=== PATIENT | female | born 1960 | race African-American/Black ===

== ENCOUNTER 2017-01-19 10:45 | Inpatient (IN) | payer OTHER ==
[2017-01-19] MEDS ORDERED: HEMOQUE TEST 1 EACH EACH ONE (11:20)
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
[2017-01-19] MEDS ORDERED: SODIUM CHLORIDE 1,000 ML IV SCH ×2 (11:45→14:30)
[2017-01-19] MEDS ORDERED: ASPIRIN 300 MG SUPP.RECT RC ONE (12:26)
[2017-01-19 12:46] LABS: MCH 29.5 pg (25.7-33.7); MEAN CELL VOLUME 86.9 fl (80-96); MEAN PLT VOLUME 8.5 fl (7.5-11.1); PLATELET COUNT 425 K/MM3 (134-434); RDW 17.4 % (11.6-15.6)
[2017-01-19 12:49] LABS: WHITE BLOOD COUNT 31.8 K/mm3 (4.0-10.0)
[2017-01-19] MEDS ORDERED: METRONIDAZOLE 500 MG PREMIXED 100 ML IVPB ONE ×2 (12:56→13:15)
[2017-01-19] MEDS ORDERED: ASPIRIN 300 MG SUPP.RECT PR ONE (12:56)
[2017-01-19 13:00] LABS: INR 1.31 (0.82-1.09); PROTHROMBIN TIME (PATIENT) 14.5 SEC (9.98-11.88)
[2017-01-19] MEDS ORDERED: SODIUM CHLORIDE 500 ML IV STA ×2 (13:02→13:50)
[2017-01-19 13:12] LABS: ALBUMIN 1.2 g/dl (3.4-5.0); ANION GAP 19 (8-16); CALCIUM 8.7 mg/dL (8.5-10.1); CHOLESTEROL 133 mg/dL (50-200); CO2 25 mmol/L (21-32); GLUCOSE,RANDOM 82 mg/dL (74-106); SGPT/ALT 25 U/L (12-78)
[2017-01-19 13:15] LABS: URINE APPEARANCE SLCLOUDY; URINE BILIRUBIN NEGATIVE (NEGATIVE); URINE BLOOD NEGATIVE (NEGATIVE); URINE COLOR AMBER; URINE GLUCOSE (UA) NEGATIVE (NEGATIVE); URINE KETONE NEGATIVE (NEGATIVE); URINE NITRITE NEGATIVE (NEGATIVE); URINE PROTEIN NEGATIVE (NEGATIVE); URINE UROBILINOGEN NEGATIVE E.U./dl (0.2-1.0)
[2017-01-19 13:19] LABS: URINE LEUK ESTERASE TRACE (NEGATIVE)
[2017-01-19 13:19] LABS: ALLENS TEST POSITIVE; ART PUNCT SITE RIGHT RADIAL; ARTERIAL BLD GAS O2 SATURATION 94.5 % (90-98.9); ARTERIAL BLOOD GAS BASE EXCESS 2.6 meq/l (-2-2); ARTERIAL BLOOD GAS HCO3 26.6 meq/L (22-26); ARTERIAL BLOOD GAS PO2 77.9 mmHg (80-100); ARTERIAL BLOOD GAS pH 7.43 (7.35-7.45); LPM/O2% 4.5 L; PT. ON O2? YES; TYPE OF O2 N/C
[2017-01-19 13:20] LABS: ALK PHOS 297 U/L (45-117); BILIRUBIN,TOTAL 2.4 mg/dL (0.2-1.0); LDL CHOLESTEROL (ONLY SJRH) 93 mg/dL (5-100); TOT PROT 6.5 g/dl (6.4-8.2); TROPONIN I < 0.02 ng/ml (0.00-0.05)
[2017-01-19 13:24] LABS: URINE HYALINE CAST 53 /lpf; URINE MUCUS RARE; URINE RBC 1 /hpf (0-3); URINE WBC 8 /hpf (3-5); YEAST RARE
[2017-01-19 13:24] LABS: METAMYELOCYTE 5 % (0-2)
[2017-01-19 13:25] LABS: PLATELET ESTIMATE ADEQUATE (NORMAL)
[2017-01-19 13:30] LABS: CREATININE 8.9 mg/dL (0.55-1.02); SGOT/AST 140 U/L (15-37)
[2017-01-19] MEDS ORDERED: PIPERACILLIN/TAZOB 2.25 GM 2.25 GM in DEXTROSE 5%-WATER - 50 ML IVPB ONE (13:34)
[2017-01-19] MEDS ORDERED: VANCOMYCIN 1,500 MG in DEXTROSE 5%-WATER - 500 ML IVPB ONE (13:35)
--- NOTE | 2017-01-19 14:24 | CONSULT ---
Consult Consult Specialty:: Neurology Reason for Consultation:: Altered mental status - History of Present Illness History of Present Illness: 56 year old woman, history of hypertension, hyperlipidemia, COPD, epilepsy, schizoaffective disorder, CKD, gout last known normal yesterday, presented to ED with altered mental status. The patient was recently admitted to [facility] for pneumonia and septic shock; she was discharged on 12/30/16 to [facility]. Per EMS, the patient was at her baseline last night, which is alert and oriented, however has been altered since today. Neurology consult placed for possible stroke- as per ED attending patient noted to have right gaze preference and right side weakness. CT head showed no acute findings. Laboratory data shows wbc 31, cr 8.9 Exam limited due to mental status - Past Medical History Cardio/Vascular: Yes: HTN Renal/: Yes: Renal Inusuff Psych: Yes: Depression Musculoskeletal: Yes: Chronic low back pain Rheumatology: Yes: Gout - Alcohol/Substance Use Hx Alcohol Use: Yes History of Substance Use: reports: Cocaine - Smoking History Smoking history: Former smoker Have you smoked in the past 12 months: No If you are a former smoker, when did you quit?: 2001 - Social History Usual Living Arrangement: Alone Home Medications - Allergies Allergies/Adverse Reactions: Allergies Allergy/AdvReac Type Severity Reaction Status Date / Time haloperidol [From Haldol] Allergy Mild itchings, Verified 01/19/17 11:18 stiffness seasonal Allergy Mild itch/rash Uncoded 01/19/17 11:18 - Home Medications Home Medications: Ambulatory Orders Aspirin [ASA -] 81 mg PO DAILY 12/21/16 Diphenhydramine HCl [Benadryl Capsule -] 25 mg PO Q6H 12/21/16 Divalproex [Depakote -] 500 mg PO BID 12/21/16 Folic Acid 1 mg PO DAILY 12/21/16 Furosemide [Lasix] 40 mg PO DAILY 12/21/16 Loratadine [Claritin] 10 mg PO DAILY 12/21/16 Montelukast Na [Singulair -] 10 mg PO HS 12/21/16 Multivitamin [Poly-Vitamin] 1 each PO DAILY 12/21/16 Propranolol HCl 20 mg PO DAILY 12/21/16 Albuterol 0.083% Nebulizer Adry [Ventolin 0.083% Nebulizer Soln -] 1 neb NEB Q6H PRN 12/23/16 Gabapentin [Neurontin -] 400 mg PO Q8H 12/23/16 Insulin Glargine,Hum.rec.anlog [Lantus (10mL VIAL) -] 34 units SQ HS 12/23/16 Mupirocin Ointment [Bactroban 2% Ointment -] 1 applic TP TID 12/23/16 Nebulizer [Nasoneb Nasal Nebulizer] 1 each MC BID 12/23/16 Travoprost [Travatan Z] 1 HS 12/23/16 Oxycodone HCl 10 mg PO TID PRN 12/27/16 Aripiprazole [Abilify -] 10 mg PO DAILY tablet 12/29/16 Chlorhexidine Gluconate [Hibiclens For Decolonization -] 1 applic TP HS bottle 12/29/16 Lactobacillus Acidophilus [Acidophilus Lactobacillus] 1 each PO BID 30 Days 12/14 Metronidazole [Flagyl -] 500 mg PO TID tablet 12/29/16 Prednisone [Deltasone -] 30 mg PO DAILY tablet 12/29/16 Ranitidine [Zantac -] 150 mg PO BID tablet 12/29/16 Salmeterol/Fluticasone [Advair 100Mcg/50Mcg -] 1 puff IH BID inhaler 12/29/16 Valsartan [Diovan] 320 mg PO DAILY tablet 12/29/16 Venlafaxine HCl ER [Effexor Xr -] 150 mg PO DAILY cap.er.24h 12/29/16 Family Disease History - Family Disease History Family History: Unable to Obtain Family Disease History: Diabetes: Father, Heart Disease: Mother Review of Systems Unable to obtain ROS, reason: due to mental status Physical Exam Vital Signs: Vital Signs Temperature 98.5 F 01/19/17 11:15 Pulse Rate 102 H 01/19/17 11:15 Respiratory Rate 16 01/19/17 11:15 Blood Pressure 101/75 01/19/17 11:15 O2 Sat by Pulse Oximetry (%) 85 L 01/19/17 11:15 Constitutional: Yes: No Distress Eyes: Yes: Conjunctiva Clear HENT: Yes: Atraumatic, Normocephalic Cardiovascular: Yes: S1, S2 Neurological: Yes: Other (opens eyes to sternal rub, briefly followed simple command of showing two fingers corneal intact bilaterally, roving eye movements seen no obvious facial weakness difficult to examine due to mental status, does withdraw to noxious stimuli in all ext but appears to localize left> right?) Labs: CBC, BMP 01/19/17 12:19 Assessment/Plan 56 year old woman, history of hypertension, hyperlipidemia, COPD, epilepsy, schizoaffective disorder, CKD, gout last known normal yesterday, presented to ED with altered mental status. Neurology consult placed for possible stroke- as per ED attending patient noted to have right gaze preference and right side weakness. CT head showed no acute findings. Laboratory data shows wbc 31, cr 8.9 CT head no acute findings Possible stroke, metabolic encephalopathy Recommend MRI brain to determine if new stroke seen, further recs depending on MRI Infectious workup Continue supportive care
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
--- NOTE | 2017-01-19 15:45 | PN ---
Teaching Attending Note Name of Resident: Brodie Alas ATTENDING PHYSICIAN STATEMENT I saw and evaluated the patient. I reviewed the resident's note and discussed the case with the resident. I agree with the resident's findings and plan as documented. SUBJECTIVE: This is a 56-year-old woman with significant past medical history of HTN, hyperlipidemia, COPD, seizures, schizoaffective disorder, CAD, and gout who was sent to the ER from [facility] because of altered mental status. She had been admitted 12/21-12/30 with sepsis, pneumonia and C. difficile colitis. OBJECTIVE: Vital Signs Period Temp Pulse Resp BP Sys/Chahal Pulse Ox Last 24 Hr 98.5 F 96-102 14-16 101-128/72-102 85-92 HEART: S1 S2, RRR LUNGS: Clear ABDOMEN: Obese, soft, non-distended, normal BS, no apparent tenderness EXTREMITIES: 1+ edema, fluctuant nodular lesions over left medial malleolus and left 1st MTP joint ASSESSMENT AND PLAN: 1. Severe sepsis - Possible pneumonia, possible C. diff colitis - Zosyn, Vancomycin, Flagyl given in ER - IV fluid - Recheck lactic acid - ID consult 2. Acute kidney injury secondary to dehydration and sepsis - IV fluid - Hold Lasix - Monitor BUN, creatinine - Nephrology consult 3. Acute metabolic encephalopathy secondary to sepsis and DOMINIC 4. Hypertension - Hold antihypertensives secondary to hypotension 5. Hyperlipidemia 6. Seizure disorder - Continue Depakote 7. Schizoaffective disorder - Continue Depakote, Abilify, Effexor 8. CAD - Continue aspirin 9. COPD - Stable 10. History of gout
--- NOTE | 2017-01-19 16:04 | EKG ---
Test Reason : Blood Pressure : / mmHG Vent. Rate : 099 BPM Atrial Rate : 099 BPM P-R Int : 156 ms QRS Dur : 094 ms QT Int : 358 ms P-R-T Axes : 039 -10 011 degrees QTc Int : 459 ms NORMAL SINUS RHYTHM MODERATE VOLTAGE CRITERIA FOR LVH, MAY BE NORMAL VARIANT BORDERLINE ECG WHEN COMPARED WITH ECG OF 24-DEC-2016 22:57, T WAVE INVERSION NO LONGER EVIDENT IN ANTERIOR LEADS Confirmed by TOSHA CAIN MD ([id number]) on 01/19/2017 4:04:36 PM Referred By: Confirmed By:TOSHA CAIN MD
--- NOTE | 2017-01-19 16:20 | PN ---
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 (short form) - Note 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: ID consult dictated imp/reccd 56 year old woman admitted from [facility]- she was hospitalized 12/21 to 12/30 with CAP and renal failure, she had an episode of gout prior to d/c to SNF, llabs 01/10 at [place] with bun/cr- 20/ 2.7 wbc of 15k she was started on AUgmentin at the [facility] 01/13 for URI this am she was noted to be lethargic at the snf and sent to the ED here she was found to be hypotensive, lethargic, with wbc of 30k and cr of 8.9 lactic acid was 1.9 SEPSIS Acute renal failure she received vanco/zosyn/flagyl in ED receiving IVF- now more alert ?source will send for ct scan of chest/abd/pelvis legionella urinary antigen continue zosyn/flagyl stool cdiff xray left foot- two fluctuant painful areas- ?prior gout, ?abscess vanco trough in am check uric acid levaquin one dose pending legionella urinary antigen icu monitoring
[2017-01-19] MEDS ORDERED: LEVOFLOXACIN 500 MG IVPB 100 ML IVPB ONE (17:57)
[2017-01-19 18:02] VITALS: BMI 30.8
--- NOTE | 2017-01-19 18:13 | CONSULT ---
Consultation: REQUESTING PROVIDER: Dr. Michele CONSULT REQUEST: We have been asked to medically evaluate this patient for ICU care HISTORY OF PRESENT ILLNESS: 56 yo M w/ h/o HTN, HLD, COPD, seziures, schizoaffective d/o, CKD, CAD, gout BIBEMS from senior care to the ED for AMS. Per ED chart, patient was treated for septic shock 2/2 pneumonia and discharged to senior care on 12/30/16. Today, she's found to be confused and unarousable. REVIEW OF SYSTEMS (Unable to assess due to AMS): CONSTITUTIONAL: Absent: fever, chills, diaphoresis, generalized weakness, malaise, loss of appetite, weight change HEENT: Absent: rhinorrhea, nasal congestion, throat pain, throat swelling, difficulty swallowing, mouth swelling, ear pain, eye pain, visual changes CARDIOVASCULAR: Absent: chest pain, syncope, palpitations, irregular heart rate, lightheadedness , peripheral edema RESPIRATORY: Absent: cough, shortness of breath, dyspnea with exertion, orthopnea, wheezing, stridor, hemoptysis GASTROINTESTINAL: Absent: abdominal pain, abdominal distension, nausea, vomiting, diarrhea, constipation, melena, hematochezia GENITOURINARY: Absent: dysuria, frequency, urgency, hesitancy, hematuria, flank pain, genital pain MUSCULOSKELETAL: Absent: myalgia, arthralgia, joint swelling, back pain, neck pain SKIN: Absent: rash, itching, pallor HEMATOLOGIC/IMMUNOLOGIC: Absent: easy bleeding, easy bruising, lymphadenopathy, frequent infections ENDOCRINE: Absent: unexplained weight gain, unexplained weight loss, heat intolerance, cold intolerance NEUROLOGIC: Absent: headache, focal weakness or paresthesias, dizziness, unsteady gait, seizure, mental status changes, bladder or bowel incontinence PSYCHIATRIC: Absent: anxiety, depression, suicidal or homicidal ideation, hallucinations. PHYSICAL EXAMINATION Vital Signs Temperature 98.5 F 01/19/17 11:15 Pulse Rate 96 H 01/19/17 15:30 Respiratory Rate 20 01/19/17 15:30 Blood Pressure 98/64 01/19/17 15:30 O2 Sat by Pulse Oximetry (%) 92 L 01/19/17 15:30 GENERAL: unarousable, lethargic, open eyes minimally and briefly, eyes rolled backwards. HEAD: Normal with no signs of trauma. EYES: Pupils round and dilated LUNGS: CTAB anteriorly HEART: Tachycardic, normal S1 and S2 without murmur, rub or gallop. ABDOMEN: Soft, obese, normoactive bowel sounds, hyperpigmentations/subcutaenous lesions across abd LOWER EXTREMITIES: 2 pus? collection on medial L foot and L big toe. . NEUROLOGICAL: unable to assess ABG Results ABG pH 7.43 (7.35-7.45) 01/19/17 13:04 ABG pCO2 at Pt Temp 40.7 mmHg (35-45) 01/19/17 13:04 ABG pO2 at Pt Temp 77.9 mmHg (80-100) L 01/19/17 13:04 ABG HCO3 26.6 meq/L (22-26) H 01/19/17 13:04 ABG O2 Sat (Measured) 94.5 % (90-98.9) 01/19/17 13:04 ABG O2 Content 11.2 % vol (15-22) L 01/19/17 13:04 ABG Base Excess 2.6 meq/l (-2-2) H 01/19/17 13:04 CBCD WBC 31.8 K/mm3 (4.0-10.0) H* D 01/19/17 12:19 RBC 3.20 M/mm3 (3.60-5.2) L 01/19/17 12:19 Hgb 9.4 GM/dL (10.7-15.3) L D 01/19/17 12:19 Hct 27.8 % (32.4-45.2) L 01/19/17 12:19 MCV 86.9 fl (80-96) 01/19/17 12:19 MCHC 34.0 g/dl (32.0-36.0) 01/19/17 12:19 RDW 17.4 % (11.6-15.6) H D 01/19/17 12:19 Plt Count 425 K/MM3 (134-434) D 01/19/17 12:19 MPV 8.5 fl (7.5-11.1) 01/19/17 12:19 CMP Sodium 131 mmol/L (136-145) L 01/19/17 11:41 Potassium 4.6 mmol/L (3.5-5.1) 01/19/17 11:41 Chloride 87 mmol/L (98-107) L D 01/19/17 11:41 Carbon Dioxide 25 mmol/L (21-32) 01/19/17 11:41 Anion Gap 19 (8-16) H 01/19/17 11:41 BUN 122 mg/dL (7-18) H* D 01/19/17 11:41 Creatinine 8.9 mg/dL (0.55-1.02) H* D 01/19/17 11:41 Creat Clearance w eGFR 4.59 (>60) 01/19/17 11:41 Calcium 8.7 mg/dL (8.5-10.1) 01/19/17 11:41 Total Bilirubin 2.4 mg/dL (0.2-1.0) H D 01/19/17 11:41 AST 140 U/L (15-37) H D 01/19/17 11:41 ALT 25 U/L (12-78) D 01/19/17 11:41 Alkaline Phosphatase 297 U/L (45-117) H D 01/19/17 11:41 Total Protein 6.5 g/dl (6.4-8.2) 01/19/17 11:41 Albumin 1.2 g/dl (3.4-5.0) L D 01/19/17 11:41 Active Medications Generic Name Dose Route Start Last Admin Trade Name Kikoq PRN Reason Stop Dose Admin Sodium Chloride 1,000 mls @ 42 mls/hr 01/19/17 11:45 01/19/17 15:36 Normal Saline - IV 42 mls/hr ASDIR ADELINE Administration Sodium Chloride 1,000 mls @ 125 mls/hr 01/19/17 14:30 01/19/17 15:36 Normal Saline - IV 125 mls/hr ASDIR ADELINE Administration Piperacillin Sod/Tazobactam Sod 50 mls @ 100 mls/hr 01/19/17 18:00 Zosyn 2.25gm Ivpb (Pre-Docked) IVPB Q8H-IV ADELINE Protocol Metronidazole 100 mls @ 100 mls/hr 01/19/17 18:00 Flagyl 500mg Premixed Ivpb - IVPB Q8H-IV ADELINE Insulin Aspart 1 vial 01/19/17 17:15 Novolog Vial Sliding Scale - SQ BIDI ADELINE Protocol Valproate Sodium 500 mg 01/19/17 22:00 Depacon Injection - IVPB BID [facility] Imaging Foot X-ray 01/19: The ankle mortise is intact. There is significant soft tissue swelling over the medial malleolus. No acute fracture, dislocation or focal bone destruction is identified. There is moderate soft tissue swelling over dorsal aspect of the foot CT Abd 01/19: Bibasal consolidation/pneumonia with a trace of bilateral pleural effusion. Moderate stranding of the perinephric fat which is nonspecific and may be chronic. If clinically concerned correlation with contrast-enhanced CT scan of the abdomen could be obtained for further evaluation of the kidneys, to rule out pyelonephritis. There is no evidence of hydroureteronephrosis or hydroureter, bilaterally. A few diverticula in the sigmoid colon without evidence of acute diverticulitis CXR 01/19: Left breast, soft tissues of the chest projecting over the left lower lung zone. Left retrocardiac infiltrate cannot be entirely excluded. CT head 01/19: No evidence of acute intracranial hemorrhage, edema, midline shift , mass effect, or skull fracture. No CT evidence of acute territorial infarction ASSESSMENT/PLAN: 56 yo M w/ h/o HTN, HLD, COPD, seziures, schizoaffective d/o, CKD, CAD, gout admitted to the ICU for severe sepsis and acute kidney injury. ID: Severe sepsis 2/2 PNA vs. C. diff - Leukocytosis, afrebile, 8 WBC on UA, bibasal pneumonia with pleural effusion on CT - Pending cultures - Borderline lactic acid, will trend - Continue flagyl, levaquin, zosyn - Daily CBCD and CXR Renal: DOMINIC on CKD - BUN/Cr: 122/8.9, Unknown etiology - Normal baseline - Sustained DOMINIC in previous admission, Cr 6.7 - Renal consult - Cont. hydration Neuro: AMS likely 2/2 uremic encephalopathy from DOMINIC - MRI to r/o stroke - Cont. seizure medications - Neuro check Q2H GI: Transaminitis 2/2 severe sepsis - Cont. to monitor liver chemistry FEN - NS 125ml/hr - Cont. to monitor electrolytes - NPO - Prophylaxis - DVT: heparin SQ - GI: not indicated Disposition - Continues to require inpatient ICU care Code status - Full code Visit type - Emergency Visit Emergency Visit: No - New Patient This patient is new to me today: Yes Date on this admission: 01/19/17 - Critical Care Critical Care patient: Yes Total Critical Care Time (in minutes): 45 Critical Care Statement: The care of this patient involved high complexity decision making to prevent further life threatening deterioration of the patient 's condition and/or to evalute & treat vital organ system(s) failure or risk of failure.
--- NOTE | 2017-01-19 18:21 | CONS ---
INFECTIOUS DISEASE CONSULTATION DATE OF CONSULTATION: DATE OF DICTATION: 01/19/2017 REQUESTED BY: The hospitalist service. DICTATED BY: Andreas Garcia MD HISTORY OF PRESENT ILLNESS: This is a 56-year-old woman who was recently hospitalized at [facility] from 12/21 to 12/30 when she presented with change in mental status. She had acute respiratory failure with acute kidney injury, left lower lobe pneumonia, hyponatremia and sepsis. She was treated with ceftriaxone and Zithromax for community-acquired pneumonia. She had negative blood cultures. She had watery diarrhea. Was found to have a positive C. diff antigen and was treated with Flagyl for a total of 10 days. She was found to have acute gout of her left big toe, and she was started on steroids. She was discharged to rehab and she is now readmitted from rehab again with change in mental status. LABS: Labs from admission to rehab, her BUN and creatinine were 5 and 0.8 on December 31. When they were repeated on January 10, she had a BUN and creatinine of 20 and 2.7. White count was 15K. She was started on Augmentin at the [facility] for a URI. She was noted this morning to be lethargic and sent to the emergency room. In the emergency room, she was found to be hypotensive, lethargic with a white count of 30,000 and a creatinine of 8.9. Her lactic acid was 1.9. She was admitted to the ICU for sepsis and acute renal failure. She is currently lethargic but responsive. She answers her name intermittently. She opens her eyes to voice, and she complains of pain all over. PAST MEDICAL HISTORY: Her past medical history is notable for: 1. COPD 2. Hypertension 3. Pneumonia 4. Gout 5. Sepsis 6. Kidney disease 7. C. difficile 8. She has schizoaffective disorder. 9. On the prior admission, she had acute renal failure. MEDICATIONS: Her medications at the skilled nursing include: 1. Aspirin 2. Depakote 3. Folic acid 4. Loratadine 5. Singulair 6. Multivitamins 7. Propranolol 8. Albuterol nebulizer 9. Gabapentin 10. Insulin 11. Xalatan eye drops 12. Abilify 13. Zantac 14. Valsartan 15. Effexor 16. Acidophilus capsules 17. Advair Discus 18. Bacitracin ointment to her arms 19. Percocet p.r.n. She was also on: 1. Calcium with vitamin D 2. Augmentin 875 b.i.d., started on the 3. Allopurinol 100 b.i.d. 4. Motrin 200 q 6 hours p.r.n. PAST MEDICAL HISTORY: Her past medical history is notable for: 1. Coronary artery disease 2. COPD 3. History of depression 4. Apparently, a seizure disorder. (It is unclear whether that is true.) FAMILY HISTORY: Her family history is not available. SOCIAL HISTORY: She is a former smoker, former substance user. ALLERGIES: 1. HALDOL 2. SEASONAL ALLERGIES REVIEW OF SYSTEMS: Review of systems is not obtainable at present. PHYSICAL EXAM: Vital signs: She is afebrile. Temperature is 98.5. Pulse is 96. Blood pressure 98/64. Respiratory rate is 20. O2 saturation is 92%. HEENT exam: She is normocephalic. Her eyes are anicteric. Her mouth is dry. Her neck is supple. She has no meningeal signs. Lungs: Lungs have bilateral rhonchi at the bases. Heart: Her heart is regular rate and rhythm. Abdomen: Her abdomen is soft/nontender. Extremities: Notable for two fluctuant lesions on her left foot that are quite tender to touch. One is at the junction of her big toe on her foot, and the other is below her malleolus. LABS: Her labs are notable for a white count of 31.8. Hemoglobin is 9.4. Platelets are 425. Her BUN and creatinine are 122 and 8.9 with a total bilirubin of 2.4. AST of 140, ALT of 25 and an alkaline phosphatase of 297. Ammonia is less than 11. Her urinalysis is notable for 8 white cells and 53 hyaline casts. Her Tylenol level was less than 2. On prior admission, she was HIV negative, and her viral load was not detectable. Cultures are pending. SUMMARY: In summary, this is a 56-year-old woman with sepsis and acute renal failure. She has received vancomycin, Zosyn and Flagyl in the emergency room. She is receiving IV fluids and is more alert. Source is not clear. RECOMMENDATIONS: 1. Will send her for a CAT of her chest, abdomen and pelvis. 2. Will x-ray her left foot. She has two fluctuant, painful areas. Would be considered whether this is prior gout or does she have an abscess there. 3. Would continue Zosyn and Flagyl. 4. Will check a C. difficile given the prior history of legionella urinary antigen. 5. A vancomycin trough. 6. Uric acid level. 7. She is to be monitored in the ICU. 8. Will make further recommendations based on the results of these tests. ANDREAS GARCIA M.D. [id number]
[2017-01-19] MEDS: INSULIN SLIDING SCALE (NOVOLOG) 1 VIAL SQ SCH (19:45)
--- NOTE | 2017-01-19 20:13 | CONSULT ---
Consult Consult Specialty:: Nephrology Reason for Consultation:: DOMINIC - History of Present Illness Chief Complaint: sent in from [place] for change in mental status History of Present Illness: Pt is a 56 year old female with pmhx of CKD, DOMINIC, gout, CAD, COPD, chol, HTN, epilepsy and CAD who was sent in to the ER for altered mental status. Pt is altered and is unable to answer questions or give history. Her brother is at bedside and says that she has been like this since Tuesday. She was recently discharged from the hospital after being admitted and treated for PNA. She was found to be in acute renal failure and I was called to evaluate her. Her creatinine was 0.89 on Dec 31 and GFR was 89. She was on motrin and on diovan in the [place]. - History Source History Provided By: Medical Record Limitations to Obtaining History: Clinical Condition - Past Medical History Cardio/Vascular: Yes: CAD, HTN, Hyperlipdemia Renal/: Yes: Renal Inusuff ...: No Psych: Yes: Depression Musculoskeletal: Yes: Chronic low back pain Rheumatology: Yes: Gout - Alcohol/Substance Use Hx Alcohol Use: Yes History of Substance Use: reports: Cocaine - Smoking History Smoking history: Former smoker Have you smoked in the past 12 months: No If you are a former smoker, when did you quit?: 2001 - Social History Usual Living Arrangement: Alone Home Medications - Allergies Allergies/Adverse Reactions: Allergies Allergy/AdvReac Type Severity Reaction Status Date / Time haloperidol [From Haldol] Allergy Mild itchings, Verified 01/19/17 11:18 stiffness seasonal Allergy Mild itch/rash Uncoded 01/19/17 11:18 - Home Medications Home Medications: Ambulatory Orders Acidoph/L.bulg/Bif.b/S.thermop [Bacid Caplet] 1 each PO BID 01/19/17 Albuterol 0.083% Nebulizer Adry [Ventolin 0.083%] 1 neb NEB QID 01/19/17 Aripiprazole [Abilify] 10 mg PO DAILY 01/19/17 Aspirin [ASA -] 81 mg PO DAILY 01/19/17 Bacitracin 30 gm TP DAILY 01/19/17 Divalproex *ER* [Depakote *ER* -] 500 mg PO BID 01/19/17 Folic Acid 1 mg PO DAILY 01/19/17 Gabapentin 400 mg PO TID 01/19/17 Insulin Glargine,Hum.rec.anlog [Lantus (nf)] 34 units SQ HS 01/19/17 Latanoprost 0.005% Eye Drops [Xalatan 0.005% Eye Drops -] 1 drop OU HS 01/19/17 Loratadine [Alavert] 10 mg PO DAILY 01/19/17 Montelukast Na [Singulair -] 10 mg PO HS 01/19/17 Multivitamin [Poly-Vitamin] 1 each PO DAILY 01/19/17 Oxycodone HCl/Acetaminophen [Percocet 10-325 mg Tablet] 1 each PO BID 01/19/17 Propranolol HCl [Inderal] 20 mg PO DAILY 01/19/17 Ranitidine [Zantac -] 150 mg PO BID 01/19/17 Salmeterol/Fluticasone [Advair 100Mcg/50Mcg -] 1 inh PO BID 01/19/17 Valsartan 320 mg PO DAILY 01/19/17 Venlafaxine HCl ER [Effexor Xr -] 150 mg PO DAILY 01/19/17 Family Disease History - Family Disease History Family Disease History: Diabetes: Father, Heart Disease: Mother Review of Systems Unable to obtain ROS, reason: pt lethargic Physical Exam Vital Signs: Vital Signs Temperature 98.5 F 01/19/17 11:15 Pulse Rate 102 H 01/19/17 17:38 Respiratory Rate 14 01/19/17 17:38 Blood Pressure 142/98 01/19/17 17:38 O2 Sat by Pulse Oximetry (%) 97 01/19/17 19:39 Constitutional: Yes: Calm HENT: Yes: Atraumatic Cardiovascular: Yes: S1, S2 Respiratory: Yes: CTA Bilaterally, On Nasal O2 Gastrointestinal: Yes: Soft, Abdomen, Obese Renal/: Yes: Byers Present Musculoskeletal: Yes: Joint Swelling, Muscle Weakness Edema: Yes Edema: LLE: 1+, RLE: 1+ Neurological: Yes: Lethargy Labs: Laboratory Tests 12/22/16 01/19/17 01/19/17 05:20 11:41 11:41 WBC Hgb Plt Count INR 1.31 H ABG pH ABG pCO2 at Pt Temp ABG pO2 at Pt Temp ABG HCO3 ABG O2 Sat (Measured) ABG O2 Content ABG Base Excess Sodium 131 L Potassium 4.6 Chloride 87 L D Carbon Dioxide 25 Anion Gap 19 H BUN 122 H* D Creatinine 8.9 H* D Creat Clearance w eGFR 4.59 Calcium 8.7 Total Bilirubin 2.4 H D AST 140 H D ALT 25 D Alkaline Phosphatase 297 H D Ammonia Creatine Kinase 66 Troponin I < 0.02 Total Protein 6.5 Albumin 1.2 L D Triglycerides 178 H D Cholesterol 133 D Total LDL Cholesterol 93 HDL Cholesterol 10 L D Urine Color Urine Appearance Urine pH Ur Specific [place] Urine Protein Urine Glucose (UA) Urine Ketones Urine Blood Urine Nitrite Urine Bilirubin Urine Urobilinogen Ur Leukocyte Esterase Urine RBC Urine WBC Ur Epithelial Cells Hyaline Casts Urine Mucus Urine Yeast Acetaminophen Valproic Acid PANCHO Screen Negative 01/19/17 01/19/17 01/19/17 12:19 12:19 12:50 WBC 31.8 H* D Hgb 9.4 L D Plt Count 425 D INR ABG pH ABG pCO2 at Pt Temp ABG pO2 at Pt Temp ABG HCO3 ABG O2 Sat (Measured) ABG O2 Content ABG Base Excess Sodium Potassium Chloride Carbon Dioxide Anion Gap BUN Creatinine Creat Clearance w eGFR Calcium Total Bilirubin AST ALT Alkaline Phosphatase Ammonia Creatine Kinase Troponin I Total Protein Albumin Triglycerides Cholesterol Total LDL Cholesterol HDL Cholesterol Urine Color Soo Urine Appearance Slcloudy Urine pH 5.0 Ur Specific [place] 1.016 Urine Protein Negative Urine Glucose (UA) Negative Urine Ketones Negative Urine Blood Negative Urine Nitrite Negative Urine Bilirubin Negative Urine Urobilinogen Negative Ur Leukocyte Esterase Trace H D Urine RBC 1 Urine WBC 8 Ur Epithelial Cells Few Hyaline Casts 53 Urine Mucus Rare Urine Yeast Rare Acetaminophen Valproic Acid 25.990 L PANCHO Screen 01/19/17 01/19/17 01/19/17 12:56 12:58 13:04 WBC Hgb Plt Count INR ABG pH 7.43 ABG pCO2 at Pt Temp 40.7 ABG pO2 at Pt Temp 77.9 L ABG HCO3 26.6 H ABG O2 Sat (Measured) 94.5 ABG O2 Content 11.2 L ABG Base Excess 2.6 H Sodium Potassium Chloride Carbon Dioxide Anion Gap BUN Creatinine Creat Clearance w eGFR Calcium Total Bilirubin AST ALT Alkaline Phosphatase Ammonia < 11.0 L Creatine Kinase Troponin I Total Protein Albumin Triglycerides Cholesterol Total LDL Cholesterol HDL Cholesterol Urine Color Urine Appearance Urine pH Ur Specific [place] Urine Protein Urine Glucose (UA) Urine Ketones Urine Blood Urine Nitrite Urine Bilirubin Urine Urobilinogen Ur Leukocyte Esterase Urine RBC Urine WBC Ur Epithelial Cells Hyaline Casts Urine Mucus Urine Yeast Acetaminophen < 2.0 L Valproic Acid PANCHO Screen Laboratory Tests 12/27/16 12/28/16 12/29/16 05:35 08:55 07:40 Creatinine 1.2 H D 0.7 D 0.7 Imaging - Results Chest X-ray: Report Reviewed Cat Scan: Report Reviewed Problem List - Problems (1) Acute renal failure Code(s): N17.9 - ACUTE KIDNEY FAILURE, UNSPECIFIED Qualifiers: Acute renal failure type: unspecified Qualified Code(s): N17.9 - Acute kidney failure, unspecified (2) Altered mental status Code(s): R41.82 - ALTERED MENTAL STATUS, UNSPECIFIED Qualifiers: Altered mental status type: unspecified Qualified Code(s): R41.82 - Altered mental status, unspecified (3) Dehydration Code(s): E86.0 - DEHYDRATION (4) Sepsis Code(s): A41.9 - SEPSIS, UNSPECIFIED ORGANISM Qualifiers: Sepsis type: sepsis due to unspecified organism Qualified Code(s): A41.9 - Sepsis, unspecified organism (5) CKD (chronic kidney disease) Code(s): N18.9 - CHRONIC KIDNEY DISEASE, UNSPECIFIED (6) COPD (chronic obstructive pulmonary disease) Code(s): J44.9 - CHRONIC OBSTRUCTIVE PULMONARY DISEASE, UNSPECIFIED Qualifiers : COPD type: COPD with acute exacerbation Qualified Code(s): J44.1 - Chronic obstructive pulmonary disease with (acute) exacerbation (7) Depressed Code(s): F32.9 - MAJOR DEPRESSIVE DISORDER, SINGLE EPISODE, UNSPECIFIED (8) Bilateral lower extremity edema Code(s): R60.0 - LOCALIZED EDEMA Assessment/Plan Current Medications Generic Name Dose Route Start Last Admin Trade Name Freq PRN Reason Stop Dose Admin Heparin Sodium (Porcine) 5,000 unit 01/19/17 22:00 Heparin - SQ BID ADELINE Sodium Chloride 1,000 mls @ 42 mls/hr 01/19/17 11:45 01/19/17 15:36 Normal Saline - IV 42 mls/hr ASDIR ADELINE Administration Sodium Chloride 1,000 mls @ 125 mls/hr 01/19/17 14:30 01/19/17 15:36 Normal Saline - IV 125 mls/hr ASDIR ADELINE Administration Piperacillin Sod/Tazobactam Sod 50 mls @ 100 mls/hr 01/19/17 18:00 Zosyn 2.25gm Ivpb (Pre-Docked) IVPB Q8H-IV ADELINE Protocol Metronidazole 100 mls @ 100 mls/hr 01/19/17 18:00 Flagyl 500mg Premixed Ivpb - IVPB Q8H-IV ADELINE Insulin Aspart 1 vial 01/19/17 17:15 Novolog Vial Sliding Scale - SQ BIDI ADELINE Protocol Valproate Sodium 500 mg 01/19/17 22:00 Depacon Injection - IVPB BID ADELINE Impression 1. DOMINIC 2. CKD 3. hyponatremia 4. altered mental status 5. gout 6. PNA 7. Depression 8. COPD 9. sepsis 10. positive hep C ab 11. HTN Plan - agree with fluids - send urine lytes and creatinine - place byers and monitor output - repeat bmp - will check kidney and bladder ultrasound - ID input appreciated - check uric acid as it was greater than 14 on last admission - stop motrin and avoid nsaids - stop diovan for now - will follow Dr Marcelino
--- NOTE | 2017-01-19 20:27 | CONSULT ---
Consult Consult Specialty:: Pulm/CC - History of Present Illness History of Present Illness: Pt is a 56yr old woman with PMHx of COPD, HTN, HLD, CAD, HepC, seizures, schizoaffective disorder and gout. Pt was discharged from [facility] to [facility] after admission for pneumonia/sepsis for treatment of c. diff. Pt presents to the ER on 01/19 with CC of AMS. Head CT with no acute pathology. BUN/Cr 122/8.9 ( Cr 0.7 on 12/29/16), WBC 31.8 hgb 9.4 (down from 11 three weeks ago) and transaminities. Pt admitted to the ICU for further management. Upon assessment pt is lethargic, minimally responsive to stimuli. 114/80, 96HR (sinus on tele) RR 15. - History Source History Provided By: Patient, Medical Record - Past Medical History Cardio/Vascular: Yes: CAD, HTN, Hyperlipdemia Renal/: Yes: Renal Inusuff ...: No Psych: Yes: Depression Musculoskeletal: Yes: Chronic low back pain Rheumatology: Yes: Gout - Alcohol/Substance Use Hx Alcohol Use: Yes History of Substance Use: reports: Cocaine - Smoking History Smoking history: Former smoker Have you smoked in the past 12 months: No If you are a former smoker, when did you quit?: 2001 - Social History Usual Living Arrangement: Alone Home Medications - Allergies Allergies/Adverse Reactions: Allergies Allergy/AdvReac Type Severity Reaction Status Date / Time haloperidol [From Haldol] Allergy Mild itchings, Verified 01/19/17 11:18 stiffness seasonal Allergy Mild itch/rash Uncoded 01/19/17 11:18 - Home Medications Home Medications: Ambulatory Orders Acidoph/L.bulg/Bif.b/S.thermop [Bacid Caplet] 1 each PO BID 01/19/17 Albuterol 0.083% Nebulizer Adry [Ventolin 0.083%] 1 neb NEB QID 01/19/17 Aripiprazole [Abilify] 10 mg PO DAILY 01/19/17 Aspirin [ASA -] 81 mg PO DAILY 01/19/17 Bacitracin 30 gm TP DAILY 01/19/17 Divalproex *ER* [Depakote *ER* -] 500 mg PO BID 01/19/17 Folic Acid 1 mg PO DAILY 01/19/17 Gabapentin 400 mg PO TID 01/19/17 Insulin Glargine,Hum.rec.anlog [Lantus (nf)] 34 units SQ HS 01/19/17 Latanoprost 0.005% Eye Drops [Xalatan 0.005% Eye Drops -] 1 drop OU HS 01/19/17 Loratadine [Alavert] 10 mg PO DAILY 01/19/17 Montelukast Na [Singulair -] 10 mg PO HS 01/19/17 Multivitamin [Poly-Vitamin] 1 each PO DAILY 01/19/17 Oxycodone HCl/Acetaminophen [Percocet 10-325 mg Tablet] 1 each PO BID 01/19/17 Propranolol HCl [Inderal] 20 mg PO DAILY 01/19/17 Ranitidine [Zantac -] 150 mg PO BID 01/19/17 Salmeterol/Fluticasone [Advair 100Mcg/50Mcg -] 1 inh PO BID 01/19/17 Valsartan 320 mg PO DAILY 01/19/17 Venlafaxine HCl ER [Effexor Xr -] 150 mg PO DAILY 01/19/17 Family Disease History - Family Disease History Family History: Unable to Obtain Family Disease History: Diabetes: Father, Heart Disease: Mother Review of Systems Unable to obtain ROS, reason: harika Physical Exam Vital Signs: Vital Signs Period Temp Pulse Resp BP Sys/Chahal Pulse Ox Last 24 Hr 98.5 F 96-102 14-20 98-142/60-102 85-97 Intake & Output 01/16/17 01/17/17 01/18/17 01/19/17 23:59 23:59 23:59 23:59 Intake Total 250 Balance 250 Weight 227 lb 4.745 oz Constitutional: Yes: Well Nourished Eyes: Yes: Other (sluggish pupillary response bilaterally) HENT: Yes: Other (poor dentation) Cardiovascular: Yes: S1, S2, Other (sinus on tele) Respiratory: Yes: Diminished (midlung down bilateral), On Nasal O2. No: Rhonchi Gastrointestinal: Yes: Normal Bowel Sounds, Soft, Abdomen, Obese, Other ( bruising and scabs throughout abdomen) ...Rectal Exam: Yes: Deferred Renal/: Yes: Bajwa Present (geovani output) Musculoskeletal: Yes: WNL Extremities: Yes: Other (left foot edema, redness with joint nodes) Edema: LLE: 1+, RLE: Trace Peripheral Pulses WNL: Yes (+2 bilateral pedal pulses) Integumentary: Yes: Bruising (abdomen), Erythema (left foot) Neurological: Yes: Confusion, Lethargy Labs: Abnormal Lab Results 01/19/17 01/19/17 01/19/17 11:41 11:41 12:19 WBC 31.8 H* D RBC 3.20 L Hgb 9.4 L D Hct 27.8 L RDW 17.4 H D Lymphocytes % 5.0 L D Metamyelocytes 5 H D Myelocytes 8 H D INR 1.31 H ABG pO2 at Pt Temp ABG HCO3 ABG O2 Content ABG Base Excess Sodium 131 L Chloride 87 L D Anion Gap 19 H BUN 122 H* D Creatinine 8.9 H* D Total Bilirubin 2.4 H D AST 140 H D Alkaline Phosphatase 297 H D Ammonia Albumin 1.2 L D Triglycerides 178 H D HDL Cholesterol 10 L D Ur Leukocyte Esterase Acetaminophen Valproic Acid 01/19/17 01/19/17 01/19/17 12:19 12:50 12:56 WBC RBC Hgb Hct RDW Lymphocytes % Metamyelocytes Myelocytes INR ABG pO2 at Pt Temp ABG HCO3 ABG O2 Content ABG Base Excess Sodium Chloride Anion Gap BUN Creatinine Total Bilirubin AST Alkaline Phosphatase Ammonia < 11.0 L Albumin Triglycerides HDL Cholesterol Ur Leukocyte Esterase Trace H D Acetaminophen Valproic Acid 25.990 L 01/19/17 01/19/17 01/19/17 12:58 13:04 20:30 WBC 27.5 H RBC 2.74 L Hgb 8.1 L D Hct 23.8 L RDW 16.7 H Lymphocytes % Metamyelocytes Myelocytes INR ABG pO2 at Pt Temp 77.9 L ABG HCO3 26.6 H ABG O2 Content 11.2 L ABG Base Excess 2.6 H Sodium Chloride Anion Gap BUN Creatinine Total Bilirubin AST Alkaline Phosphatase Ammonia Albumin Triglycerides HDL Cholesterol Ur Leukocyte Esterase Acetaminophen < 2.0 L Valproic Acid Imaging - Results Chest X-ray: Report Reviewed, Image Reviewed X-ray: Report Reviewed Cat Scan: Report Reviewed Assessment/Plan Pt is a 56yr old woman with PMHx of COPD, HTN, HLD, CAD, HepC, seizures, schizoaffective disorder and gout. Now in the ICU for management of sepsis secondary to c. diff +/- pneumonia, DOMINIC likely from dehydration with metabolic encephalopathy and possible gout flare. Pulm: -O2 support prn for sat >90% -Continue home copd medication -f/u a.m abg as hco3 might not be fully compensatory in setting of dominic ID: -f/u cultures -ID following -Antibiotics per ID -f/u lactic acid, trend wbc Renal: -Renal following -IVF as tolerated -Strict I/Os -Monitor electrolytes -Renal dose medication -f/u renal u.s -f/u urine electrolytes/creatitine GI: Hep C antibody+ on previous serology -Monitor LFTS, coags Rheum: Gout, acute flare? -Consider consult -Per discussion with Renal, will hold steroids for now -Podiatry consulted for left foot, abscess vs gout flare -f/u uric acid Endo: -BGM -Glycemic control Neuro -Neuro following -Antiepileptics per neuro -Pain management -Neuro checks Prophylactic -DVT -Aspiration precautions
[2017-01-19] MEDS: PIPERACILLIN/TAZOB 2.25 GM 50 ML IVPB SCH (20:44)
[2017-01-19] MEDS: METRONIDAZOLE 500 MG PREMIXED 100 ML IVPB SCH (20:45)
[2017-01-19 20:52] LABS: MCH 29.4 pg (25.7-33.7); MCHC 33.8 g/dl (32.0-36.0); MEAN CELL VOLUME 86.8 fl (80-96); MEAN PLT VOLUME 7.9 fl (7.5-11.1); PLATELET COUNT 354 K/MM3 (134-434); RDW 16.7 % (11.6-15.6); WHITE BLOOD COUNT 27.5 K/mm3 (4.0-10.0)
[2017-01-19 21:32] LABS: ALBUMIN 1.1 g/dl (3.4-5.0); CALCIUM 8.2 mg/dL (8.5-10.1); MAGNESIUM 2.8 mg/dL (1.8-2.4); PHOSPHOROUS 8.3 mg/dL (2.5-4.9)
[2017-01-19 21:37] LABS: TROPONIN I < 0.02 ng/ml (0.00-0.05)
[2017-01-19] MEDS ORDERED: ALBUTEROL SO4 0.083% IH SOL 2.5 MG/3 ML VIAL.NEB. NEB PRN (21:41)
[2017-01-19 21:42] LABS: BILIRUBIN,TOTAL 2.1 mg/dL (0.2-1.0); THYROID STIMULATING HORMONE 4.79 uIU/ml (0.358-3.74); TOT PROT 5.9 g/dl (6.4-8.2)
[2017-01-19 21:45] LABS: CREATININE 8.5 mg/dL (0.55-1.02)
[2017-01-19] MEDS: FLUTICASONE/SALMETEROL 100 MCG/50 MCG DISKUS IH SCH (22:11)
[2017-01-19] MEDS: VALPROATE SODIUM 500 MG/5 ML VIAL IVPB SCH (22:11)
[2017-01-19] MEDS: HEPARIN NA (PORCINE) 5,000 UNITS/ML 1ML VIAL SQ SCH (22:11)
[2017-01-19] MEDS: MONTELUKAST NA 10 MG TABLET PO SCH (22:11)
[2017-01-19] MEDS: RANITIDINE HCL 150 MG/10 ML UNIT-DOSE CUP PO SCH (22:12)
[2017-01-19] MEDS: LACTATED RINGERS SOLUTION 1,000 ML IV SCH (22:12)
[2017-01-19 22:13] LABS: METAMYELOCYTE 2 % (0-2); PLATELET ESTIMATE ADEQUATE (NORMAL)
[2017-01-19] MEDS: LATANOPROST 0.005% OPHTH SOLN 2.5ML BOTTLE OU SCH (23:30)
[2017-01-20] MEDS: PIPERACILLIN/TAZOB 2.25 GM 50 ML IVPB SCH ×3 (02:00→17:19)
[2017-01-20] MEDS: METRONIDAZOLE 500 MG PREMIXED 100 ML IVPB SCH ×3 (03:00→17:18)
[2017-01-20] MEDS ORDERED: LACTATED RINGERS SOLUTION 500 ML IV ONE (06:00)
[2017-01-20] MEDS ORDERED: SODIUM CHLORIDE 500 ML IV STA (06:01)
[2017-01-20] MEDS: ALBUTEROL SO4 0.083% IH SOL 2.5 MG/3 ML VIAL.NEB. NEB SCH ×4 (06:10→19:00)
[2017-01-20] MEDS: INSULIN SLIDING SCALE (NOVOLOG) 1 VIAL SQ SCH ×2 (06:31→16:49)
[2017-01-20 06:43] LABS: MCH 29.8 pg (25.7-33.7); MCHC 34.2 g/dl (32.0-36.0); MEAN CELL VOLUME 87.1 fl (80-96); PLATELET COUNT 335 K/MM3 (134-434); RDW 17.2 % (11.6-15.6); WHITE BLOOD COUNT 29.7 K/mm3 (4.0-10.0)
[2017-01-20 07:13] LABS: ALBUMIN 1.1 g/dl (3.4-5.0); BILIRUBIN,TOTAL 1.9 mg/dL (0.2-1.0); CALCIUM 8.2 mg/dL (8.5-10.1)
[2017-01-20 07:20] LABS: TOT PROT 5.9 g/dl (6.4-8.2)
--- NOTE | 2017-01-20 07:27 | PN ---
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, Physician Chief Complaint: ID ID follow up for sepsis in this 56 year old patient leukocytosis however no fever Given dose of Vancomycin Zosyn and IV metronidazole ( Recently discharged) Presently arousable lethargic cannot answer questions - Current Medication List Current Medications: Active Medications Albuterol Sulfate (Ventolin 0.083% Nebulizer Soln -) 1 amp NEB Q4H PRN PRN Reason: SHORT OF BREATH/WHEEZING Albuterol Sulfate (Ventolin 0.083% Nebulizer Soln -) 1 amp NEB QIDR ADELINE Last Admin: 01/20/17 06:10 Dose: 1 amp Heparin Sodium (Porcine) (Heparin -) 5,000 unit SQ BID ADELINE Last Admin: 01/19/17 22:11 Dose: 5,000 unit Piperacillin Sod/Tazobactam Sod (Zosyn 2.25gm Ivpb (Pre-Docked)) 50 mls @ 100 mls/hr IVPB Q8H-IV ADELINE PRN Reason: Protocol Last Admin: 01/20/17 02:00 Dose: 100 mls/hr Metronidazole (Flagyl 500mg Premixed Ivpb -) 100 mls @ 100 mls/hr IVPB Q8H-IV ADELINE Last Admin: 01/20/17 03:00 Dose: 100 mls/hr Lactated Ringer's (Lactated Ringers Solution) 1,000 mls @ 125 mls/hr IV ASDIR ADELINE Last Admin: 01/19/17 22:12 Dose: 125 mls/hr Insulin Aspart (Novolog Vial Sliding Scale -) 1 vial SQ BIDI ADELINE PRN Reason: Protocol Last Admin: 01/20/17 06:31 Dose: Not Given Lactobacillus Acidophilus (Bacid -) 1 tab PO DAILY ADELINE Latanoprost (Xalatan 0.005% Eye Drops -) 1 drop OU HS [facility] Last Admin: 01/19/17 23:30 Dose: 1 drop Montelukast Sodium (Singulair -) 10 mg PO HS [facility] Last Admin: 01/19/17 22:11 Dose: Not Given Ranitidine HCl (Zantac Oral Solution -) 150 mg PO BID ADELINE Last Admin: 01/19/17 22:12 Dose: Not Given Fluticasone/Salmeterol (Advair 100mcg/50mcg -) 1 puff IH BID [facility] Last Admin: 01/19/17 22:11 Dose: Not Given Valproate Sodium (Depacon Injection -) 500 mg IVPB BID ADELINE Last Admin: 01/19/17 22:11 Dose: 500 mg - Objective Vital Signs: Vital Signs Temperature 98.2 F 01/20/17 02:00 Pulse Rate 102 H 01/20/17 06:00 Respiratory Rate 18 01/20/17 06:00 Blood Pressure 102/67 01/20/17 06:00 O2 Sat by Pulse Oximetry (%) 97 01/19/17 19:39 Constitutional: Yes: Well Nourished, No Distress HENT: Yes: WNL, Atraumatic Neck: Yes: WNL, Supple Cardiovascular: Yes: Regular Rate and Rhythm, S1, S2. No: Murmur Respiratory: Yes: WNL, Regular, CTA Bilaterally Gastrointestinal: Yes: WNL, Normal Bowel Sounds, Soft. No: Splenomegaly, Tenderness, Tenderness, Rebound Extremities: Yes: Other (2 fluid filled swelling tender mild inflammed not fluctuant) Edema: Yes Labs: CBC, BMP 01/20/17 05:10 INR, PTT INR 1.31 (0.82-1.09) H 01/19/17 11:41 Problem List - Problems (1) Acute renal failure Code(s): N17.9 - ACUTE KIDNEY FAILURE, UNSPECIFIED Qualifiers: Acute renal failure type: unspecified Qualified Code(s): N17.9 - Acute kidney failure, unspecified (2) Sepsis Code(s): A41.9 - SEPSIS, UNSPECIFIED ORGANISM Qualifiers: Sepsis type: sepsis due to unspecified organism Qualified Code(s): A41.9 - Sepsis, unspecified organism Assessment/Plan Microbiology Laboratory Tests 01/19/17 01/19/17 01/19/17 11:41 12:19 12:50 WBC 31.8 H* D Hgb Hct Plt Count INR 1.31 H ABG pCO2 at Pt Temp Oxygen Flow Rate BUN Creatinine Uric Acid Total Bilirubin Alkaline Phosphatase Ur Leukocyte Esterase Trace H D Urine RBC 1 Urine WBC 8 01/19/17 01/19/17 01/19/17 13:04 20:30 20:30 WBC Hgb Hct Plt Count INR ABG pCO2 at Pt Temp 40.7 Oxygen Flow Rate 4.5 l BUN 124 H* Creatinine 8.5 H* Uric Acid 16.0 H* Total Bilirubin 2.1 H Alkaline Phosphatase 242 H Ur Leukocyte Esterase Urine RBC Urine WBC 01/20/17 05:10 WBC 29.7 H Hgb 8.3 L Hct 24.3 L Plt Count 335 INR ABG pCO2 at Pt Temp Oxygen Flow Rate BUN Creatinine Uric Acid Total Bilirubin Alkaline Phosphatase Ur Leukocyte Esterase Urine RBC Urine WBC Assessment Sepsis syndrome unclear source at this point cultures pending 2 swellings of the lower left foot ? infected pus vs gout C diff Ag positive toxin negative Acute renal failure Elevated Uric acid Schizoaffective disorder Plan Continue current antibiotics Check Vanco level Would aspirate the swellings of the foot and send for c/s fungal culture ESR CRP Critical time spent with pt Sona KANG
[2017-01-20 08:03] LABS: MAGNESIUM 2.8 mg/dL (1.8-2.4); PHOSPHOROUS 8.5 mg/dL (2.5-4.9)
[2017-01-20 08:18] LABS: URIC ACID 15.1 mg/dL (2.6-7.2)
[2017-01-20] MEDS: LACTATED RINGERS SOLUTION 1,000 ML IV SCH (08:18)
--- NOTE | 2017-01-20 08:28 | CONSULT ---
Consult - text type - Consultation Consultation Note: Podiatry Consultation: 56 year old F, lethargic and non-responsive, admitted to ICU for ARF. Podiatry consultation requested for swelling, redness to medial 1st MTPJ and ankle of left lower extremity. Patient unable to provide history or course of this swelling. Does have persistent leukocytosis. Patient does have significant medical, psych history, does have prior history of gout. Recently discharged from hospital earlier in the month for PNA. PMHx: HTN, HLP, COPD, CKD, Schizoaffective Dx, CAD Meds: noted in chart ALL: Haloperidol TERRY: L foot/ankle: pedal pulses 1/4 secondary to swelling, TG wnl, CFT brisk to all toes. There is fluctuant swelling at the medial 1st MTPJ and anterior aspect of ankle. There is increased erythema and warmth to the area. Upon range of motion of 1st MTPJ and ankle, there is no tenderness response elicited from patient. There is no soft tissue crepitus, no ascending cellulitis, no purulent drainage, no open lesions, no signs of active infection. L foot/ankle XR: significant ST swelling, no fracture identified Uric Acid: 16.0 WBC: 29.7 Imp: 56 year old F with ARF, rule out gout vs. infectious process 1. Clearly appears to be gout given prior history and significant increase in uric acid. However, could be possible infected bursitis. Discussed with ID, will plan for aspiration at bedside. Will send fungal, bacterial cultures as well as for crystals. 2. Will follow. Thanks for the courtesy of this consultation. Tran Ley DPM
[2017-01-20] MEDS: VALPROATE SODIUM 500 MG/5 ML VIAL IVPB SCH ×2 (09:23→22:37)
[2017-01-20] MEDS: RANITIDINE HCL 150 MG/10 ML UNIT-DOSE CUP PO SCH ×2 (09:24→22:37)
[2017-01-20] MEDS: HEPARIN NA (PORCINE) 5,000 UNITS/ML 1ML VIAL SQ SCH ×2 (09:25→22:37)
[2017-01-20] MEDS: FLUTICASONE/SALMETEROL 100 MCG/50 MCG DISKUS IH SCH ×2 (09:25→22:37)
[2017-01-20] MEDS: LACTOBACILLUS ACIDOPHILUS 1 EACH TAB (FP) PO SCH (09:25)
[2017-01-20] MEDS: SODIUM CHLORIDE 1,000 ML IV SCH (09:30)
[2017-01-20 09:46] LABS: HYPOCHROMIA 4+; METAMYELOCYTE 1 % (0-2); TARGET CELLS 3+
--- NOTE | 2017-01-20 11:46 | PN ---
Physical Exam: SUBJECTIVE: Patient seen and examined at bedside in ICU. Pt more alert and responsive today. Able to say full name when asked. Other history was difficult to obtain. No acute events overnight. OBJECTIVE: Vital Signs Temperature 98.2 F 01/20/17 02:00 Pulse Rate 99 H 01/20/17 08:00 Respiratory Rate 18 01/20/17 08:00 Blood Pressure 92/61 01/20/17 08:00 O2 Sat by Pulse Oximetry (%) 97 01/20/17 09:00 GENERAL: Altered Mental Status, AAOx1 (can say name) HEAD: Normal with no signs of trauma. EYES: Pupils equal, round and reactive to light, sclera anicteric, conjunctiva clear. No lid lag. NECK: supple without lymphadenopathy LUNGS: Auscultated anteriorly, Breath sounds equal, clear to auscultation bilaterally. No wheezes, and no crackles. No accessory muscle use. HEART: Regular rate and rhythm, normal S1 and S2 without murmur, rub or gallop. ABDOMEN: Soft, obese, nontender, not distended, normoactive bowel sounds, no guarding, no rebound, no masses. No hepatomegaly or splenomegaly. MUSCULOSKELETAL: Normal range of motion at all joints. No bony deformities or tenderness. No CVA tenderness. LOWER EXTREMITIES: 2+ pulses, warm, well-perfused. 3+ pitting edema B/L LE. L foot has 2 fluid filled collections on medial aspect, one near toe, one near medial ankle. NEUROLOGICAL: Altered mental status. PSYCHIATRIC: Altered mental status. SKIN: Warm, dry Laboratory Results - last 24 hr 01/19/17 01/19/17 01/19/17 18:41 20:30 20:30 WBC 27.5 H RBC 2.74 L Hgb 8.1 L D Hct 23.8 L MCV 86.8 MCHC 33.8 RDW 16.7 H Plt Count 354 MPV 7.9 Neutrophils % 64.0 Lymphocytes % 7.0 L D Monocytes % 17.0 H D Eosinophils % 1.0 D Band Neutrophils 4.0 D Metamyelocytes 2 D Myelocytes 3 H D Differential Comment Manual diff done Reactive Lymphocytes 2 Platelet Estimate Adequate Hypochromic-Microcytic Target Cells Rouleaux Morphology Comment Slide scanned Sodium Potassium Chloride Carbon Dioxide Anion Gap BUN Creatinine Creat Clearance w eGFR POC Glucometer [id number] Random Glucose Lactic Acid 1.306 Uric Acid Calcium Phosphorus Magnesium Total Bilirubin AST ALT Alkaline Phosphatase Creatine Kinase Troponin I C-Reactive Protein B-Natriuretic Peptide Total Protein Albumin TSH Free T4 Vancomycin Trough 01/19/17 01/19/17 01/19/17 20:30 20:30 20:30 WBC RBC Hgb Hct MCV MCHC RDW Plt Count MPV Neutrophils % Lymphocytes % Monocytes % Eosinophils % Band Neutrophils Metamyelocytes Myelocytes Differential Comment Reactive Lymphocytes Platelet Estimate Hypochromic-Microcytic Target Cells Rouleaux Morphology Comment Sodium 131 L Potassium 3.9 Chloride 89 L Carbon Dioxide 26 Anion Gap 16 BUN 124 H* Creatinine 8.5 H* Creat Clearance w eGFR 4.84 POC Glucometer Random Glucose 88 Lactic Acid Uric Acid Calcium 8.2 L Phosphorus 8.3 H D Magnesium 2.8 H Total Bilirubin 2.1 H AST 93 H D ALT 22 Alkaline Phosphatase 242 H Creatine Kinase 22 L Troponin I < 0.02 C-Reactive Protein B-Natriuretic Peptide 3246.94 H Total Protein 5.9 L Albumin 1.1 L TSH 4.79 H D Free T4 1.13 Vancomycin Trough 01/19/17 01/20/17 01/20/17 20:30 05:10 05:10 WBC 29.7 H RBC 2.79 L Hgb 8.3 L Hct 24.3 L MCV 87.1 MCHC 34.2 RDW 17.2 H Plt Count 335 MPV 8.0 Neutrophils % 68.0 Lymphocytes % 7.0 L Monocytes % 11.0 H Eosinophils % 6.0 H D Band Neutrophils 4.0 Metamyelocytes 1 D Myelocytes 3 H Differential Comment Manual diff done Reactive Lymphocytes Platelet Estimate Hypochromic-Microcytic 4+ Target Cells 3+ Rouleaux 4+ Morphology Comment Slide scanned Sodium 131 L Potassium 3.9 Chloride 89 L Carbon Dioxide 28 Anion Gap 14 BUN 127 H* Creatinine 8.0 H* Creat Clearance w eGFR 5.19 POC Glucometer Random Glucose 79 Lactic Acid Uric Acid 16.0 H* Calcium 8.2 L Phosphorus Magnesium Total Bilirubin 1.9 H AST 75 H ALT 15 D Alkaline Phosphatase 217 H Creatine Kinase Troponin I C-Reactive Protein B-Natriuretic Peptide Total Protein 5.9 L Albumin 1.1 L TSH Free T4 Vancomycin Trough 01/20/17 01/20/17 01/20/17 05:10 06:00 06:00 WBC RBC Hgb Hct MCV MCHC RDW Plt Count MPV Neutrophils % Lymphocytes % Monocytes % Eosinophils % Band Neutrophils Metamyelocytes Myelocytes Differential Comment Reactive Lymphocytes Platelet Estimate Hypochromic-Microcytic Target Cells Rouleaux Morphology Comment Sodium Potassium Chloride Carbon Dioxide Anion Gap BUN Creatinine Creat Clearance w eGFR POC Glucometer Random Glucose Lactic Acid 1.258 Uric Acid 15.1 H* Calcium Phosphorus 8.5 H Magnesium 2.8 H Total Bilirubin AST ALT Alkaline Phosphatase Creatine Kinase Troponin I C-Reactive Protein 31.2 H B-Natriuretic Peptide Total Protein Albumin TSH Free T4 Vancomycin Trough 18.983 H* 01/20/17 06:29 WBC RBC Hgb Hct MCV MCHC RDW Plt Count MPV Neutrophils % Lymphocytes % Monocytes % Eosinophils % Band Neutrophils Metamyelocytes Myelocytes Differential Comment Reactive Lymphocytes Platelet Estimate Hypochromic-Microcytic Target Cells Rouleaux Morphology Comment Sodium Potassium Chloride Carbon Dioxide Anion Gap BUN Creatinine Creat Clearance w eGFR POC Glucometer [id number] Random Glucose Lactic Acid Uric Acid Calcium Phosphorus Magnesium Total Bilirubin AST ALT Alkaline Phosphatase Creatine Kinase Troponin I C-Reactive Protein B-Natriuretic Peptide Total Protein Albumin TSH Free T4 Vancomycin Trough Microbiology 01/19/17 12:50 Urine - Urine Bajwa Urine Culture - Final Yeast Like Organism 01/19/17 16:27 Urine For Antigen Detection Legionella Antigen - Final 01/19/17 16:27 Urine For Antigen Detection Streptococcus pneumoniae Antigen (M - Final Active Medications Generic Name Dose Route Start Last Admin Trade Name Freq PRN Reason Stop Dose Admin Albuterol Sulfate 1 amp 01/19/17 21:41 Ventolin 0.083% Nebulizer Soln - NEB Q4H PRN SHORT OF BREATH/WHEEZING Albuterol Sulfate 1 amp 01/20/17 00:00 01/20/17 06:10 Ventolin 0.083% Nebulizer Soln - NEB 1 amp QIDR ADELINE Administration Heparin Sodium (Porcine) 5,000 unit 01/19/17 22:00 01/20/17 09:25 Heparin - SQ 5,000 unit BID ADELINE Administration Piperacillin Sod/Tazobactam Sod 50 mls @ 100 mls/hr 01/19/17 18:00 01/20/17 09: 23 Zosyn 2.25gm Ivpb (Pre-Docked) IVPB 100 mls/hr Q8H-IV ADELINE Administration Protocol Metronidazole 100 mls @ 100 mls/hr 01/19/17 18:00 01/20/17 09:24 Flagyl 500mg Premixed Ivpb - IVPB 100 mls/hr Q8H-IV ADELINE Administration Sodium Chloride 1,000 mls @ 100 mls/hr 01/20/17 09:30 Normal Saline - IV ASDIR ADELINE Insulin Aspart 1 vial 01/19/17 17:15 01/20/17 06:31 Novolog Vial Sliding Scale - SQ Not Given BIDI ADELINE Protocol Lactobacillus Acidophilus 1 tab 01/20/17 10:00 01/20/17 09:25 Bacid - PO 1 tab DAILY ADELINE Administration Latanoprost 1 drop 01/19/17 22:00 01/19/17 23:30 Xalatan 0.005% Eye Drops - OU 1 drop HS ADELINE Administration Montelukast Sodium 10 mg 01/19/17 22:00 01/19/17 22:11 Singulair - PO Not Given HS ADELINE Ranitidine HCl 150 mg 01/19/17 22:00 01/20/17 09:24 Zantac Oral Solution - PO 150 mg BID ADELINE Administration Fluticasone/Salmeterol 1 puff 01/19/17 22:00 01/20/17 09:25 Advair 100mcg/50mcg - IH 1 puff BID ADELINE Administration Valproate Sodium 500 mg 01/19/17 22:00 01/20/17 09:23 Depacon Injection - IVPB 500 mg BID ADELINE Administration ASSESSMENT/PLAN: 56 y/o F w/ PMH of HTN, HLD, COPD, seziures, schizoaffective d/o, CKD, CAD, gout presented to ER from [facility] for AMS. -Acute metabolic encephalopathy secondary to severe sepsis from PNA vs C. Diff -CVA unlikely at this time, Head CT negative; Neuro on board -f/u brain MRI -WBC: 29.7; UA Trace LE, 8 WBC; Lactic Acid: 1.2 -f/u BCx; Pt had positive Ag for C. Diff on last admission -UCx yeast like organism -UAg of PNA negative -CT Chest/Abd: Bibasal consolidation/pneumonia with a trace of bilateral pleural effusion. Moderate stranding of the perinephric fat which is nonspecific and may be chronic -c/w vanco, zosyn, flagyl -ID consulted, Abx as per ID -c/w NS @ 100 ml/hr -CXR in AM -DOMINIC secondary to severe sepsis, dehydration -BUN/Cr: 127/8 (on last discharge Cr ws 0.7) -c/w NS @ 100 ml/hr -Nephrology consulted (Dr. Marcelino) -Uric Acid 16, f/u today's uric acid -FeNa from urine lytes -Renal U/S - no kidney pathology -Tumor lysis? Elevated myelocytes, WBC - CML/AML? -Transamintis secondary to severe sepsis -improving, continue to monitor LFTs -Seizures -valproic acid level low (26) -valproic acid 500 mg bid iv -neuro on board -L foot fluid filled bullae -Podiatry on board -infective burisitis vs gout -bedside aspiration by podiatry -foot xr: soft tissue swelling noted but not bony abnormalities. -HTN -will hold anti-hypertensives in light of sepsis -Schizoaffective d/o -effexor xr 150 mg po qd when more stable -abilify 10 mg po qd when more stable -COPD -advair 1 puff bid when more stable -DM -ISS bid, BGMs bid while not eating due to AMS -FEN -NS @ 100 ml/hr -Hyponatremia, hypochloremia - c/w NS @ 100 ml/hr, monitor lytes -NPO due to AMS -Dispo: -Monitor in ICU Problem List - Problems (1) Acute renal failure Code(s): N17.9 - ACUTE KIDNEY FAILURE, UNSPECIFIED Qualifiers: Acute renal failure type: unspecified Qualified Code(s): N17.9 - Acute kidney failure, unspecified (2) Altered mental status Code(s): R41.82 - ALTERED MENTAL STATUS, UNSPECIFIED Qualifiers: Altered mental status type: unspecified Qualified Code(s): R41.82 - Altered mental status, unspecified (3) Dehydration Code(s): E86.0 - DEHYDRATION (4) Sepsis Code(s): A41.9 - SEPSIS, UNSPECIFIED ORGANISM Qualifiers: Sepsis type: sepsis due to unspecified organism Qualified Code(s): A41.9 - Sepsis, unspecified organism (5) COPD (chronic obstructive pulmonary disease) Code(s): J44.9 - CHRONIC OBSTRUCTIVE PULMONARY DISEASE, UNSPECIFIED Qualifiers : COPD type: COPD with acute exacerbation Qualified Code(s): J44.1 - Chronic obstructive pulmonary disease with (acute) exacerbation (6) Hypertension Code(s): I10 - ESSENTIAL (PRIMARY) HYPERTENSION (7) Hyponatremia Code(s): E87.1 - HYPO-OSMOLALITY AND HYPONATREMIA (8) Pneumonia Code(s): J18.9 - PNEUMONIA, UNSPECIFIED ORGANISM Qualifiers: Pneumonia type: due to unspecified organism Laterality: left Lung location: lower lobe of lung Qualified Code(s): J18.9 - Pneumonia, unspecified organism (9) Bilateral lower extremity edema Code(s): R60.0 - LOCALIZED EDEMA (10) Severe sepsis Code(s): A41.9 - SEPSIS, UNSPECIFIED ORGANISM R65.20 - SEVERE SEPSIS WITHOUT SEPTIC SHOCK (11) Hypochloremia Code(s): E87.8 - OTH DISORDERS OF ELECTROLYTE AND FLUID BALANCE, NEC Visit type - Emergency Visit Emergency Visit: Yes ED Registration Date: 01/19/17 Care time: The patient presented to the Emergency Department on the above date and was hospitalized for further evaluation of their emergent condition. - New Patient This patient is new to me today: No - Critical Care Critical Care patient: Yes Total Critical Care Time (in minutes): 38 Critical Care Statement: The care of this patient involved high complexity decision making to prevent further life threatening deterioration of the patient 's condition and/or to evalute & treat vital organ system(s) failure or risk of failure.
--- NOTE | 2017-01-20 11:52 | PN ---
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, Physician History of Present Illness: 56 year old woman, history of hypertension, hyperlipidemia, COPD, epilepsy, schizoaffective disorder, CKD, gout last known normal yesterday, presented to ED with altered mental status. The patient was recently admitted to [facility] for pneumonia and septic shock; she was discharged on 12/30/16 to [facility]. Per EMS, the patient was at her baseline last night, which is alert and oriented, however has been altered. CT head no acute findings Currently being treated for sepsis, acute renal failure - Current Medication List Current Medications: Active Medications Albuterol Sulfate (Ventolin 0.083% Nebulizer Soln -) 1 amp NEB Q4H PRN PRN Reason: SHORT OF BREATH/WHEEZING Albuterol Sulfate (Ventolin 0.083% Nebulizer Soln -) 1 amp NEB QIDR ADELINE Last Admin: 01/20/17 06:10 Dose: 1 amp Heparin Sodium (Porcine) (Heparin -) 5,000 unit SQ BID [facility] Last Admin: 01/20/17 09:25 Dose: 5,000 unit Piperacillin Sod/Tazobactam Sod (Zosyn 2.25gm Ivpb (Pre-Docked)) 50 mls @ 100 mls/hr IVPB Q8H-IV ADELINE PRN Reason: Protocol Last Admin: 01/20/17 09:23 Dose: 100 mls/hr Metronidazole (Flagyl 500mg Premixed Ivpb -) 100 mls @ 100 mls/hr IVPB Q8H-IV ADELINE Last Admin: 01/20/17 09:24 Dose: 100 mls/hr Sodium Chloride (Normal Saline -) 1,000 mls @ 100 mls/hr IV ASDIR ADELINE Insulin Aspart (Novolog Vial Sliding Scale -) 1 vial SQ BIDI ADELINE PRN Reason: Protocol Last Admin: 01/20/17 06:31 Dose: Not Given Lactobacillus Acidophilus (Bacid -) 1 tab PO DAILY [facility] Last Admin: 01/20/17 09:25 Dose: 1 tab Latanoprost (Xalatan 0.005% Eye Drops -) 1 drop OU HS [facility] Last Admin: 01/19/17 23:30 Dose: 1 drop Montelukast Sodium (Singulair -) 10 mg PO HS [facility] Last Admin: 01/19/17 22:11 Dose: Not Given Ranitidine HCl (Zantac Oral Solution -) 150 mg PO BID [facility] Last Admin: 01/20/17 09:24 Dose: 150 mg Fluticasone/Salmeterol (Advair 100mcg/50mcg -) 1 puff IH BID [facility] Last Admin: 01/20/17 09:25 Dose: 1 puff Valproate Sodium (Depacon Injection -) 500 mg IVPB BID [facility] Last Admin: 01/20/17 09:23 Dose: 500 mg - Objective Vital Signs: Vital Signs Temperature 98.2 F 01/20/17 02:00 Pulse Rate 99 H 01/20/17 08:00 Respiratory Rate 18 01/20/17 08:00 Blood Pressure 92/61 01/20/17 08:00 O2 Sat by Pulse Oximetry (%) 97 01/20/17 09:00 Constitutional: Yes: No Distress Eyes: Yes: Conjunctiva Clear, EOM Intact HENT: Yes: Normocephalic Cardiovascular: Yes: S1, S2 Respiratory: Yes: Regular (opens eyes to sternal rub does not follow commands corneal intact bilaterally no gaze preference withdraws slightly in all ext) Labs: CBC, BMP 01/20/17 05:10 01/20/17 05:10 INR, PTT INR 1.31 (0.82-1.09) H 01/19/17 11:41 Assessment/Plan 56 year old woman, history of hypertension, hyperlipidemia, COPD, epilepsy, schizoaffective disorder, CKD, gout last known normal yesterday, presented to ED with altered mental status. Neurology called for possible stroke- CT head negative, now no obvious focality no exam Metabolic encephalopthy in setting of sepsis Recommend MRI brain when able due to concern for stroke, but likely symptoms related to underlying infection Epilepsy history Continue valproate 500 mg BID Valproate level noted, unclear compliance, would recheck level in a few days No obvious seizure activity seen, if ams continues despite correcting metabolic abnormalities would consider eeg Recommend continued supportive care
[2017-01-20 12:12] LABS: ARTERIAL BLD GAS O2 SATURATION 95.5 % (90-98.9); ARTERIAL BLOOD GAS HCO3 24.5 meq/L (22-26); ARTERIAL BLOOD GAS pH 7.39 (7.35-7.45)
[2017-01-20 12:14] LABS: ALLENS TEST POSITIVE; ART PUNCT SITE RIGHT RADIAL; LPM/O2% 4L; PT. ON O2? YES; TYPE OF O2 NASAL
--- NOTE | 2017-01-20 14:38 | PN ---
Teaching Attending Note Name of Resident: Reginald Santana ATTENDING PHYSICIAN STATEMENT I saw and evaluated the patient. I reviewed the resident's note and discussed the case with the resident. I agree with the resident's findings and plan as documented. SUBJECTIVE: Patient seen and examined in the ICU. Lethargic but arousable. Oriented to person and "hospital". Denies CP or SOB. Intermittent twitching noted. Bullous lesions on LLE to be evaluated by Podiatry. Intake & Output 01/17/17 01/18/17 01/19/17 01/20/17 23:59 23:59 23:59 23:59 Intake Total 375 1875 Output Total 300 250 Balance 75 1625 Weight 227 lb 4.745 oz 238 lb 8 oz Last Vital Signs Temp Pulse Resp BP Pulse Ox 98 F 96 H 16 87/50 97 01/20/17 10:00 01/20/17 12:00 01/20/17 12:00 01/20/17 12:00 01/20/17 09:00 Active Medications Albuterol Sulfate (Ventolin 0.083% Nebulizer Soln -) 1 amp NEB Q4H PRN PRN Reason: SHORT OF BREATH/WHEEZING Albuterol Sulfate (Ventolin 0.083% Nebulizer Soln -) 1 amp NEB QIDR ADELINE Last Admin: 01/20/17 11:30 Dose: 1 amp Heparin Sodium (Porcine) (Heparin -) 5,000 unit SQ BID [facility] Last Admin: 01/20/17 09:25 Dose: 5,000 unit Piperacillin Sod/Tazobactam Sod (Zosyn 2.25gm Ivpb (Pre-Docked)) 50 mls @ 100 mls/hr IVPB Q8H-IV ADELINE PRN Reason: Protocol Last Admin: 01/20/17 09:23 Dose: 100 mls/hr Metronidazole (Flagyl 500mg Premixed Ivpb -) 100 mls @ 100 mls/hr IVPB Q8H-IV ADELINE Last Admin: 01/20/17 09:24 Dose: 100 mls/hr Sodium Chloride (Normal Saline -) 1,000 mls @ 100 mls/hr IV ASDIR ADELINE Insulin Aspart (Novolog Vial Sliding Scale -) 1 vial SQ BIDI ADELINE PRN Reason: Protocol Last Admin: 01/20/17 06:31 Dose: Not Given Lactobacillus Acidophilus (Bacid -) 1 tab PO DAILY [facility] Last Admin: 01/20/17 09:25 Dose: 1 tab Latanoprost (Xalatan 0.005% Eye Drops -) 1 drop OU [facility] Last Admin: 01/19/17 23:30 Dose: 1 drop Montelukast Sodium (Singulair -) 10 mg PO HS [facility] Last Admin: 01/19/17 22:11 Dose: Not Given Ranitidine HCl (Zantac Oral Solution -) 150 mg PO BID [facility] Last Admin: 01/20/17 09:24 Dose: 150 mg Fluticasone/Salmeterol (Advair 100mcg/50mcg -) 1 puff IH BID [facility] Last Admin: 01/20/17 09:25 Dose: 1 puff Valproate Sodium (Depacon Injection -) 500 mg IVPB BID [facility] Last Admin: 01/20/17 09:23 Dose: 500 mg Constitutional: Yes: NAD, Lethargic Eyes: Yes: (-) Pallor HENT: Yes: Other (poor dentation) Cardiovascular: Yes: S1, S2, Other (sinus on tele) Respiratory: Yes: Diminished at the bases, no wheezing Gastrointestinal: Yes: Normal Bowel Sounds, Soft, Abdomen, Obese, Other ( bruising and scabs throughout abdomen) ...Rectal Exam: Yes: Deferred Renal/: Yes: Bajwa Present Musculoskeletal: Yes: WNL Extremities: Yes: Other (left foot edema, redness with bollous areas) Edema: LLE: 1+, RLE: Trace Peripheral Pulses WNL: Yes (+2 bilateral pedal pulses) Integumentary: Yes: Bruising (abdomen), Erythema (left foot) Neurological: Yes: Confusion, Lethargy Labs: Problem List - Problems (1) Acute renal failure Code(s): N17.9 - ACUTE KIDNEY FAILURE, UNSPECIFIED Qualifiers: Acute renal failure type: unspecified Qualified Code(s): N17.9 - Acute kidney failure, unspecified (2) Altered mental status Code(s): R41.82 - ALTERED MENTAL STATUS, UNSPECIFIED Qualifiers: Altered mental status type: unspecified Qualified Code(s): R41.82 - Altered mental status, unspecified (3) Dehydration Code(s): E86.0 - DEHYDRATION (4) Sepsis Code(s): A41.9 - SEPSIS, UNSPECIFIED ORGANISM Qualifiers: Sepsis type: sepsis due to unspecified organism Qualified Code(s): A41.9 - Sepsis, unspecified organism (5) COPD (chronic obstructive pulmonary disease) Code(s): J44.9 - CHRONIC OBSTRUCTIVE PULMONARY DISEASE, UNSPECIFIED Qualifiers : COPD type: COPD with acute exacerbation Qualified Code(s): J44.1 - Chronic obstructive pulmonary disease with (acute) exacerbation (6) Hypertension Code(s): I10 - ESSENTIAL (PRIMARY) HYPERTENSION (7) Hyponatremia Code(s): E87.1 - HYPO-OSMOLALITY AND HYPONATREMIA (8) Pneumonia Code(s): J18.9 - PNEUMONIA, UNSPECIFIED ORGANISM Qualifiers: Pneumonia type: due to unspecified organism Laterality: left Lung location: lower lobe of lung Qualified Code(s): J18.9 - Pneumonia, unspecified organism (9) Bilateral lower extremity edema Code(s): R60.0 - LOCALIZED EDEMA (10) Severe sepsis Code(s): A41.9 - SEPSIS, UNSPECIFIED ORGANISM R65.20 - SEVERE SEPSIS WITHOUT SEPTIC SHOCK (11) Hypochloremia Code(s): E87.8 - OTH DISORDERS OF ELECTROLYTE AND FLUID BALANCE, NEC Assessment/Plan IVF ABX per ID Podiatry evaluation Follow cultures Aspiration precautions O2 as needed Strict I&O AEDs per Neuro If more awake -> PO as tolerated ICU monitoring for tenuous status Dr Mckeon CCTime 35"
--- NOTE | 2017-01-20 15:01 | PN ---
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, Physician History of Present Illness: Pt seen and examined at bedside. She remains in the ICU and she remains lethargic. She responds to tactile stimuli. - Current Medication List Current Medications: Active Medications Albuterol Sulfate (Ventolin 0.083% Nebulizer Soln -) 1 amp NEB Q4H PRN PRN Reason: SHORT OF BREATH/WHEEZING Albuterol Sulfate (Ventolin 0.083% Nebulizer Soln -) 1 amp NEB QIDR ADELINE Last Admin: 01/20/17 11:30 Dose: 1 amp Heparin Sodium (Porcine) (Heparin -) 5,000 unit SQ BID [facility] Last Admin: 01/20/17 09:25 Dose: 5,000 unit Piperacillin Sod/Tazobactam Sod (Zosyn 2.25gm Ivpb (Pre-Docked)) 50 mls @ 100 mls/hr IVPB Q8H-IV ADELINE PRN Reason: Protocol Last Admin: 01/20/17 09:23 Dose: 100 mls/hr Metronidazole (Flagyl 500mg Premixed Ivpb -) 100 mls @ 100 mls/hr IVPB Q8H-IV ADELINE Last Admin: 01/20/17 09:24 Dose: 100 mls/hr Sodium Chloride (Normal Saline -) 1,000 mls @ 100 mls/hr IV ASDIR ADELINE Insulin Aspart (Novolog Vial Sliding Scale -) 1 vial SQ BIDI ADELINE PRN Reason: Protocol Last Admin: 01/20/17 06:31 Dose: Not Given Lactobacillus Acidophilus (Bacid -) 1 tab PO DAILY [facility] Last Admin: 01/20/17 09:25 Dose: 1 tab Latanoprost (Xalatan 0.005% Eye Drops -) 1 drop OU HS [facility] Last Admin: 01/19/17 23:30 Dose: 1 drop Montelukast Sodium (Singulair -) 10 mg PO HS [facility] Last Admin: 01/19/17 22:11 Dose: Not Given Ranitidine HCl (Zantac Oral Solution -) 150 mg PO BID [facility] Last Admin: 01/20/17 09:24 Dose: 150 mg Fluticasone/Salmeterol (Advair 100mcg/50mcg -) 1 puff IH BID [facility] Last Admin: 01/20/17 09:25 Dose: 1 puff Valproate Sodium (Depacon Injection -) 500 mg IVPB BID [facility] Last Admin: 01/20/17 09:23 Dose: 500 mg - Objective Vital Signs: Vital Signs Temperature 97.3 F L 01/20/17 14:00 Pulse Rate 96 H 01/20/17 14:00 Respiratory Rate 18 01/20/17 14:00 Blood Pressure 90/57 01/20/17 14:00 O2 Sat by Pulse Oximetry (%) 97 01/20/17 09:00 Constitutional: Yes: Calm Eyes: Yes: Conjunctiva Clear HENT: Yes: Atraumatic Cardiovascular: Yes: S1, S2 Respiratory: Yes: On Nasal O2 Gastrointestinal: Yes: Soft, Abdomen, Obese Genitourinary: Yes: Bajwa Present Musculoskeletal: Yes: Joint Swelling, Muscle Weakness Edema: Yes Edema: LLE: 1+, RLE: 1+ Neurological: Yes: Lethargy Labs: CBC, BMP 01/20/17 05:10 01/20/17 05:10 INR, PTT INR 1.31 (0.82-1.09) H 01/19/17 11:41 - ....Imaging Chest X-ray: Report Reviewed Ultrasound: Report Reviewed Problem List - Problems (1) Acute renal failure Code(s): N17.9 - ACUTE KIDNEY FAILURE, UNSPECIFIED Qualifiers: Acute renal failure type: unspecified Qualified Code(s): N17.9 - Acute kidney failure, unspecified (2) Altered mental status Code(s): R41.82 - ALTERED MENTAL STATUS, UNSPECIFIED Qualifiers: Altered mental status type: unspecified Qualified Code(s): R41.82 - Altered mental status, unspecified (3) Dehydration Code(s): E86.0 - DEHYDRATION (4) Sepsis Code(s): A41.9 - SEPSIS, UNSPECIFIED ORGANISM Qualifiers: Sepsis type: sepsis due to unspecified organism Qualified Code(s): A41.9 - Sepsis, unspecified organism (5) CKD (chronic kidney disease) Code(s): N18.9 - CHRONIC KIDNEY DISEASE, UNSPECIFIED (6) COPD (chronic obstructive pulmonary disease) Code(s): J44.9 - CHRONIC OBSTRUCTIVE PULMONARY DISEASE, UNSPECIFIED Qualifiers : COPD type: COPD with acute exacerbation Qualified Code(s): J44.1 - Chronic obstructive pulmonary disease with (acute) exacerbation (7) Depressed Code(s): F32.9 - MAJOR DEPRESSIVE DISORDER, SINGLE EPISODE, UNSPECIFIED (8) Bilateral lower extremity edema Code(s): R60.0 - LOCALIZED EDEMA Assessment/Plan Current Medications Generic Name Dose Route Start Last Admin Trade Name Freq PRN Reason Stop Dose Admin Albuterol Sulfate 1 amp 01/19/17 21:41 Ventolin 0.083% Nebulizer Soln - NEB Q4H PRN SHORT OF BREATH/WHEEZING Albuterol Sulfate 1 amp 01/20/17 00:00 01/20/17 11:30 Ventolin 0.083% Nebulizer Soln - NEB 1 amp QIDR ADELINE Administration Heparin Sodium (Porcine) 5,000 unit 01/19/17 22:00 01/20/17 09:25 Heparin - SQ 5,000 unit BID A[facility] Administration Piperacillin Sod/Tazobactam Sod 50 mls @ 100 mls/hr 01/19/17 18:00 01/20/17 09: 23 Zosyn 2.25gm Ivpb (Pre-Docked) IVPB 100 mls/hr Q8H-IV ADELINE Administration Protocol Metronidazole 100 mls @ 100 mls/hr 01/19/17 18:00 01/20/17 09:24 Flagyl 500mg Premixed Ivpb - IVPB 100 mls/hr Q8H-IV ADELINE Administration Sodium Chloride 1,000 mls @ 100 mls/hr 01/20/17 09:30 Normal Saline - IV ASDIR ADELINE Insulin Aspart 1 vial 01/19/17 17:15 01/20/17 06:31 Novolog Vial Sliding Scale - SQ Not Given BIDI ADELINE Protocol Lactobacillus Acidophilus 1 tab 01/20/17 10:00 01/20/17 09:25 Bacid - PO 1 tab DAILY ADELINE Administration Latanoprost 1 drop 01/19/17 22:00 01/19/17 23:30 Xalatan 0.005% Eye Drops - OU 1 drop HS [facility] Administration Montelukast Sodium 10 mg 01/19/17 22:00 01/19/17 22:11 Singulair - PO Not Given HS [facility] Ranitidine HCl 150 mg 01/19/17 22:00 01/20/17 09:24 Zantac Oral Solution - PO 150 mg BID [facility] Administration Fluticasone/Salmeterol 1 puff 01/19/17 22:00 01/20/17 09:25 Advair 100mcg/50mcg - IH 1 puff BID [facility] Administration Valproate Sodium 500 mg 01/19/17 22:00 01/20/17 09:23 Depacon Injection - IVPB 500 mg BID A[facility] Administration Impression 1. DOMINIC 2. CKD 3. hyponatremia 4. altered mental status 5. gout 6. PNA 7. Depression 8. COPD 9. sepsis 10. positive hep C ab 11. HTN Plan - cont hydration - change fluids back to NS - cont to monitor renal function - renal ultrasound reviewed, neg hydro - steroids can be used for gout - stop motrin and avoid nsaids - diovan stopped yesterday - discussed plan with ICU resident and attending - keep pt in ICU - neuro input appreciated, suspect AED levels were low as she was lethargic and taking in meds or food - will follow Dr Marcelino
--- NOTE | 2017-01-20 16:38 | PN ---
Physical Exam: SUBJECTIVE: Patient seen and examined at bedside in the ICU. She mumbled her name when asked and unable to follow any further command. OBJECTIVE: Vital Signs Period Temp Pulse Resp BP Sys/Chahal Pulse Ox Last 24 Hr 97.3 F-98.2 F 91-102 10-18 85-142/50-98 92-97 GENERAL: lethargic, arousable but unable to maintain eye contact, eyes rolled backwards, occasional myoclonic jerks. EYES: Pupils round and minimally reactive to light LUNGS: CTAB anteriorly HEART: RRR, normal S1 and S2 without murmur, rub or gallop. ABDOMEN: Soft, obese, normoactive bowel sounds, hyperpigmentations/subcutaenous lesions across abd LOWER EXTREMITIES: 2 pus? collection on medial L foot and L big toe. . NEUROLOGICAL: unable to assess ABG Results ABG pH 7.39 (7.35-7.45) 01/20/17 12:10 ABG pCO2 at Pt Temp 41.8 mmHg (35-45) 01/20/17 12:10 ABG pO2 at Pt Temp 82.0 mmHg (80-100) 01/20/17 12:10 ABG HCO3 24.5 meq/L (22-26) 01/20/17 12:10 ABG O2 Sat (Measured) 95.5 % (90-98.9) 01/20/17 12:10 ABG O2 Content 9.9 % vol (15-22) L* 01/20/17 12:10 ABG Base Excess 0.0 meq/l (-2-2) 01/20/17 12:10 CBCD WBC 29.7 K/mm3 (4.0-10.0) H 01/20/17 05:10 RBC 2.79 M/mm3 (3.60-5.2) L 01/20/17 05:10 Hgb 8.3 GM/dL (10.7-15.3) L 01/20/17 05:10 Hct 24.3 % (32.4-45.2) L 01/20/17 05:10 MCV 87.1 fl (80-96) 01/20/17 05:10 MCHC 34.2 g/dl (32.0-36.0) 01/20/17 05:10 RDW 17.2 % (11.6-15.6) H 01/20/17 05:10 Plt Count 335 K/MM3 (134-434) 01/20/17 05:10 MPV 8.0 fl (7.5-11.1) 01/20/17 05:10 CMP Sodium 131 mmol/L (136-145) L 01/20/17 05:10 Potassium 3.9 mmol/L (3.5-5.1) 01/20/17 05:10 Chloride 89 mmol/L (98-107) L 01/20/17 05:10 Carbon Dioxide 28 mmol/L (21-32) 01/20/17 05:10 Anion Gap 14 (8-16) 01/20/17 05:10 BUN 127 mg/dL (7-18) H* 01/20/17 05:10 Creatinine 8.0 mg/dL (0.55-1.02) H* 01/20/17 05:10 Creat Clearance w eGFR 5.19 (>60) 01/20/17 05:10 Calcium 8.2 mg/dL (8.5-10.1) L 01/20/17 05:10 Total Bilirubin 1.9 mg/dL (0.2-1.0) H 01/20/17 05:10 AST 75 U/L (15-37) H 01/20/17 05:10 ALT 15 U/L (12-78) D 01/20/17 05:10 Alkaline Phosphatase 217 U/L (45-117) H 01/20/17 05:10 Total Protein 5.9 g/dl (6.4-8.2) L 01/20/17 05:10 Albumin 1.1 g/dl (3.4-5.0) L 01/20/17 05:10 Intake & Output 01/17/17 01/18/17 01/19/17 01/20/17 23:59 23:59 23:59 23:59 Intake Total 375 1875 Output Total 300 350 Balance 75 1525 Weight 103.1 kg 108.182 kg Active Medications Generic Name Dose Route Start Last Admin Trade Name Freq PRN Reason Stop Dose Admin Albuterol Sulfate 1 amp 01/19/17 21:41 Ventolin 0.083% Nebulizer Soln - NEB Q4H PRN SHORT OF BREATH/WHEEZING Albuterol Sulfate 1 amp 01/20/17 00:00 01/20/17 11:30 Ventolin 0.083% Nebulizer Soln - NEB 1 amp QIDR ADELINE Administration Heparin Sodium (Porcine) 5,000 unit 01/19/17 22:00 01/20/17 09:25 Heparin - SQ 5,000 unit BID [facility] Administration Piperacillin Sod/Tazobactam Sod 50 mls @ 100 mls/hr 01/19/17 18:00 01/20/17 09: 23 Zosyn 2.25gm Ivpb (Pre-Docked) IVPB 100 mls/hr Q8H-IV ADELINE Administration Protocol Metronidazole 100 mls @ 100 mls/hr 01/19/17 18:00 01/20/17 09:24 Flagyl 500mg Premixed Ivpb - IVPB 100 mls/hr Q8H-IV ADELINE Administration Sodium Chloride 1,000 mls @ 100 mls/hr 01/20/17 09:30 Normal Saline - IV ASDIR ADELINE Insulin Aspart 1 vial 01/19/17 17:15 01/20/17 06:31 Novolog Vial Sliding Scale - SQ Not Given BIDI ADELINE Protocol Lactobacillus Acidophilus 1 tab 01/20/17 10:00 01/20/17 09:25 Bacid - PO 1 tab DAILY [facility] Administration Latanoprost 1 drop 01/19/17 22:00 01/19/17 23:30 Xalatan 0.005% Eye Drops - OU 1 drop HS [facility] Administration Montelukast Sodium 10 mg 01/19/17 22:00 01/19/17 22:11 Singulair - PO Not Given HS [facility] Ranitidine HCl 150 mg 01/19/17 22:00 01/20/17 09:24 Zantac Oral Solution - PO 150 mg BID [facility] Administration Fluticasone/Salmeterol 1 puff 01/19/17 22:00 01/20/17 09:25 Advair 100mcg/50mcg - IH 1 puff BID [facility] Administration Valproate Sodium 500 mg 01/19/17 22:00 01/20/17 09:23 Depacon Injection - IVPB 500 mg BID [facility] Administration Microbiology 01/19/17 12:56 Blood - Peripheral Venous Blood Culture - Preliminary NO GROWTH OBTAINED AFTER 24 HOURS, INCUBATION TO CONTINUE FOR 4 DAYS. 01/19/17 12:56 Blood - Peripheral Venous Blood Culture - Preliminary NO GROWTH OBTAINED AFTER 24 HOURS, INCUBATION TO CONTINUE FOR 4 DAYS. 01/19/17 12:50 Urine - Urine Bajwa Urine Culture - Final Yeast Like Organism 01/19/17 16:27 Urine For Antigen Detection Legionella Antigen - Final 01/19/17 16:27 Urine For Antigen Detection Streptococcus pneumoniae Antigen (M - Final Imaging Renal U/S 01/19: Both kidneys appear unremarkable. Bajwa catheter within an empty urinary bladder Foot X-ray 01/19: The ankle mortise is intact. There is significant soft tissue swelling over the medial malleolus. No acute fracture, dislocation or focal bone destruction is identified. There is moderate soft tissue swelling over dorsal aspect of the foot CT Abd 01/19: Bibasal consolidation/pneumonia with a trace of bilateral pleural effusion. Moderate stranding of the perinephric fat which is nonspecific and may be chronic. If clinically concerned correlation with contrast-enhanced CT scan of the abdomen could be obtained for further evaluation of the kidneys, to rule out pyelonephritis. There is no evidence of hydroureteronephrosis or hydroureter, bilaterally. A few diverticula in the sigmoid colon without evidence of acute diverticulitis CXR 01/20: Since 01/19/2017, again noted is a weak inspiration. There appears to be a left base infiltrate with increased lung markings and large heart. Follow- up recommended CXR 01/19: Left breast, soft tissues of the chest projecting over the left lower lung zone. Left retrocardiac infiltrate cannot be entirely excluded. CT head 01/19: No evidence of acute intracranial hemorrhage, edema, midline shift , mass effect, or skull fracture. No CT evidence of acute territorial infarction ASSESSMENT/PLAN: 56 yo M w/ h/o HTN, HLD, COPD, seziures, schizoaffective d/o, CKD, CAD, gout admitted to the ICU for severe sepsis and acute kidney injury. ID: Severe sepsis 12/30 PNA vs. L Foot Bursitits? - Leukocytosis, afrebile, positive urine culture, bibasal pneumonia with pleural effusion on CT - Prelim -ve blood culture - Bedside aspiration of fluid/pus/bursa collection on L foot * f/u on bacterial culture, crystal, fungal - Continue flagyl, levaquin, zosyn - Daily CBCD and CXR Renal: DOMINIC on CKD - BUN/Cr slight improvement (normal baseline) - Sustained DOMINIC in previous admission, Cr 6.7 - Negative renal ultrasound - Cont. hydration with NS Neuro: AMS likely 2/2 uremic encephalopathy from DOMINIC - Cont. seizure medications - Neuro check Q2H GI: Transaminitis 2/2 severe sepsis - Cont. to monitor liver chemistry FEN - NS 100ml/hr - Cont. to monitor electrolytes - NPO - Prophylaxis - DVT: heparin SQ - GI: not indicated Disposition - Continues to require inpatient ICU care Code status - Full code Visit type - Emergency Visit Emergency Visit: No - New Patient This patient is new to me today: No - Critical Care Critical Care patient: Yes Total Critical Care Time (in minutes): 35 Critical Care Statement: The care of this patient involved high complexity decision making to prevent further life threatening deterioration of the patient 's condition and/or to evalute & treat vital organ system(s) failure or risk of failure.
--- NOTE | 2017-01-20 17:29 | PN ---
Teaching Attending Note Name of Resident: Brodie Alas ATTENDING PHYSICIAN STATEMENT I saw and evaluated the patient. I reviewed the resident's note and discussed the case with the resident. I agree with the resident's findings and plan as documented. SUBJECTIVE:responds to some questions appropriately. other questions speech is garbled. denies any pain or SOB OBJECTIVE: Last Vital Signs Temp Pulse Resp BP Pulse Ox 97.3 F L 92 H 18 90/57 97 01/20/17 14:00 01/20/17 16:00 01/20/17 16:00 01/20/17 16:00 01/20/17 09:00 Intake & Output 01/17/17 01/18/17 01/19/17 01/20/17 23:59 23:59 23:59 23:59 Intake Total 375 3525 Output Total 300 350 Balance 75 3175 Weight 227 lb 4.745 oz 238 lb 8 oz General NAD A&O x1 (self), lethargic but responds to verbal stimuli CV S1 S2 RRR no murmur/rub/gallop Lungs Coarse breath sounds diffusely. poor inspiratory effort abdomen soft NT/ND obese no cva tenderness Extremities 2+ pitting edema, 1 cm fluctuant area near L malleolus 2nd collection superior to 1st metatarsal neither areas appear erythematous, tender or warm ASSESSMENT AND PLAN: 56yo F with PMH HTN, HLD, COPD, seziures, schizoaffective d/o, CKD, CAD, gout presented to the ER and was admitted for further evaluation of their emergent condition 1. Acute metabolic encephalopathy- due to sepsis. now improved but not at baseline per old chart where she was more alert and oriented. was stroke code when arrived to ER. however CT negative. no seizure like activity witnessed. keppra levels subtherapeutic may need to load but will defer to neuro. neuro on board. frequent neurochecks 2. Severe sepsis- suspectged PNA vs cdiff although the latter less likely. was treated for cdiff last admission. currently no diarrhea present per RN or chart. started on vanco/zosyn/flagyl. CT abdomen with no acute pathology. ID on board but can likely d/c flagyl. f/u cx 3. Foot abscess vs gout- with high suspicion for gout given elevated uric acid. 2 swellings are not at the joint so do not suspect infected joint. XR onyl showing soft tissue collection. podiatry consulted for aspiration of these collections for Cx and crystal analysis. 4. Acute on CKD- sepsis induced vs hypoperfusion. byers placed this morning to monitor UOP. avoid nephrotoxic agents. neprho on board 5. HTn- currently hypotensive. hold oral agents 6. DVT ppx- hep sq The care of this patient involved high complexity decision making to prevent further life threatening deterioration of the patient's condition and/or to evaluate & treat vital organ system(s) failure or risk of failure. critical care time 45 minutes
[2017-01-20] MEDS ORDERED: LIDOCAINE HCL/PF 2% SDV 5ML VIAL ONE (19:22)
[2017-01-20] MEDS: MONTELUKAST NA 10 MG TABLET PO SCH (22:37)
[2017-01-20] MEDS: LATANOPROST 0.005% OPHTH SOLN 2.5ML BOTTLE OU SCH (22:41)
[2017-01-21] MEDS: ALBUTEROL SO4 0.083% IH SOL 2.5 MG/3 ML VIAL.NEB. NEB SCH ×4 (00:10→17:15)
[2017-01-21] MEDS: METRONIDAZOLE 500 MG PREMIXED 100 ML IVPB SCH ×2 (03:00→10:47)
[2017-01-21] MEDS: PIPERACILLIN/TAZOB 2.25 GM 50 ML IVPB SCH ×3 (03:00→18:14)
[2017-01-21] MEDS: INSULIN SLIDING SCALE (NOVOLOG) 1 VIAL SQ SCH ×2 (06:06→16:18)
[2017-01-21 06:32] LABS: MCH 29.5 pg (25.7-33.7); MCHC 33.5 g/dl (32.0-36.0); MEAN CELL VOLUME 88.1 fl (80-96); MEAN PLT VOLUME 7.8 fl (7.5-11.1); PLATELET COUNT 339 K/MM3 (134-434); RDW 17.3 % (11.6-15.6)
[2017-01-21 06:45] LABS: ALBUMIN 1.2 g/dl (3.4-5.0); BILIRUBIN,TOTAL 1.7 mg/dL (0.2-1.0); MAGNESIUM 2.7 mg/dL (1.8-2.4); PHOSPHOROUS 8.5 mg/dL (2.5-4.9); TOT PROT 6.1 g/dl (6.4-8.2)
[2017-01-21 07:08] LABS: CREATININE 7.7 mg/dL (0.55-1.02)
[2017-01-21 07:09] LABS: URIC ACID 14.9 mg/dL (2.6-7.2)
[2017-01-21 08:23] LABS: METAMYELOCYTE 3 % (0-2); WHITE BLOOD COUNT 31.2 K/mm3 (4.0-10.0)
[2017-01-21 08:25] LABS: PLATELET ESTIMATE ADEQUATE (NORMAL)
[2017-01-21] MEDS: FLUTICASONE/SALMETEROL 100 MCG/50 MCG DISKUS IH SCH ×2 (10:45→22:25)
[2017-01-21] MEDS: HEPARIN NA (PORCINE) 5,000 UNITS/ML 1ML VIAL SQ SCH ×2 (10:46→21:34)
[2017-01-21] MEDS: VALPROATE SODIUM 500 MG/5 ML VIAL IVPB SCH ×2 (10:46→21:34)
[2017-01-21] MEDS: RANITIDINE HCL 150 MG/10 ML UNIT-DOSE CUP PO SCH ×2 (10:46→22:26)
[2017-01-21] MEDS: LACTOBACILLUS ACIDOPHILUS 1 EACH TAB (FP) PO SCH (10:46)
[2017-01-21] MEDS: SODIUM CHLORIDE 1,000 ML IV SCH (10:47)
--- NOTE | 2017-01-21 11:05 | PN ---
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 (short form) - Note 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: History of Present Illness: 56 year old woman, history of hypertension, hyperlipidemia, COPD, epilepsy, schizoaffective disorder, CKD, gout last known normal yesterday, presented to ED with altered mental status. The patient was recently admitted to [facility] for pneumonia and septic shock; she was discharged on 12/30/16 to [facility]. Per EMS, the patient was at her baseline last night, which is alert and oriented, however has been altered. CT head no acute findings Currently being treated for sepsis, acute renal failure. Some improvement in exam - Current Medication List Current Medications: Active Medications Albuterol Sulfate (Ventolin 0.083% Nebulizer Soln -) 1 amp NEB Q4H PRN PRN Reason: SHORT OF BREATH/WHEEZING Albuterol Sulfate (Ventolin 0.083% Nebulizer Soln -) 1 amp NEB QIDR [facility] Last Admin: 01/20/17 06:10 Dose: 1 amp Heparin Sodium (Porcine) (Heparin -) 5,000 unit SQ BID [facility] Last Admin: 01/20/17 09:25 Dose: 5,000 unit Piperacillin Sod/Tazobactam Sod (Zosyn 2.25gm Ivpb (Pre-Docked)) 50 mls @ 100 mls/hr IVPB Q8H-IV ADELINE PRN Reason: Protocol Last Admin: 01/20/17 09:23 Dose: 100 mls/hr Metronidazole (Flagyl 500mg Premixed Ivpb -) 100 mls @ 100 mls/hr IVPB Q8H-IV ADELINE Last Admin: 01/20/17 09:24 Dose: 100 mls/hr Sodium Chloride (Normal Saline -) 1,000 mls @ 100 mls/hr IV ASDIR ADELINE Insulin Aspart (Novolog Vial Sliding Scale -) 1 vial SQ BIDI ADLEINE PRN Reason: Protocol Last Admin: 01/20/17 06:31 Dose: Not Given Lactobacillus Acidophilus (Bacid -) 1 tab PO DAILY [facility] Last Admin: 01/20/17 09:25 Dose: 1 tab Latanoprost (Xalatan 0.005% Eye Drops -) 1 drop OU HS [facility] Last Admin: 01/19/17 23:30 Dose: 1 drop Montelukast Sodium (Singulair -) 10 mg PO HS [facility] Last Admin: 01/19/17 22:11 Dose: Not Given Ranitidine HCl (Zantac Oral Solution -) 150 mg PO BID [facility] Last Admin: 01/20/17 09:24 Dose: 150 mg Fluticasone/Salmeterol (Advair 100mcg/50mcg -) 1 puff IH BID [facility] Last Admin: 01/20/17 09:25 Dose: 1 puff Valproate Sodium (Depacon Injection -) 500 mg IVPB BID [facility] Last Admin: 01/20/17 09:23 Dose: 500 mg Exam: Constitutional: Yes: No Distress Eyes: Yes: Conjunctiva Clear, EOM Intact HENT: Yes: Normocephalic Cardiovascular: Yes: S1, S2 Respiratory: Yes: Regular (opens eyes to sternal rub, says her name and shows two fingers, corneal intact bilaterally no gaze preference withdraws in all ext) Assessment/Plan 56 year old woman, history of hypertension, hyperlipidemia, COPD, epilepsy, schizoaffective disorder, CKD, gout last known normal yesterday, presented to ED with altered mental status. Neurology called for possible stroke- CT head negative, now no obvious focality no exam, ams likely secondary to keshawn Metabolic encephalopthy in setting of sepsis Mental status appears to be improving Now able to state name and show two fingers, no obvious focality to exam, likely ams secondary to uremic enceph which is improving Epilepsy history Continue valproate 500 mg BID No obvious seizure activity seen, if ams continues despite correcting metabolic abnormalities would consider eeg Please call if further questions, recommend continued supportive care
--- NOTE | 2017-01-21 11:28 | PN ---
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, Physician History of Present Illness: patient seen and examined at bedside in the ICU Still lethargic/tired appearing but improved from yesterday - Current Medication List Current Medications: Active Medications Albuterol Sulfate (Ventolin 0.083% Nebulizer Soln -) 1 amp NEB Q4H PRN PRN Reason: SHORT OF BREATH/WHEEZING Albuterol Sulfate (Ventolin 0.083% Nebulizer Soln -) 1 amp NEB QIDR [facility] Last Admin: 01/21/17 06:50 Dose: 1 amp Heparin Sodium (Porcine) (Heparin -) 5,000 unit SQ BID [facility] Last Admin: 01/21/17 10:46 Dose: 5,000 unit Piperacillin Sod/Tazobactam Sod (Zosyn 2.25gm Ivpb (Pre-Docked)) 50 mls @ 100 mls/hr IVPB Q8H-IV ADELINE PRN Reason: Protocol Last Admin: 01/21/17 10:46 Dose: 100 mls/hr Sodium Chloride (Normal Saline -) 1,000 mls @ 100 mls/hr IV ASDIR [facility] Last Admin: 01/21/17 10:47 Dose: 100 mls/hr Insulin Aspart (Novolog Vial Sliding Scale -) 1 vial SQ BIDI ADELINE PRN Reason: Protocol Last Admin: 01/21/17 06:06 Dose: Not Given Lactobacillus Acidophilus (Bacid -) 1 tab PO DAILY [facility] Last Admin: 01/21/17 10:46 Dose: 1 tab Latanoprost (Xalatan 0.005% Eye Drops -) 1 drop OU HS [facility] Last Admin: 01/20/17 22:41 Dose: 1 drop Montelukast Sodium (Singulair -) 10 mg PO HS [facility] Last Admin: 01/20/17 22:37 Dose: 10 mg Ranitidine HCl (Zantac Oral Solution -) 150 mg PO BID [facility] Last Admin: 01/21/17 10:46 Dose: 150 mg Fluticasone/Salmeterol (Advair 100mcg/50mcg -) 1 puff IH BID [facility] Last Admin: 01/21/17 10:45 Dose: 1 puff Valproate Sodium (Depacon Injection -) 500 mg IVPB BID [facility] Last Admin: 01/21/17 10:46 Dose: 500 mg - Objective Vital Signs: Vital Signs Temperature 97.3 F L 01/21/17 00:00 Pulse Rate 116 H 01/21/17 06:00 Respiratory Rate 20 01/21/17 06:00 Blood Pressure 107/78 01/21/17 06:00 O2 Sat by Pulse Oximetry (%) 97 01/20/17 21:00 Constitutional: Yes: No Distress, Obese Eyes: Yes: Conjunctiva Clear HENT: Yes: Atraumatic Neck: Yes: Supple, Trachea Midline Cardiovascular: Yes: Tachycardia (sinus) Respiratory: Yes: Cough, Rhonchi, Wheezes, Other (congestion) Gastrointestinal: Yes: Soft, Abdomen, Obese Extremities: Yes: Other (left medial malleolus redness and swelling as well as the joint of the left great toe soft and fluctuant) Edema: Yes (pitting) Edema: LLE: 2+, RLE: 2+ Labs: CBC, BMP 01/21/17 05:10 01/21/17 05:10 INR, PTT INR 1.31 (0.82-1.09) H 01/19/17 11:41 - ....Imaging Chest X-ray: Report Reviewed, Image Reviewed Cat Scan: Report Reviewed, Image Reviewed (chest CT) Problem List - Problems (1) Acute renal failure Code(s): N17.9 - ACUTE KIDNEY FAILURE, UNSPECIFIED Qualifiers: Acute renal failure type: unspecified Qualified Code(s): N17.9 - Acute kidney failure, unspecified (2) Altered mental status Code(s): R41.82 - ALTERED MENTAL STATUS, UNSPECIFIED Qualifiers: Altered mental status type: unspecified Qualified Code(s): R41.82 - Altered mental status, unspecified (3) Severe sepsis Code(s): A41.9 - SEPSIS, UNSPECIFIED ORGANISM R65.20 - SEVERE SEPSIS WITHOUT SEPTIC SHOCK (4) CKD (chronic kidney disease) Code(s): N18.9 - CHRONIC KIDNEY DISEASE, UNSPECIFIED (5) Gout Code(s): M10.9 - GOUT, UNSPECIFIED Qualifiers: Gout site: ankle Gout etiology: unspecified cause Laterality: right Chronicity: acute Qualified Code(s): M10.9 - Gout, unspecified (6) Pneumonia Code(s): J18.9 - PNEUMONIA, UNSPECIFIED ORGANISM Qualifiers: Pneumonia type: due to unspecified organism Laterality: left Lung location: lower lobe of lung Qualified Code(s): J18.9 - Pneumonia, unspecified organism Assessment/Plan 56F with multiple medical problems presents to the ICU with acute renal failure and severe sepsis CT scan consistent with bilateral pneumonia C diff Ag positive toxin negative Acute gouty attack Plan Check Vanco level STAT if level less than 15 will dose with vanco 1gm stop flagyl continue Zosyn and vanco by level Antibiotic day 3 Hospital Day 3 aspirate the swellings of the foot and send for c/s fungal culture by Dr. Ley from podiatry CRP 31.2 trend Uric Acid ESR pending ICU care
--- NOTE | 2017-01-21 11:38 | PN ---
Teaching Attending Note Name of Resident: Jacob Harper ATTENDING PHYSICIAN STATEMENT I saw and evaluated the patient. I reviewed the resident's note and discussed the case with the resident. I agree with the resident's findings and plan as documented. SUBJECTIVE: more alert today still quite sleepy no diarrhea OBJECTIVE: Vital Signs Period Temp Pulse Resp BP Sys/Chahal Pulse Ox Last 24 Hr 97 F-97.3 F 92-117 16-21 87-109/48-78 97 cor-rrr lungs decreased bs at bases abd soft,nt ext swelling on foot unchanged CBC, BMP 01/21/17 05:10 01/21/17 05:10 Microbiology 01/19/17 21:20 Urine - Urine Clean Catch Urine Culture - Final NO GROWTH OBTAINED 01/19/17 12:56 Blood - Peripheral Venous Blood Culture - Preliminary NO GROWTH OBTAINED AFTER 24 HOURS, INCUBATION TO CONTINUE FOR 4 DAYS. 01/19/17 12:56 Blood - Peripheral Venous Blood Culture - Preliminary NO GROWTH OBTAINED AFTER 24 HOURS, INCUBATION TO CONTINUE FOR 4 DAYS. 01/19/17 12:50 Urine - Urine Bajwa Urine Culture - Final Yeast Like Organism 01/19/17 16:27 Urine For Antigen Detection Legionella Antigen - Final 01/19/17 16:27 Urine For Antigen Detection Streptococcus pneumoniae Antigen (M - Final ASSESSMENT AND PLAN: leukocytoiss acute renal failure ?gout versus abscesses of the feet for aspiration and culture continue gayatri bates by levels d/c yl
--- NOTE | 2017-01-21 12:18 | PN ---
Teaching Attending Note Name of Resident: Reginald Santana ATTENDING PHYSICIAN STATEMENT I saw and evaluated the patient. I reviewed the resident's note and discussed the case with the resident. I agree with the resident's findings and plan as documented. SUBJECTIVE: Patient seen and examined in the ICU. Remains lethargic but arousable. Oriented to person and "hospital". Denies CP or SOB. Intermittent twitching still noted. Intake & Output 01/18/17 01/19/17 01/20/17 01/21/17 23:59 23:59 23:59 23:59 Intake Total 375 3575 1350 Output Total 300 550 150 Balance 75 3025 1200 Weight 227 lb 4.745 oz 238 lb 8 oz 244 lb 7.882 oz Last Vital Signs Temp Pulse Resp BP Pulse Ox 97.3 F L 116 H 20 107/78 97 01/21/17 00:00 01/21/17 06:00 01/21/17 06:00 01/21/17 06:00 01/20/17 21:00 Active Medications Albuterol Sulfate (Ventolin 0.083% Nebulizer Soln -) 1 amp NEB Q4H PRN PRN Reason: SHORT OF BREATH/WHEEZING Albuterol Sulfate (Ventolin 0.083% Nebulizer Soln -) 1 amp NEB QIDR [facility] Last Admin: 01/21/17 11:10 Dose: 1 amp Heparin Sodium (Porcine) (Heparin -) 5,000 unit SQ BID [facility] Last Admin: 01/21/17 10:46 Dose: 5,000 unit Piperacillin Sod/Tazobactam Sod (Zosyn 2.25gm Ivpb (Pre-Docked)) 50 mls @ 100 mls/hr IVPB Q8H-IV ADELINE PRN Reason: Protocol Last Admin: 01/21/17 10:46 Dose: 100 mls/hr Sodium Chloride (Normal Saline -) 1,000 mls @ 100 mls/hr IV ASDIR [facility] Last Admin: 01/21/17 10:47 Dose: 100 mls/hr Insulin Aspart (Novolog Vial Sliding Scale -) 1 vial SQ BIDI [facility]DE[facility] PRN Reason: Protocol Last Admin: 01/21/17 06:06 Dose: Not Given Lactobacillus Acidophilus (Bacid -) 1 tab PO DAILY [facility] Last Admin: 01/21/17 10:46 Dose: 1 tab Latanoprost (Xalatan 0.005% Eye Drops -) 1 drop OU [facility] Last Admin: 01/20/17 22:41 Dose: 1 drop Montelukast Sodium (Singulair -) 10 mg PO [facility] Last Admin: 01/20/17 22:37 Dose: 10 mg Ranitidine HCl (Zantac Oral Solution -) 150 mg PO BID [facility] Last Admin: 01/21/17 10:46 Dose: 150 mg Fluticasone/Salmeterol (Advair 100mcg/50mcg -) 1 puff IH BID [facility] Last Admin: 01/21/17 10:45 Dose: 1 puff Valproate Sodium (Depacon Injection -) 500 mg IVPB BID [facility] Last Admin: 01/21/17 10:46 Dose: 500 mg Constitutional: Yes: NAD, Lethargic Eyes: Yes: (-) Pallor HENT: Yes: Other (poor dentation) Cardiovascular: Yes: S1, S2, Other (sinus on tele) Respiratory: Yes: Diminished at the bases, no wheezing Gastrointestinal: Yes: Normal Bowel Sounds, Soft, Abdomen, Obese, Other ( bruising and scabs throughout abdomen) ...Rectal Exam: Yes: Deferred Renal/: Yes: Bajwa Present Musculoskeletal: Yes: WNL Extremities: Yes: Other (left foot edema, redness with bollous areas) Edema: LLE: 1+, RLE: Trace Peripheral Pulses WNL: Yes (+2 bilateral pedal pulses) Integumentary: Yes: Bruising (abdomen), Erythema (left foot) Neurological: Yes: Confusion, Lethargy Labs: Laboratory Results - last 24 hr 01/20/17 01/20/17 01/21/17 11:59 16:45 05:10 WBC 31.2 H* RBC 2.84 L Hgb 8.4 L Hct 25.0 L MCV 88.1 MCHC 33.5 RDW 17.3 H Plt Count 339 MPV 7.8 Neutrophils % 72.0 Lymphocytes % 9.0 D Monocytes % 4.0 Eosinophils % 3.0 Band Neutrophils 3.0 D Metamyelocytes 3 H D Myelocytes 6 H D Differential Comment Manual diff done Platelet Estimate Adequate Sodium Potassium Chloride Carbon Dioxide Anion Gap BUN Creatinine Creat Clearance w eGFR POC Glucometer 113.95580 108.76380 Random Glucose Uric Acid Calcium Phosphorus Magnesium Total Bilirubin AST ALT Alkaline Phosphatase Total Protein Albumin 01/21/17 01/21/17 05:10 05:31 WBC RBC Hgb Hct MCV MCHC RDW Plt Count MPV Neutrophils % Lymphocytes % Monocytes % Eosinophils % Band Neutrophils Metamyelocytes Myelocytes Differential Comment Platelet Estimate Sodium 136 Potassium 4.0 Chloride 94 L Carbon Dioxide 23 Anion Gap 19 H BUN 124 H* Creatinine 7.7 H* Creat Clearance w eGFR 5.42 POC Glucometer 102.97118 Random Glucose 72 L Uric Acid 14.9 H* Calcium 8.0 L Phosphorus 8.5 H Magnesium 2.7 H Total Bilirubin 1.7 H AST 54 H D ALT 15 Alkaline Phosphatase 203 H Total Protein 6.1 L Albumin 1.2 L Problem List - Problems (1) Acute renal failure Code(s): N17.9 - ACUTE KIDNEY FAILURE, UNSPECIFIED Qualifiers: Acute renal failure type: unspecified Qualified Code(s): N17.9 - Acute kidney failure, unspecified (2) Altered mental status Code(s): R41.82 - ALTERED MENTAL STATUS, UNSPECIFIED Qualifiers: Altered mental status type: unspecified Qualified Code(s): R41.82 - Altered mental status, unspecified (3) Dehydration Code(s): E86.0 - DEHYDRATION (4) Sepsis Code(s): A41.9 - SEPSIS, UNSPECIFIED ORGANISM Qualifiers: Sepsis type: sepsis due to unspecified organism Qualified Code(s): A41.9 - Sepsis, unspecified organism (5) COPD (chronic obstructive pulmonary disease) Code(s): J44.9 - CHRONIC OBSTRUCTIVE PULMONARY DISEASE, UNSPECIFIED Qualifiers : COPD type: COPD with acute exacerbation Qualified Code(s): J44.1 - Chronic obstructive pulmonary disease with (acute) exacerbation (6) Hypertension Code(s): I10 - ESSENTIAL (PRIMARY) HYPERTENSION (7) Hyponatremia Code(s): E87.1 - HYPO-OSMOLALITY AND HYPONATREMIA (8) Pneumonia Code(s): J18.9 - PNEUMONIA, UNSPECIFIED ORGANISM Qualifiers: Pneumonia type: due to unspecified organism Laterality: left Lung location: lower lobe of lung Qualified Code(s): J18.9 - Pneumonia, unspecified organism (9) Bilateral lower extremity edema Code(s): R60.0 - LOCALIZED EDEMA (10) Severe sepsis Code(s): A41.9 - SEPSIS, UNSPECIFIED ORGANISM R65.20 - SEVERE SEPSIS WITHOUT SEPTIC SHOCK (11) Hypochloremia Code(s): E87.8 - OTH DISORDERS OF ELECTROLYTE AND FLUID BALANCE, NEC Assessment/Plan IVF ABX per ID Podiatry evaluation Follow cultures Aspiration precautions O2 as needed Strict I&O AEDs per Neuro If more awake -> PO as tolerated ICU monitoring for tenuous status Dr Mckeon CCTime 35"
--- NOTE | 2017-01-21 12:55 | PN ---
Teaching Attending Note Name of Resident: Alcira Lee ATTENDING PHYSICIAN STATEMENT I saw and evaluated the patient. I reviewed the resident's note and discussed the case with the resident. I agree with the resident's findings and plan as documented. SUBJECTIVE:lethargic, answers some questions appropriately. continues to fall asleep during interview but awakes to verbal questioning. denies pain OBJECTIVE: Last Vital Signs Temp Pulse Resp BP Pulse Ox 97.3 F L 116 H 20 107/78 97 01/21/17 00:00 01/21/17 06:00 01/21/17 06:00 01/21/17 06:00 01/20/17 21:00 General NAD, lethargic A&O x1 (self) CV S1 S2 tachycardic Lungs coarse breath sounds anteriorly. unable to sit forward enough to ascultate abdomen soft NT/ND obese Extremities 2+ pitting edema, 1 cm fluctuant area near L malleolus 2nd collection superior to 1st metatarsal neither areas appear erythematous, tender or warm ASSESSMENT AND PLAN: 56yo F with PMH HTN, HLD, COPD, seziures, schizoaffective d/o, CKD, CAD, gout presented to the ER and was admitted for further evaluation of their emergent condition 1. Acute metabolic encephalopathy- due to sepsis. remains somewhat lethargic. does respond to verbal stimuli. if no improvement over the next 24H agree with EEG monitoring for subclinical seizures. keppra levels subtherapeutic on admission. concern of noncompliance. will repeat levels. neuro on board. 2. Severe sepsis-likely PNA. no BM since admission and less likely cdiff although was recently treated for in the past. flagyl now d/c. on vanco by level /zosyn day 3.awaiting aspiration of swelling of the feet although these do not appear to be infected at this time. F/u cx 3. Foot abscess vs gout- with high suspicion for gout given elevated uric acid. awaiting aspiration by podiatry. since they do not appear to be tender will hold off on steroid treatment at this time. can not give uric acid lowering medications in the setting of keshawn. 4. Acute on CKD- sepsis induced vs hypoperfusion. slowly improving, avoid nephrotoxic agents. neprho on board 5. HTn- currently normotensive. hold oral agents 6. DVT ppx- hep sq The care of this patient involved high complexity decision making to prevent further life threatening deterioration of the patient's condition and/or to evaluate & treat vital organ system(s) failure or risk of failure. critical care time 40 minutes
--- NOTE | 2017-01-21 13:57 | PN ---
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, Physician History of Present Illness: Pt seen and examined at bedside. She is more awake and interactive today. She denies shortness of breath. - Current Medication List Current Medications: Active Medications Albuterol Sulfate (Ventolin 0.083% Nebulizer Soln -) 1 amp NEB Q4H PRN PRN Reason: SHORT OF BREATH/WHEEZING Albuterol Sulfate (Ventolin 0.083% Nebulizer Soln -) 1 amp NEB QIDR ADELINE Last Admin: 01/21/17 11:10 Dose: 1 amp Heparin Sodium (Porcine) (Heparin -) 5,000 unit SQ BID ADELINE Last Admin: 01/21/17 10:46 Dose: 5,000 unit Piperacillin Sod/Tazobactam Sod (Zosyn 2.25gm Ivpb (Pre-Docked)) 50 mls @ 100 mls/hr IVPB Q8H-IV ADELINE PRN Reason: Protocol Last Admin: 01/21/17 10:46 Dose: 100 mls/hr Sodium Chloride (Normal Saline -) 1,000 mls @ 100 mls/hr IV ASDIR ADELINE Last Admin: 01/21/17 10:47 Dose: 100 mls/hr Vancomycin HCl (Vancomycin (Pre-Docked)) 250 mls @ 250 mls/hr IVPB ONCE ONE PRN Reason: Protocol Stop: 01/21/17 14:59 Insulin Aspart (Novolog Vial Sliding Scale -) 1 vial SQ BIDI ADELINE PRN Reason: Protocol Last Admin: 01/21/17 06:06 Dose: Not Given Lactobacillus Acidophilus (Bacid -) 1 tab PO DAILY [facility] Last Admin: 01/21/17 10:46 Dose: 1 tab Latanoprost (Xalatan 0.005% Eye Drops -) 1 drop OU HS ADELINE Last Admin: 01/20/17 22:41 Dose: 1 drop Montelukast Sodium (Singulair -) 10 mg PO HS ADELINE Last Admin: 01/20/17 22:37 Dose: 10 mg Ranitidine HCl (Zantac Oral Solution -) 150 mg PO BID ADELINE Last Admin: 01/21/17 10:46 Dose: 150 mg Fluticasone/Salmeterol (Advair 100mcg/50mcg -) 1 puff IH BID ADELINE Last Admin: 01/21/17 10:45 Dose: 1 puff Valproate Sodium (Depacon Injection -) 500 mg IVPB BID ADELINE Last Admin: 01/21/17 10:46 Dose: 500 mg - Objective Vital Signs: Vital Signs Temperature 97.3 F L 01/21/17 00:00 Pulse Rate 116 H 01/21/17 06:00 Respiratory Rate 20 01/21/17 06:00 Blood Pressure 107/78 01/21/17 06:00 O2 Sat by Pulse Oximetry (%) 97 01/20/17 21:00 Constitutional: Yes: Calm Eyes: Yes: Conjunctiva Clear HENT: Yes: Atraumatic Cardiovascular: Yes: S1, S2 Respiratory: Yes: On Nasal O2 Gastrointestinal: Yes: Soft, Abdomen, Obese Genitourinary: Yes: Bajwa Present Musculoskeletal: Yes: Muscle Weakness Edema: Yes Edema: LLE: Trace, RLE: Trace Neurological: Yes: Other (drowsy but arousable) Labs: CBC, BMP 01/21/17 05:10 01/21/17 05:10 INR, PTT INR 1.31 (0.82-1.09) H 01/19/17 11:41 Problem List - Problems (1) Acute renal failure Code(s): N17.9 - ACUTE KIDNEY FAILURE, UNSPECIFIED Qualifiers: Qualified Code(s): N17.9 - Acute kidney failure, unspecified (2) Altered mental status Code(s): R41.82 - ALTERED MENTAL STATUS, UNSPECIFIED Qualifiers: Qualified Code(s): R41.82 - Altered mental status, unspecified (3) Dehydration Code(s): E86.0 - DEHYDRATION (4) Sepsis Code(s): A41.9 - SEPSIS, UNSPECIFIED ORGANISM Qualifiers: Qualified Code(s): A41.9 - Sepsis, unspecified organism (5) CKD (chronic kidney disease) Code(s): N18.9 - CHRONIC KIDNEY DISEASE, UNSPECIFIED (6) COPD (chronic obstructive pulmonary disease) Code(s): J44.9 - CHRONIC OBSTRUCTIVE PULMONARY DISEASE, UNSPECIFIED Qualifiers : Qualified Code(s): J44.1 - Chronic obstructive pulmonary disease with ( acute) exacerbation (7) Depressed Code(s): F32.9 - MAJOR DEPRESSIVE DISORDER, SINGLE EPISODE, UNSPECIFIED (8) Bilateral lower extremity edema Code(s): R60.0 - LOCALIZED EDEMA Assessment/Plan Current Medications Generic Name Dose Route Start Last Admin Trade Name Freq PRN Reason Stop Dose Admin Albuterol Sulfate 1 amp 01/19/17 21:41 Ventolin 0.083% Nebulizer Soln - NEB Q4H PRN SHORT OF BREATH/WHEEZING Albuterol Sulfate 1 amp 01/20/17 00:00 01/21/17 11:10 Ventolin 0.083% Nebulizer Soln - NEB 1 amp QIDR ADELINE Administration Heparin Sodium (Porcine) 5,000 unit 01/19/17 22:00 01/21/17 10:46 Heparin - SQ 5,000 unit BID ADELINE Administration Piperacillin Sod/Tazobactam Sod 50 mls @ 100 mls/hr 01/19/17 18:00 01/21/17 10: 46 Zosyn 2.25gm Ivpb (Pre-Docked) IVPB 100 mls/hr Q8H-IV ADELINE Administration Protocol Sodium Chloride 1,000 mls @ 100 mls/hr 01/20/17 09:30 01/21/17 10:47 Normal Saline - IV 100 mls/hr ASDIR ADELINE Administration Vancomycin HCl 250 mls @ 250 mls/hr 01/21/17 14:00 Vancomycin (Pre-Docked) IVPB 01/21/17 14:59 ONCE ONE Protocol Insulin Aspart 1 vial 01/19/17 17:15 01/21/17 06:06 Novolog Vial Sliding Scale - SQ Not Given BIDI ADELINE Protocol Lactobacillus Acidophilus 1 tab 01/20/17 10:00 01/21/17 10:46 Bacid - PO 1 tab DAILY ADELINE Administration Latanoprost 1 drop 01/19/17 22:00 01/20/17 22:41 Xalatan 0.005% Eye Drops - OU 1 drop HS ADELINE Administration Montelukast Sodium 10 mg 01/19/17 22:00 01/20/17 22:37 Singulair - PO 10 mg HS ADELINE Administration Ranitidine HCl 150 mg 01/19/17 22:00 01/21/17 10:46 Zantac Oral Solution - PO 150 mg BID ADELINE Administration Fluticasone/Salmeterol 1 puff 01/19/17 22:00 01/21/17 10:45 Advair 100mcg/50mcg - IH 1 puff BID ADELINE Administration Valproate Sodium 500 mg 01/19/17 22:00 01/21/17 10:46 Depacon Injection - IVPB 500 mg BID ADELINE Administration Impression 1. DOMINIC 2. CKD 3. hyponatremia 4. altered mental status 5. gout 6. PNA 7. Depression 8. COPD 9. sepsis 10. positive hep C ab 11. HTN Plan - renal function is slowly improving - she is more awake and interactive - cont with fluids - monitor urine output - will monitor renal function - pt denies leg pain - avoid nsaids - will not restart diovan at this time - discussed with ICU team - will follow Dr Marcelino
[2017-01-21] MEDS ORDERED: VANCOMYCIN 1 GRAM (PRE-DOCKED) 250 ML IVPB ONE (14:00)
--- NOTE | 2017-01-21 14:02 | PN ---
Physical Exam: SUBJECTIVE: Patient seen and examined at bedside. Pt is more alert today and is able to answer questions slightly more today. She was able to say her full name and when asked if she had any pain, she stated no. Other history was difficult to obtain. OBJECTIVE: Vital Signs Temperature 97.3 F L 01/21/17 00:00 Pulse Rate 116 H 01/21/17 06:00 Respiratory Rate 20 01/21/17 06:00 Blood Pressure 107/78 01/21/17 06:00 O2 Sat by Pulse Oximetry (%) 97 01/20/17 21:00 GENERAL: Altered Mental Status, AAOx1 (can say name) HEAD: Normal with no signs of trauma. EYES: Pupils equal, round and reactive to light, sclera anicteric, conjunctiva clear. No lid lag. NECK: supple without lymphadenopathy LUNGS: Auscultated anteriorly, Breath sounds equal, clear to auscultation bilaterally. No wheezes, and no crackles. No accessory muscle use. HEART: Regular rate and rhythm, normal S1 and S2 without murmur, rub or gallop. ABDOMEN: Soft, obese, nontender, not distended, normoactive bowel sounds, no guarding, no rebound, no masses. No hepatomegaly or splenomegaly. MUSCULOSKELETAL: Normal range of motion at all joints. No bony deformities or tenderness. No CVA tenderness. LOWER EXTREMITIES: 2+ pulses, warm, well-perfused. 3+ pitting edema B/L LE. L foot has 2 fluid filled collections on medial aspect, one near toe, one near medial ankle. NEUROLOGICAL: Altered mental status. Slightly more alert today. PSYCHIATRIC: Altered mental status. Slightly more alert today. SKIN: Warm, dry Laboratory Results - last 24 hr 01/20/17 01/20/17 01/21/17 11:59 16:45 05:10 WBC 31.2 H* RBC 2.84 L Hgb 8.4 L Hct 25.0 L MCV 88.1 MCHC 33.5 RDW 17.3 H Plt Count 339 MPV 7.8 Neutrophils % 72.0 Lymphocytes % 9.0 D Monocytes % 4.0 Eosinophils % 3.0 Band Neutrophils 3.0 D Metamyelocytes 3 H D Myelocytes 6 H D Differential Comment Manual diff done Platelet Estimate Adequate Sodium Potassium Chloride Carbon Dioxide Anion Gap BUN Creatinine Creat Clearance w eGFR POC Glucometer 113.41183 108.66796 Random Glucose Uric Acid Calcium Phosphorus Magnesium Total Bilirubin AST ALT Alkaline Phosphatase Total Protein Albumin Random Vancomycin 01/21/17 01/21/17 01/21/17 05:10 05:31 12:00 WBC RBC Hgb Hct MCV MCHC RDW Plt Count MPV Neutrophils % Lymphocytes % Monocytes % Eosinophils % Band Neutrophils Metamyelocytes Myelocytes Differential Comment Platelet Estimate Sodium 136 Potassium 4.0 Chloride 94 L Carbon Dioxide 23 Anion Gap 19 H BUN 124 H* Creatinine 7.7 H* Creat Clearance w eGFR 5.42 POC Glucometer 102.39274 Random Glucose 72 L Uric Acid 14.9 H* Calcium 8.0 L Phosphorus 8.5 H Magnesium 2.7 H Total Bilirubin 1.7 H AST 54 H D ALT 15 Alkaline Phosphatase 203 H Total Protein 6.1 L Albumin 1.2 L Random Vancomycin 14.657 Microbiology 01/19/17 12:56 Blood - Peripheral Venous Blood Culture - Preliminary NO GROWTH OBTAINED AFTER 48 HOURS, INCUBATION TO CONTINUE FOR 3 DAYS. 01/19/17 12:56 Blood - Peripheral Venous Blood Culture - Preliminary NO GROWTH OBTAINED AFTER 48 HOURS, INCUBATION TO CONTINUE FOR 3 DAYS. 01/19/17 21:20 Urine - Urine Clean Catch Urine Culture - Final NO GROWTH OBTAINED 01/19/17 12:50 Urine - Urine Bajwa Urine Culture - Final Yeast Like Organism 01/19/17 16:27 Urine For Antigen Detection Legionella Antigen - Final 01/19/17 16:27 Urine For Antigen Detection Streptococcus pneumoniae Antigen (M - Final Active Medications Generic Name Dose Route Start Last Admin Trade Name Freq PRN Reason Stop Dose Admin Albuterol Sulfate 1 amp 01/19/17 21:41 Ventolin 0.083% Nebulizer Soln - NEB Q4H PRN SHORT OF BREATH/WHEEZING Albuterol Sulfate 1 amp 01/20/17 00:00 01/21/17 11:10 Ventolin 0.083% Nebulizer Soln - NEB 1 amp QIDR ADELINE Administration Heparin Sodium (Porcine) 5,000 unit 01/19/17 22:00 01/21/17 10:46 Heparin - SQ 5,000 unit BID ADELINE Administration Piperacillin Sod/Tazobactam Sod 50 mls @ 100 mls/hr 01/19/17 18:00 01/21/17 10: 46 Zosyn 2.25gm Ivpb (Pre-Docked) IVPB 100 mls/hr Q8H-IV ADELINE Administration Protocol Sodium Chloride 1,000 mls @ 100 mls/hr 01/20/17 09:30 01/21/17 10:47 Normal Saline - IV 100 mls/hr ASDIR ADELINE Administration Vancomycin HCl 1,000 mg/ 250 mls @ 250 mls/hr 01/21/17 13:43 Dextrose IVPB 01/21/17 14:42 ONCE ONE Protocol Insulin Aspart 1 vial 01/19/17 17:15 01/21/17 06:06 Novolog Vial Sliding Scale - SQ Not Given BIDI ADELINE Protocol Lactobacillus Acidophilus 1 tab 01/20/17 10:00 01/21/17 10:46 Bacid - PO 1 tab DAILY ADELINE Administration Latanoprost 1 drop 01/19/17 22:00 01/20/17 22:41 Xalatan 0.005% Eye Drops - OU 1 drop HS ADELINE Administration Montelukast Sodium 10 mg 01/19/17 22:00 01/20/17 22:37 Singulair - PO 10 mg HS ADELINE Administration Ranitidine HCl 150 mg 01/19/17 22:00 01/21/17 10:46 Zantac Oral Solution - PO 150 mg BID ADELINE Administration Fluticasone/Salmeterol 1 puff 01/19/17 22:00 01/21/17 10:45 Advair 100mcg/50mcg - IH 1 puff BID ADELINE Administration Valproate Sodium 500 mg 01/19/17 22:00 01/21/17 10:46 Depacon Injection - IVPB 500 mg BID ADELINE Administration ASSESSMENT/PLAN: 56 y/o F w/ PMH of HTN, HLD, COPD, seziures, schizoaffective d/o, CKD, CAD, gout presented to ER from [facility] for AMS. -Acute metabolic encephalopathy secondary to severe sepsis from PNA vs C. Diff -Head CT negative; Neuro on board -f/u brain MRI when more stable to assess for possible CVA -WBC: 31 -BCx neg X 24 hrs -Pt had positive Ag for C. Diff on last admission -UCx yeast like organism -UAg of PNA negative -CT Chest/Abd: Bibasal consolidation/pneumonia with a trace of bilateral pleural effusion. Moderate stranding of the perinephric fat which is nonspecific and may be chronic -c/w vanco, zosyn -off flagyl now as per ID -c/w NS @ 100 ml/hr -CXR in AM -DOMINIC secondary to severe sepsis, dehydration -BUN/Cr: 124/7.7 (on last discharge Cr ws 0.7) -c/w NS @ 100 ml/hr -Nephrology consulted (Dr. Marcelino) -Uric Acid 15, f/u uric acid -FeNa from urine lytes -Renal U/S - no kidney pathology -Tumor lysis? Elevated myelocytes, WBC - CML/AML? -Transamintis secondary to severe sepsis -improving, continue to monitor LFTs -Seizures -valproic acid 500 mg bid iv -check valproic levels in a few days as per neuro -L foot fluid filled bullae -Podiatry on board -infective burisitis vs gout -bedside aspiration by podiatry -foot xr: soft tissue swelling noted but not bony abnormalities. -HTN -will hold anti-hypertensives in light of sepsis -Schizoaffective d/o -effexor xr 150 mg po qd when more stable -abilify 10 mg po qd when more stable -COPD -advair 1 puff bid when more stable -DM -ISS bid, BGMs bid while not eating due to AMS -FEN -NS @ 100 ml/hr -Hyponatremia, hypochloremia; improving; - c/w NS @ 100 ml/hr, monitor lytes -NPO due to AMS -Dispo: -Monitor in ICU Problem List - Problems (1) Acute renal failure Code(s): N17.9 - ACUTE KIDNEY FAILURE, UNSPECIFIED Qualifiers: Acute renal failure type: unspecified Qualified Code(s): N17.9 - Acute kidney failure, unspecified (2) Altered mental status Code(s): R41.82 - ALTERED MENTAL STATUS, UNSPECIFIED Qualifiers: Altered mental status type: unspecified Qualified Code(s): R41.82 - Altered mental status, unspecified (3) Dehydration Code(s): E86.0 - DEHYDRATION (4) Sepsis Code(s): A41.9 - SEPSIS, UNSPECIFIED ORGANISM Qualifiers: Sepsis type: sepsis due to unspecified organism Qualified Code(s): A41.9 - Sepsis, unspecified organism (5) COPD (chronic obstructive pulmonary disease) Code(s): J44.9 - CHRONIC OBSTRUCTIVE PULMONARY DISEASE, UNSPECIFIED Qualifiers : COPD type: COPD with acute exacerbation Qualified Code(s): J44.1 - Chronic obstructive pulmonary disease with (acute) exacerbation (6) Hypertension Code(s): I10 - ESSENTIAL (PRIMARY) HYPERTENSION (7) Hyponatremia Code(s): E87.1 - HYPO-OSMOLALITY AND HYPONATREMIA (8) Pneumonia Code(s): J18.9 - PNEUMONIA, UNSPECIFIED ORGANISM Qualifiers: Pneumonia type: due to unspecified organism Laterality: left Lung location: lower lobe of lung Qualified Code(s): J18.9 - Pneumonia, unspecified organism (9) Bilateral lower extremity edema Code(s): R60.0 - LOCALIZED EDEMA (10) Severe sepsis Code(s): A41.9 - SEPSIS, UNSPECIFIED ORGANISM R65.20 - SEVERE SEPSIS WITHOUT SEPTIC SHOCK (11) Hypochloremia Code(s): E87.8 - OTH DISORDERS OF ELECTROLYTE AND FLUID BALANCE, NEC Visit type - Emergency Visit Emergency Visit: Yes ED Registration Date: 01/19/17 Care time: The patient presented to the Emergency Department on the above date and was hospitalized for further evaluation of their emergent condition. - New Patient This patient is new to me today: No - Critical Care Critical Care patient: Yes Total Critical Care Time (in minutes): 37 Critical Care Statement: The care of this patient involved high complexity decision making to prevent further life threatening deterioration of the patient 's condition and/or to evalute & treat vital organ system(s) failure or risk of failure.
--- NOTE | 2017-01-21 14:21 | PN ---
Physical Exam: SUBJECTIVE: Patient seen and examined at bedside in the ICU. She opened eyes, followed commands, and answered some questions. C/O mild abd tenderness but unable to speak smoothly. OBJECTIVE: Vital Signs Period Temp Pulse Resp BP Sys/Chahal Pulse Ox Last 24 Hr 97 F-97.3 F 92-117 17-21 90-109/48-78 97 GENERAL: less lethargic, arousable, oriented to place only, unable to speak full sentences EYES: Pupils round and reactive to light LUNGS: L lung rhonchi HEART: RRR, normal S1 and S2 without murmur, rub or gallop. ABDOMEN: Soft, obese, mild tenderness in lower abd, normoactive bowel sounds, hyperpigmentations/subcutaenous lesions across abd LOWER EXTREMITIES: 2 pus? collection with soft tissue swelling on medial L foot and L big toe. . NEUROLOGICAL: unable to assess ABG Results ABG pH 7.39 (7.35-7.45) 01/20/17 12:10 ABG pCO2 at Pt Temp 41.8 mmHg (35-45) 01/20/17 12:10 ABG pO2 at Pt Temp 82.0 mmHg (80-100) 01/20/17 12:10 ABG HCO3 24.5 meq/L (22-26) 01/20/17 12:10 ABG O2 Sat (Measured) 95.5 % (90-98.9) 01/20/17 12:10 ABG O2 Content 9.9 % vol (15-22) L* 01/20/17 12:10 ABG Base Excess 0.0 meq/l (-2-2) 01/20/17 12:10 CBCD WBC 31.2 K/mm3 (4.0-10.0) H* 01/21/17 05:10 RBC 2.84 M/mm3 (3.60-5.2) L 01/21/17 05:10 Hgb 8.4 GM/dL (10.7-15.3) L 01/21/17 05:10 Hct 25.0 % (32.4-45.2) L 01/21/17 05:10 MCV 88.1 fl (80-96) 01/21/17 05:10 MCHC 33.5 g/dl (32.0-36.0) 01/21/17 05:10 RDW 17.3 % (11.6-15.6) H 01/21/17 05:10 Plt Count 339 K/MM3 (134-434) 01/21/17 05:10 MPV 7.8 fl (7.5-11.1) 01/21/17 05:10 CMP Sodium 136 mmol/L (136-145) 01/21/17 05:10 Potassium 4.0 mmol/L (3.5-5.1) 01/21/17 05:10 Chloride 94 mmol/L (98-107) L 01/21/17 05:10 Carbon Dioxide 23 mmol/L (21-32) 01/21/17 05:10 Anion Gap 19 (8-16) H 01/21/17 05:10 BUN 124 mg/dL (7-18) H* 01/21/17 05:10 Creatinine 7.7 mg/dL (0.55-1.02) H* 01/21/17 05:10 Creat Clearance w eGFR 5.42 (>60) 01/21/17 05:10 Calcium 8.0 mg/dL (8.5-10.1) L 01/21/17 05:10 Total Bilirubin 1.7 mg/dL (0.2-1.0) H 01/21/17 05:10 AST 54 U/L (15-37) H D 01/21/17 05:10 ALT 15 U/L (12-78) 01/21/17 05:10 Alkaline Phosphatase 203 U/L (45-117) H 01/21/17 05:10 Total Protein 6.1 g/dl (6.4-8.2) L 01/21/17 05:10 Albumin 1.2 g/dl (3.4-5.0) L 01/21/17 05:10 Intake & Output 01/18/17 01/19/17 01/20/17 01/21/17 23:59 23:59 23:59 23:59 Intake Total 375 3575 1350 Output Total 300 550 150 Balance 75 3025 1200 Weight 103.1 kg 108.182 kg 110.9 kg Active Medications Generic Name Dose Route Start Last Admin Trade Name Freq PRN Reason Stop Dose Admin Albuterol Sulfate 1 amp 01/19/17 21:41 Ventolin 0.083% Nebulizer Soln - NEB Q4H PRN SHORT OF BREATH/WHEEZING Albuterol Sulfate 1 amp 01/20/17 00:00 01/21/17 11:10 Ventolin 0.083% Nebulizer Soln - NEB 1 amp QIDR ADELINE Administration Heparin Sodium (Porcine) 5,000 unit 01/19/17 22:00 01/21/17 10:46 Heparin - SQ 5,000 unit BID ADELINE Administration Piperacillin Sod/Tazobactam Sod 50 mls @ 100 mls/hr 01/19/17 18:00 01/21/17 10: 46 Zosyn 2.25gm Ivpb (Pre-Docked) IVPB 100 mls/hr Q8H-IV ADELINE Administration Protocol Sodium Chloride 1,000 mls @ 100 mls/hr 01/20/17 09:30 01/21/17 10:47 Normal Saline - IV 100 mls/hr ASDIR ADELINE Administration Vancomycin HCl 250 mls @ 250 mls/hr 01/21/17 14:00 Vancomycin (Pre-Docked) IVPB 01/21/17 14:59 ONCE ONE Protocol Insulin Aspart 1 vial 01/19/17 17:15 01/21/17 06:06 Novolog Vial Sliding Scale - SQ Not Given BIDI ADELINE Protocol Lactobacillus Acidophilus 1 tab 01/20/17 10:00 01/21/17 10:46 Bacid - PO 1 tab DAILY ADELINE Administration Latanoprost 1 drop 01/19/17 22:00 01/20/17 22:41 Xalatan 0.005% Eye Drops - OU 1 drop HS ADELINE Administration Montelukast Sodium 10 mg 01/19/17 22:00 01/20/17 22:37 Singulair - PO 10 mg HS ADELINE Administration Ranitidine HCl 150 mg 01/19/17 22:00 01/21/17 10:46 Zantac Oral Solution - PO 150 mg BID ADELINE Administration Fluticasone/Salmeterol 1 puff 01/19/17 22:00 01/21/17 10:45 Advair 100mcg/50mcg - IH 1 puff BID ADELINE Administration Valproate Sodium 500 mg 01/19/17 22:00 01/21/17 10:46 Depacon Injection - IVPB 500 mg BID ADELINE Administration Microbiology 01/19/17 12:50 Urine - Urine Bajwa Urine Culture - Final Yeast Like Organism Imaging Renal U/S 2/22: Both kidneys appear unremarkable. Bajwa catheter within an empty urinary bladder Foot X-ray 01/19: The ankle mortise is intact. There is significant soft tissue swelling over the medial malleolus. No acute fracture, dislocation or focal bone destruction is identified. There is moderate soft tissue swelling over dorsal aspect of the foot CT Abd 01/19: Bibasal consolidation/pneumonia with a trace of bilateral pleural effusion. Moderate stranding of the perinephric fat which is nonspecific and may be chronic. If clinically concerned correlation with contrast-enhanced CT scan of the abdomen could be obtained for further evaluation of the kidneys, to rule out pyelonephritis. There is no evidence of hydroureteronephrosis or hydroureter, bilaterally. A few diverticula in the sigmoid colon without evidence of acute diverticulitis CXR 01/21: Mild improvement of left base infiltrate and pleural effusion. Elevated right hemidiaphragm with mild blunting of right costophrenic angle concerning for right pleural effusion CXR 01/20: Since 01/19/2017, again noted is a weak inspiration. There appears to be a left base infiltrate with increased lung markings and large heart. Follow- up recommended CXR 01/19: Left breast, soft tissues of the chest projecting over the left lower lung zone. Left retrocardiac infiltrate cannot be entirely excluded. CT head 01/19: No evidence of acute intracranial hemorrhage, edema, midline shift , mass effect, or skull fracture. No CT evidence of acute territorial infarction ASSESSMENT/PLAN: 56 yo M w/ h/o HTN, HLD, COPD, seziures, schizoaffective d/o, CKD, CAD, gout admitted to the ICU for severe sepsis and acute kidney injury. ID: Severe sepsis 12/30 PNA vs. L Foot Bursitits? - Leukocytosis, afrebile, positive urine culture, bibasal pneumonia with pleural effusion - Bedside aspiration of fluid/pus/bursa collection on L foot planned tomorrow * f/u on bacterial culture, crystal, fungal - Started on vanco - Cont. zosyn, D/C flagyl - Daily CBCD and CXR Renal: DOMINIC on CKD - BUN/Cr slight improvement (normal at baseline) - Sustained DOMINIC in previous admission, Cr 6.7 - Stopped all nephrotoxin medications - Negative renal ultrasound - Cont. hydration with NS Neuro: AMS likely 2/2 uremic encephalopathy from DOMINIC - Improving - Cont. seizure medications - Neuro check Q2H Rheum: Gout - ?Acute attack - 40mg predisone PO solution QD while waiting on fluid aspirate GI: Transaminitis 2/2 severe sepsis - Cont. to monitor liver chemistry FEN - NS 100ml/hr - Cont. to monitor electrolytes - NPO - Prophylaxis - DVT: heparin SQ - GI: not indicated Disposition - Continues to require inpatient ICU care Code status - Full code Visit type - Emergency Visit Emergency Visit: No - New Patient This patient is new to me today: No - Critical Care Critical Care patient: Yes Total Critical Care Time (in minutes): 45 Critical Care Statement: The care of this patient involved high complexity decision making to prevent further life threatening deterioration of the patient 's condition and/or to evalute & treat vital organ system(s) failure or risk of failure.
[2017-01-21] MEDS ORDERED: predniSONE 5 MG/5 ML ORAL SOLN- UNIT-DOSE CUP PO SCH (14:30)
--- NOTE | 2017-01-21 18:28 | PN ---
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 (short form) - Note 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: Podiatry: Seen and evaluated at bedside, in ICU, NAD. Afebrile, VSS. TERRY: L foot: soft tissue swelling at medial 1st MTPJ and anterior aspect of ankle L foot. There is erythema to the areas of foot localized. There is fluctuance noted at these areas. There is no open lesions, no purulence, no ascending cellulitis, no ST crepitus, no signs of active infection. No tenderness response elicited on palpation. WBC: 31.2 Uric Acid: 14.9 Imp: 56 year old F acute gouty arthropathy exacerbated by ARF 1. Aspiration of 1st MTPJ and anterior ankle performed. Patient tolerated the procedure well. Milky white, tophaceous fluid expressed from both sites. This fluid was sent for fungal, bacterial and crystals. Will watch results. Should avoid NSAIDs at this time, thus would not recommend IV colchicine given patient' s renal status. Discussed case with Dr. Santana, who placed patient on PO prednisone. Tran Ley DPM
[2017-01-21] MEDS: MONTELUKAST NA 10 MG TABLET PO SCH (22:25)
[2017-01-21] MEDS: LATANOPROST 0.005% OPHTH SOLN 2.5ML BOTTLE OU SCH (23:06)
[2017-01-22] MEDS: ALBUTEROL SO4 0.083% IH SOL 2.5 MG/3 ML VIAL.NEB. NEB SCH ×4 (00:05→19:14)
[2017-01-22] MEDS: PIPERACILLIN/TAZOB 2.25 GM 50 ML IVPB SCH (01:11)
[2017-01-22] MEDS: INSULIN SLIDING SCALE (NOVOLOG) 1 VIAL SQ SCH ×2 (06:04→16:17)
[2017-01-22 06:18] LABS: MCH 29.3 pg (25.7-33.7); MCHC 33.7 g/dl (32.0-36.0); PLATELET COUNT 304 K/MM3 (134-434); WHITE BLOOD COUNT 29.2 K/mm3 (4.0-10.0)
[2017-01-22 06:59] LABS: CALCIUM 7.7 mg/dL (8.5-10.1)
[2017-01-22 07:02] LABS: BILIRUBIN,TOTAL 1.3 mg/dL (0.2-1.0); CREATININE 6.3 mg/dL (0.55-1.02); PHOSPHOROUS 8.2 mg/dL (2.5-4.9); TOT PROT 5.7 g/dl (6.4-8.2)
--- NOTE | 2017-01-22 07:33 | PN ---
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 (short form) - Note 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: ID Despite broad spectrum antibiotics WBC remains elevated since admission. Note that her cultures are negative was never febrile and her lactic acid always normal. Now on steroids I assume for gout Aspirate by report "whiteish" material not pus Selected Entries 01/22/17 06:00 Temperature 98.3 F Pulse Rate 101 H Respiratory 14 Rate Blood Pressure 104/70 Microbiology 01/19/17 21:20 Urine - Urine Clean Catch Urine Culture - Final NO GROWTH OBTAINED 01/19/17 16:27 Urine For Antigen Detection Legionella Antigen - Final 01/19/17 16:27 Urine For Antigen Detection Streptococcus pneumoniae Antigen (M - Final 01/19/17 12:50 Urine - Urine Bajwa Urine Culture - Final Yeast Like Organism 01/19/17 12:56 Blood - Peripheral Venous Blood Culture - Preliminary NO GROWTH OBTAINED AFTER 48 HOURS, INCUBATION TO CONTINUE FOR 3 DAYS. 01/19/17 12:56 Blood - Peripheral Venous Blood Culture - Preliminary NO GROWTH OBTAINED AFTER 48 HOURS, INCUBATION TO CONTINUE FOR 3 DAYS. Laboratory Tests 01/21/17 01/21/17 01/22/17 05:10 12:35 05:20 WBC 29.2 H Hgb 7.3 L D Hct 21.6 L Plt Count 304 ESR > 130 H BUN 124 H* Creatinine 7.7 H* Creat Clearance w eGFR 5.42 Magnesium 2.7 H Alkaline Phosphatase 203 H Assessment No clear PNA Leukocytosis now on steroids Unclear if any infection Plan Favor stopping antibiotics with careful observation Foot aspirate pending Sona KANG Problem List - Problems (1) Acute renal failure Code(s): N17.9 - ACUTE KIDNEY FAILURE, UNSPECIFIED Qualifiers: Acute renal failure type: unspecified Qualified Code(s): N17.9 - Acute kidney failure, unspecified (2) Sepsis Code(s): A41.9 - SEPSIS, UNSPECIFIED ORGANISM Qualifiers: Sepsis type: sepsis due to unspecified organism Qualified Code(s): A41.9 - Sepsis, unspecified organism
--- NOTE | 2017-01-22 07:46 | PN ---
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 (short form) - Note 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: currently lethargic but responds to verbal stimuli. Current Medications Generic Name Dose Route Start Last Admin Trade Name Freq PRN Reason Stop Dose Admin Albuterol Sulfate 1 amp 01/19/17 21:41 Ventolin 0.083% Nebulizer Soln - NEB Q4H PRN SHORT OF BREATH/WHEEZING Albuterol Sulfate 1 amp 01/20/17 00:00 01/22/17 06:31 Ventolin 0.083% Nebulizer Soln - NEB 1 amp QIDR [facility]LINE Administration Heparin Sodium (Porcine) 5,000 unit 01/19/17 22:00 01/21/17 21:34 Heparin - SQ 5,000 unit BID ADELINE Administration Sodium Chloride 1,000 mls @ 100 mls/hr 01/20/17 09:30 01/21/17 10:47 Normal Saline - IV 100 mls/hr ASDIR ADELINE Administration Insulin Aspart 1 vial 01/19/17 17:15 01/22/17 06:04 Novolog Vial Sliding Scale - SQ 2 units BIDI ADELINE Administration Protocol Lactobacillus Acidophilus 1 tab 01/20/17 10:00 01/21/17 10:46 Bacid - PO 1 tab DAILY A[facility]LINE Administration Latanoprost 1 drop 01/19/17 22:00 01/21/17 23:06 Xalatan 0.005% Eye Drops - OU 1 drop HS ADELINE Administration Montelukast Sodium 10 mg 01/22/17 22:00 Singulair - PO HS ADELINE Prednisone 40 mg 01/22/17 10:00 Deltasone - PO DAILY A[facility]LINE Ranitidine HCl 150 mg 01/19/17 22:00 01/21/17 22:26 Zantac Oral Solution - PO 150 mg BID A[facility]LINE Administration Fluticasone/Salmeterol 1 puff 01/19/17 22:00 01/21/17 22:25 Advair 100mcg/50mcg - IH Not Given BID ADELINE Valproate Sodium 500 mg 01/19/17 22:00 01/21/17 21:34 Depacon Injection - IVPB 500 mg BID ADELINE Administration Last Vital Signs Temp Pulse Resp BP Pulse Ox 98.3 F 101 H 14 104/70 94 L 01/22/17 06:00 01/22/17 06:00 01/22/17 06:00 01/22/17 06:00 01/21/17 21:00 Intake & Output 01/19/17 01/20/17 01/21/17 01/22/17 23:59 23:59 23:59 23:59 Intake Total 375 3575 2700 1500 Output Total 300 550 850 400 Balance 75 3025 1850 1100 Weight 227 lb 4.745 oz 238 lb 8 oz 244 lb 7.882 oz 244 lb 1.6 oz General NAD, lethargic, opens her eyes to verbal stimuli CV S1 S2 RRR no murmur/rub/gallop Lungs CTA B/L anteriorly. poor inspiratory effort. abdomen soft NT/ND obese Extremities 2+ pitting edema, 1 cm fluctuant area near L malleolus 2nd collection superior to 1st metatarsal neither areas appear erythematous, tender or warm ASSESSMENT AND PLAN: 56yo F with PMH HTN, HLD, COPD, seziures, schizoaffective d/o, CKD, CAD, gout presented to the ER and was admitted for further evaluation of their emergent condition 1. Acute metabolic encephalopathy-uremic but improving. remains selective on what to answer to but alert to verbal stimuli. as per RN this is close to her baseline mental status which was confirmed by family yesterday. should improve as uremia improves. no myoclonic jerking or seizure activity noted. will continue medications for now. on valproic acid, will check levels tomorrow. brain MRI when able 2. Severe sepsis-likely PNA. has remained afebrile but leukocytosis remains high. will hold abx at this time and monitor. vanco level remains therapeutic. d /c IVF 3. Acute gout flare-s/p aspiration by podiatry yesterday. fluid sent for analysis. started on prednisone for flare. uric acid level trending down. areas are not painful. 4. Acute on CKD- sepsis induced vs hypoperfusion. slowly improving, avoid nephrotoxic agents. nephro on board 5. pseudohypocalcemia- corrected 10.1 6. Acute normocytic anemia- Hgb trending down. some dilutional component but cannot r/o underlying blood loss. no active signs of bleeding. will repeat hgb in evening txn for hgb <7. check iron studies 7. HTn- currently normotensive. hold oral agents 8. DVT ppx- hep sq The care of this patient involved high complexity decision making to prevent further life threatening deterioration of the patient's condition and/or to evaluate & treat vital organ system(s) failure or risk of failure. critical care time 40 minutes Visit type - Emergency Visit Emergency Visit: Yes ED Registration Date: 01/19/17 Care time: The patient presented to the Emergency Department on the above date and was hospitalized for further evaluation of their emergent condition. - New Patient This patient is new to me today: No - Critical Care Critical Care patient: Yes Total Critical Care Time (in minutes): 40 Critical Care Statement: The care of this patient involved high complexity decision making to prevent further life threatening deterioration of the patient 's condition and/or to evalute & treat vital organ system(s) failure or risk of failure. - Discharge Referral Referred to [facility] Med P.C.: No
[2017-01-22 07:50] LABS: URIC ACID 14.7 mg/dL (2.6-7.2)
[2017-01-22 08:41] LABS: METAMYELOCYTE 6 % (0-2); SMUDGE CELLS FEW
[2017-01-22 08:42] LABS: ANISOCYTOSIS 2+; HYPOCHROMIA 2+; PLATELET COMMENT2 NO CLOTTING DETECTED; PLATELET ESTIMATE ADEQUATE (NORMAL); POIKILOCYTOSIS 2+; POLYCHROMASIA 1+
--- NOTE | 2017-01-22 09:26 | PN ---
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 (short form) - Note 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: Seen and examined in the ICU cont to be lethargic afebrile, BP stable surgery sent sample of fluctuant areas of left foot to micro Current Medications Albuterol Sulfate (Ventolin 0.083% Nebulizer Soln -) 1 amp NEB Q4H PRN PRN Reason: SHORT OF BREATH/WHEEZING Albuterol Sulfate (Ventolin 0.083% Nebulizer Soln -) 1 amp NEB QIDR [facility] Last Admin: 01/22/17 06:31 Dose: 1 amp Heparin Sodium (Porcine) (Heparin -) 5,000 unit SQ BID [facility] Last Admin: 01/21/17 21:34 Dose: 5,000 unit Insulin Aspart (Novolog Vial Sliding Scale -) 1 vial SQ BIDI [facility] PRN Reason: Protocol Last Admin: 01/22/17 06:04 Dose: 2 units Lactobacillus Acidophilus (Bacid -) 1 tab PO DAILY [facility] Last Admin: 01/21/17 10:46 Dose: 1 tab Latanoprost (Xalatan 0.005% Eye Drops -) 1 drop OU HS [facility] Last Admin: 01/21/17 23:06 Dose: 1 drop Montelukast Sodium (Singulair -) 10 mg PO HS [facility] Prednisone (Deltasone -) 40 mg PO DAILY [facility] Ranitidine HCl (Zantac Oral Solution -) 150 mg PO BID [facility] Last Admin: 01/21/17 22:26 Dose: 150 mg Fluticasone/Salmeterol (Advair 100mcg/50mcg -) 1 puff IH BID [facility] Last Admin: 01/21/17 22:25 Dose: Not Given Valproate Sodium (Depacon Injection -) 500 mg IVPB BID [facility] Last Admin: 01/21/17 21:34 Dose: 500 mg Vital Signs Period Temp Pulse Resp BP Sys/Chahal Pulse Ox Last 24 Hr 97.8 F-98.9 F 99-112 14-22 89-132/53-81 94 Intake & Output 01/19/17 01/20/17 01/21/17 01/22/17 23:59 23:59 23:59 23:59 Intake Total 375 3575 2700 1500 Output Total 300 550 850 400 Balance 75 3025 1850 1100 Weight 103.1 kg 108.182 kg 110.9 kg 110.722 kg Exam: Neuro: opens eyes to voice: AOx1 (last name), not following commands ? volitional CV: RRR Pulm: diminished in bases Abd: obese SNTND Ext: WWP +4 edema LE left foor with areas of fluctuance CBCD WBC 29.2 K/mm3 (4.0-10.0) H 01/22/17 05:20 RBC 2.49 M/mm3 (3.60-5.2) L 01/22/17 05:20 Hgb 7.3 GM/dL (10.7-15.3) L D 01/22/17 05:20 Hct 21.6 % (32.4-45.2) L 01/22/17 05:20 MCV 87.0 fl (80-96) 01/22/17 05:20 MCHC 33.7 g/dl (32.0-36.0) 01/22/17 05:20 RDW 17.0 % (11.6-15.6) H 01/22/17 05:20 Plt Count 304 K/MM3 (134-434) 01/22/17 05:20 MPV 8.0 fl (7.5-11.1) 01/22/17 05:20 CMP Sodium 137 mmol/L (136-145) 01/22/17 05:20 Potassium 4.0 mmol/L (3.5-5.1) 01/22/17 05:20 Chloride 101 mmol/L (98-107) 01/22/17 05:20 Carbon Dioxide 22 mmol/L (21-32) 01/22/17 05:20 Anion Gap 14 (8-16) 01/22/17 05:20 BUN 118 mg/dL (7-18) H* 01/22/17 05:20 Creatinine 6.3 mg/dL (0.55-1.02) H 01/22/17 05:20 Creat Clearance w eGFR 6.83 (>60) 01/22/17 05:20 Random Glucose 143 mg/dL (74-106) H D 01/22/17 05:20 Calcium 7.7 mg/dL (8.5-10.1) L 01/22/17 05:20 Total Bilirubin 1.3 mg/dL (0.2-1.0) H D 01/22/17 05:20 AST 33 U/L (15-37) D 01/22/17 05:20 ALT 13 U/L (12-78) 01/22/17 05:20 Alkaline Phosphatase 163 U/L (45-117) H 01/22/17 05:20 Total Protein 5.7 g/dl (6.4-8.2) L 01/22/17 05:20 Albumin 1.0 g/dl (3.4-5.0) L 01/22/17 05:20 Microbiology 01/19/17 12:56 Blood - Peripheral Venous Blood Culture - Preliminary NO GROWTH OBTAINED AFTER 48 HOURS, INCUBATION TO CONTINUE FOR 3 DAYS. 01/19/17 12:56 Blood - Peripheral Venous Blood Culture - Preliminary NO GROWTH OBTAINED AFTER 48 HOURS, INCUBATION TO CONTINUE FOR 3 DAYS. 01/19/17 21:20 Urine - Urine Clean Catch Urine Culture - Final NO GROWTH OBTAINED 01/19/17 12:50 Urine - Urine Bajwa Urine Culture - Final Yeast Like Organism 01/19/17 16:27 Urine For Antigen Detection Legionella Antigen - Final 01/19/17 16:27 Urine For Antigen Detection Streptococcus pneumoniae Antigen (M - Final Problem List - Problems (1) Acute renal failure Code(s): N17.9 - ACUTE KIDNEY FAILURE, UNSPECIFIED Qualifiers: Acute renal failure type: unspecified Qualified Code(s): N17.9 - Acute kidney failure, unspecified (2) Altered mental status Code(s): R41.82 - ALTERED MENTAL STATUS, UNSPECIFIED Qualifiers: Altered mental status type: unspecified Qualified Code(s): R41.82 - Altered mental status, unspecified (3) Dehydration Code(s): E86.0 - DEHYDRATION (4) Sepsis Code(s): A41.9 - SEPSIS, UNSPECIFIED ORGANISM Qualifiers: Sepsis type: sepsis due to unspecified organism Qualified Code(s): A41.9 - Sepsis, unspecified organism (5) COPD (chronic obstructive pulmonary disease) Code(s): J44.9 - CHRONIC OBSTRUCTIVE PULMONARY DISEASE, UNSPECIFIED Qualifiers : COPD type: COPD with acute exacerbation Qualified Code(s): J44.1 - Chronic obstructive pulmonary disease with (acute) exacerbation (6) Hypertension Code(s): I10 - ESSENTIAL (PRIMARY) HYPERTENSION (7) Hyponatremia Code(s): E87.1 - HYPO-OSMOLALITY AND HYPONATREMIA (8) Pneumonia Code(s): J18.9 - PNEUMONIA, UNSPECIFIED ORGANISM Qualifiers: Pneumonia type: due to unspecified organism Laterality: left Lung location: lower lobe of lung Qualified Code(s): J18.9 - Pneumonia, unspecified organism (9) Bilateral lower extremity edema Code(s): R60.0 - LOCALIZED EDEMA (10) Severe sepsis Code(s): A41.9 - SEPSIS, UNSPECIFIED ORGANISM R65.20 - SEVERE SEPSIS WITHOUT SEPTIC SHOCK (11) Hypochloremia Code(s): E87.8 - OTH DISORDERS OF ELECTROLYTE AND FLUID BALANCE, NEC Assessment/Plan IVF ABX per ID Surgery following possible foot abscess Follow cultures Aspiration precautions O2 as needed Strict I&O AEDs per Neuro If more awake -> PO as tolerated ICU monitoring for tenuous status Boerem ACNP Pulm/CCM CCT: 35m
[2017-01-22] MEDS: LACTOBACILLUS ACIDOPHILUS 1 EACH TAB (FP) PO SCH (10:25)
[2017-01-22] MEDS: HEPARIN NA (PORCINE) 5,000 UNITS/ML 1ML VIAL SQ SCH ×2 (10:26→21:36)
[2017-01-22] MEDS: FLUTICASONE/SALMETEROL 100 MCG/50 MCG DISKUS IH SCH ×2 (10:26→21:36)
[2017-01-22] MEDS: VALPROATE SODIUM 500 MG/5 ML VIAL IVPB SCH ×2 (10:26→21:36)
[2017-01-22] MEDS: predniSONE 20 MG TABLET (UD) PO SCH (10:26)
[2017-01-22] MEDS: RANITIDINE HCL 150 MG/10 ML UNIT-DOSE CUP PO SCH ×3 (10:26→22:17)
[2017-01-22 13:06] LABS: MCH 28.7 pg (25.7-33.7); MCHC 32.9 g/dl (32.0-36.0); MEAN CELL VOLUME 87.2 fl (80-96); MEAN PLT VOLUME 7.7 fl (7.5-11.1); PLATELET COUNT 286 K/MM3 (134-434); RDW 17.2 % (11.6-15.6); WHITE BLOOD COUNT 27.4 K/mm3 (4.0-10.0)
--- NOTE | 2017-01-22 15:52 | PN ---
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, Physician History of Present Illness: Pt seen and examined at bedside. She is more arousable today. She has poor PO intake. - Current Medication List Current Medications: Active Medications Albuterol Sulfate (Ventolin 0.083% Nebulizer Soln -) 1 amp NEB Q4H PRN PRN Reason: SHORT OF BREATH/WHEEZING Albuterol Sulfate (Ventolin 0.083% Nebulizer Soln -) 1 amp NEB QIDR [facility] Last Admin: 01/22/17 11:26 Dose: 1 amp Heparin Sodium (Porcine) (Heparin -) 5,000 unit SQ BID [facility] Last Admin: 01/22/17 10:26 Dose: 5,000 unit Insulin Aspart (Novolog Vial Sliding Scale -) 1 vial SQ BIDI [facility] PRN Reason: Protocol Last Admin: 01/22/17 06:04 Dose: 2 units Lactobacillus Acidophilus (Bacid -) 1 tab PO DAILY [facility] Last Admin: 01/22/17 10:25 Dose: Not Given Latanoprost (Xalatan 0.005% Eye Drops -) 1 drop OU HS [facility] Last Admin: 01/21/17 23:06 Dose: 1 drop Montelukast Sodium (Singulair -) 10 mg PO HS [facility] Prednisone (Deltasone -) 40 mg PO DAILY [facility] Last Admin: 01/22/17 10:26 Dose: 40 mg Ranitidine HCl (Zantac Oral Solution -) 150 mg PO BID [facility] Last Admin: 01/22/17 10:26 Dose: 150 mg Fluticasone/Salmeterol (Advair 100mcg/50mcg -) 1 puff IH BID [facility] Last Admin: 01/22/17 10:26 Dose: 1 puff Valproate Sodium (Depacon Injection -) 500 mg IVPB BID [facility] Last Admin: 01/22/17 10:26 Dose: 500 mg - Objective Vital Signs: Vital Signs Temperature 98.3 F 01/22/17 06:00 Pulse Rate 98 H 01/22/17 12:00 Respiratory Rate 14 01/22/17 12:00 Blood Pressure 124/90 01/22/17 12:00 O2 Sat by Pulse Oximetry (%) 95 01/22/17 11:25 Constitutional: Yes: Calm Eyes: Yes: Conjunctiva Clear HENT: Yes: Atraumatic Neck: Yes: Supple Cardiovascular: Yes: S1, S2 Respiratory: Yes: On Nasal O2 Gastrointestinal: Yes: Soft Genitourinary: Yes: Bajwa Present Musculoskeletal: Yes: Muscle Weakness Edema: Yes Neurological: Yes: Other (arousible) Labs: CBC, BMP 01/22/17 12:35 01/22/17 05:20 INR, PTT INR 1.31 (0.82-1.09) H 01/19/17 11:41 - ....Imaging Chest X-ray: Report Reviewed Problem List - Problems (1) Acute renal failure Code(s): N17.9 - ACUTE KIDNEY FAILURE, UNSPECIFIED Qualifiers: Acute renal failure type: unspecified Qualified Code(s): N17.9 - Acute kidney failure, unspecified (2) Altered mental status Code(s): R41.82 - ALTERED MENTAL STATUS, UNSPECIFIED Qualifiers: Altered mental status type: unspecified Qualified Code(s): R41.82 - Altered mental status, unspecified (3) Dehydration Code(s): E86.0 - DEHYDRATION (4) Sepsis Code(s): A41.9 - SEPSIS, UNSPECIFIED ORGANISM Qualifiers: Sepsis type: sepsis due to unspecified organism Qualified Code(s): A41.9 - Sepsis, unspecified organism (5) CKD (chronic kidney disease) Code(s): N18.9 - CHRONIC KIDNEY DISEASE, UNSPECIFIED (6) COPD (chronic obstructive pulmonary disease) Code(s): J44.9 - CHRONIC OBSTRUCTIVE PULMONARY DISEASE, UNSPECIFIED Qualifiers : COPD type: COPD with acute exacerbation Qualified Code(s): J44.1 - Chronic obstructive pulmonary disease with (acute) exacerbation (7) Depressed Code(s): F32.9 - MAJOR DEPRESSIVE DISORDER, SINGLE EPISODE, UNSPECIFIED (8) Bilateral lower extremity edema Code(s): R60.0 - LOCALIZED EDEMA Assessment/Plan Current Medications Generic Name Dose Route Start Last Admin Trade Name Freq PRN Reason Stop Dose Admin Albuterol Sulfate 1 amp 01/19/17 21:41 Ventolin 0.083% Nebulizer Soln - NEB Q4H PRN SHORT OF BREATH/WHEEZING Albuterol Sulfate 1 amp 01/20/17 00:00 01/22/17 11:26 Ventolin 0.083% Nebulizer Soln - NEB 1 amp QIDR [facility] Administration Heparin Sodium (Porcine) 5,000 unit 01/19/17 22:00 01/22/17 10:26 Heparin - SQ 5,000 unit BID A[facility] Administration Insulin Aspart 1 vial 01/19/17 17:15 01/22/17 06:04 Novolog Vial Sliding Scale - SQ 2 units BIDI ADELINE Administration Protocol Lactobacillus Acidophilus 1 tab 01/20/17 10:00 01/22/17 10:25 Bacid - PO Not Given DAILY [facility] Latanoprost 1 drop 01/19/17 22:00 01/21/17 23:06 Xalatan 0.005% Eye Drops - OU 1 drop HS [facility] Administration Montelukast Sodium 10 mg 01/22/17 22:00 Singulair - PO HS [facility] Prednisone 40 mg 01/22/17 10:00 01/22/17 10:26 Deltasone - PO 40 mg DAILY [facility] Administration Ranitidine HCl 150 mg 01/19/17 22:00 01/22/17 10:26 Zantac Oral Solution - PO 150 mg BID [facility] Administration Fluticasone/Salmeterol 1 puff 01/19/17 22:00 01/22/17 10:26 Advair 100mcg/50mcg - IH 1 puff BID [facility] Administration Valproate Sodium 500 mg 01/19/17 22:00 01/22/17 10:26 Depacon Injection - IVPB 500 mg BID [facility] Administration Impression 1. DOMINIC 2. CKD 3. hyponatremia 4. altered mental status 5. gout 6. PNA 7. Depression 8. COPD 9. sepsis 10. positive hep C ab 11. HTN Plan - will decrease fluids and add dextrose as pt has not been eating or drinking - renal function is improving - prednisone with taper - will need to start allopurinol or ulorich in the near future, unclear if she was having an acute gout attack. She did however grimace when her foot was palpated on [place] day of admission, which was likely from pain - avoid nsaids - will not restart alva at this time - will follow Dr Marcelino
[2017-01-22] MEDS: DEXTROSE 5%-NORMAL SALINE 1,000 ML IV SCH (16:17)
[2017-01-22] MEDS: LATANOPROST 0.005% OPHTH SOLN 2.5ML BOTTLE OU SCH (21:37)
[2017-01-22] MEDS: MONTELUKAST NA 5 MG TAB.CHEW PO SCH (22:17)
[2017-01-23] MEDS: ALBUTEROL SO4 0.083% IH SOL 2.5 MG/3 ML VIAL.NEB. NEB SCH ×5 (00:07→23:37)
[2017-01-23] MEDS: INSULIN SLIDING SCALE (NOVOLOG) 1 VIAL SQ SCH ×2 (06:08→18:41)
[2017-01-23 06:17] LABS: MCH 29.3 pg (25.7-33.7); MCHC 33.5 g/dl (32.0-36.0); MEAN CELL VOLUME 87.5 fl (80-96); MEAN PLT VOLUME 8.1 fl (7.5-11.1); PLATELET COUNT 351 K/MM3 (134-434); RDW 17.3 % (11.6-15.6); WHITE BLOOD COUNT 26.3 K/mm3 (4.0-10.0)
[2017-01-23 06:36] LABS: SERUM IRON 61 ug/dL (27-159); TOTAL IRON BINDING CAPACITY 139 ug/dL (250-450); UIBC 78 ug/dL (131-425)
[2017-01-23 07:50] LABS: ALBUMIN 1.2 g/dl (3.4-5.0); CALCIUM 8.5 mg/dL (8.5-10.1); MAGNESIUM 2.4 mg/dL (1.8-2.4)
[2017-01-23 07:54] LABS: BILIRUBIN,TOTAL 1.1 mg/dL (0.2-1.0); CREATININE 4.6 mg/dL (0.55-1.02); PHOSPHOROUS 7.2 mg/dL (2.5-4.9); TOT PROT 6.4 g/dl (6.4-8.2)
--- NOTE | 2017-01-23 08:26 | PN ---
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 (short form) - Note 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: currently lethargic but responds to verbal stimuli. Current Medications Generic Name Dose Route Start Last Admin Trade Name Freq PRN Reason Stop Dose Admin Albuterol Sulfate 1 amp 01/19/17 21:41 Ventolin 0.083% Nebulizer Soln - NEB Q4H PRN SHORT OF BREATH/WHEEZING Albuterol Sulfate 1 amp 01/20/17 00:00 01/23/17 06:30 Ventolin 0.083% Nebulizer Soln - NEB 1 amp QIDR [facility] Administration Heparin Sodium (Porcine) 5,000 unit 01/19/17 22:00 01/22/17 21:36 Heparin - SQ 5,000 unit BID [facility] Administration Dextrose/Sodium Chloride 1,000 mls @ 42 mls/hr 01/22/17 16:00 01/22/17 16:17 D5-Ns - IV 42 mls/hr ASDIR ADELINE Administration Insulin Aspart 1 vial 01/19/17 17:15 01/23/17 06:08 Novolog Vial Sliding Scale - SQ 2 units BIDI ADELINE Administration Protocol Lactobacillus Acidophilus 1 tab 01/20/17 10:00 01/22/17 10:25 Bacid - PO Not Given DAILY [facility] Latanoprost 1 drop 01/19/17 22:00 01/22/17 21:37 Xalatan 0.005% Eye Drops - OU 1 drop HS [facility] Administration Montelukast Sodium 10 mg 01/22/17 22:00 01/22/17 22:17 Singulair - PO Not Given HS [facility] Prednisone 40 mg 01/22/17 10:00 01/22/17 10:26 Deltasone - PO 40 mg DAILY [facility] Administration Ranitidine HCl 150 mg 01/19/17 22:00 01/22/17 22:17 Zantac Oral Solution - PO Not Given BID [facility] Fluticasone/Salmeterol 1 puff 01/19/17 22:00 01/22/17 21:36 Advair 100mcg/50mcg - IH 1 puff BID [facility] Administration Valproate Sodium 500 mg 01/19/17 22:00 01/22/17 21:36 Depacon Injection - IVPB 500 mg BID [facility] Administration Last Vital Signs Temp Pulse Resp BP Pulse Ox 97.0 F L 100 H 14 144/79 99 01/23/17 06:00 01/23/17 06:00 01/23/17 06:00 01/23/17 06:00 01/22/17 21:55 Intake & Output 01/20/17 01/21/17 01/22/17 01/23/17 23:59 23:59 23:59 23:59 Intake Total 3575 2700 2126 504 Output Total 099 376 9037 400 Balance 3025 1850 526 104 Weight 238 lb 8 oz 244 lb 7.882 oz 244 lb 1.6 oz 234 lb 5.622 oz General NAD, lethargic, opens her eyes to verbal stimuli CV S1 S2 RRR no murmur/rub/gallop Lungs CTA B/L anteriorly. poor inspiratory effort. abdomen soft NT/ND obese Extremities 2+ pitting edema, 1 cm fluctuant area near L malleolus 2nd collection superior to 1st metatarsal neither areas appear erythematous, tender or warm CBCD WBC 26.3 K/mm3 (4.0-10.0) H 01/23/17 05:20 RBC 2.80 M/mm3 (3.60-5.2) L 01/23/17 05:20 Hgb 8.2 GM/dL (10.7-15.3) L 01/23/17 05:20 Hct 24.5 % (32.4-45.2) L 01/23/17 05:20 MCV 87.5 fl (80-96) 01/23/17 05:20 MCHC 33.5 g/dl (32.0-36.0) 01/23/17 05:20 RDW 17.3 % (11.6-15.6) H 01/23/17 05:20 Plt Count 351 K/MM3 (134-434) D 01/23/17 05:20 MPV 8.1 fl (7.5-11.1) 01/23/17 05:20 ASSESSMENT AND PLAN: 56yo F with PMH HTN, HLD, COPD, seziures, schizoaffective d/o, CKD, CAD, gout presented to the ER and was admitted for further evaluation of their emergent condition 1. Acute metabolic encephalopathy-awaiting chemistry results. spoke with brother in the evening and stated that she was more lethargic than usual. will d /w neuro need for possible EEG monitoring to r/o subclinical seizures. depakote level pending. brain MRI when able 2. Severe sepsis-likely PNA. arebrile and leukocytosis trending down. vanco level remains therapeutic. cx all negative. monitor 3. Acute gout flare-s/p aspiration by podiatry yesterday. fluid sent for analysis. started on prednisone for flare. uric acid level trending down. areas are not painful. start uric acid lowering agents once kidney function normalizes 4. Acute on CKD- sepsis induced vs hypoperfusion. good UOP. slowly improving, avoid nephrotoxic agents. nephro on board 5. pseudohypocalcemia- corrected 10.1 6. Acute normocytic anemia- anemia of chronic disease. Hgb remains stable. no indication for txn. txn if needed 7. HTn- currently normotensive. hold oral agents 8. DVT ppx- hep sq The care of this patient involved high complexity decision making to prevent further life threatening deterioration of the patient's condition and/or to evaluate & treat vital organ system(s) failure or risk of failure. critical care time 45 minutes Visit type - Emergency Visit Emergency Visit: Yes ED Registration Date: 01/19/17 Care time: The patient presented to the Emergency Department on the above date and was hospitalized for further evaluation of their emergent condition. - New Patient This patient is new to me today: No - Critical Care Critical Care patient: Yes Total Critical Care Time (in minutes): 45 Critical Care Statement: The care of this patient involved high complexity decision making to prevent further life threatening deterioration of the patient 's condition and/or to evalute & treat vital organ system(s) failure or risk of failure. - Discharge Referral Referred to [facility] Med P.C.: No
--- NOTE | 2017-01-23 10:11 | PN ---
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 (short form) - Note 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: Seen and examined in ICU Remains lethargic, following some simple commands BP stable WBC slowly improving SCr imrpoving, u/o 1.6 liters able to protect airways on exam, strong cough Current Medications Albuterol Sulfate (Ventolin 0.083% Nebulizer Soln -) 1 amp NEB Q4H PRN PRN Reason: SHORT OF BREATH/WHEEZING Albuterol Sulfate (Ventolin 0.083% Nebulizer Soln -) 1 amp NEB QIDR [facility] Last Admin: 01/23/17 06:30 Dose: 1 amp Heparin Sodium (Porcine) (Heparin -) 5,000 unit SQ BID [facility] Last Admin: 01/22/17 21:36 Dose: 5,000 unit Dextrose/Sodium Chloride (D5-Ns -) 1,000 mls @ 42 mls/hr IV ASDIR [facility] Last Admin: 01/22/17 16:17 Dose: 42 mls/hr Insulin Aspart (Novolog Vial Sliding Scale -) 1 vial SQ BIDI [facility] PRN Reason: Protocol Last Admin: 01/23/17 06:08 Dose: 2 units Lactobacillus Acidophilus (Bacid -) 1 tab PO DAILY [facility] Last Admin: 01/22/17 10:25 Dose: Not Given Latanoprost (Xalatan 0.005% Eye Drops -) 1 drop OU HS [facility] Last Admin: 01/22/17 21:37 Dose: 1 drop Montelukast Sodium (Singulair -) 10 mg PO HS [facility] Last Admin: 01/22/17 22:17 Dose: Not Given Prednisone (Deltasone -) 40 mg PO DAILY [facility] Last Admin: 01/22/17 10:26 Dose: 40 mg Ranitidine HCl (Zantac Oral Solution -) 150 mg PO BID [facility] Last Admin: 01/22/17 22:17 Dose: Not Given Fluticasone/Salmeterol (Advair 100mcg/50mcg -) 1 puff IH BID [facility] Last Admin: 01/22/17 21:36 Dose: 1 puff Valproate Sodium (Depacon Injection -) 500 mg IVPB BID [facility] Last Admin: 01/22/17 21:36 Dose: 500 mg Vital Signs Period Temp Pulse Resp BP Sys/Chhaal Pulse Ox Last 24 Hr 96.8 F-99.0 F 98-115 12-19 122-144/79-98 95-99 Intake & Output 01/20/17 01/21/17 01/22/17 01/23/17 23:59 23:59 23:59 23:59 Intake Total 3575 2700 2126 504 Output Total 652 525 6226 400 Balance 3025 1850 526 104 Weight 108.182 kg 110.9 kg 110.722 kg 106.3 kg Exam: opens eyes to voice the quickly closes again, following some simple commands: wiggled toes, AOx1 (last name) Pulm: diminished in bases CV: tachycardia Abd: SNTND Ext: LE +4 edema CBCD WBC 26.3 K/mm3 (4.0-10.0) H 01/23/17 05:20 RBC 2.80 M/mm3 (3.60-5.2) L 01/23/17 05:20 Hgb 8.2 GM/dL (10.7-15.3) L 01/23/17 05:20 Hct 24.5 % (32.4-45.2) L 01/23/17 05:20 MCV 87.5 fl (80-96) 01/23/17 05:20 MCHC 33.5 g/dl (32.0-36.0) 01/23/17 05:20 RDW 17.3 % (11.6-15.6) H 01/23/17 05:20 Plt Count 351 K/MM3 (134-434) D 01/23/17 05:20 MPV 8.1 fl (7.5-11.1) 01/23/17 05:20 CMP Sodium 142 mmol/L (136-145) 01/23/17 05:20 Potassium 3.6 mmol/L (3.5-5.1) 01/23/17 05:20 Chloride 105 mmol/L (98-107) 01/23/17 05:20 Carbon Dioxide 22 mmol/L (21-32) 01/23/17 05:20 Anion Gap 15 (8-16) 01/23/17 05:20 BUN 115 mg/dL (7-18) H* 01/23/17 05:20 Creatinine 4.6 mg/dL (0.55-1.02) H D 01/23/17 05:20 Creat Clearance w eGFR 9.82 (>60) 01/23/17 05:20 Calcium 8.5 mg/dL (8.5-10.1) 01/23/17 05:20 Total Bilirubin 1.1 mg/dL (0.2-1.0) H 01/23/17 05:20 AST 28 U/L (15-37) 01/23/17 05:20 ALT 13 U/L (12-78) 01/23/17 05:20 Alkaline Phosphatase 167 U/L (45-117) H 01/23/17 05:20 Total Protein 6.4 g/dl (6.4-8.2) 01/23/17 05:20 Albumin 1.2 g/dl (3.4-5.0) L 01/23/17 05:20 Microbiology 01/21/17 19:15 Aspirate Gram Stain - Final 01/19/17 12:56 Blood - Peripheral Venous Blood Culture - Preliminary NO GROWTH OBTAINED AFTER 72 HOURS, INCUBATION TO CONTINUE FOR 2 DAYS. 01/19/17 12:56 Blood - Peripheral Venous Blood Culture - Preliminary NO GROWTH OBTAINED AFTER 72 HOURS, INCUBATION TO CONTINUE FOR 2 DAYS. 01/19/17 21:20 Urine - Urine Clean Catch Urine Culture - Final NO GROWTH OBTAINED 01/19/17 12:50 Urine - Urine Bajwa Urine Culture - Final Yeast Like Organism 01/19/17 16:27 Urine For Antigen Detection Legionella Antigen - Final 01/19/17 16:27 Urine For Antigen Detection Streptococcus pneumoniae Antigen (M - Final Problem List - Problems (1) Acute renal failure Code(s): N17.9 - ACUTE KIDNEY FAILURE, UNSPECIFIED Qualifiers: Acute renal failure type: unspecified Qualified Code(s): N17.9 - Acute kidney failure, unspecified (2) Altered mental status Code(s): R41.82 - ALTERED MENTAL STATUS, UNSPECIFIED Qualifiers: Altered mental status type: unspecified Qualified Code(s): R41.82 - Altered mental status, unspecified (3) Dehydration Code(s): E86.0 - DEHYDRATION (4) Sepsis Code(s): A41.9 - SEPSIS, UNSPECIFIED ORGANISM Qualifiers: Sepsis type: sepsis due to unspecified organism Qualified Code(s): A41.9 - Sepsis, unspecified organism (5) COPD (chronic obstructive pulmonary disease) Code(s): J44.9 - CHRONIC OBSTRUCTIVE PULMONARY DISEASE, UNSPECIFIED Qualifiers : COPD type: COPD with acute exacerbation Qualified Code(s): J44.1 - Chronic obstructive pulmonary disease with (acute) exacerbation (6) Hypertension Code(s): I10 - ESSENTIAL (PRIMARY) HYPERTENSION (7) Hyponatremia Code(s): E87.1 - HYPO-OSMOLALITY AND HYPONATREMIA (8) Pneumonia Code(s): J18.9 - PNEUMONIA, UNSPECIFIED ORGANISM Qualifiers: Pneumonia type: due to unspecified organism Laterality: left Lung location: lower lobe of lung Qualified Code(s): J18.9 - Pneumonia, unspecified organism (9) Bilateral lower extremity edema Code(s): R60.0 - LOCALIZED EDEMA (10) Severe sepsis Code(s): A41.9 - SEPSIS, UNSPECIFIED ORGANISM R65.20 - SEVERE SEPSIS WITHOUT SEPTIC SHOCK (11) Hypochloremia Code(s): E87.8 - OTH DISORDERS OF ELECTROLYTE AND FLUID BALANCE, NEC Assessment/Plan Renal following, fluids per nephrology ABX per ID Surgery following possible foot abscess: Follow cultures Aspiration precautions O2 as needed Strict I&O AEDs per Neuro If more awake -> PO as tolerated Patients mental status has been stable, able to protect airway, stable for floor transfer [place] JAIN Pulm/CCM CCT: 35m
[2017-01-23] MEDS: predniSONE 20 MG TABLET (UD) PO SCH (11:57)
[2017-01-23] MEDS: HEPARIN NA (PORCINE) 5,000 UNITS/ML 1ML VIAL SQ SCH ×2 (11:58→21:26)
[2017-01-23] MEDS: RANITIDINE HCL 150 MG/10 ML UNIT-DOSE CUP PO SCH ×2 (11:58→21:27)
[2017-01-23] MEDS: VALPROATE SODIUM 500 MG/5 ML VIAL IVPB SCH ×2 (11:58→21:26)
--- NOTE | 2017-01-23 12:05 | PN ---
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, Physician History of Present Illness: Awake but lethargic Offers no complaints Off antibiotics Afebrile WBC remains elevated on steroids - Current Medication List Current Medications: Active Medications Albuterol Sulfate (Ventolin 0.083% Nebulizer Soln -) 1 amp NEB Q4H PRN PRN Reason: SHORT OF BREATH/WHEEZING Albuterol Sulfate (Ventolin 0.083% Nebulizer Soln -) 1 amp NEB QIDR [facility] Last Admin: 01/23/17 11:53 Dose: 1 amp Heparin Sodium (Porcine) (Heparin -) 5,000 unit SQ BID [facility] Last Admin: 01/23/17 11:58 Dose: 5,000 unit Dextrose/Sodium Chloride (D5-Ns -) 1,000 mls @ 42 mls/hr IV ASDIR [facility] Last Admin: 01/22/17 16:17 Dose: 42 mls/hr Insulin Aspart (Novolog Vial Sliding Scale -) 1 vial SQ BIDI [facility] PRN Reason: Protocol Last Admin: 01/23/17 06:08 Dose: 2 units Lactobacillus Acidophilus (Bacid -) 1 tab PO DAILY [facility] Last Admin: 01/22/17 10:25 Dose: Not Given Latanoprost (Xalatan 0.005% Eye Drops -) 1 drop OU HS [facility] Last Admin: 01/22/17 21:37 Dose: 1 drop Montelukast Sodium (Singulair -) 10 mg PO HS [facility] Last Admin: 01/22/17 22:17 Dose: Not Given Prednisone (Deltasone -) 40 mg PO DAILY [facility] Last Admin: 01/23/17 11:57 Dose: 40 mg Ranitidine HCl (Zantac Oral Solution -) 150 mg PO BID [facility] Last Admin: 01/23/17 11:58 Dose: 150 mg Fluticasone/Salmeterol (Advair 100mcg/50mcg -) 1 puff IH BID [facility] Last Admin: 01/22/17 21:36 Dose: 1 puff Valproate Sodium (Depacon Injection -) 500 mg IVPB BID [facility] Last Admin: 01/23/17 11:58 Dose: 500 mg - Objective Vital Signs: Vital Signs Temperature 97.0 F L 01/23/17 06:00 Pulse Rate 112 H 01/23/17 09:18 Respiratory Rate 19 01/23/17 08:00 Blood Pressure 136/90 01/23/17 08:00 O2 Sat by Pulse Oximetry (%) 98 01/23/17 09:18 Constitutional: Yes: No Distress, Obese Cardiovascular: Yes: Regular Rate and Rhythm, S1, S2 Respiratory: Yes: Diminished Gastrointestinal: Yes: Normal Bowel Sounds, Soft, Abdomen, Obese. No: Tenderness Extremities: Yes: Other (+ fluctuant swellings L foot) Edema: Yes Labs: CBC, BMP 01/23/17 05:20 01/23/17 05:20 INR, PTT INR 1.31 (0.82-1.09) H 01/19/17 11:41 Assessment/Plan Leukocytosis Acute renal failure Gouty arthritis Aspirate of foot swelling prelim no growth Observe off antibiotics
[2017-01-23] MEDS: FLUTICASONE/SALMETEROL 100 MCG/50 MCG DISKUS IH SCH ×2 (15:51→21:26)
[2017-01-23] MEDS: LACTOBACILLUS ACIDOPHILUS 1 EACH TAB (FP) PO SCH (15:51)
[2017-01-23] MEDS: DEXTROSE 5%-NORMAL SALINE 1,000 ML IV SCH (15:52)
[2017-01-23] MEDS: PROPRANOLOL HCL 20 MG TABLET PO SCH ×2 (15:52→21:26)
--- NOTE | 2017-01-23 17:12 | PN ---
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, Physician History of Present Illness: Pt seen and examined at bedside. She is much more awake and interactive today. Her PO intake remains poor. - Current Medication List Current Medications: Active Medications Albuterol Sulfate (Ventolin 0.083% Nebulizer Soln -) 1 amp NEB Q4H PRN PRN Reason: SHORT OF BREATH/WHEEZING Albuterol Sulfate (Ventolin 0.083% Nebulizer Soln -) 1 amp NEB QIDR [facility] Last Admin: 01/23/17 11:53 Dose: 1 amp Heparin Sodium (Porcine) (Heparin -) 5,000 unit SQ BID [facility] Last Admin: 01/23/17 11:58 Dose: 5,000 unit Dextrose/Sodium Chloride (D5-Ns -) 1,000 mls @ 42 mls/hr IV ASDIR [facility] Last Admin: 01/23/17 15:52 Dose: 42 mls/hr Insulin Aspart (Novolog Vial Sliding Scale -) 1 vial SQ BIDI [facility] PRN Reason: Protocol Last Admin: 01/23/17 06:08 Dose: 2 units Lactobacillus Acidophilus (Bacid -) 1 tab PO DAILY [facility] Last Admin: 01/23/17 15:51 Dose: Not Given Latanoprost (Xalatan 0.005% Eye Drops -) 1 drop OU HS [facility] Last Admin: 01/22/17 21:37 Dose: 1 drop Montelukast Sodium (Singulair -) 10 mg PO HS [facility] Last Admin: 01/22/17 22:17 Dose: Not Given Prednisone (Deltasone -) 40 mg PO DAILY [facility] Last Admin: 01/23/17 11:57 Dose: 40 mg Propranolol HCl (Inderal -) 20 mg PO TID [facility] Last Admin: 01/23/17 15:52 Dose: 20 mg Ranitidine HCl (Zantac Oral Solution -) 150 mg PO BID [facility] Last Admin: 01/23/17 11:58 Dose: 150 mg Fluticasone/Salmeterol (Advair 100mcg/50mcg -) 1 puff IH BID [facility] Last Admin: 01/23/17 15:51 Dose: 1 puff Valproate Sodium (Depacon Injection -) 500 mg IVPB BID [facility] Last Admin: 01/23/17 11:58 Dose: 500 mg - Objective Vital Signs: Vital Signs Temperature 98.8 F 01/23/17 14:00 Pulse Rate 116 H 01/23/17 14:00 Respiratory Rate 19 01/23/17 14:00 Blood Pressure 129/67 01/23/17 14:00 O2 Sat by Pulse Oximetry (%) 98 01/23/17 09:18 Constitutional: Yes: Calm Eyes: Yes: Conjunctiva Clear HENT: Yes: Atraumatic Cardiovascular: Yes: S1, S2 Respiratory: Yes: CTA Bilaterally Gastrointestinal: Yes: Soft Genitourinary: Yes: Bajwa Present Edema: Yes Neurological: Yes: Oriented Labs: CBC, BMP 01/23/17 05:20 01/23/17 05:20 INR, PTT INR 1.31 (0.82-1.09) H 01/19/17 11:41 Problem List - Problems (1) Acute renal failure Code(s): N17.9 - ACUTE KIDNEY FAILURE, UNSPECIFIED Qualifiers: Acute renal failure type: unspecified Qualified Code(s): N17.9 - Acute kidney failure, unspecified (2) Altered mental status Code(s): R41.82 - ALTERED MENTAL STATUS, UNSPECIFIED Qualifiers: Altered mental status type: unspecified Qualified Code(s): R41.82 - Altered mental status, unspecified (3) Dehydration Code(s): E86.0 - DEHYDRATION (4) Sepsis Code(s): A41.9 - SEPSIS, UNSPECIFIED ORGANISM Qualifiers: Sepsis type: sepsis due to unspecified organism Qualified Code(s): A41.9 - Sepsis, unspecified organism (5) CKD (chronic kidney disease) Code(s): N18.9 - CHRONIC KIDNEY DISEASE, UNSPECIFIED (6) COPD (chronic obstructive pulmonary disease) Code(s): J44.9 - CHRONIC OBSTRUCTIVE PULMONARY DISEASE, UNSPECIFIED Qualifiers : COPD type: COPD with acute exacerbation Qualified Code(s): J44.1 - Chronic obstructive pulmonary disease with (acute) exacerbation (7) Depressed Code(s): F32.9 - MAJOR DEPRESSIVE DISORDER, SINGLE EPISODE, UNSPECIFIED (8) Bilateral lower extremity edema Code(s): R60.0 - LOCALIZED EDEMA Assessment/Plan Current Medications Generic Name Dose Route Start Last Admin Trade Name Freq PRN Reason Stop Dose Admin Albuterol Sulfate 1 amp 01/19/17 21:41 Ventolin 0.083% Nebulizer Soln - NE[facility] Q4H PRN SHORT OF BREATH/WHEEZING Albuterol Sulfate 1 amp 01/20/17 00:00 01/23/17 11:53 Ventolin 0.083% Nebulizer Soln - NEB 1 amp QIDR [facility] Administration Heparin Sodium (Porcine) 5,000 unit 01/19/17 22:00 01/23/17 11:58 Heparin - SQ 5,000 unit BID [facility] Administration Dextrose/Sodium Chloride 1,000 mls @ 42 mls/hr 01/22/17 16:00 01/23/17 15:52 D5-Ns - IV 42 mls/hr ASDIR [facility] Administration Insulin Aspart 1 vial 01/19/17 17:15 01/23/17 06:08 Novolog Vial Sliding Scale - SQ 2 units BIDI [facility] Administration Protocol Lactobacillus Acidophilus 1 tab 01/20/17 10:00 01/23/17 15:51 Bacid - PO Not Given DAILY [facility] Latanoprost 1 drop 01/19/17 22:00 01/22/17 21:37 Xalatan 0.005% Eye Drops - OU 1 drop HS [facility] Administration Montelukast Sodium 10 mg 01/22/17 22:00 01/22/17 22:17 Singulair - PO Not Given HS [facility] Prednisone 40 mg 01/22/17 10:00 01/23/17 11:57 Deltasone - PO 40 mg DAILY [facility] Administration Propranolol HCl 20 mg 01/23/17 14:30 01/23/17 15:52 Inderal - PO 20 mg TID [facility] Administration Ranitidine HCl 150 mg 01/19/17 22:00 01/23/17 11:58 Zantac Oral Solution - PO 150 mg BID [facility] Administration Fluticasone/Salmeterol 1 puff 01/19/17 22:00 01/23/17 15:51 Advair 100mcg/50mcg - IH 1 puff BID [facility] Administration Valproate Sodium 500 mg 01/19/17 22:00 01/23/17 11:58 Depacon Injection - IVPB 500 mg BID [facility] Administration Impression 1. DOMINIC 2. CKD 3. hyponatremia 4. altered mental status 5. gout 6. PNA 7. Depression 8. COPD 9. sepsis 10. positive hep C ab 11. HTN Plan - encourage PO intake - renal function is improving - can start to taper down steroids - repeat labs in am - will follow closely - avoid nsaids - will not restart diovan at this time - will follow Dr Marcelino
[2017-01-23] MEDS ORDERED: DEXTROSE 5%-NORMAL SALINE 1,000 ML IV SCH (17:13)
[2017-01-23] MEDS ORDERED: morphine CARPU-JECT 2 MG/1 ML DISP.SYRIN IVPUSH ONE (20:36)
[2017-01-23] MEDS ORDERED: PT OWN MED DRAWER 7, Y5N ONE (21:22)
[2017-01-23] MEDS: MONTELUKAST NA 5 MG TAB.CHEW PO SCH (21:26)
[2017-01-23] MEDS: LATANOPROST 0.005% OPHTH SOLN 2.5ML BOTTLE OU SCH (21:27)
[2017-01-24] MEDS: INSULIN SLIDING SCALE (NOVOLOG) 1 VIAL SQ SCH ×2 (06:09→17:18)
[2017-01-24] MEDS: ALBUTEROL SO4 0.083% IH SOL 2.5 MG/3 ML VIAL.NEB. NEB SCH ×3 (07:08→19:13)
[2017-01-24] MEDS: PROPRANOLOL HCL 20 MG TABLET PO SCH ×3 (07:54→22:00)
[2017-01-24 08:35] LABS: MCH 29.1 pg (25.7-33.7); MCHC 33.3 g/dl (32.0-36.0); MEAN CELL VOLUME 87.5 fl (80-96); MEAN PLT VOLUME 7.5 fl (7.5-11.1); PLATELET COUNT 299 K/MM3 (134-434); RDW 17.4 % (11.6-15.6); WHITE BLOOD COUNT 24.6 K/mm3 (4.0-10.0)
[2017-01-24 09:04] LABS: ALBUMIN 1.4 g/dl (3.4-5.0); BILIRUBIN,DIRECT 0.9 mg/dL (0.0-0.2); BILIRUBIN,TOTAL 1.1 mg/dL (0.2-1.0); CALCIUM 9.3 mg/dL (8.5-10.1); CREATININE 2.5 mg/dL (0.55-1.02); MAGNESIUM 2.2 mg/dL (1.8-2.4); PHOSPHOROUS 4.5 mg/dL (2.5-4.9); TOT PROT 6.3 g/dl (6.4-8.2)
--- NOTE | 2017-01-24 09:22 | PN ---
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, Physician Chief Complaint: ID Prednisone No complaints Off antibiotics - Current Medication List Current Medications: Active Medications Albuterol Sulfate (Ventolin 0.083% Nebulizer Soln -) 1 amp NEB Q4H PRN PRN Reason: SHORT OF BREATH/WHEEZING Albuterol Sulfate (Ventolin 0.083% Nebulizer Soln -) 1 amp NEB QIDR [facility] Last Admin: 01/24/17 07:08 Dose: 1 amp Heparin Sodium (Porcine) (Heparin -) 5,000 unit SQ BID [facility] Last Admin: 01/23/17 21:26 Dose: 5,000 unit Dextrose/Sodium Chloride (D5-Ns -) 1,000 mls @ 40 mls/hr IV ASDIR [facility] Last Admin: 01/23/17 18:42 Dose: 40 mls/hr Insulin Aspart (Novolog Vial Sliding Scale -) 1 vial SQ BIDI [facility] PRN Reason: Protocol Last Admin: 01/24/17 06:09 Dose: Not Given Lactobacillus Acidophilus (Bacid -) 1 tab PO DAILY [facility] Last Admin: 01/23/17 15:51 Dose: Not Given Latanoprost (Xalatan 0.005% Eye Drops -) 1 drop OU HS [facility] Last Admin: 01/23/17 21:27 Dose: 1 drop Montelukast Sodium (Singulair -) 10 mg PO HS [facility] Last Admin: 01/23/17 21:26 Dose: 10 mg Prednisone (Deltasone -) 30 mg PO DAILY [facility] Propranolol HCl (Inderal -) 20 mg PO TID [facility] Last Admin: 01/24/17 07:54 Dose: Not Given Ranitidine HCl (Zantac Oral Solution -) 150 mg PO BID [facility] Last Admin: 01/23/17 21:27 Dose: 150 mg Fluticasone/Salmeterol (Advair 100mcg/50mcg -) 1 puff IH BID [facility] Last Admin: 01/23/17 21:26 Dose: 1 puff Valproate Sodium (Depacon Injection -) 500 mg IVPB BID [facility] Last Admin: 01/23/17 21:26 Dose: 500 mg - Objective Vital Signs: Vital Signs Temperature 97.3 F L 01/24/17 06:00 Pulse Rate 101 H 01/24/17 06:00 Respiratory Rate 18 01/24/17 06:00 Blood Pressure 120/60 01/24/17 06:00 O2 Sat by Pulse Oximetry (%) 95 01/23/17 20:56 Constitutional: Yes: Obese Eyes: Yes: WNL, Conjunctiva Clear Neck: Yes: WNL, Supple Cardiovascular: Yes: Regular Rate and Rhythm, S1, S2 Respiratory: Yes: WNL, Regular, CTA Bilaterally Gastrointestinal: Yes: WNL, Normal Bowel Sounds. No: Tenderness, Tenderness, Epigastrium Edema: Yes Labs: CBC, BMP 01/24/17 08:15 INR, PTT INR 1.31 (0.82-1.09) H 01/19/17 11:41 Problem List - Problems (1) Acute renal failure Code(s): N17.9 - ACUTE KIDNEY FAILURE, UNSPECIFIED Qualifiers: Acute renal failure type: unspecified Qualified Code(s): N17.9 - Acute kidney failure, unspecified (2) Sepsis Code(s): A41.9 - SEPSIS, UNSPECIFIED ORGANISM Qualifiers: Sepsis type: sepsis due to unspecified organism Qualified Code(s): A41.9 - Sepsis, unspecified organism Assessment/Plan Microbiology 01/23/17 06:00 Stool Clostridium difficile Antigen (JOCE) - Final 01/23/17 06:00 Stool Clostridium difficile Toxin Assay - Final 01/19/17 12:50 Urine - Urine Bajwa Urine Culture - Final Yeast Like Organism 01/19/17 12:56 Blood - Peripheral Venous Blood Culture - Preliminary NO GROWTH OBTAINED AFTER 96 HOURS, INCUBATION TO CONTINUE FOR 1 DAYS. 01/19/17 12:56 Blood - Peripheral Venous Blood Culture - Preliminary NO GROWTH OBTAINED AFTER 96 HOURS, INCUBATION TO CONTINUE FOR 1 DAYS. Laboratory Tests 01/23/17 01/24/17 05:20 08:15 WBC 24.6 H Hgb 7.8 L Hct 23.4 L Plt Count 299 BUN 115 H* Creatinine 4.6 H D Creat Clearance w eGFR 9.82 Assessment Leukocytosis possibly steroid related No documented infection Plan Observe off antibiotic Kindly recall us if we an assist Sona KANG
[2017-01-24] MEDS ORDERED: predniSONE 10 MG TABLET (UD) PO SCH (10:00)
[2017-01-24] MEDS: LACTOBACILLUS ACIDOPHILUS 1 EACH TAB (FP) PO SCH (10:48)
[2017-01-24] MEDS: HEPARIN NA (PORCINE) 5,000 UNITS/ML 1ML VIAL SQ SCH ×2 (10:49→22:02)
[2017-01-24] MEDS: FLUTICASONE/SALMETEROL 100 MCG/50 MCG DISKUS IH SCH ×2 (10:49→22:01)
[2017-01-24] MEDS: RANITIDINE HCL 150 MG/10 ML UNIT-DOSE CUP PO SCH ×2 (10:49→22:01)
[2017-01-24] MEDS: VALPROATE SODIUM 500 MG/5 ML VIAL IVPB SCH ×2 (10:50→21:59)
--- NOTE | 2017-01-24 11:46 | PN ---
Physical Exam: SUBJECTIVE: Patient seen and examined at bedside. Pt more alert today and answering questions but may not be appropriately responding as she mostly repeats what is said to her and says "yes" and "no" to same questions at times. Pt denied fever at one point and said she had fever at another point during same interview. Pt is unreliable historian. History was difficult to obtain. Oriented to self only. OBJECTIVE: Vital Signs Temperature 98.5 F 01/24/17 09:00 Pulse Rate 120 H 01/24/17 11:15 Respiratory Rate 20 01/24/17 09:00 Blood Pressure 125/83 01/24/17 09:00 O2 Sat by Pulse Oximetry (%) 96 01/24/17 11:15 GENERAL: The patient is awake, alert, and oriented to self only, in no acute distress. HEAD: Normal with no signs of trauma. EYES: extraocular movements intact, sclera anicteric, conjunctiva clear. No ptosis. ENT: Ears normal, nares patent, moist mucous membranes. NECK: Trachea midline, full range of motion LUNGS: Auscultated anteriorly, Breath sounds equal, clear to auscultation bilaterally, no wheezes, no crackles, no accessory muscle use. HEART: Tachycardic, S1, S2 without murmur, rub or gallop. ABDOMEN: Soft, obese, nontender, nondistended, normoactive bowel sounds, no guarding, no rebound, no hepatosplenomegaly, no masses. EXTREMITIES: 2+ pulses, warm, well-perfused, 2+ pitting edema B/L LE. L foot bullae near ankle improved compared to previously. L foot bullae near toe approximately the same. Both are non-tender, fluid filled. NEUROLOGICAL:Slow speech, gait not observed. SKIN: Warm, dry, normal turgor, no rashes or lesions noted Laboratory Results - last 24 hr 01/23/17 01/23/17 01/24/17 05:29 18:10 06:07 WBC RBC Hgb Hct MCV MCHC RDW Plt Count MPV Sodium Potassium Chloride Carbon Dioxide Anion Gap BUN Creatinine POC Glucometer [phone] 113 Random Glucose Calcium Phosphorus Magnesium Total Bilirubin Direct Bilirubin AST ALT Alkaline Phosphatase Total Protein Albumin 01/24/17 01/24/17 08:15 08:15 WBC 24.6 H RBC 2.67 L Hgb 7.8 L Hct 23.4 L MCV 87.5 MCHC 33.3 RDW 17.4 H Plt Count 299 MPV 7.5 Sodium 149 H Potassium 3.0 L Chloride 114 H Carbon Dioxide 24 Anion Gap 11 BUN 100 H Creatinine 2.5 H D POC Glucometer Random Glucose 116 H D Calcium 9.3 Phosphorus 4.5 D Magnesium 2.2 Total Bilirubin 1.1 H Direct Bilirubin 0.9 H D AST 37 D ALT 14 Alkaline Phosphatase 191 H Total Protein 6.3 L Albumin 1.4 L Microbiology 01/19/17 12:56 Blood - Peripheral Venous Blood Culture - Final NO GROWTH AFTER 5 DAYS INCUBATION 01/19/17 12:56 Blood - Peripheral Venous Blood Culture - Final NO GROWTH AFTER 5 DAYS INCUBATION 01/21/17 19:15 Aspirate Gram Stain - Final 01/21/17 19:15 Aspirate Body Fluid Culture - Preliminary NO AEROBIC GROWTH, 24 HRS 01/21/17 19:15 Aspirate Anaerobic Culture - Final NO ANAEROBES WERE ISOLATED 01/23/17 06:00 Stool Clostridium difficile Antigen (JOCE) - Final 01/23/17 06:00 Stool Clostridium difficile Toxin Assay - Final 01/19/17 21:20 Urine - Urine Clean Catch Urine Culture - Final NO GROWTH OBTAINED 01/19/17 12:50 Urine - Urine Bajwa Urine Culture - Final Yeast Like Organism 01/19/17 16:27 Urine For Antigen Detection Legionella Antigen - Final 01/19/17 16:27 Urine For Antigen Detection Streptococcus pneumoniae Antigen (M - Final Active Medications Generic Name Dose Route Start Last Admin Trade Name Freq PRN Reason Stop Dose Admin Albuterol Sulfate 1 amp 01/19/17 21:41 Ventolin 0.083% Nebulizer Soln - NEB Q4H PRN SHORT OF BREATH/WHEEZING Albuterol Sulfate 1 amp 01/20/17 00:00 01/24/17 07:08 Ventolin 0.083% Nebulizer Soln - NEB 1 amp QIDR [facility] Administration Heparin Sodium (Porcine) 5,000 unit 01/19/17 22:00 01/24/17 10:49 Heparin - SQ 5,000 unit BID [facility] Administration Dextrose/Sodium Chloride 1,000 mls @ 40 mls/hr 01/23/17 17:13 01/23/17 18:42 D5-Ns - IV 40 mls/hr ASDIR A[facility] Administration Insulin Aspart 1 vial 01/19/17 17:15 01/24/17 06:09 Novolog Vial Sliding Scale - SQ Not Given BIDI [facility] Protocol Lactobacillus Acidophilus 1 tab 01/20/17 10:00 01/24/17 10:48 Bacid - PO 1 tab DAILY [facility] Administration Latanoprost 1 drop 01/19/17 22:00 01/23/17 21:27 Xalatan 0.005% Eye Drops - OU 1 drop HS [facility] Administration Montelukast Sodium 10 mg 01/22/17 22:00 01/23/17 21:26 Singulair - PO 10 mg HS [facility] Administration Prednisone 30 mg 01/24/17 10:00 01/24/17 10:48 Deltasone - PO 30 mg DAILY [facility] Administration Propranolol HCl 20 mg 01/23/17 14:30 01/24/17 07:54 Inderal - PO Not Given TID [facility] Ranitidine HCl 150 mg 01/19/17 22:00 01/24/17 10:49 Zantac Oral Solution - PO 150 mg BID [facility] Administration Fluticasone/Salmeterol 1 puff 01/19/17 22:00 01/24/17 10:49 Advair 100mcg/50mcg - IH 1 puff BID [facility] Administration Valproate Sodium 500 mg 01/19/17 22:00 01/24/17 10:50 Depacon Injection - IVPB 500 mg BID [facility] Administration ASSESSMENT/PLAN: 56 y/o F w/ PMH of HTN, HLD, COPD, seziures, schizoaffective d/o, CKD, CAD, gout presented to ER from [facility] for AMS. -Acute metabolic encephalopathy secondary to severe sepsis from PNA vs C. Diff -improving -Head CT negative; Neuro on board -f/u brain MRI when more stable to assess for possible CVA -Neurologically improving with resolution of uremia and no focal deficits noted - may not need MRI? -WBC: 24.6 -BCx neg, C. Diff neg -off abx -c/w D5 NS @ 40ml/hr -DOMINIC secondary to severe sepsis, dehydration -BUN/Cr: 100/2.5 (on last discharge Cr ws 0.7) -c/w D5 NS @ 40 ml/hr -Nephrology consulted (Dr. Marcelino) -Renal U/S - no kidney pathology -Tumor lysis? Elevated myelocytes, WBC -Seizures -repeat valproic acid level low at 39 -on valproic acid 500 mg bid iv -increase dosing needed? Neuro on board -L foot fluid filled bullae / gout -Podiatry on board -infective burisitis vs gout -bedside aspiration by podiatry -culture neg x 24 hr so far -prednisone taper, 30 mg po today -HTN -c/w propanolol 20 mg tid -Schizoaffective d/o -restarted effexor xr 150 mg po qd -restarted abilify 10 mg po qd -COPD -advair 1 puff bid -DM -ISS bid, BGMs bid while not eating due to AMS -FEN -NS @ 100 ml/hr -Hyponatremia, hypochloremia; improving; - c/w NS @ 100 ml/hr, monitor lytes -NPO due to AMS -Dispo: -Monitor on floors. Possible discharge soon. Problem List - Problems (1) Acute renal failure Code(s): N17.9 - ACUTE KIDNEY FAILURE, UNSPECIFIED Qualifiers: Acute renal failure type: unspecified Qualified Code(s): N17.9 - Acute kidney failure, unspecified (2) Altered mental status Code(s): R41.82 - ALTERED MENTAL STATUS, UNSPECIFIED Qualifiers: Altered mental status type: unspecified Qualified Code(s): R41.82 - Altered mental status, unspecified (3) Dehydration Code(s): E86.0 - DEHYDRATION (4) Sepsis Code(s): A41.9 - SEPSIS, UNSPECIFIED ORGANISM Qualifiers: Sepsis type: sepsis due to unspecified organism Qualified Code(s): A41.9 - Sepsis, unspecified organism (5) COPD (chronic obstructive pulmonary disease) Code(s): J44.9 - CHRONIC OBSTRUCTIVE PULMONARY DISEASE, UNSPECIFIED Qualifiers : COPD type: COPD with acute exacerbation Qualified Code(s): J44.1 - Chronic obstructive pulmonary disease with (acute) exacerbation (6) Hypertension Code(s): I10 - ESSENTIAL (PRIMARY) HYPERTENSION (7) Hyponatremia Code(s): E87.1 - HYPO-OSMOLALITY AND HYPONATREMIA (8) Pneumonia Code(s): J18.9 - PNEUMONIA, UNSPECIFIED ORGANISM Qualifiers: Pneumonia type: due to unspecified organism Laterality: left Lung location: lower lobe of lung Qualified Code(s): J18.9 - Pneumonia, unspecified organism (9) Bilateral lower extremity edema Code(s): R60.0 - LOCALIZED EDEMA (10) Severe sepsis Code(s): A41.9 - SEPSIS, UNSPECIFIED ORGANISM R65.20 - SEVERE SEPSIS WITHOUT SEPTIC SHOCK (11) Hypochloremia Code(s): E87.8 - OTH DISORDERS OF ELECTROLYTE AND FLUID BALANCE, NEC Visit type - Emergency Visit Emergency Visit: Yes ED Registration Date: 01/19/17 Care time: The patient presented to the Emergency Department on the above date and was hospitalized for further evaluation of their emergent condition. - New Patient This patient is new to me today: No - Critical Care Critical Care patient: No
[2017-01-24] MEDS ORDERED: POTASSIUM CHLORIDE 40 MEQ/30 ML UNIT DOSE CUP PO ONE (12:04)
--- NOTE | 2017-01-24 12:05 | PN ---
Teaching Attending Note Name of Resident: Brodie Alas ATTENDING PHYSICIAN STATEMENT I saw and evaluated the patient. I reviewed the resident's note and discussed the case with the resident. I agree with the resident's findings and plan as documented. SUBJECTIVE:more alert today, repeats what you ask her. appears to be resting comfortable. OBJECTIVE: Last Vital Signs Temp Pulse Resp BP Pulse Ox 97.3 F L 101 H 18 120/60 95 01/24/17 06:00 01/24/17 06:00 01/24/17 06:00 01/24/17 06:00 01/23/17 20:56 General NAD, responds with repeating questions or saying yes CV S1 S2 RRR no murmur/rub/gallop Lungs CTA B/L anteriorly. poor inspiratory effort. abdomen soft NT/ND obese Extremities 2+ pitting edema, 1 cm fluctuant area near L malleolus 2nd collection superior to 1st metatarsal neither areas appear erythematous, tender or warm ASSESSMENT AND PLAN: 56yo F with PMH HTN, HLD, COPD, seziures, schizoaffective d/o, CKD, CAD, gout presented to the ER and was admitted for further evaluation of their emergent condition 1. Acute metabolic encephalopathy-now resolved. uremia improved. had episode of myoclonic jerks of the LUE and face while examining her with self reolved in less than 30seconds. pt awake immediately after jerking stopped, does not seem to be aware that this occurred. will obtain brain MRI today. d/w with neuro about adjusting depakote dosing as her level is subtherapeutic. will awaiting chemistry results. 2. Severe sepsis-likely PNA. afebrile and leukocytosis trending down. cx all negative. monitor off abx 3. Acute gout flare-s/p aspiration by podiatry yesterday. fluid sent for analysis. no reports if crystals. questionable if was sent for crystal analysis. prednisone taper. start uric acid lowering agents once kidney function normalizes 4. Acute on CKD- sepsis induced vs hypoperfusion. good UOP. improving, avoid nephrotoxic agents. nephro on board. d/c byers. will d/c fluids as mental status improved and reports tolerating diet. 5. Hypokalemia- KCl 40meq 6. pseudohypocalcemia- corrected 10.1 7. Acute normocytic anemia- anemia of chronic disease. Hgb remains stable. no indication for txn. txn if needed 8. HTn- currently normotensive. hold oral agents 9. DVT ppx- hep sq 10. PT eval. will likely require ZORA on discharge.
--- NOTE | 2017-01-24 13:19 | CONSULT ---
Admitting History and Physical - Primary Care Physician PCP: Milagros Martino - Admission History of Present Illness: Per EMR:"56 yo M w/ h/o HTN, HLD, COPD, seziures, schizoaffective d/o, CKD, CAD , gout admitted to the ICU for severe sepsis and acute kidney injury." Selected Entries 01/23/17 01/23/17 01/23/17 02:00 06:00 14:00 Breakfast Lunch Temperature 96.8 F L 97.0 F L 98.8 F 01/23/17 01/23/17 01/24/17 18:00 22:00 02:00 Breakfast Lunch Temperature 98.5 F 98 F 98.9 F 01/24/17 01/24/17 01/24/17 06:00 12:35 13:15 Breakfast 50% Lunch 50% Temperature 97.3 F L Pt was on a mechanical soft diet and thin liquid at [facility]. History Source: Medical Record Limitations to Obtaining History: Poor Historian - Past Medical History Cardiovascular: Yes: CAD, HTN, Hyperlipdemia Renal/: Yes: Renal Inusuff ...: No Psych: Yes: Depression Musculoskeletal: Yes: Chronic low back pain Rheumatology: Yes: Gout - Smoking History Smoking history: Former smoker Have you smoked in the past 12 months: No If you are a former smoker, when did you quit?: 2001 - Alcohol/Substance Use Hx Alcohol Use: Yes History of Substance Use: reports: Cocaine History - Admission Reason For Visit: SEPSIS - Diagnostics X-ray: Report Reviewed - General Mental Status: Awake and Alert, Forgetful, Confused, Flat Affect Attention: Distractible Ability to Follow Directions: Fair Head/Neck Control: Fair - Hearing Hearing: Functional Speech Evaluation - Communication Primary Language: ROMANSH Communication: Yes: Simple Responses Oral Expression Ability: Yes: Moderate Impairment - Speech Production Able to Make Needs Known: Yes: Moderately Impaired Intelligibility: Yes: Moderately Impaired - Speech Characteristics Voice Loudness: Excessive Variation Voice Pitch: Yes: Normal Speech Pattern: Impaired Speech Clarity: < 50% Nasal Resonance: Normal Voice, Other Observations: Yes: Progressively Weak Voice - Language/Auditory Comprehension Follows: Yes: 1 Stage Simple Commands - Language/Verbal Expression Able to Respond to Simple Queries: Yes: Moderately Impaired Able to Communicate Wants and Needs: Yes: Moderately Impaired Functional Communication Status: Yes: Moderately Impaired - Swallow Evaluation/Bedside Assessment Current Nutritional Intake: Dysphagia Pureed, [place] Textured Liquids Oral Secretions: Yes: WFL Dentition: Yes: Edentulous Lingual Movement: Deviates Left Laryngeal Movement: Labored,delay initiation, Reduced Velocity Labial Seal: WFL Chewing: Impaired (expectorated piece of cookie given) Oral Prep Time: Increased Timing of Swallow: Delayed Coughing/Throat Clear: Yes (thin liquid) Recommendations - Speech Evaluation, Impression/Plan Impression: Aspiration on thin liquid. Overtly tolerating nectar thick liquid and pureed food with assistance - Dysphagia Impressions/Plan Swallowing Skills: Impaired Dysphagia Impressions: Mild Impairment, Moderate Impairment, Suspect Aspiration *Silent aspiration: cannot be R/O at bedside Dysphagia Treatment Plan: Chin Tuck/Down, Facilitative Feeding, Safe Rate, 1/2 tsp. at a time, Elevate HOB during feed, OOB for 1 h. after meals - Recommendations Diet Consistency: Dysphagia Pureed Medication Administration: Crushed with applesauce Liquids: [place] Thick Supplement: Magic Cup (if ok per Rd.)
[2017-01-24] MEDS ORDERED: PT OWN MED DRAWER 7, Y5N ONE ×3 (13:54→21:18)
--- NOTE | 2017-01-24 16:25 | PN ---
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, Physician History of Present Illness: Pt seen and examine at bedside. She is more awake and alert today. She denies shortness of breath. - Current Medication List Current Medications: Active Medications Albuterol Sulfate (Ventolin 0.083% Nebulizer Soln -) 1 amp NEB Q4H PRN PRN Reason: SHORT OF BREATH/WHEEZING Albuterol Sulfate (Ventolin 0.083% Nebulizer Soln -) 1 amp NEB QIDR [facility] Last Admin: 01/24/17 11:15 Dose: 1 amp Aripiprazole (Abilify) 10 mg PO DAILY [facility] Heparin Sodium (Porcine) (Heparin -) 5,000 unit SQ BID [facility] Last Admin: 01/24/17 10:49 Dose: 5,000 unit Dextrose/Sodium Chloride (D5-Ns -) 1,000 mls @ 40 mls/hr IV ASDIR [facility] Last Admin: 01/23/17 18:42 Dose: 40 mls/hr Insulin Aspart (Novolog Vial Sliding Scale -) 1 vial SQ BIDI [facility] PRN Reason: Protocol Last Admin: 01/24/17 06:09 Dose: Not Given Lactobacillus Acidophilus (Bacid -) 1 tab PO DAILY [facility] Last Admin: 01/24/17 10:48 Dose: 1 tab Latanoprost (Xalatan 0.005% Eye Drops -) 1 drop OU HS [facility] Last Admin: 01/23/17 21:27 Dose: 1 drop Montelukast Sodium (Singulair -) 10 mg PO HS [facility] Last Admin: 01/23/17 21:26 Dose: 10 mg Prednisone (Deltasone -) 30 mg PO DAILY [facility] Last Admin: 01/24/17 10:48 Dose: 30 mg Propranolol HCl (Inderal -) 20 mg PO TID [facility] Last Admin: 01/24/17 13:58 Dose: 20 mg Ranitidine HCl (Zantac Oral Solution -) 150 mg PO BID [facility] Last Admin: 01/24/17 10:49 Dose: 150 mg Fluticasone/Salmeterol (Advair 100mcg/50mcg -) 1 puff IH BID [facility] Last Admin: 01/24/17 10:49 Dose: 1 puff Valproate Sodium (Depacon Injection -) 500 mg IVPB BID [facility] Last Admin: 01/24/17 10:50 Dose: 500 mg Venlafaxine HCl (Effexor Xr -) 150 mg PO DAILY [facility] - Objective Vital Signs: Vital Signs Temperature 98.0 F 01/24/17 15:17 Pulse Rate 120 H 01/24/17 15:17 Respiratory Rate 20 01/24/17 15:17 Blood Pressure 161/95 01/24/17 15:17 O2 Sat by Pulse Oximetry (%) 96 01/24/17 11:15 Constitutional: Yes: Calm Eyes: Yes: Conjunctiva Clear HENT: Yes: Atraumatic Neck: Yes: Supple Cardiovascular: Yes: S1, S2 Respiratory: Yes: CTA Bilaterally Gastrointestinal: Yes: Soft, Abdomen, Obese Genitourinary: Yes: WNL Musculoskeletal: Yes: Muscle Weakness Edema: Yes Edema: LLE: 1+, RLE: 1+ Neurological: Yes: Oriented Psychiatric: Yes: Oriented Labs: CBC, BMP 01/24/17 08:15 01/24/17 08:15 INR, PTT INR 1.31 (0.82-1.09) H 01/19/17 11:41 Problem List - Problems (1) Acute renal failure Code(s): N17.9 - ACUTE KIDNEY FAILURE, UNSPECIFIED Qualifiers: Acute renal failure type: unspecified Qualified Code(s): N17.9 - Acute kidney failure, unspecified (2) Altered mental status Code(s): R41.82 - ALTERED MENTAL STATUS, UNSPECIFIED Qualifiers: Altered mental status type: unspecified Qualified Code(s): R41.82 - Altered mental status, unspecified (3) Dehydration Code(s): E86.0 - DEHYDRATION (4) Sepsis Code(s): A41.9 - SEPSIS, UNSPECIFIED ORGANISM Qualifiers: Sepsis type: sepsis due to unspecified organism Qualified Code(s): A41.9 - Sepsis, unspecified organism (5) CKD (chronic kidney disease) Code(s): N18.9 - CHRONIC KIDNEY DISEASE, UNSPECIFIED (6) COPD (chronic obstructive pulmonary disease) Code(s): J44.9 - CHRONIC OBSTRUCTIVE PULMONARY DISEASE, UNSPECIFIED Qualifiers : COPD type: COPD with acute exacerbation Qualified Code(s): J44.1 - Chronic obstructive pulmonary disease with (acute) exacerbation (7) Depressed Code(s): F32.9 - MAJOR DEPRESSIVE DISORDER, SINGLE EPISODE, UNSPECIFIED (8) Bilateral lower extremity edema Code(s): R60.0 - LOCALIZED EDEMA Assessment/Plan Current Medications Generic Name Dose Route Start Last Admin Trade Name Freq PRN Reason Stop Dose Admin Albuterol Sulfate 1 amp 01/19/17 21:41 Ventolin 0.083% Nebulizer Soln - NEB Q4H PRN SHORT OF BREATH/WHEEZING Albuterol Sulfate 1 amp 01/20/17 00:00 01/24/17 11:15 Ventolin 0.083% Nebulizer Soln - NEB 1 amp QIDR [facility] Administration Aripiprazole 10 mg 01/25/17 10:00 Abilify PO DAILY [facility] Heparin Sodium (Porcine) 5,000 unit 01/19/17 22:00 01/24/17 10:49 Heparin - SQ 5,000 unit BID [facility] Administration Dextrose/Sodium Chloride 1,000 mls @ 40 mls/hr 01/23/17 17:13 01/23/17 18:42 D5-Ns - IV 40 mls/hr ASDIR [facility] Administration Insulin Aspart 1 vial 01/19/17 17:15 01/24/17 06:09 Novolog Vial Sliding Scale - SQ Not Given BIDI [facility] Protocol Lactobacillus Acidophilus 1 tab 01/20/17 10:00 01/24/17 10:48 Bacid - PO 1 tab DAILY [facility] Administration Latanoprost 1 drop 01/19/17 22:00 01/23/17 21:27 Xalatan 0.005% Eye Drops - OU 1 drop HS [facility] Administration Montelukast Sodium 10 mg 01/22/17 22:00 01/23/17 21:26 Singulair - PO 10 mg HS [facility] Administration Prednisone 30 mg 01/24/17 10:00 01/24/17 10:48 Deltasone - PO 30 mg DAILY [facility] Administration Propranolol HCl 20 mg 01/23/17 14:30 01/24/17 13:58 Inderal - PO 20 mg TID [facility] Administration Ranitidine HCl 150 mg 01/19/17 22:00 01/24/17 10:49 Zantac Oral Solution - PO 150 mg BID [facility] Administration Fluticasone/Salmeterol 1 puff 01/19/17 22:00 01/24/17 10:49 Advair 100mcg/50mcg - IH 1 puff BID [facility] Administration Valproate Sodium 500 mg 01/19/17 22:00 01/24/17 10:50 Depacon Injection - IVPB 500 mg BID [facility] Administration Venlafaxine HCl 150 mg 01/25/17 10:00 Effexor Xr - PO DAILY [facility] Impression 1. DOMINIC 2. CKD 3. hyponatremia 4. altered mental status 5. gout 6. PNA 7. Depression 8. COPD 9. sepsis 10. positive hep C ab 11. HTN Plan - will change fluids to 1/2ns and replace potassium - repeat labs in am - start to taper steroids - renal function is improving - will follow closely - avoid nsaids - will not restart diovan at this time - will follow Dr Marcelino
[2017-01-24] MEDS ORDERED: POTASSIUM CHLORIDE TABS 20 MEQ TABLET.ER (FP) PO ONE ×2 (16:26→16:28)
[2017-01-24] MEDS ORDERED: SODIUM CHLORIDE 0.45% 1,000 ML IV SCH (16:30)
--- NOTE | 2017-01-24 17:14 | PN ---
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, Physician History of Present Illness: PULMONARY MORE ALERT,ANSWERS SIMPLE QUESTIONS,-SOB,-COUGH - Current Medication List Current Medications: Active Medications Albuterol Sulfate (Ventolin 0.083% Nebulizer Soln -) 1 amp NEB Q4H PRN PRN Reason: SHORT OF BREATH/WHEEZING Albuterol Sulfate (Ventolin 0.083% Nebulizer Soln -) 1 amp NEB QIDR [facility] Last Admin: 01/24/17 11:15 Dose: 1 amp Aripiprazole (Abilify) 10 mg PO DAILY [facility] Heparin Sodium (Porcine) (Heparin -) 5,000 unit SQ BID [facility] Last Admin: 01/24/17 10:49 Dose: 5,000 unit Sodium Chloride (1/2 Normal Saline) 1,000 mls @ 40 mls/hr IV ASDIR [facility] Last Admin: 01/24/17 16:55 Dose: 40 mls/hr Insulin Aspart (Novolog Vial Sliding Scale -) 1 vial SQ BIDI [facility] PRN Reason: Protocol Last Admin: 01/24/17 06:09 Dose: Not Given Lactobacillus Acidophilus (Bacid -) 1 tab PO DAILY [facility] Last Admin: 01/24/17 10:48 Dose: 1 tab Latanoprost (Xalatan 0.005% Eye Drops -) 1 drop OU HS [facility] Last Admin: 01/23/17 21:27 Dose: 1 drop Montelukast Sodium (Singulair -) 10 mg PO HS [facility] Last Admin: 01/23/17 21:26 Dose: 10 mg Prednisone (Deltasone -) 20 mg PO DAILY [facility] Propranolol HCl (Inderal -) 20 mg PO TID [facility] Last Admin: 01/24/17 13:58 Dose: 20 mg Ranitidine HCl (Zantac Oral Solution -) 150 mg PO BID [facility] Last Admin: 01/24/17 10:49 Dose: 150 mg Fluticasone/Salmeterol (Advair 100mcg/50mcg -) 1 puff IH BID [facility] Last Admin: 01/24/17 10:49 Dose: 1 puff Valproate Sodium (Depacon Injection -) 500 mg IVPB BID [facility] Last Admin: 01/24/17 10:50 Dose: 500 mg Venlafaxine HCl (Effexor Xr -) 150 mg PO DAILY [facility] - Objective Vital Signs: Vital Signs Temperature 98.6 F 01/24/17 16:54 Pulse Rate 110 H 01/24/17 16:54 Respiratory Rate 20 01/24/17 16:54 Blood Pressure 142/97 01/24/17 16:54 O2 Sat by Pulse Oximetry (%) 96 01/24/17 11:15 Constitutional: Yes: Well Nourished, Calm Eyes: Yes: WNL HENT: Yes: WNL Neck: Yes: WNL Cardiovascular: Yes: Regular Rate and Rhythm, S1, S2 Respiratory: Yes: Diminished (POOR INSPIRATORY EFFORT) Gastrointestinal: Yes: Normal Bowel Sounds, Soft Extremities: Yes: WNL Edema: Yes Labs: CBC, BMP 01/24/17 08:15 01/24/17 08:15 INR, PTT INR 1.31 (0.82-1.09) H 01/19/17 11:41 Assessment/Plan - Problems (1) Acute renal failure Code(s): N17.9 - ACUTE KIDNEY FAILURE, UNSPECIFIED Qualifiers: Acute renal failure type: unspecified Qualified Code(s): N17.9 - Acute kidney failure, unspecified (2) Altered mental status Code(s): R41.82 - ALTERED MENTAL STATUS, UNSPECIFIED Qualifiers: Altered mental status type: unspecified Qualified Code(s): R41.82 - Altered mental status, unspecified (3) Dehydration Code(s): E86.0 - DEHYDRATION (4) Sepsis Code(s): A41.9 - SEPSIS, UNSPECIFIED ORGANISM Qualifiers: Sepsis type: sepsis due to unspecified organism Qualified Code(s): A41.9 - Sepsis, unspecified organism (5) COPD (chronic obstructive pulmonary disease) Code(s): J44.9 - CHRONIC OBSTRUCTIVE PULMONARY DISEASE, UNSPECIFIED Qualifiers : COPD type: COPD with acute exacerbation Qualified Code(s): J44.1 - Chronic obstructive pulmonary disease with (acute) exacerbation (6) Hypertension Code(s): I10 - ESSENTIAL (PRIMARY) HYPERTENSION (7) Hyponatremia Code(s): E87.1 - HYPO-OSMOLALITY AND HYPONATREMIA (8) Pneumonia Code(s): J18.9 - PNEUMONIA, UNSPECIFIED ORGANISM Qualifiers: Pneumonia type: due to unspecified organism Laterality: left Lung location: lower lobe of lung Qualified Code(s): J18.9 - Pneumonia, unspecified organism (9) Bilateral lower extremity edema Code(s): R60.0 - LOCALIZED EDEMA (10) Severe sepsis Code(s): A41.9 - SEPSIS, UNSPECIFIED ORGANISM R65.20 - SEVERE SEPSIS WITHOUT SEPTIC SHOCK (11) Hypochloremia Code(s): E87.8 - OTH DISORDERS OF ELECTROLYTE AND FLUID BALANCE, NEC Assessment/Plan ivf fluids per nephrology Aspiration precautions O2 as needed Strict I&O DR MUELLER
[2017-01-24] MEDS: MONTELUKAST NA 5 MG TAB.CHEW PO SCH (22:01)
[2017-01-24] MEDS: LATANOPROST 0.005% OPHTH SOLN 2.5ML BOTTLE OU SCH (22:02)
[2017-01-25] MEDS: ALBUTEROL SO4 0.083% IH SOL 2.5 MG/3 ML VIAL.NEB. NEB SCH
[2017-01-25] MEDS: PROPRANOLOL HCL 20 MG TABLET PO SCH ×3 (06:25→22:36)
[2017-01-25] MEDS: INSULIN SLIDING SCALE (NOVOLOG) 1 VIAL SQ SCH ×2 (06:25→18:03)
[2017-01-25 08:43] LABS: MCH 29.8 pg (25.7-33.7); MEAN CELL VOLUME 90.3 fl (80-96); MEAN PLT VOLUME 7.8 fl (7.5-11.1); PLATELET COUNT 259 K/MM3 (134-434); WHITE BLOOD COUNT 24.9 K/mm3 (4.0-10.0)
[2017-01-25 09:22] LABS: ALBUMIN 1.6 g/dl (3.4-5.0); CALCIUM 8.8 mg/dL (8.5-10.1); MAGNESIUM 1.7 mg/dL (1.8-2.4)
[2017-01-25 09:26] LABS: BILIRUBIN,TOTAL 1.4 mg/dL (0.2-1.0); CREATININE 1.5 mg/dL (0.55-1.02); PHOSPHOROUS 3.1 mg/dL (2.5-4.9); TOT PROT 6.4 g/dl (6.4-8.2)
[2017-01-25] MEDS ORDERED: PT OWN MED DRAWER 7, Y5N ONE ×4 (09:39→21:25)
[2017-01-25] MEDS: ARIPiprazole 10 MG TABLET PO SCH (09:43)
[2017-01-25] MEDS: FLUTICASONE/SALMETEROL 100 MCG/50 MCG DISKUS IH SCH ×2 (09:43→22:37)
[2017-01-25] MEDS: RANITIDINE HCL 150 MG/10 ML UNIT-DOSE CUP PO SCH ×2 (09:44→22:37)
[2017-01-25] MEDS: HEPARIN NA (PORCINE) 5,000 UNITS/ML 1ML VIAL SQ SCH ×2 (09:44→22:37)
[2017-01-25] MEDS: predniSONE 20 MG TABLET (UD) PO SCH (09:44)
[2017-01-25] MEDS: LACTOBACILLUS ACIDOPHILUS 1 EACH TAB (FP) PO SCH (09:44)
[2017-01-25] MEDS: VENLAFAXINE HCL 75 MG E.R. CAPSULES (FP) PO SCH (09:45)
[2017-01-25] MEDS: VALPROATE SODIUM 500 MG/5 ML VIAL IVPB SCH (09:45)
[2017-01-25] MEDS ORDERED: DEXTROSE 5%-WATER - 1,000 ML IV SCH (11:45)
--- NOTE | 2017-01-25 12:30 | PN ---
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: Selected Entries 01/23/17 01/23/17 01/23/17 02:00 06:00 14:00 Breakfast Lunch Supper Temperature 96.8 F L 97.0 F L 98.8 F 01/23/17 01/23/17 01/24/17 18:00 22:00 02:00 Breakfast Lunch Supper Temperature 98.5 F 98 F 98.9 F 01/24/17 01/24/17 01/24/17 06:00 09:00 12:35 Breakfast 50% Lunch Supper Temperature 97.3 F L 98.5 F 01/24/17 01/24/17 01/24/17 13:15 15:17 16:54 Breakfast Lunch 50% Supper Temperature 98.0 F 98.6 F 01/24/17 01/24/17 01/25/17 19:19 22:00 06:00 Breakfast Lunch Supper 50% Temperature 98.3 F 98.4 F Laboratory Tests 01/23/17 01/24/17 01/25/17 05:20 08:15 08:10 WBC 26.3 H 24.6 H 24.9 H On dys puree/nectar. Nepro suggested by RD, instead of magic cup. Cough response with thin liquid. Doing well on modified diet, readily accepting po intake. Liquid given on spoon with good affect.
--- NOTE | 2017-01-25 13:04 | PN ---
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, Physician History of Present Illness: Pt seen and examined at bedside. She is more awake and alert. She denies shortness of breath. - Current Medication List Current Medications: Active Medications Aripiprazole (Abilify) 10 mg PO DAILY [facility] Last Admin: 01/25/17 09:43 Dose: 10 mg Heparin Sodium (Porcine) (Heparin -) 5,000 unit SQ BID [facility] Last Admin: 01/25/17 09:44 Dose: 5,000 unit Dextrose (D5w -) 1,000 mls @ 100 mls/hr IV .Q10H [facility] Insulin Aspart (Novolog Vial Sliding Scale -) 1 vial SQ BIDI [facility] PRN Reason: Protocol Last Admin: 01/25/17 06:25 Dose: Not Given Lactobacillus Acidophilus (Bacid -) 1 tab PO DAILY [facility] Last Admin: 01/25/17 09:44 Dose: 1 tab Latanoprost (Xalatan 0.005% Eye Drops -) 1 drop OU HS [facility] Last Admin: 01/24/17 22:02 Dose: 1 drop Montelukast Sodium (Singulair -) 10 mg PO HS [facility] Last Admin: 01/24/17 22:01 Dose: 10 mg Prednisone (Deltasone -) 20 mg PO DAILY [facility] Last Admin: 01/25/17 09:44 Dose: 20 mg Propranolol HCl (Inderal -) 20 mg PO TID [facility] Last Admin: 01/25/17 06:25 Dose: 20 mg Ranitidine HCl (Zantac Oral Solution -) 150 mg PO BID [facility] Last Admin: 01/25/17 09:44 Dose: 150 mg Fluticasone/Salmeterol (Advair 100mcg/50mcg -) 1 puff IH BID [facility] Last Admin: 01/25/17 09:43 Dose: 1 puff Valproate Sodium (Depacon Injection -) 500 mg IVPB BID [facility] Last Admin: 01/25/17 09:45 Dose: 500 mg Venlafaxine HCl (Effexor Xr -) 150 mg PO DAILY [facility] Last Admin: 01/25/17 09:45 Dose: 150 mg - Objective Vital Signs: Vital Signs Temperature 97.7 F 01/25/17 06:47 Pulse Rate 115 H 01/25/17 06:47 Respiratory Rate 22 01/25/17 09:00 Blood Pressure 152/90 01/25/17 06:47 O2 Sat by Pulse Oximetry (%) 99 01/24/17 21:00 Constitutional: Yes: Calm Eyes: Yes: Conjunctiva Clear HENT: Yes: Atraumatic Cardiovascular: Yes: S1, S2 Respiratory: Yes: CTA Bilaterally Gastrointestinal: Yes: Soft, Abdomen, Obese Genitourinary: Yes: Incontinence Musculoskeletal: Yes: Muscle Weakness Edema: Yes Neurological: Yes: Oriented Psychiatric: Yes: Oriented Labs: CBC, BMP 01/25/17 08:10 01/25/17 08:10 INR, PTT INR 1.31 (0.82-1.09) H 01/19/17 11:41 Problem List - Problems (1) Acute renal failure Code(s): N17.9 - ACUTE KIDNEY FAILURE, UNSPECIFIED Qualifiers: Acute renal failure type: unspecified Qualified Code(s): N17.9 - Acute kidney failure, unspecified (2) Altered mental status Code(s): R41.82 - ALTERED MENTAL STATUS, UNSPECIFIED Qualifiers: Altered mental status type: unspecified Qualified Code(s): R41.82 - Altered mental status, unspecified (3) Dehydration Code(s): E86.0 - DEHYDRATION (4) Sepsis Code(s): A41.9 - SEPSIS, UNSPECIFIED ORGANISM Qualifiers: Sepsis type: sepsis due to unspecified organism Qualified Code(s): A41.9 - Sepsis, unspecified organism (5) CKD (chronic kidney disease) Code(s): N18.9 - CHRONIC KIDNEY DISEASE, UNSPECIFIED (6) COPD (chronic obstructive pulmonary disease) Code(s): J44.9 - CHRONIC OBSTRUCTIVE PULMONARY DISEASE, UNSPECIFIED Qualifiers : COPD type: COPD with acute exacerbation Qualified Code(s): J44.1 - Chronic obstructive pulmonary disease with (acute) exacerbation (7) Depressed Code(s): F32.9 - MAJOR DEPRESSIVE DISORDER, SINGLE EPISODE, UNSPECIFIED (8) Bilateral lower extremity edema Code(s): R60.0 - LOCALIZED EDEMA Assessment/Plan Current Medications Generic Name Dose Route Start Last Admin Trade Name Freq PRN Reason Stop Dose Admin Aripiprazole 10 mg 01/25/17 10:00 01/25/17 09:43 Abilify PO 10 mg DAILY [facility] Administration Heparin Sodium (Porcine) 5,000 unit 01/19/17 22:00 02/28/17 09:44 Heparin - SQ 5,000 unit BID [facility] Administration Dextrose 1,000 mls @ 100 mls/hr 01/25/17 11:45 D5w - IV .Q10H [facility] Insulin Aspart 1 vial 01/19/17 17:15 01/25/17 06:25 Novolog Vial Sliding Scale - SQ Not Given BIDI [facility] Protocol Lactobacillus Acidophilus 1 tab 01/20/17 10:00 01/25/17 09:44 Bacid - PO 1 tab DAILY [facility] Administration Latanoprost 1 drop 01/19/17 22:00 01/24/17 22:02 Xalatan 0.005% Eye Drops - OU 1 drop HS [facility] Administration Montelukast Sodium 10 mg 01/22/17 22:00 01/24/17 22:01 Singulair - PO 10 mg HS [facility] Administration Prednisone 20 mg 01/24/17 16:27 01/25/17 09:44 Deltasone - PO 20 mg DAILY [facility] Administration Propranolol HCl 20 mg 01/23/17 14:30 01/25/17 06:25 Inderal - PO 20 mg TID [facility] Administration Ranitidine HCl 150 mg 01/19/17 22:00 01/25/17 09:44 Zantac Oral Solution - PO 150 mg BID [facility] Administration Fluticasone/Salmeterol 1 puff 01/19/17 22:00 01/25/17 09:43 Advair 100mcg/50mcg - IH 1 puff BID [facility] Administration Valproate Sodium 500 mg 01/19/17 22:00 01/25/17 09:45 Depacon Injection - IVPB 500 mg BID [facility] Administration Venlafaxine HCl 150 mg 01/25/17 10:00 01/25/17 09:45 Effexor Xr - PO 150 mg DAILY [facility] Administration Impression 1. DOMINIC 2. CKD 3. hyponatremia 4. altered mental status 5. gout 6. PNA 7. Depression 8. COPD 9. sepsis 10. positive hep C ab 11. HTN Plan - will change fluids to d5w - increase free water intake - renal function is improving - taper steroids - will follow closely - avoid nsaids - will not restart diovan at this time - replace mag - will follow Dr Marcelino
--- NOTE | 2017-01-25 13:11 | PN ---
<Brodie Alas - Last Filed: 01/25/17 14:02> Physical Exam: SUBJECTIVE: Patient seen and examined at bedside. Pt is a poor historian and does not answer questions appropriately; for example, when asked if she has diarrhea she says yes and when asked if she has constipation she says yes. No acute events overnight. OBJECTIVE: Vital Signs Temperature 97.7 F 01/25/17 06:47 Pulse Rate 115 H 01/25/17 06:47 Respiratory Rate 22 01/25/17 09:00 Blood Pressure 152/90 01/25/17 06:47 O2 Sat by Pulse Oximetry (%) 99 01/24/17 21:00 GENERAL: The patient is awake, alert, and oriented to self only, in no acute distress. HEAD: Normal with no signs of trauma. EYES: extraocular movements intact, sclera anicteric, conjunctiva clear. No ptosis. ENT: Ears normal, nares patent, moist mucous membranes. NECK: Trachea midline, full range of motion LUNGS: Auscultated anteriorly, Breath sounds equal, clear to auscultation bilaterally, no wheezes, no crackles, no accessory muscle use. HEART: Tachycardic, S1, S2 without murmur, rub or gallop. ABDOMEN: Soft, obese, nontender, nondistended, normoactive bowel sounds, no guarding, no rebound, no hepatosplenomegaly, no masses. EXTREMITIES: 2+ pulses, warm, well-perfused, 2+ pitting edema B/L LE. L foot bullae near ankle improved compared to previously. L foot bullae near toe approximately the same. Both are non-tender, fluid filled. NEUROLOGICAL:Slow speech, gait not observed. SKIN: Warm, dry, normal turgor, no rashes or lesions noted Laboratory Results - last 24 hr 01/24/17 01/25/17 01/25/17 17:14 06:06 08:10 WBC 24.9 H RBC 2.44 L Hgb 7.3 L Hct 22.1 L MCV 90.3 MCHC 33.0 RDW 18.0 H Plt Count 259 MPV 7.8 Sodium Potassium Chloride Carbon Dioxide Anion Gap BUN Creatinine Creat Clearance w eGFR POC Glucometer 224 113 Random Glucose Calcium Phosphorus Magnesium Total Bilirubin AST ALT Alkaline Phosphatase Total Protein Albumin 01/25/17 08:10 WBC RBC Hgb Hct MCV MCHC RDW Plt Count MPV Sodium 155 H Potassium 3.5 Chloride 119 H Carbon Dioxide 26 Anion Gap 10 BUN 73 H D Creatinine 1.5 H D Creat Clearance w eGFR 35.79 POC Glucometer Random Glucose 126 H Calcium 8.8 Phosphorus 3.1 D Magnesium 1.7 L D Total Bilirubin 1.4 H D AST 43 H ALT 17 D Alkaline Phosphatase 206 H Total Protein 6.4 Albumin 1.6 L Microbiology 01/21/17 19:15 Aspirate Gram Stain - Final 01/21/17 19:15 Aspirate Body Fluid Culture - Final NO GROWTH OF AEROBIC ORGANISMS AFTER 48 HOURS INCUBATION 01/21/17 19:15 Aspirate Anaerobic Culture - Final NO ANAEROBES WERE ISOLATED 01/19/17 12:56 Blood - Peripheral Venous Blood Culture - Final NO GROWTH AFTER 5 DAYS INCUBATION 01/19/17 12:56 Blood - Peripheral Venous Blood Culture - Final NO GROWTH AFTER 5 DAYS INCUBATION 01/23/17 06:00 Stool Clostridium difficile Antigen (JOCE) - Final 01/23/17 06:00 Stool Clostridium difficile Toxin Assay - Final 01/19/17 21:20 Urine - Urine Clean Catch Urine Culture - Final NO GROWTH OBTAINED 01/19/17 12:50 Urine - Urine Bajwa Urine Culture - Final Yeast Like Organism 01/19/17 16:27 Urine For Antigen Detection Legionella Antigen - Final 01/19/17 16:27 Urine For Antigen Detection Streptococcus pneumoniae Antigen (M - Final Active Medications Generic Name Dose Route Start Last Admin Trade Name Freq PRN Reason Stop Dose Admin Aripiprazole 10 mg 01/25/17 10:00 01/25/17 09:43 Abilify PO 10 mg DAILY [facility] Administration Heparin Sodium (Porcine) 5,000 unit 01/19/17 22:00 01/25/17 09:44 Heparin - SQ 5,000 unit BID [facility] Administration Dextrose 1,000 mls @ 85 mls/hr 01/25/17 13:04 D5w - IV .Q10H [facility] Insulin Aspart 1 vial 01/19/17 17:15 01/25/17 06:25 Novolog Vial Sliding Scale - SQ Not Given BIDI [facility] Protocol Lactobacillus Acidophilus 1 tab 01/20/17 10:00 01/25/17 09:44 Bacid - PO 1 tab DAILY [facility] Administration Latanoprost 1 drop 01/19/17 22:00 01/24/17 22:02 Xalatan 0.005% Eye Drops - OU 1 drop HS [facility] Administration Magnesium Sulfate 1 gm 01/25/17 13:04 Magnesium Sulfate IVPB 01/25/17 13:05 ONCE ONE Montelukast Sodium 10 mg 01/22/17 22:00 01/24/17 22:01 Singulair - PO 10 mg HS [facility] Administration Potassium Chloride 20 meq 01/25/17 13:05 K-Dur - PO 01/25/17 13:06 ONCE ONE Prednisone 20 mg 01/24/17 16:27 01/25/17 09:44 Deltasone - PO 20 mg DAILY [facility] Administration Propranolol HCl 20 mg 01/23/17 14:30 01/25/17 06:25 Inderal - PO 20 mg TID [facility] Administration Ranitidine HCl 150 mg 01/19/17 22:00 01/25/17 09:44 Zantac Oral Solution - PO 150 mg BID [facility] Administration Fluticasone/Salmeterol 1 puff 01/19/17 22:00 01/25/17 09:43 Advair 100mcg/50mcg - IH 1 puff BID [facility] Administration Valproate Sodium 500 mg 01/19/17 22:00 01/25/17 09:45 Depacon Injection - IVPB 500 mg BID [facility] Administration Venlafaxine HCl 150 mg 01/25/17 10:00 01/25/17 09:45 Effexor Xr - PO 150 mg DAILY [facility] Administration ASSESSMENT/PLAN: 56 y/o F w/ PMH of HTN, HLD, COPD, seziures, schizoaffective d/o, CKD, CAD, gout presented to ER from [facility] for AMS. -Acute metabolic encephalopathy secondary to severe sepsis from PNA vs C. Diff -improving -Head CT negative; Neuro on board -f/u brain MRI when more stable to assess for possible CVA -Neurologically improving with resolution of uremia and no focal deficits noted - may not need MRI? -WBC: 24.9 -BCx neg, C. Diff neg -off abx -D5W @ 100 ml/hr -DOMINIC secondary to severe sepsis, dehydration -BUN/Cr: 73/1.5 (on last discharge Cr ws 0.7) -D5W @ 100 ml/hr -Nephrology consulted (Dr. Marcelino) -Renal U/S - no kidney pathology -Tumor lysis? Elevated myelocytes, WBC -Leukemia vs MM? -Elevated WBC, myelocytes, bands, rouleaux -Heme/Onc consulted (Dr. Mallory) -f/u SPEP, urine proteins -Seizures -repeat valproic acid level low at 39 -c/w valproic acid 500 mg bid iv -spoke with Dr. Kwan who recommended giving one time dose of 750 mg once and rechecking levels tomorrow. -L foot fluid filled bullae / gout -Podiatry on board -infective burisitis vs gout -bedside aspiration by podiatry -culture neg x 48 hr so far -prednisone d/c'd -HTN -c/w propanolol 20 mg tid -Schizoaffective d/o -restarted effexor xr 150 mg po qd -restarted abilify 10 mg po qd -COPD -advair 1 puff bid -DM -ISS bid, BGMs bid while not eating due to AMS -FEN -NS @ 100 ml/hr -Hypernatremia, hyperchloremia; improving; - c/w D5W @ 100 ml/hr, monitor lytes -Free water deficit is 6 L -Dysphagia puree diet -Dispo: -Monitor on floors Problem List - Problems (1) Acute renal failure Code(s): N17.9 - ACUTE KIDNEY FAILURE, UNSPECIFIED Qualifiers: Acute renal failure type: unspecified Qualified Code(s): N17.9 - Acute kidney failure, unspecified (2) Altered mental status Code(s): R41.82 - ALTERED MENTAL STATUS, UNSPECIFIED Qualifiers: Altered mental status type: unspecified Qualified Code(s): R41.82 - Altered mental status, unspecified (3) Dehydration Code(s): E86.0 - DEHYDRATION (4) Sepsis Code(s): A41.9 - SEPSIS, UNSPECIFIED ORGANISM Qualifiers: Sepsis type: sepsis due to unspecified organism Qualified Code(s): A41.9 - Sepsis, unspecified organism (5) COPD (chronic obstructive pulmonary disease) Code(s): J44.9 - CHRONIC OBSTRUCTIVE PULMONARY DISEASE, UNSPECIFIED Qualifiers : COPD type: COPD with acute exacerbation Qualified Code(s): J44.1 - Chronic obstructive pulmonary disease with (acute) exacerbation (6) Hypertension Code(s): I10 - ESSENTIAL (PRIMARY) HYPERTENSION (7) Hyponatremia Code(s): E87.1 - HYPO-OSMOLALITY AND HYPONATREMIA (8) Pneumonia Code(s): J18.9 - PNEUMONIA, UNSPECIFIED ORGANISM Qualifiers: Pneumonia type: due to unspecified organism Laterality: left Lung location: lower lobe of lung Qualified Code(s): J18.9 - Pneumonia, unspecified organism (9) Bilateral lower extremity edema Code(s): R60.0 - LOCALIZED EDEMA (10) Severe sepsis Code(s): A41.9 - SEPSIS, UNSPECIFIED ORGANISM R65.20 - SEVERE SEPSIS WITHOUT SEPTIC SHOCK (11) Hypochloremia Code(s): E87.8 - OTH DISORDERS OF ELECTROLYTE AND FLUID BALANCE, NEC Visit type - Emergency Visit Emergency Visit: Yes ED Registration Date: 01/19/17 Care time: The patient presented to the Emergency Department on the above date and was hospitalized for further evaluation of their emergent condition. - New Patient This patient is new to me today: No - Critical Care Critical Care patient: No <John Chamberlain - Last Filed: 01/25/17 18:17> Physical Exam: 56 y/o F w/ PMH of HTN, HLD, COPD, seziures, schizoaffective d/o, CKD, CAD, gout admitted for altered mental status/metabolic encephalopathy altered mental status/metabolic encephalopathy -was initially thought to be due to sepsis given elevated WBC and tachycardia -mental status improved -completed full course of abx and cultures negative -WBC still elevated above 20 alone with bandemia, rouleux formation, hyperuricemia, and elevated total protein:albumin ration which is concerning for leukemia/lymphoma process -follow up SPEP/UPEP -follow up heme/onc consult Hypernatremia -start D5 water -repeat sodium 6hrs after initiation CAD -has been tachycardic throughout entire hospital stay -will increase propranolol to 40TID to control heart rate in pt with CAD and will eval initial EKG -start statin -restart ASA COPD -cont advair -cont singulair -start tudorza
[2017-01-25] MEDS ORDERED: MAGNESIUM SULF 50% (8.12 MEQ/2 ML-1 GM VIAL) IVPB ONE (14:15)
[2017-01-25] MEDS ORDERED: POTASSIUM CHLORIDE TABS 20 MEQ TABLET.ER (FP) PO ONE (14:15)
[2017-01-25] MEDS: DEXTROSE 5%-WATER - 1,000 ML IV SCH ×2 (14:16→23:52)
[2017-01-25] MEDS ORDERED: VALPROATE SODIUM 500 MG/5 ML VIAL IVPB ONE (14:30)
[2017-01-25 18:26] LABS: CALCIUM 8.5 mg/dL (8.5-10.1); CREATININE 1.4 mg/dL (0.55-1.02)
[2017-01-25] MEDS: ASPIRIN 81 MG CHEWABLE TABLETS PO SCH (18:56)
--- NOTE | 2017-01-25 21:44 | CONSULT ---
Consult Consult Specialty:: oncology-hematology Referred by:: Hospitalist staff Reason for Consultation:: Leucocytosis - History of Present Illness Chief Complaint: History of pneumonia, C. diff, steroids with persistent leucocytosis - (now off antibiotics) -without obvious evidence of infection. 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- schizo-affective personality) Cardio/Vascular: Yes: CAD, HTN, Hyperlipdemia Renal/: Yes: Renal Inusuff ...: No Psych: Yes: Depression Musculoskeletal: Yes: Chronic low back pain Rheumatology: Yes: Gout - Alcohol/Substance Use Hx Alcohol Use: Yes History of Substance Use: reports: Cocaine - Smoking History Smoking history: Former smoker Have you smoked in the past 12 months: No If you are a former smoker, when did you quit?: 2001 - Social History Usual Living Arrangement: Alone Home Medications - Allergies Allergies/Adverse Reactions: Allergies Allergy/AdvReac Type Severity Reaction Status Date / Time haloperidol [From Haldol] Allergy Mild itchings, Verified 01/19/17 11:18 stiffness seasonal Allergy Mild itch/rash Uncoded 01/19/17 11:18 - Home Medications Home Medications: Ambulatory Orders Acidoph/L.bulg/Bif.b/S.thermop [Bacid Caplet] 1 each PO BID 01/19/17 Albuterol 0.083% Nebulizer Adry [Ventolin 0.083%] 1 neb NEB QID 01/19/17 Aripiprazole [Abilify] 10 mg PO DAILY 01/19/17 Aspirin [ASA -] 81 mg PO DAILY 01/19/17 Bacitracin 30 gm TP DAILY 01/19/17 Divalproex *ER* [Depakote *ER* -] 500 mg PO BID 01/19/17 Folic Acid 1 mg PO DAILY 01/19/17 Gabapentin 400 mg PO TID 01/19/17 Insulin Glargine,Hum.rec.anlog [Lantus (nf)] 34 units SQ HS 01/19/17 Latanoprost 0.005% Eye Drops [Xalatan 0.005% Eye Drops -] 1 drop OU HS 01/19/17 Loratadine [Alavert] 10 mg PO DAILY 01/19/17 Montelukast Na [Singulair -] 10 mg PO HS 01/19/17 Multivitamin [Poly-Vitamin] 1 each PO DAILY 01/19/17 Oxycodone HCl/Acetaminophen [Percocet 10-325 mg Tablet] 1 each PO BID 01/19/17 Propranolol HCl [Inderal] 20 mg PO DAILY 01/19/17 Ranitidine [Zantac -] 150 mg PO BID 01/19/17 Salmeterol/Fluticasone [Advair 100Mcg/50Mcg -] 1 inh PO BID 01/19/17 Valsartan 320 mg PO DAILY 01/19/17 Venlafaxine HCl ER [Effexor Xr -] 150 mg PO DAILY 01/19/17 Family Disease History - Family Disease History Family Disease History: Diabetes: Father, Heart Disease: Mother Physical Exam Vital Signs: Vital Signs Temperature 98.3 F 01/25/17 16:01 Pulse Rate 112 H 01/25/17 16:01 Respiratory Rate 20 01/25/17 16:01 Blood Pressure 138/85 01/25/17 16:01 O2 Sat by Pulse Oximetry (%) 99 01/24/17 21:00 Constitutional: Yes: Other (Declines questioning ; turns away for examination) Eyes: Yes: PERRL. No: Diplopia, Ptosis, Sclera Icterus HENT: Yes: Normocephalic. No: Epistaxis, Tonsillar Exudate Neck: Yes: Trachea Midline Cardiovascular: Yes: Regular Rate and Rhythm Respiratory: Yes: Diminished Gastrointestinal: Yes: Soft. No: Ascites, Hepatomegaly, Splenomegaly, Tenderness Renal/: No: CVA Tenderness - Left, CVA Tenderness - Right Breast(s): Yes: WNL, Left, Right Musculoskeletal: No: Muscle Pain Extremities: No: Cool Edema: LLE: 2+, RLE: 2+ Integumentary: Yes: Other (numerous ecchymoses abdominal wall) Neurological: Yes: Other (non communicative to qustioning) ...Motor Strength: WNL Psychiatric: Yes: Other (unclear) Labs: CBC, BMP 01/25/17 08:10 01/25/17 15:15 Problem List - Problems (1) Acute renal failure Assessment/Plan: Improving BUN/Creatinine Code(s): N17.9 - ACUTE KIDNEY FAILURE, UNSPECIFIED Qualifiers: Acute renal failure type: unspecified Qualified Code(s): N17.9 - Acute kidney failure, unspecified (2) Altered mental status Assessment/Plan: Non responsive to verbal stimuli Code(s): R41.82 - ALTERED MENTAL STATUS, UNSPECIFIED Qualifiers: Altered mental status type: unspecified Qualified Code(s): R41.82 - Altered mental status, unspecified (3) Sepsis Assessment/Plan: No obvious infection. Currently off antibiotics . Code(s): A41.9 - SEPSIS, UNSPECIFIED ORGANISM Qualifiers: Sepsis type: sepsis due to unspecified organism Qualified Code(s): A41.9 - Sepsis, unspecified organism (4) Leukocytosis (leucocytosis) Assessment/Plan: On steroids. No obvious infection. Prior infection with pneumonia, c. diff. REVIEW OF PRIOR HOSPITILIZATIONS; 08/12/13---WBC-6100 08/06/14----WBC-6500 03/03/15----WBC-8200 07/01/16----WBC-7900 Since 12/21/16 persistent leucocytosis from 22,600 to higher values WBC counts seem too elevated for totally steroid effect. Will screen with BCR-ABL by PCR and CALLI-2 mutation. Code(s): D72.829 - ELEVATED WHITE BLOOD CELL COUNT, UNSPECIFIED (5) Anemia, chronic disease Assessment/Plan: Fe++--61 TIBC-135 Ferritin--2124 Mild elevation of TSH- 4.79 Has reverse albumin /globulin ratio--but marked decrease in albumin Picture compatible with chronic disease, doubt dysproteinemia If further decline- consider transfusion therapy Will screen with protein studies. Code(s): D63.8 - ANEMIA IN OTHER CHRONIC DISEASES CLASSIFIED ELSEWHERE
[2017-01-25] MEDS ORDERED: VALPROATE SODIUM 250 MG/5 ML UNIT DOSE CUP PO SCH (22:00)
[2017-01-25] MEDS ORDERED: DIVALPROEX NA *ER* EXTEND REL 500 MG TABLET.SA (FP) PO SCH (22:00)
[2017-01-25] MEDS: DIVALPROEX SODIUM 125 MG SPRINKLE CAPS (FP) PO SCH (22:35)
[2017-01-25] MEDS: MONTELUKAST NA 5 MG TAB.CHEW PO SCH (22:36)
[2017-01-25] MEDS: ATORVASTATIN CA 40 MG TABLET (FP) PO SCH (22:36)
[2017-01-25] MEDS: LATANOPROST 0.005% OPHTH SOLN 2.5ML BOTTLE OU SCH (22:37)
[2017-01-25] MEDS: ACLIDINIUM BROMIDE 400 MCG/INH AERO.POWD IH SCH (22:52)
[2017-01-26] MEDS: PROPRANOLOL HCL 20 MG TABLET PO SCH ×3 (05:51→21:18)
[2017-01-26] MEDS: INSULIN SLIDING SCALE (NOVOLOG) 1 VIAL SQ SCH ×2 (06:27→18:02)
[2017-01-26 08:03] LABS: BASOPHIL 0.2 % (0-2.0); EOSINOPHIL 0.2 % (0-4.5); MCH 29.1 pg (25.7-33.7); MCHC 32.8 g/dl (32.0-36.0); MEAN CELL VOLUME 88.8 fl (80-96); MEAN PLT VOLUME 7.5 fl (7.5-11.1); PLATELET COUNT 220 K/MM3 (134-434); WHITE BLOOD COUNT 24.4 K/mm3 (4.0-10.0)
[2017-01-26 08:27] LABS: ALBUMIN 1.6 g/dl (3.4-5.0); BILIRUBIN,TOTAL 1.3 mg/dL (0.2-1.0); CALCIUM 8.5 mg/dL (8.5-10.1); CREATININE 1.1 mg/dL (0.55-1.02); TOT PROT 6.2 g/dl (6.4-8.2)
[2017-01-26 08:41] LABS: HYPOCHROMIA 3+
[2017-01-26 08:42] LABS: TARGET CELLS 3+
[2017-01-26 09:17] LABS: MCHC 32.4 g/dl (32.0-36.0); MEAN CELL VOLUME 89.3 fl (80-96); MEAN PLT VOLUME 7.8 fl (7.5-11.1); PLATELET COUNT 219 K/MM3 (134-434); RDW 18.2 % (11.6-15.6); WHITE BLOOD COUNT 25.2 K/mm3 (4.0-10.0)
[2017-01-26] MEDS ORDERED: DIVALPROEX SODIUM 125 MG SPRINKLE CAPS (FP) PO SCH (10:00)
[2017-01-26] MEDS: ARIPiprazole 10 MG TABLET PO SCH (10:07)
[2017-01-26] MEDS: LACTOBACILLUS ACIDOPHILUS 1 EACH TAB (FP) PO SCH (10:08)
[2017-01-26] MEDS: ASPIRIN 81 MG CHEWABLE TABLETS PO SCH (10:08)
[2017-01-26] MEDS: predniSONE 20 MG TABLET (UD) PO SCH (10:09)
[2017-01-26] MEDS: DIVALPROEX SODIUM 125 MG SPRINKLE CAPS (FP) PO SCH ×4 (10:09→21:10)
[2017-01-26] MEDS: VENLAFAXINE HCL 75 MG E.R. CAPSULES (FP) PO SCH (10:20)
[2017-01-26] MEDS: RANITIDINE HCL 150 MG/10 ML UNIT-DOSE CUP PO SCH ×2 (10:20→21:18)
[2017-01-26] MEDS: HEPARIN NA (PORCINE) 5,000 UNITS/ML 1ML VIAL SQ SCH ×2 (10:20→21:14)
[2017-01-26] MEDS: ACLIDINIUM BROMIDE 400 MCG/INH AERO.POWD IH SCH ×2 (10:21→22:00)
[2017-01-26] MEDS: FLUTICASONE/SALMETEROL 100 MCG/50 MCG DISKUS IH SCH ×2 (10:21→22:00)
[2017-01-26] MEDS ORDERED: PT OWN MED DRAWER 7, Y5N ONE ×3 (10:55→21:16)
--- NOTE | 2017-01-26 10:56 | PN ---
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 Clinically gouty tophacheous fluid expressed from aspirate without obvious signs of acute infection. Will need allopurinol on discharge. Steroids should help improve symptoms. Please reconsult as necessary, thanks. Tran Ley DPM
[2017-01-26] MEDS ORDERED: predniSONE 10 MG TABLET (UD) PO SCH (13:27)
--- NOTE | 2017-01-26 13:27 | PN ---
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, Physician History of Present Illness: Pt seen and examined at bedside. She is very drowsy today. Her PO intake remains poor. - Current Medication List Current Medications: Active Medications Aclidinium [place] (Tudorza -) 1 puff IH BID [facility] Last Admin: 01/26/17 10:21 Dose: 1 puff Aripiprazole (Abilify) 10 mg PO DAILY [facility] Last Admin: 01/26/17 10:07 Dose: 10 mg Aspirin (Asa -) 81 mg PO DAILY [facility] Last Admin: 01/26/17 10:08 Dose: 81 mg Atorvastatin Calcium (Lipitor -) 40 mg PO HS [facility] Last Admin: 01/25/17 22:36 Dose: 40 mg Divalproex Sodium (Depakote Sprinkle Caps -) 250 mg PO QID [facility] Last Admin: 01/26/17 10:09 Dose: 250 mg Heparin Sodium (Porcine) (Heparin -) 5,000 unit SQ BID [facility] Last Admin: 01/26/17 10:20 Dose: 5,000 unit Dextrose (D5w -) 1,000 mls @ 85 mls/hr IV Q10H [facility] Last Admin: 01/25/17 23:52 Dose: 85 mls/hr Insulin Aspart (Novolog Vial Sliding Scale -) 1 vial SQ BIDI [facility] PRN Reason: Protocol Last Admin: 01/26/17 06:27 Dose: 2 units Lactobacillus Acidophilus (Bacid -) 1 tab PO DAILY [facility] Last Admin: 01/26/17 10:08 Dose: 1 tab Latanoprost (Xalatan 0.005% Eye Drops -) 1 drop OU [facility] Last Admin: 01/25/17 22:37 Dose: 1 drop Montelukast Sodium (Singulair -) 10 mg PO HS [facility] Last Admin: 01/25/17 22:36 Dose: 10 mg Prednisone (Deltasone -) 20 mg PO DAILY [facility] Last Admin: 01/26/17 10:09 Dose: 20 mg Propranolol HCl (Inderal -) 40 mg PO TID [facility] Last Admin: 01/26/17 05:51 Dose: 40 mg Ranitidine HCl (Zantac Oral Solution -) 150 mg PO BID [facility] Last Admin: 01/26/17 10:20 Dose: 150 mg Fluticasone/Salmeterol (Advair 100mcg/50mcg -) 1 puff IH BID [facility] Last Admin: 01/26/17 10:21 Dose: 1 puff Venlafaxine HCl (Effexor Xr -) 150 mg PO DAILY [facility] Last Admin: 01/26/17 10:20 Dose: 150 mg - Objective Vital Signs: Vital Signs Temperature 97.2 F L 01/26/17 06:00 Pulse Rate 115 H 01/26/17 06:00 Respiratory Rate 20 01/26/17 06:00 Blood Pressure 162/93 01/26/17 06:00 O2 Sat by Pulse Oximetry (%) 97 01/26/17 09:00 Constitutional: Yes: Calm Eyes: Yes: Conjunctiva Clear HENT: Yes: Atraumatic Cardiovascular: Yes: S1, S2 Respiratory: Yes: CTA Bilaterally Gastrointestinal: Yes: Normal Bowel Sounds, Soft, Abdomen, Obese Genitourinary: Yes: Incontinence Musculoskeletal: Yes: Muscle Weakness Edema: Yes Edema: LLE: 2+, RLE: 2+ Neurological: Yes: Other (drowsy) Labs: CBC, BMP 01/26/17 08:38 01/26/17 07:45 INR, PTT INR 1.31 (0.82-1.09) H 01/19/17 11:41 Problem List - Problems (1) Acute renal failure Code(s): N17.9 - ACUTE KIDNEY FAILURE, UNSPECIFIED Qualifiers: Acute renal failure type: unspecified Qualified Code(s): N17.9 - Acute kidney failure, unspecified (2) Altered mental status Code(s): R41.82 - ALTERED MENTAL STATUS, UNSPECIFIED Qualifiers: Altered mental status type: unspecified Qualified Code(s): R41.82 - Altered mental status, unspecified (3) Dehydration Code(s): E86.0 - DEHYDRATION (4) Sepsis Code(s): A41.9 - SEPSIS, UNSPECIFIED ORGANISM Qualifiers: Sepsis type: sepsis due to unspecified organism Qualified Code(s): A41.9 - Sepsis, unspecified organism (5) CKD (chronic kidney disease) Code(s): N18.9 - CHRONIC KIDNEY DISEASE, UNSPECIFIED (6) COPD (chronic obstructive pulmonary disease) Code(s): J44.9 - CHRONIC OBSTRUCTIVE PULMONARY DISEASE, UNSPECIFIED Qualifiers : COPD type: COPD with acute exacerbation Qualified Code(s): J44.1 - Chronic obstructive pulmonary disease with (acute) exacerbation (7) Depressed Code(s): F32.9 - MAJOR DEPRESSIVE DISORDER, SINGLE EPISODE, UNSPECIFIED (8) Bilateral lower extremity edema Code(s): R60.0 - LOCALIZED EDEMA Assessment/Plan Current Medications Generic Name Dose Route Start Last Admin Trade Name Gil PRN Reason Stop Dose Admin Aclidinium [place] 1 puff 01/25/17 22:00 01/26/17 10:21 Tudorza - IH 1 puff BID [facility] Administration Aripiprazole 10 mg 01/25/17 10:00 01/26/17 10:07 Abilify PO 10 mg DAILY [facility] Administration Aspirin 81 mg 01/25/17 18:15 01/26/17 10:08 Asa - PO 81 mg DAILY [facility] Administration Atorvastatin Calcium 40 mg 01/25/17 22:00 01/25/17 22:36 Lipitor - PO 40 mg HS [facility] Administration Divalproex Sodium 250 mg 01/25/17 22:30 01/26/17 10:09 Depakote Sprinkle Caps - PO 250 mg QID [facility] Administration Heparin Sodium (Porcine) 5,000 unit 01/19/17 22:00 01/26/17 10:20 Heparin - SQ 5,000 unit BID [facility] Administration Dextrose 1,000 mls @ 85 mls/hr 01/25/17 13:04 01/25/17 23:52 D5w - IV 85 mls/hr Q10H [facility] Administration Insulin Aspart 1 vial 01/19/17 17:15 01/26/17 06:27 Novolog Vial Sliding Scale - SQ 2 units BIDI [facility] Administration Protocol Lactobacillus Acidophilus 1 tab 01/20/17 10:00 01/26/17 10:08 Bacid - PO 1 tab DAILY [facility] Administration Latanoprost 1 drop 01/19/17 22:00 01/25/17 22:37 Xalatan 0.005% Eye Drops - OU 1 drop HS [facility] Administration Montelukast Sodium 10 mg 01/22/17 22:00 01/25/17 22:36 Singulair - PO 10 mg HS [facility] Administration Prednisone 20 mg 01/24/17 16:27 01/26/17 10:09 Deltasone - PO 20 mg DAILY [facility] Administration Propranolol HCl 40 mg 01/25/17 18:07 01/26/17 05:51 Inderal - PO 40 mg TID [facility] Administration Ranitidine HCl 150 mg 01/19/17 22:00 01/26/17 10:20 Zantac Oral Solution - PO 150 mg BID [facility] Administration Fluticasone/Salmeterol 1 puff 01/19/17 22:00 01/26/17 10:21 Advair 100mcg/50mcg - IH 1 puff BID [facility] Administration Venlafaxine HCl 150 mg 01/25/17 10:00 01/26/17 10:20 Effexor Xr - PO 150 mg DAILY [facility] Administration Impression 1. DOMINIC 2. CKD 3. hyponatremia 4. altered mental status 5. gout 6. PNA 7. Depression 8. COPD 9. sepsis 10. positive hep C ab 11. HTN Plan - renal function is improving - will increase potassium in fluids - transfuse prbc and give lasix with blood - monitor renal function and hg - mental status is wore today - will follow closely - avoid nsaids - will not restart diovan at this time - check mag level - follow up spep Dr Marcelino
[2017-01-26] MEDS ORDERED: POTASSIUM CHLORIDE TABS 20 MEQ TABLET.ER (FP) PO ONE (13:45)
--- NOTE | 2017-01-26 14:32 | PN ---
<Brodie Alas - Last Filed: 01/26/17 14:18> Physical Exam: SUBJECTIVE: Patient seen and examined at bedside. Is able to tell me her name but other history is difficult to obtain as pt did not answer my questions. Pt was awake and alert. OBJECTIVE: Vital Signs Temperature 97.2 F L 01/26/17 06:00 Pulse Rate 115 H 01/26/17 06:00 Respiratory Rate 20 01/26/17 06:00 Blood Pressure 162/93 01/26/17 06:00 O2 Sat by Pulse Oximetry (%) 97 01/26/17 09:00 GENERAL: The patient is awake, alert, and oriented to self only, in no acute distress. HEAD: Normal with no signs of trauma. EYES: extraocular movements intact, sclera anicteric, conjunctiva clear. No ptosis. ENT: Ears normal, nares patent, moist mucous membranes. NECK: Trachea midline, full range of motion LUNGS: Auscultated anteriorly, Breath sounds equal, clear to auscultation bilaterally, no wheezes, no crackles, no accessory muscle use. HEART: Tachycardic, S1, S2 without murmur, rub or gallop. ABDOMEN: Soft, obese, nontender, nondistended, normoactive bowel sounds, no guarding, no rebound, no hepatosplenomegaly, no masses. EXTREMITIES: 2+ pulses, warm, well-perfused, 2+ pitting edema B/L LE. L foot bullae near ankle same as yesterday, improved overall. L foot bullae near toe approximately the same. Both are non-tender, fluid filled. NEUROLOGICAL:Slow speech, gait not observed. SKIN: Warm, dry, normal turgor, no rashes or lesions noted Laboratory Results - last 24 hr 01/25/17 01/25/17 01/26/17 15:15 18:03 06:20 WBC RBC Hgb Hct MCV MCHC RDW Plt Count MPV Neutrophils % Lymphocytes % Monocytes % Eosinophils % Basophils % Hypochromic-Microcytic Target Cells Retic Count Sodium 153 H Potassium 3.5 Chloride 117 H Carbon Dioxide 25 Anion Gap 11 BUN 63 H Creatinine 1.4 H Creat Clearance w eGFR POC Glucometer 191 163 Random Glucose 195 H D Calcium 8.5 Total Bilirubin AST ALT Alkaline Phosphatase LD Total Total Protein Albumin Globulin Albumin/Globulin Ratio Valproic Acid IgG IgA IgM 01/26/17 01/26/17 01/26/17 07:45 07:45 07:45 WBC 24.4 H RBC 2.24 L Hgb 6.5 L* D Hct 19.9 L MCV 88.8 MCHC 32.8 RDW 18.0 H Plt Count 220 MPV 7.5 Neutrophils % 69.0 Lymphocytes % 15.9 D Monocytes % 14.7 H D Eosinophils % 0.2 D Basophils % 0.2 Hypochromic-Microcytic 3+ Target Cells 3+ Retic Count Sodium 151 H Potassium 3.2 L Chloride 115 H Carbon Dioxide 27 Anion Gap 9 BUN 49 H D Creatinine 1.1 H D Creat Clearance w eGFR 51.20 POC Glucometer Random Glucose 141 H D Calcium 8.5 Total Bilirubin 1.3 H AST 43 H ALT 18 Alkaline Phosphatase 230 H LD Total 412 H Total Protein 6.2 L Albumin 1.6 L Globulin Albumin/Globulin Ratio Valproic Acid 52.400 IgG IgA IgM 01/26/17 01/26/17 01/26/17 07:45 07:45 08:38 WBC 25.2 H RBC 2.25 L Hgb 6.5 L* Hct 20.1 L MCV 89.3 MCHC 32.4 RDW 18.2 H Plt Count 219 MPV 7.8 Neutrophils % Lymphocytes % Monocytes % Eosinophils % Basophils % Hypochromic-Microcytic Target Cells Retic Count 3.08 H Sodium Potassium Chloride Carbon Dioxide Anion Gap BUN Creatinine Creat Clearance w eGFR POC Glucometer Random Glucose Calcium Total Bilirubin AST ALT Alkaline Phosphatase LD Total Total Protein Albumin Globulin Cancelled Albumin/Globulin Ratio Cancelled Valproic Acid IgG Cancelled IgA Cancelled IgM Cancelled Active Medications Generic Name Dose Route Start Last Admin Trade Name Freq PRN Reason Stop Dose Admin Aclidinium [place] 1 puff 01/25/17 22:00 01/26/17 10:21 Tudorza - IH 1 puff BID [facility] Administration Aripiprazole 10 mg 01/25/17 10:00 01/26/17 10:07 Abilify PO 10 mg DAILY [facility] Administration Aspirin 81 mg 01/25/17 18:15 01/26/17 10:08 Asa - PO 81 mg DAILY [facility] Administration Atorvastatin Calcium 40 mg 01/25/17 22:00 01/25/17 22:36 Lipitor - PO 40 mg HS [facility] Administration Divalproex Sodium 250 mg 01/25/17 22:30 01/26/17 10:09 Depakote Sprinkle Caps - PO 250 mg QID [facility] Administration Furosemide 40 mg 01/26/17 17:30 Lasix Injection - IVPB 01/26/17 19:00 [employer] [facility] Heparin Sodium (Porcine) 5,000 unit 01/19/17 22:00 01/26/17 10:20 Heparin - SQ 5,000 unit BID [facility] Administration Potassium Chloride 20 meq/ 1,010 mls @ 85 mls/hr 01/26/17 13:28 Dextrose IVPB Q12H [facility] Insulin Aspart 1 vial 01/19/17 17:15 01/26/17 06:27 Novolog Vial Sliding Scale - SQ 2 units BIDI [facility] Administration Protocol Lactobacillus Acidophilus 1 tab 01/20/17 10:00 01/26/17 10:08 Bacid - PO 1 tab DAILY [facility] Administration Latanoprost 1 drop 01/19/17 22:00 01/25/17 22:37 Xalatan 0.005% Eye Drops - OU 1 drop HS [facility] Administration Montelukast Sodium 10 mg 01/22/17 22:00 01/25/17 22:36 Singulair - PO 10 mg HS [facility] Administration Prednisone 10 mg 01/26/17 13:27 Deltasone - PO DAILY [facility] Propranolol HCl 40 mg 01/25/17 18:07 01/26/17 05:51 Inderal - PO 40 mg TID [facility] Administration Ranitidine HCl 150 mg 01/19/17 22:00 01/26/17 10:20 Zantac Oral Solution - PO 150 mg BID [facility] Administration Fluticasone/Salmeterol 1 puff 01/19/17 22:00 01/26/17 10:21 Advair 100mcg/50mcg - IH 1 puff BID [facility] Administration Venlafaxine HCl 150 mg 01/25/17 10:00 01/26/17 10:20 Effexor Xr - PO 150 mg DAILY [facility] Administration ASSESSMENT/PLAN: 56 y/o F w/ PMH of HTN, HLD, COPD, seziures, schizoaffective d/o, CKD, CAD, gout presented to ER from [facility] for AMS. -Acute metabolic encephalopathy secondary to severe sepsis from PNA vs C. Diff -improving -WBC: 25.2 -BCx neg, C. Diff neg -off abx -D5W @ 85 ml/hr -DOMINIC secondary to severe sepsis, dehydration -BUN/Cr: 49/1.1 (on last discharge Cr ws 0.7) -D5W @ 100 ml/hr -Nephrology consulted (Dr. Marcelino) -Acute Normocytic Anemia -6.5 Hgb, transfuse with 2 units PRBC w/ 40 IV lasix in between -f/u CBC after 2nd unit (approximately 12 am tonight) -Leukemia vs MM? -Elevated WBC, myelocytes, bands, rouleaux -Heme/Onc consulted (Dr. Mallory) -f/u SPEP, urine proteins, CALLI 2, BCR-ABL, -Seizures -valproic acid level at 52 now -c/w valproic acid 500 mg bid iv -L foot fluid filled bullae / gout -Podiatry on board -infective burisitis vs gout -bedside aspiration by podiatry -culture neg x 48 hr so far -prednisone as per pod -Tachycardia -EKG ordered since pt has remained tachy despite increase in propanolol -HTN -c/w propanolol 40 mg tid -Schizoaffective d/o -restarted effexor xr 150 mg po qd -restarted abilify 10 mg po qd -COPD -advair 1 puff bid, symbicort, singular -CAD -statin, asa -DM -ISS bid, BGMs bid -FEN -NS @ 100 ml/hr -Hypernatremia, hyperchloremia; improving; - c/w D5W + 20 meq KCl @ 85 ml/hr , monitor lytes -Free water deficit is 4.24 L -Dysphagia puree diet -Dispo: -Monitor on floors Problem List - Problems (1) Acute renal failure Code(s): N17.9 - ACUTE KIDNEY FAILURE, UNSPECIFIED Qualifiers: Acute renal failure type: unspecified Qualified Code(s): N17.9 - Acute kidney failure, unspecified (2) Altered mental status Code(s): R41.82 - ALTERED MENTAL STATUS, UNSPECIFIED Qualifiers: Altered mental status type: unspecified Qualified Code(s): R41.82 - Altered mental status, unspecified (3) Dehydration Code(s): E86.0 - DEHYDRATION (4) Sepsis Code(s): A41.9 - SEPSIS, UNSPECIFIED ORGANISM Qualifiers: Sepsis type: sepsis due to unspecified organism Qualified Code(s): A41.9 - Sepsis, unspecified organism (5) COPD (chronic obstructive pulmonary disease) Code(s): J44.9 - CHRONIC OBSTRUCTIVE PULMONARY DISEASE, UNSPECIFIED Qualifiers : COPD type: COPD with acute exacerbation Qualified Code(s): J44.1 - Chronic obstructive pulmonary disease with (acute) exacerbation (6) Hypertension Code(s): I10 - ESSENTIAL (PRIMARY) HYPERTENSION (7) Hyponatremia Code(s): E87.1 - HYPO-OSMOLALITY AND HYPONATREMIA (8) Pneumonia Code(s): J18.9 - PNEUMONIA, UNSPECIFIED ORGANISM Qualifiers: Pneumonia type: due to unspecified organism Laterality: left Lung location: lower lobe of lung Qualified Code(s): J18.9 - Pneumonia, unspecified organism (9) Bilateral lower extremity edema Code(s): R60.0 - LOCALIZED EDEMA (10) Severe sepsis Code(s): A41.9 - SEPSIS, UNSPECIFIED ORGANISM R65.20 - SEVERE SEPSIS WITHOUT SEPTIC SHOCK (11) Hypochloremia Code(s): E87.8 - OTH DISORDERS OF ELECTROLYTE AND FLUID BALANCE, NEC (12) Tachycardia Code(s): R00.0 - TACHYCARDIA, UNSPECIFIED (13) Anemia Code(s): D64.9 - ANEMIA, UNSPECIFIED Visit type - Emergency Visit Emergency Visit: Yes ED Registration Date: 01/19/17 Care time: The patient presented to the Emergency Department on the above date and was hospitalized for further evaluation of their emergent condition. - New Patient This patient is new to me today: No - Critical Care Critical Care patient: No <John Chamberlain - Last Filed: 01/26/17 16:45> Physical Exam: 56 y/o F w/ PMH of HTN, HLD, COPD, seziures, schizoaffective d/o, CKD, CAD, gout admitted for altered mental status/metabolic encephalopathy altered mental status/metabolic encephalopathy -was initially thought to be due to sepsis given elevated WBC and tachycardia -mental status improved -completed full course of abx and cultures negative -WBC still elevated above 20 alone with bandemia, rouleux formation, hyperuricemia, and elevated total protein:albumin ration which is concerning for leukemia/lymphoma process -follow up SPEP/UPEP -heme/onc consult appreciated -Hb trended down to 6; will transfuse pRBC though dilution is a factor Hypernatremia -started D5 water -repeat sodium trending down at acceptable rate -renal consult appreciated CAD -has been tachycardic throughout entire hospital stay -will increase propranolol to 40TID to control heart rate in pt with CAD and will eval initial EKG -started statin -restart ASA COPD -cont advair -cont singulair -started tudorza
[2017-01-26] MEDS ORDERED: INSULIN (NOVOLOG) ASPART 100 UNITS/ML 10ML VIAL ONE ×2 (17:35→18:16)
[2017-01-26] MEDS: POTASSIUM CHLORIDE 20 MEQ in DEXTROSE 5%-WATER - 1,000 ML IVPB SCH (18:04)
[2017-01-26] MEDS: FUROSEMIDE 40 MG/4 ML INJECTABLE VIAL IVPB SCH (20:25)
[2017-01-26] MEDS: ATORVASTATIN CA 40 MG TABLET (FP) PO SCH (21:13)
[2017-01-26] MEDS: MONTELUKAST NA 5 MG TAB.CHEW PO SCH (21:14)
[2017-01-26] MEDS: LATANOPROST 0.005% OPHTH SOLN 2.5ML BOTTLE OU SCH (21:20)
[2017-01-27] MEDS ORDERED: FUROSEMIDE 40 MG/4 ML INJECTABLE VIAL ONE (04:51)
[2017-01-27] MEDS ORDERED: ALBUTEROL SO4 2.5/IPRATROPIUM 0.5 INH SOL 3 ML VIAL.NEB. NEB ONE ×2 (04:58→05:02)
[2017-01-27] MEDS ORDERED: FUROSEMIDE 40 MG/4 ML INJECTABLE VIAL IVPUSH ONE (05:02)
[2017-01-27] MEDS: PROPRANOLOL HCL 20 MG TABLET PO SCH (05:52)
[2017-01-27] MEDS: FUROSEMIDE 40 MG/4 ML INJECTABLE VIAL IVPB SCH (07:16)
[2017-01-27] MEDS: POTASSIUM CHLORIDE 20 MEQ in DEXTROSE 5%-WATER - 1,000 ML IVPB SCH ×2 (07:16→13:37)
[2017-01-27] MEDS: INSULIN SLIDING SCALE (NOVOLOG) 1 VIAL SQ SCH ×2 (07:17→18:33)
[2017-01-27] MEDS: DEXTROSE 5%-WATER - 1,000 ML IV SCH (07:17)
[2017-01-27 07:41] LABS: MCH 29.8 pg (25.7-33.7); MCHC 34.5 g/dl (32.0-36.0); MEAN CELL VOLUME 86.3 fl (80-96); MEAN PLT VOLUME 8.2 fl (7.5-11.1); PLATELET COUNT 222 K/MM3 (134-434); RDW 16.9 % (11.6-15.6); WHITE BLOOD COUNT 28.4 K/mm3 (4.0-10.0)
[2017-01-27 08:12] LABS: ALBUMIN 1.8 g/dl (3.4-5.0); BILIRUBIN,TOTAL 1.7 mg/dL (0.2-1.0); CALCIUM 8.8 mg/dL (8.5-10.1); MAGNESIUM 1.2 mg/dL (1.8-2.4); TOT PROT 6.8 g/dl (6.4-8.2)
--- NOTE | 2017-01-27 08:47 | PN ---
<Brodie Alas - Last Filed: 01/27/17 09:24> Physical Exam: SUBJECTIVE: Patient seen and examined at bedside. Pt is less responsive today to questioning today but is awake. Answers to her name but does not answer questions today. Received 2 units PRBC from yesterday into last night with lasix in between and after 2nd PRBC. OBJECTIVE: Vital Signs Temperature 99 F 01/26/17 17:03 Pulse Rate 102 H 01/26/17 17:03 Respiratory Rate 20 01/26/17 17:03 Blood Pressure 155/80 01/26/17 17:03 O2 Sat by Pulse Oximetry (%) 96 01/26/17 21:00 GENERAL: The patient is awake, and answers when her name is called, in no acute distress. HEAD: Normal with no signs of trauma. EYES: extraocular movements intact, sclera anicteric, conjunctiva clear. No ptosis. ENT: Ears normal, nares patent, moist mucous membranes. NECK: Trachea midline, full range of motion LUNGS: Auscultated anteriorly, Breath sounds equal, clear to auscultation bilaterally, no wheezes, no crackles, no accessory muscle use. HEART: Tachycardic, S1, S2 without murmur, rub or gallop. ABDOMEN: Soft, obese, nontender, nondistended, normoactive bowel sounds, no guarding, no rebound, no hepatosplenomegaly, no masses. EXTREMITIES: 2+ pulses, warm, well-perfused, 2+ pitting edema B/L LE. L foot bullae near ankle improved compared to previously. L foot bullae near toe approximately the same. Both are non-tender, fluid filled. NEUROLOGICAL:Slow speech, gait not observed. SKIN: Warm, dry, normal turgor, no rashes or lesions noted Laboratory Results - last 24 hr 01/26/17 01/26/17 01/26/17 07:45 07:45 07:45 WBC RBC Hgb Hct MCV MCHC RDW Plt Count MPV Hypochromic-Microcytic 3+ Target Cells 3+ Sodium 151 H Potassium 3.2 L Chloride 115 H Carbon Dioxide 27 Anion Gap 9 BUN 49 H D Creatinine 1.1 H D Creat Clearance w eGFR 51.20 POC Glucometer Random Glucose 141 H D Calcium 8.5 Total Bilirubin 1.3 H AST 43 H ALT 18 Alkaline Phosphatase 230 H LD Total 412 H Total Protein 6.2 L Albumin 1.6 L Globulin Albumin/Globulin Ratio Valproic Acid 52.400 IgG IgA IgM Blood Type Antibody Screen Crossmatch Spec Expiration Date 01/26/17 01/26/17 01/26/17 07:45 08:38 15:00 WBC 25.2 H RBC 2.25 L Hgb 6.5 L* Hct 20.1 L MCV 89.3 MCHC 32.4 RDW 18.2 H Plt Count 219 MPV 7.8 Hypochromic-Microcytic Target Cells Sodium Potassium Chloride Carbon Dioxide Anion Gap BUN Creatinine Creat Clearance w eGFR POC Glucometer Random Glucose Calcium Total Bilirubin AST ALT Alkaline Phosphatase LD Total Total Protein Albumin Globulin Cancelled Albumin/Globulin Ratio Cancelled Valproic Acid IgG Cancelled IgA Cancelled IgM Cancelled Blood Type A POSITIVE Antibody Screen Negative Crossmatch See Detail Spec Expiration Date 01/26/17 01/27/17 17:29 05:40 WBC RBC Hgb Hct MCV MCHC RDW Plt Count MPV Hypochromic-Microcytic Target Cells Sodium Potassium Chloride Carbon Dioxide Anion Gap BUN Creatinine Creat Clearance w eGFR POC Glucometer 222 123 Random Glucose Calcium Total Bilirubin AST ALT Alkaline Phosphatase LD Total Total Protein Albumin Globulin Albumin/Globulin Ratio Valproic Acid IgG IgA IgM Blood Type Antibody Screen Crossmatch Spec Expiration Date Active Medications Generic Name Dose Route Start Last Admin Trade Name Freq PRN Reason Stop Dose Admin Aclidinium [place] 1 puff 01/25/17 22:00 01/26/17 22:00 Tudorza - IH 1 puff BID [facility] Administration Aripiprazole 10 mg 01/25/17 10:00 01/26/17 10:07 Abilify PO 10 mg DAILY [facility] Administration Aspirin 81 mg 01/25/17 18:15 01/26/17 10:08 Asa - PO 81 mg DAILY [facility] Administration Atorvastatin Calcium 40 mg 01/25/17 22:00 01/26/17 21:13 Lipitor - PO 40 mg HS [facility] Administration Divalproex Sodium 250 mg 01/25/17 22:30 01/26/17 21:10 Depakote Sprinkle Caps - PO 250 mg QID [facility] Administration Potassium Chloride 20 meq/ 1,010 mls @ 85 mls/hr 01/26/17 13:28 01/27/17 07:16 Dextrose IVPB Not Given Q12H [facility] Insulin Aspart 1 vial 01/19/17 17:15 01/27/17 07:17 Novolog Vial Sliding Scale - SQ Not Given BIDI [facility] Protocol Lactobacillus Acidophilus 1 tab 01/20/17 10:00 01/26/17 10:08 Bacid - PO 1 tab DAILY [facility] Administration Latanoprost 1 drop 01/19/17 22:00 01/26/17 21:20 Xalatan 0.005% Eye Drops - OU 1 drop HS [facility] Administration Montelukast Sodium 10 mg 01/22/17 22:00 01/26/17 21:14 Singulair - PO 10 mg HS [facility] Administration Prednisone 10 mg 01/26/17 13:27 Deltasone - PO DAILY [facility] Propranolol HCl 40 mg 01/25/17 18:07 01/27/17 05:52 Inderal - PO 40 mg TID [facility] Administration Ranitidine HCl 150 mg 01/19/17 22:00 01/26/17 21:18 Zantac Oral Solution - PO 150 mg BID [facility] Administration Fluticasone/Salmeterol 1 puff 01/19/17 22:00 01/26/17 22:00 Advair 100mcg/50mcg - IH 1 puff BID [facility] Administration Venlafaxine HCl 150 mg 01/25/17 10:00 01/26/17 10:20 Effexor Xr - PO 150 mg DAILY [facility] Administration ASSESSMENT/PLAN: 56 y/o F w/ PMH of HTN, HLD, COPD, seziures, schizoaffective d/o, CKD, CAD, gout presented to ER from [facility] for AMS. -Acute metabolic encephalopathy secondary to severe sepsis from PNA vs C. Diff -mental status somewhat worse today -WBC: 28.4 -BCx neg, C. Diff neg -off abx -D5W + 20 meq KCl @ 85 ml/hr -repeat C. Diff ordered -DOMINIC secondary to severe sepsis, dehydration -BUN/Cr: 34/1 (on last discharge Cr ws 0.7) -D5W + 20 meq KCl @ 85 ml/hr -Nephrology consulted (Dr. Marcelino) -Acute Normocytic Anemia -Hgb 10.1 -s/p 2 units PRBC, IV lasix in between units. --As per night team pt sounded congested after 2nd unit and was given the IV lasix after the 2nd unit -CXR ordered this AM -R diaphragm elevated, no evidence of CHF, L pleural effusion, L retrocardiac infiltrate cannot be ruled out -Breath sounds clear anteriorly this AM -monitor CBC -Leukemia vs MM? -Elevated WBC, myelocytes, bands, rouleaux -Heme/Onc consulted (Dr. aMllory) -f/u SPEP, urine proteins, CALLI 2, BCR-ABL, globulins -Elevated AST, Alk phos -will continue to monitor -Seizures -valproic acid level at 52 on 01/26/17 -c/w valproic acid 500 mg bid iv -L foot fluid filled bullae / gout -Podiatry on board -infective burisitis vs gout -bedside aspiration by podiatry -culture neg x 48 hr so far -prednisone as per pod -Tachycardia -EKG shows Sinus Tachy -increased propanolol to 60 mg PO TID -may be secondary to possible malignancy? -HTN -uncontrolled -propanolol increased to 60 mg tid -Schizoaffective d/o -restarted effexor xr 150 mg po qd -restarted abilify 10 mg po qd -COPD -advair 1 puff bid, symbicort, singular -CAD -statin, asa -DM -ISS bid, BGMs bid -FEN -D5W + 20 meq KCl @ 85ml/hr -Hypernatremia, hyperchloremia; improving; - c/w D5W + 20 meq KCl @ 85 ml/hr , monitor lytes -Free water deficit is 3.37 L -Hypokalemia 3.3 - repleted w/ KCl PO 40 meq once -HypoMg 1.2 - repleted w/ Mag Ox 800 mg once -Dysphagia puree diet -Dispo: -Monitor on floors Problem List - Problems (1) Acute renal failure Code(s): N17.9 - ACUTE KIDNEY FAILURE, UNSPECIFIED Qualifiers: Acute renal failure type: unspecified Qualified Code(s): N17.9 - Acute kidney failure, unspecified (2) Altered mental status Code(s): R41.82 - ALTERED MENTAL STATUS, UNSPECIFIED Qualifiers: Altered mental status type: unspecified Qualified Code(s): R41.82 - Altered mental status, unspecified (3) Dehydration Code(s): E86.0 - DEHYDRATION (4) Sepsis Code(s): A41.9 - SEPSIS, UNSPECIFIED ORGANISM Qualifiers: Sepsis type: sepsis due to unspecified organism Qualified Code(s): A41.9 - Sepsis, unspecified organism (5) COPD (chronic obstructive pulmonary disease) Code(s): J44.9 - CHRONIC OBSTRUCTIVE PULMONARY DISEASE, UNSPECIFIED Qualifiers : COPD type: COPD with acute exacerbation Qualified Code(s): J44.1 - Chronic obstructive pulmonary disease with (acute) exacerbation (6) Hypertension Code(s): I10 - ESSENTIAL (PRIMARY) HYPERTENSION (7) Hyponatremia Code(s): E87.1 - HYPO-OSMOLALITY AND HYPONATREMIA (8) Pneumonia Code(s): J18.9 - PNEUMONIA, UNSPECIFIED ORGANISM Qualifiers: Pneumonia type: due to unspecified organism Laterality: left Lung location: lower lobe of lung Qualified Code(s): J18.9 - Pneumonia, unspecified organism (9) Bilateral lower extremity edema Code(s): R60.0 - LOCALIZED EDEMA (10) Severe sepsis Code(s): A41.9 - SEPSIS, UNSPECIFIED ORGANISM R65.20 - SEVERE SEPSIS WITHOUT SEPTIC SHOCK (11) Hypochloremia Code(s): E87.8 - OTH DISORDERS OF ELECTROLYTE AND FLUID BALANCE, NEC (12) Tachycardia Code(s): R00.0 - TACHYCARDIA, UNSPECIFIED (13) Anemia Code(s): D64.9 - ANEMIA, UNSPECIFIED Visit type - Emergency Visit Emergency Visit: Yes ED Registration Date: 01/19/17 Care time: The patient presented to the Emergency Department on the above date and was hospitalized for further evaluation of their emergent condition. - New Patient This patient is new to me today: No - Critical Care Critical Care patient: No <John Chamberlain - Last Filed: 01/27/17 14:48> Physical Exam: ATTENDING PHYSICIAN STATEMENT I saw and evaluated the patient. I reviewed the resident's note and discussed the case with the resident. I agree with the resident's findings and plan as documented. SUBJECTIVE: OBJECTIVE: ASSESSMENT AND PLAN: 56 y/o F w/ PMH of HTN, HLD, COPD, seziures, schizoaffective d/o, CKD, CAD, gout admitted for altered mental status/metabolic encephalopathy altered mental status/metabolic encephalopathy -was initially thought to be due to sepsis given elevated WBC and tachycardia -mental status improved -completed full course of abx and cultures negative -WBC still elevated above 20 alone with bandemia, rouleux formation, hyperuricemia, and elevated total protein:albumin ration which is concerning for leukemia/lymphoma process -follow up SPEP/UPEP -heme/onc consult appreciated -Hb trended down to 6; transfused 2 units pRBC and Hb increased to 10 Hypernatremia -started D5 water -repeat sodium trending down at acceptable rate -renal consult appreciated CAD -has been tachycardic throughout entire hospital stay -repeat EKG shows sinus tachycardia which may be due to dehydration, anemia, or possible leukemia/lymphoma process -will increase propranolol to 60TID to control heart rate in pt with CAD -started statin -restart ASA COPD -cont advair -cont singulair -started tudorza
[2017-01-27] MEDS ORDERED: MAGNESIUM OXIDE 400 MG TABLET (FP) PO ONE (09:30)
[2017-01-27] MEDS ORDERED: POTASSIUM CHLORIDE TABS 20 MEQ TABLET.ER (FP) PO ONE (09:30)
[2017-01-27] MEDS ORDERED: PT OWN MED DRAWER 7, Y5N ONE ×3 (09:55→17:52)
[2017-01-27] MEDS: ASPIRIN 81 MG CHEWABLE TABLETS PO SCH (09:59)
[2017-01-27] MEDS: RANITIDINE HCL 150 MG/10 ML UNIT-DOSE CUP PO SCH ×2 (09:59→21:19)
[2017-01-27] MEDS: VENLAFAXINE HCL 75 MG E.R. CAPSULES (FP) PO SCH (10:00)
[2017-01-27] MEDS: ARIPiprazole 10 MG TABLET PO SCH (10:01)
[2017-01-27] MEDS: LACTOBACILLUS ACIDOPHILUS 1 EACH TAB (FP) PO SCH (10:03)
[2017-01-27] MEDS: FLUTICASONE/SALMETEROL 100 MCG/50 MCG DISKUS IH SCH ×3 (10:03→21:19)
[2017-01-27] MEDS: DIVALPROEX SODIUM 125 MG SPRINKLE CAPS (FP) PO SCH ×4 (10:04→22:00)
[2017-01-27] MEDS: ACLIDINIUM BROMIDE 400 MCG/INH AERO.POWD IH SCH ×2 (10:16→21:19)
[2017-01-27 10:21] LABS: A/G RATIO 0.4 (0.7-1.7); ALBUMIN 1.8 g/dL (2.9-4.4); M-SPIKE 0.3 g/dL (Not Observed); TOTAL PROTEIN 5.8 g/dL (6.0-8.5)
[2017-01-27] MEDS ORDERED: MAGNESIUM SULF 50% (8.12 MEQ/2 ML-1 GM VIAL) IVPB ONE ×3 (10:45→17:00)
[2017-01-27] MEDS: KCL 10 MEQ IVPB 100 ML IVPB SCH ×3 (11:17→18:14)
[2017-01-27 11:46] LABS: PLATELET ESTIMATE ADEQUATE (NORMAL)
--- NOTE | 2017-01-27 12:54 | PN ---
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, Physician History of Present Illness: PULMONARY DROWSY,-RESP DISTRESS - Current Medication List Current Medications: Active Medications Aclidinium [place] (Tudorza -) 1 puff IH BID [facility] Last Admin: 01/27/17 10:16 Dose: Not Given Aripiprazole (Abilify) 10 mg PO DAILY [facility] Last Admin: 01/27/17 10:01 Dose: 10 mg Aspirin (Asa -) 81 mg PO DAILY [facility] Last Admin: 01/27/17 09:59 Dose: 81 mg Atorvastatin Calcium (Lipitor -) 40 mg PO HS [facility] Last Admin: 01/26/17 21:13 Dose: 40 mg Divalproex Sodium (Depakote Sprinkle Caps -) 250 mg PO QID [facility] Last Admin: 01/27/17 10:04 Dose: 250 mg Potassium Chloride 20 meq/ (Dextrose) 1,010 mls @ 85 mls/hr IVPB Q12H [facility] Last Admin: 01/27/17 07:16 Dose: Not Given Potassium Chloride (Potassium Chloride 10 Meq Premix Ivpb -) 100 mls @ 100 mls/ hr IVPB Q60M [facility] Stop: 01/27/17 13:29 Last Admin: 01/27/17 11:17 Dose: 100 mls/hr Insulin Aspart (Novolog Vial Sliding Scale -) 1 vial SQ BIDI [facility] PRN Reason: Protocol Last Admin: 01/27/17 07:17 Dose: Not Given Lactobacillus Acidophilus (Bacid -) 1 tab PO DAILY [facility] Last Admin: 01/27/17 10:03 Dose: 1 tab Latanoprost (Xalatan 0.005% Eye Drops -) 1 drop OU [facility] Last Admin: 01/26/17 21:20 Dose: 1 drop Montelukast Sodium (Singulair -) 10 mg PO [facility] Last Admin: 01/26/17 21:14 Dose: 10 mg Prednisone (Deltasone -) 10 mg PO DAILY [facility] Last Admin: 01/27/17 10:01 Dose: 10 mg Propranolol HCl (Inderal -) 60 mg PO TID [facility] Ranitidine HCl (Zantac Oral Solution -) 150 mg PO BID [facility] Last Admin: 01/27/17 09:59 Dose: 150 mg Fluticasone/Salmeterol (Advair 100mcg/50mcg -) 1 puff IH BID [facility] Last Admin: 01/27/17 10:03 Dose: 1 puff Venlafaxine HCl (Effexor Xr -) 150 mg PO DAILY [facility] Last Admin: 01/27/17 10:00 Dose: 150 mg - Objective Vital Signs: Vital Signs Temperature 98.3 F 01/27/17 08:29 Pulse Rate 102 H 01/27/17 08:29 Respiratory Rate 20 01/27/17 08:29 Blood Pressure 151/100 01/27/17 08:29 O2 Sat by Pulse Oximetry (%) 98 01/27/17 09:00 Constitutional: Yes: Well Nourished, Other (DROWSY) Eyes: Yes: WNL HENT: Yes: WNL Neck: Yes: WNL Cardiovascular: Yes: Regular Rate and Rhythm, S1, S2 Respiratory: Yes: Diminished (POOR INSPIRATORY EFFORT) Gastrointestinal: Yes: Normal Bowel Sounds, Soft Extremities: Yes: WNL Edema: Yes Labs: CBC, BMP 01/27/17 06:00 01/27/17 06:00 INR, PTT INR 1.31 (0.82-1.09) H 01/19/17 11:41 - ....Imaging Chest X-ray: Report Reviewed, Image Reviewed Assessment/Plan - Problems (1) Acute renal failure Code(s): N17.9 - ACUTE KIDNEY FAILURE, UNSPECIFIED Qualifiers: Acute renal failure type: unspecified Qualified Code(s): N17.9 - Acute kidney failure, unspecified (2) Altered mental status Code(s): R41.82 - ALTERED MENTAL STATUS, UNSPECIFIED Qualifiers: Altered mental status type: unspecified Qualified Code(s): R41.82 - Altered mental status, unspecified (3) Dehydration Code(s): E86.0 - DEHYDRATION (4) Sepsis Code(s): A41.9 - SEPSIS, UNSPECIFIED ORGANISM Qualifiers: Sepsis type: sepsis due to unspecified organism Qualified Code(s): A41.9 - Sepsis, unspecified organism (5) COPD (chronic obstructive pulmonary disease) Code(s): J44.9 - CHRONIC OBSTRUCTIVE PULMONARY DISEASE, UNSPECIFIED Qualifiers : COPD type: COPD with acute exacerbation Qualified Code(s): J44.1 - Chronic obstructive pulmonary disease with (acute) exacerbation (6) Hypertension Code(s): I10 - ESSENTIAL (PRIMARY) HYPERTENSION (7) Hyponatremia Code(s): E87.1 - HYPO-OSMOLALITY AND HYPONATREMIA (8) Pneumonia Code(s): J18.9 - PNEUMONIA, UNSPECIFIED ORGANISM Qualifiers: Pneumonia type: due to unspecified organism Laterality: left Lung location: lower lobe of lung Qualified Code(s): J18.9 - Pneumonia, unspecified organism (9) Bilateral lower extremity edema Code(s): R60.0 - LOCALIZED EDEMA (10) Severe sepsis Code(s): A41.9 - SEPSIS, UNSPECIFIED ORGANISM R65.20 - SEVERE SEPSIS WITHOUT SEPTIC SHOCK (11) Hypochloremia Code(s): E87.8 - OTH DISORDERS OF ELECTROLYTE AND FLUID BALANCE, NEC Assessment/Plan ivf fluids per nephrology Aspiration precautions O2 as needed antibiotics Strict I&O abg id f/u DR MUELLER
[2017-01-27] MEDS ORDERED: MAGNESIUM SULF 50% (8.12 MEQ/2 ML-1 GM VIAL) ONE (13:22)
[2017-01-27 13:37] LABS: ARTERIAL BLD GAS O2 SATURATION 94.5 % (90-98.9); ARTERIAL BLOOD GAS BASE EXCESS 4.9 meq/l (-2-2)
[2017-01-27] MEDS: PROPRANOLOL HCL 40 MG TABLET PO SCH ×2 (13:37→22:00)
[2017-01-27 13:38] LABS: ALLENS TEST POSITIVE; ART PUNCT SITE RIGHT RADIAL; LPM/O2% 21%; PT. ON O2? NO; TYPE OF O2 ROOM AIR
[2017-01-27 13:43] LABS: ARTERIAL BLOOD GAS pH 7.55 (7.35-7.45)
[2017-01-27 13:44] LABS: ARTERIAL BLOOD GAS PO2 65.6 mmHg (80-100)
--- NOTE | 2017-01-27 13:59 | PN ---
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 Pt eating fruit and pudding and drinking thickened liquid. Selected Entries 01/26/17 01/26/17 01/26/17 02:01 06:00 10:00 Breakfast Temperature 98.4 F 97.2 F L 98.2 F 01/26/17 01/26/17 01/27/17 15:23 17:03 08:29 Breakfast Temperature 98.2 F 99 F 98.3 F 01/27/17 11:30 Breakfast 50% Temperature Consider increasing Nepro frequency. f/u by dietary.
--- NOTE | 2017-01-27 14:12 | EKG ---
Test Reason : Blood Pressure : / mmHG Vent. Rate : 109 BPM Atrial Rate : 109 BPM P-R Int : 144 ms QRS Dur : 086 ms QT Int : 280 ms P-R-T Axes : 051 000 030 degrees QTc Int : 377 ms SINUS TACHYCARDIA WITH PREMATURE ATRIAL COMPLEXES NONSPECIFIC ST AND T WAVE ABNORMALITY ABNORMAL ECG WHEN COMPARED WITH ECG OF 19-JAN-2017 11:40, PREMATURE ATRIAL COMPLEXES ARE NOW PRESENT NONSPECIFIC T WAVE ABNORMALITY, WORSE IN LATERAL LEADS QT HAS SHORTENED PATIENT MOVING DURING EKG Confirmed by KAMRAN MCKNIGHT MD ([id number]) on 01/27/2017 2:12:04 PM Referred By: Nahun BEACH Confirmed By:KAMRAN MCKNIGHT MD
--- NOTE | 2017-01-27 15:54 | PN ---
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, Physician History of Present Illness: Pt seen and examined at bedside. She is very drowsy today. She did not eat much. - Current Medication List Current Medications: Active Medications Aclidinium [place] (Tudorza -) 1 puff IH BID [facility] Last Admin: 01/27/17 10:16 Dose: Not Given Aripiprazole (Abilify) 10 mg PO DAILY [facility] Last Admin: 01/27/17 10:01 Dose: 10 mg Aspirin (Asa -) 81 mg PO DAILY [facility] Last Admin: 01/27/17 09:59 Dose: 81 mg Atorvastatin Calcium (Lipitor -) 40 mg PO HS [facility] Last Admin: 01/26/17 21:13 Dose: 40 mg Divalproex Sodium (Depakote Sprinkle Caps -) 250 mg PO QID [facility] Last Admin: 01/27/17 13:37 Dose: 250 mg Potassium Chloride 20 meq/ (Dextrose) 1,010 mls @ 85 mls/hr IVPB Q12H [facility] Last Admin: 01/27/17 13:37 Dose: Not Given Insulin Aspart (Novolog Vial Sliding Scale -) 1 vial SQ BIDI [facility] PRN Reason: Protocol Last Admin: 01/27/17 07:17 Dose: Not Given Lactobacillus Acidophilus (Bacid -) 1 tab PO DAILY [facility] Last Admin: 01/27/17 10:03 Dose: 1 tab Latanoprost (Xalatan 0.005% Eye Drops -) 1 drop OU [facility] Last Admin: 01/26/17 21:20 Dose: 1 drop Montelukast Sodium (Singulair -) 10 mg PO [facility] Last Admin: 01/26/17 21:14 Dose: 10 mg Prednisone (Deltasone -) 10 mg PO DAILY [facility] Last Admin: 01/27/17 10:01 Dose: 10 mg Propranolol HCl (Inderal -) 60 mg PO TID [facility] Last Admin: 01/27/17 13:37 Dose: 60 mg Ranitidine HCl (Zantac Oral Solution -) 150 mg PO BID [facility] Last Admin: 01/27/17 09:59 Dose: 150 mg Fluticasone/Salmeterol (Advair 100mcg/50mcg -) 1 puff IH BID [facility] Last Admin: 01/27/17 10:03 Dose: 1 puff Venlafaxine HCl (Effexor Xr -) 150 mg PO DAILY [facility] Last Admin: 01/27/17 10:00 Dose: 150 mg - Objective Vital Signs: Vital Signs Temperature 98.1 F 01/27/17 14:43 Pulse Rate 105 H 01/27/17 14:43 Respiratory Rate 20 01/27/17 14:43 Blood Pressure 151/100 01/27/17 08:29 O2 Sat by Pulse Oximetry (%) 97 01/27/17 11:30 Constitutional: Yes: Calm Eyes: Yes: Conjunctiva Clear HENT: Yes: Atraumatic Neck: Yes: Supple Cardiovascular: Yes: S1, S2 Respiratory: Yes: CTA Bilaterally Gastrointestinal: Yes: Soft, Abdomen, Obese Genitourinary: Yes: Incontinence Musculoskeletal: Yes: Muscle Weakness Edema: Yes Edema: LLE: Trace, RLE: Trace Neurological: Yes: Lethargy Labs: CBC, BMP 01/27/17 06:00 01/27/17 06:00 INR, PTT INR 1.31 (0.82-1.09) H 01/19/17 11:41 Problem List - Problems (1) Acute renal failure Code(s): N17.9 - ACUTE KIDNEY FAILURE, UNSPECIFIED Qualifiers: Acute renal failure type: unspecified Qualified Code(s): N17.9 - Acute kidney failure, unspecified (2) Altered mental status Code(s): R41.82 - ALTERED MENTAL STATUS, UNSPECIFIED Qualifiers: Altered mental status type: unspecified Qualified Code(s): R41.82 - Altered mental status, unspecified (3) Dehydration Code(s): E86.0 - DEHYDRATION (4) Sepsis Code(s): A41.9 - SEPSIS, UNSPECIFIED ORGANISM Qualifiers: Sepsis type: sepsis due to unspecified organism Qualified Code(s): A41.9 - Sepsis, unspecified organism (5) CKD (chronic kidney disease) Code(s): N18.9 - CHRONIC KIDNEY DISEASE, UNSPECIFIED (6) COPD (chronic obstructive pulmonary disease) Code(s): J44.9 - CHRONIC OBSTRUCTIVE PULMONARY DISEASE, UNSPECIFIED Qualifiers : COPD type: COPD with acute exacerbation Qualified Code(s): J44.1 - Chronic obstructive pulmonary disease with (acute) exacerbation (7) Depressed Code(s): F32.9 - MAJOR DEPRESSIVE DISORDER, SINGLE EPISODE, UNSPECIFIED (8) Bilateral lower extremity edema Code(s): R60.0 - LOCALIZED EDEMA Assessment/Plan Current Medications Generic Name Dose Route Start Last Admin Trade Name [place] PRN Reason Stop Dose Admin Aclidinium [place] 1 puff 01/25/17 22:00 01/27/17 10:16 Tudorza - IH Not Given BID [facility] Aripiprazole 10 mg 01/25/17 10:00 01/27/17 10:01 Abilify PO 10 mg DAILY [facility] Administration Aspirin 81 mg 01/25/17 18:15 01/27/17 09:59 Asa - PO 81 mg DAILY [facility] Administration Atorvastatin Calcium 40 mg 01/25/17 22:00 01/26/17 21:13 Lipitor - PO 40 mg HS [facility] Administration Divalproex Sodium 250 mg 01/25/17 22:30 01/27/17 13:37 Depakote Sprinkle Caps - PO 250 mg QID [facility] Administration Potassium Chloride 20 meq/ 1,010 mls @ 85 mls/hr 01/26/17 13:28 01/27/17 13:37 Dextrose IVPB Not Given Q12H [facility] Insulin Aspart 1 vial 01/19/17 17:15 01/27/17 07:17 Novolog Vial Sliding Scale - SQ Not Given BIDI [facility] Protocol Lactobacillus Acidophilus 1 tab 01/20/17 10:00 01/27/17 10:03 Bacid - PO 1 tab DAILY [facility] Administration Latanoprost 1 drop 01/19/17 22:00 01/26/17 21:20 Xalatan 0.005% Eye Drops - OU 1 drop HS [facility] Administration Montelukast Sodium 10 mg 01/22/17 22:00 01/26/17 21:14 Singulair - PO 10 mg HS [facility] Administration Prednisone 10 mg 01/26/17 13:27 01/27/17 10:01 Deltasone - PO 10 mg DAILY [facility] Administration Propranolol HCl 60 mg 01/27/17 14:00 01/27/17 13:37 Inderal - PO 60 mg TID [facility] Administration Ranitidine HCl 150 mg 01/19/17 22:00 01/27/17 09:59 Zantac Oral Solution - PO 150 mg BID [facility] Administration Fluticasone/Salmeterol 1 puff 01/19/17 22:00 01/27/17 10:03 Advair 100mcg/50mcg - IH 1 puff BID [facility] Administration Venlafaxine HCl 150 mg 01/25/17 10:00 01/27/17 10:00 Effexor Xr - PO 150 mg DAILY [facility] Administration Impression 1. DOMINIC 2. CKD 3. hyponatremia 4. altered mental status 5. gout 6. PNA 7. Depression 8. COPD 9. sepsis 10. positive hep C ab 11. HTN Plan - sodium is improving - replace magnesium - replace potassium - will adjust potassium in fluids as well - hg is improved - will follow closely - avoid nsaids - will not restart diovan at this time - follow up spep Dr Marcelino
[2017-01-27] MEDS: POTASSIUM CHLORIDE 40 MEQ in DEXTROSE 5%-WATER - 1,000 ML IVPB SCH (17:10)
[2017-01-27] MEDS ORDERED: KCL 10 MEQ IVPB 100 ML IVPB ONE (18:15)
[2017-01-27] MEDS: MONTELUKAST NA 5 MG TAB.CHEW PO SCH (21:12)
[2017-01-27] MEDS: LATANOPROST 0.005% OPHTH SOLN 2.5ML BOTTLE OU SCH (21:19)
[2017-01-27] MEDS: ATORVASTATIN CA 40 MG TABLET (FP) PO SCH (22:28)
[2017-01-28] MEDS: PROPRANOLOL HCL 40 MG TABLET PO SCH ×3 (05:38→22:28)
[2017-01-28] MEDS: INSULIN SLIDING SCALE (NOVOLOG) 1 VIAL SQ SCH ×2 (07:53→18:28)
[2017-01-28] MEDS: POTASSIUM CHLORIDE 40 MEQ in DEXTROSE 5%-WATER - 1,000 ML IVPB SCH ×3 (08:10→23:00)
[2017-01-28 08:47] LABS: MCH 29.3 pg (25.7-33.7); MCHC 33.5 g/dl (32.0-36.0); MEAN CELL VOLUME 87.6 fl (80-96); MEAN PLT VOLUME 8.4 fl (7.5-11.1); PLATELET COUNT 217 K/MM3 (134-434); WHITE BLOOD COUNT 29.8 K/mm3 (4.0-10.0)
[2017-01-28 09:16] LABS: ALBUMIN 1.7 g/dl (3.4-5.0); ANION GAP 8 (8-16); BILIRUBIN,TOTAL 1.4 mg/dL (0.2-1.0); CALCIUM 8.1 mg/dL (8.5-10.1); CO2 29 mmol/L (21-32); CREATININE 0.9 mg/dL (0.55-1.02); GLUCOSE,RANDOM 125 mg/dL (74-106); MAGNESIUM 1.5 mg/dL (1.8-2.4); PHOSPHOROUS 2.3 mg/dL (2.5-4.9); SGOT/AST 45 U/L (15-37); SGPT/ALT 20 U/L (12-78)
[2017-01-28 09:17] LABS: ALK PHOS 256 U/L (45-117)
[2017-01-28 09:51] LABS: PLATELET ESTIMATE ADEQUATE (NORMAL)
[2017-01-28] MEDS ORDERED: PT OWN MED DRAWER 7, Y5N ONE ×4 (09:52→13:47)
[2017-01-28] MEDS: ARIPiprazole 10 MG TABLET PO SCH (09:56)
[2017-01-28] MEDS: DIVALPROEX SODIUM 125 MG SPRINKLE CAPS (FP) PO SCH ×4 (09:56→22:27)
[2017-01-28] MEDS: ASPIRIN 81 MG CHEWABLE TABLETS PO SCH (09:57)
[2017-01-28] MEDS: LACTOBACILLUS ACIDOPHILUS 1 EACH TAB (FP) PO SCH (09:58)
[2017-01-28] MEDS: VENLAFAXINE HCL 75 MG E.R. CAPSULES (FP) PO SCH (09:58)
[2017-01-28] MEDS: RANITIDINE HCL 150 MG/10 ML UNIT-DOSE CUP PO SCH ×2 (09:59→22:28)
[2017-01-28] MEDS: FLUTICASONE/SALMETEROL 100 MCG/50 MCG DISKUS IH SCH (11:11)
[2017-01-28] MEDS: ACLIDINIUM BROMIDE 400 MCG/INH AERO.POWD IH SCH (11:11)
--- NOTE | 2017-01-28 12:50 | PN ---
<Brodie Alas - Last Filed: 01/28/17 13:19> Physical Exam: SUBJECTIVE: Patient seen and examined at bedside. Pt was awake and alert today. Responds to and answers to name. Other history difficult to obtain. No acute events overnight. OBJECTIVE: Vital Signs Temperature 97.7 F 01/28/17 01:00 Pulse Rate 102 H 01/28/17 01:00 Respiratory Rate 20 01/28/17 01:00 Blood Pressure 163/97 01/28/17 01:00 O2 Sat by Pulse Oximetry (%) 97 01/27/17 21:00 GENERAL: The patient is awake, and answers when her name is called, in no acute distress. HEAD: Normal with no signs of trauma. EYES: extraocular movements intact, sclera anicteric, conjunctiva clear. No ptosis. ENT: Ears normal, nares patent, moist mucous membranes. NECK: Trachea midline LUNGS: Auscultated anteriorly, Breath sounds equal, clear to auscultation bilaterally, no wheezes, no crackles, no accessory muscle use. HEART: Tachycardic, S1, S2 without murmur, rub or gallop. ABDOMEN: Soft, obese, nontender, nondistended, normoactive bowel sounds, no guarding, no rebound, no hepatosplenomegaly, no masses. EXTREMITIES: 2+ pulses, warm, well-perfused, 2+ pitting edema B/L LE. L foot bullae near ankle improved compared to previously. L foot bullae near toe approximately the same. Both are non-tender, fluid filled. NEUROLOGICAL:Slow speech, gait not observed. SKIN: Warm, dry, normal turgor, no rashes or lesions noted Laboratory Results - last 24 hr 01/26/17 01/27/17 01/27/17 07:45 13:25 17:58 WBC RBC Hgb Hct MCV MCHC RDW Plt Count MPV Neutrophils % Lymphocytes % Monocytes % Myelocytes Differential Comment Platelet Estimate Retic Count Puncture Site Right radial ABG pH 7.55 H D ABG pCO2 at Pt Temp 30.6 L D ABG pO2 at Pt Temp 65.6 L ABG HCO3 27.0 H ABG O2 Sat (Measured) 94.5 ABG O2 Content 12.5 L ABG Base Excess 4.9 H Sivakumar Test Positive O2 Delivery Device Room air Oxygen Flow Rate 21% PEEP 0.0 Sodium Potassium Chloride Carbon Dioxide Anion Gap BUN Creatinine Creat Clearance w eGFR POC Glucometer 172 Random Glucose Calcium Phosphorus Magnesium Total Bilirubin AST ALT Alkaline Phosphatase Total Protein Albumin Globulin Cancelled Albumin/Globulin Ratio Cancelled IgG Cancelled IgA Cancelled IgM Cancelled Free [place] LC, Quant 117.08 H Free Lambda LC, Quant 119.58 H Free [place]/Lambda Ratio 0.98 01/28/17 01/28/17 01/28/17 05:26 08:10 08:10 WBC 29.8 H RBC 3.10 L Hgb 9.1 L Hct 27.2 L MCV 87.6 MCHC 33.5 RDW 17.0 H Plt Count 217 MPV 8.4 Neutrophils % 86.0 H Lymphocytes % 5.0 L D Monocytes % 8.0 Myelocytes 1 D Differential Comment Manual diff done Platelet Estimate Adequate Retic Count 4.69 H D Puncture Site ABG pH ABG pCO2 at Pt Temp ABG pO2 at Pt Temp ABG HCO3 ABG O2 Sat (Measured) ABG O2 Content ABG Base Excess Sivakumar Test O2 Delivery Device Oxygen Flow Rate PEEP Sodium 147 H Potassium 3.7 Chloride 110 H Carbon Dioxide 29 Anion Gap 8 BUN 23 H D Creatinine 0.9 Creat Clearance w eGFR > 60 POC Glucometer 126 Random Glucose 125 H Calcium 8.1 L Phosphorus 2.3 L D Magnesium 1.5 L D Total Bilirubin 1.4 H AST 45 H ALT 20 Alkaline Phosphatase 256 H Total Protein 6.0 L Albumin 1.7 L Globulin Albumin/Globulin Ratio IgG IgA IgM Free [place] LC, Quant Free Lambda LC, Quant Free [place]/Lambda Ratio Microbiology 01/21/17 19:15 Aspirate Gram Stain - Final 01/21/17 19:15 Aspirate Body Fluid Culture - Final NO GROWTH OF AEROBIC ORGANISMS AFTER 48 HOURS INCUBATION 01/21/17 19:15 Aspirate Anaerobic Culture - Final NO ANAEROBES WERE ISOLATED 01/19/17 12:56 Blood - Peripheral Venous Blood Culture - Final NO GROWTH AFTER 5 DAYS INCUBATION 01/19/17 12:56 Blood - Peripheral Venous Blood Culture - Final NO GROWTH AFTER 5 DAYS INCUBATION 01/23/17 06:00 Stool Clostridium difficile Antigen (JOCE) - Final 01/23/17 06:00 Stool Clostridium difficile Toxin Assay - Final 01/19/17 21:20 Urine - Urine Clean Catch Urine Culture - Final NO GROWTH OBTAINED 01/19/17 12:50 Urine - Urine Bajwa Urine Culture - Final Yeast Like Organism 01/19/17 16:27 Urine For Antigen Detection Legionella Antigen - Final 01/19/17 16:27 Urine For Antigen Detection Streptococcus pneumoniae Antigen (M - Final Active Medications Generic Name Dose Route Start Last Admin Trade Name Kikoq PRN Reason Stop Dose Admin Aclidinium [place] 1 puff 01/25/17 22:00 01/28/17 11:11 Tudorza - IH Not Given BID [facility] Aripiprazole 10 mg 01/25/17 10:00 01/28/17 09:56 Abilify PO 10 mg DAILY [facility] Administration Aspirin 81 mg 01/25/17 18:15 01/28/17 09:57 Asa - PO 81 mg DAILY [facility] Administration Atorvastatin Calcium 40 mg 01/25/17 22:00 01/27/17 22:28 Lipitor - PO 40 mg HS [facility] Administration Divalproex Sodium 250 mg 01/25/17 22:30 01/28/17 09:56 Depakote Sprinkle Caps - PO 250 mg QID [facility] Administration Potassium Chloride 40 meq/ 1,020 mls @ 85 mls/hr 01/27/17 15:54 01/28/17 08:10 Dextrose IVPB 85 mls/hr Q12H [facility] Administration Insulin Aspart 1 vial 01/19/17 17:15 01/28/17 07:53 Novolog Vial Sliding Scale - SQ Not Given BIDI [facility] Protocol Lactobacillus Acidophilus 1 tab 01/20/17 10:00 01/28/17 09:58 Bacid - PO 1 tab DAILY [facility] Administration Latanoprost 1 drop 01/19/17 22:00 01/27/17 21:19 Xalatan 0.005% Eye Drops - OU 1 drop HS [facility] Administration Montelukast Sodium 10 mg 01/22/17 22:00 01/27/17 21:12 Singulair - PO 10 mg HS [facility] Administration Nifedipine 30 mg 01/28/17 13:00 Procardia Xl - PO DAILY [facility] Propranolol HCl 60 mg 01/27/17 14:00 01/28/17 05:38 Inderal - PO 60 mg TID [facility] Administration Ranitidine HCl 150 mg 01/19/17 22:00 01/28/17 09:59 Zantac Oral Solution - PO 150 mg BID [facility] Administration Fluticasone/Salmeterol 1 puff 01/19/17 22:00 01/28/17 11:11 Advair 100mcg/50mcg - IH Not Given BID COUNT INCLUDES [facility] Venlafaxine HCl 150 mg 01/25/17 10:00 01/28/17 09:58 Effexor Xr - PO 150 mg DAILY COUNT INCLUDES [facility] Administration ASSESSMENT/PLAN: 56 y/o F w/ PMH of HTN, HLD, COPD, seziures, schizoaffective d/o, CKD, CAD, gout presented to ER from [facility] for AMS. -Acute metabolic encephalopathy secondary to severe sepsis from PNA vs C. Diff -mental status somewhat worse today -WBC: 30 (increasing) -May need bone marrow biospy -BCx neg, C. Diff neg -off abx -D5W + 20 meq KCl @ 85 ml/hr -repeat C. Diff ordered -DOMINIC secondary to severe sepsis, dehydration -improved -BUN/Cr: 23/0.9 (on last discharge Cr ws 0.7) -D5W + 40 meq KCl @ 85 ml/hr -Nephrology consulted (Dr. Marcelino) -Acute Normocytic Anemia -Hgb 9.1 -s/p 2 units PRBC -monitor CBC q6H for now -Leukemia vs MM? -Elevated WBC, myelocytes, bands, rouleaux -Heme/Onc consulted (Dr. Mallory) -f/u SPEP, urine proteins, CALLI 2, BCR-ABL, globulins -free kappa: 117, free lambda: 119, ratio 0.98 -M-spike 0.3 -May need bone marrow biopsy -Elevated AST, Alk phos -will continue to monitor -Seizures -valproic acid level at 52 on 01/26/17 -c/w depakote sprinkles 250 mg qid -Tachycardia -c/w propanolol to 60 mg PO TID -added procardia 30 mg qd today -may be secondary to possible malignancy? -HTN -uncontrolled -propanolol 60 mg tid -added procardia 30 mg qd today -Schizoaffective d/o -c/w effexor xr 150 mg po qd -c/w abilify 10 mg po qd -COPD -advair 1 puff bid, symbicort, singular -CAD -statin, asa -DM -ISS bid, BGMs bid -FEN -D5W + 40 meq KCl @ 85ml/hr -Hypernatremia, hyperchloremia; improving; - c/w D5W + 40 meq KCl @ 85 ml/hr , monitor lytes -Free water deficit is 2.61 L -Hypokalemia resolved - 3.7 -HypoMg 1.5 - repleted, monitor -Dysphagia puree diet -Dispo: -Monitor on floors. Problem List - Problems (1) Acute renal failure Code(s): N17.9 - ACUTE KIDNEY FAILURE, UNSPECIFIED Qualifiers: Acute renal failure type: unspecified Qualified Code(s): N17.9 - Acute kidney failure, unspecified (2) Altered mental status Code(s): R41.82 - ALTERED MENTAL STATUS, UNSPECIFIED Qualifiers: Altered mental status type: unspecified Qualified Code(s): R41.82 - Altered mental status, unspecified (3) Dehydration Code(s): E86.0 - DEHYDRATION (4) Sepsis Code(s): A41.9 - SEPSIS, UNSPECIFIED ORGANISM Qualifiers: Sepsis type: sepsis due to unspecified organism Qualified Code(s): A41.9 - Sepsis, unspecified organism (5) COPD (chronic obstructive pulmonary disease) Code(s): J44.9 - CHRONIC OBSTRUCTIVE PULMONARY DISEASE, UNSPECIFIED Qualifiers : COPD type: COPD with acute exacerbation Qualified Code(s): J44.1 - Chronic obstructive pulmonary disease with (acute) exacerbation (6) Hypertension Code(s): I10 - ESSENTIAL (PRIMARY) HYPERTENSION (7) Hyponatremia Code(s): E87.1 - HYPO-OSMOLALITY AND HYPONATREMIA (8) Pneumonia Code(s): J18.9 - PNEUMONIA, UNSPECIFIED ORGANISM Qualifiers: Pneumonia type: due to unspecified organism Laterality: left Lung location: lower lobe of lung Qualified Code(s): J18.9 - Pneumonia, unspecified organism (9) Bilateral lower extremity edema Code(s): R60.0 - LOCALIZED EDEMA (10) Severe sepsis Code(s): A41.9 - SEPSIS, UNSPECIFIED ORGANISM R65.20 - SEVERE SEPSIS WITHOUT SEPTIC SHOCK (11) Hypochloremia Code(s): E87.8 - OTH DISORDERS OF ELECTROLYTE AND FLUID BALANCE, NEC (12) Tachycardia Code(s): R00.0 - TACHYCARDIA, UNSPECIFIED (13) Anemia Code(s): D64.9 - ANEMIA, UNSPECIFIED Visit type - Emergency Visit Emergency Visit: Yes ED Registration Date: 01/19/17 Care time: The patient presented to the Emergency Department on the above date and was hospitalized for further evaluation of their emergent condition. - New Patient This patient is new to me today: No - Critical Care Critical Care patient: No <John Chamberlain - Last Filed: 01/28/17 15:42> Physical Exam: ATTENDING PHYSICIAN STATEMENT I saw and evaluated the patient. I reviewed the resident's note and discussed the case with the resident. I agree with the resident's findings and plan as documented. SUBJECTIVE: OBJECTIVE: ASSESSMENT AND PLAN: 56 y/o F w/ PMH of HTN, HLD, COPD, seziures, schizoaffective d/o, CKD, CAD, gout admitted for altered mental status/metabolic encephalopathy altered mental status/metabolic encephalopathy -was initially thought to be due to sepsis given elevated WBC and tachycardia -mental status improved -completed full course of abx and cultures negative -WBC still elevated above 20 alone with bandemia, rouleux formation, hyperuricemia, and elevated total protein:albumin ration which is concerning for leukemia/lymphoma process -follow up SPEP/UPEP -heme/onc consult appreciated -Hb trended down to 6; transfused 2 units pRBC and Hb increased to 10 now stable at 9 Hypernatremia -started D5 water -repeat sodium trending down at acceptable rate -renal consult appreciated CAD -has been tachycardic throughout entire hospital stay -repeat EKG shows sinus tachycardia which may be due to dehydration, anemia, or possible leukemia/lymphoma process -will increase propranolol to 60TID to control heart rate in pt with CAD -started statin -restart ASA COPD -cont advair -cont singulair -started tudorza
--- NOTE | 2017-01-28 12:53 | PN ---
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, Physician History of Present Illness: Pt seen and examined at bedside. She remains drowsy and has poor PO intake. - Current Medication List Current Medications: Active Medications Aclidinium [place] (Tudorza -) 1 puff IH BID [facility] Last Admin: 01/28/17 11:11 Dose: Not Given Aripiprazole (Abilify) 10 mg PO DAILY [facility] Last Admin: 01/28/17 09:56 Dose: 10 mg Aspirin (Asa -) 81 mg PO DAILY [facility] Last Admin: 01/28/17 09:57 Dose: 81 mg Atorvastatin Calcium (Lipitor -) [address] [facility] Last Admin: 01/27/17 22:28 Dose: 40 mg Divalproex Sodium (Depakote Sprinkle Caps -) 250 mg PO QID [facility] Last Admin: 01/28/17 09:56 Dose: 250 mg Potassium Chloride 40 meq/ (Dextrose) 1,020 mls @ 85 mls/hr IVPB Q12H [facility] Last Admin: 01/28/17 08:10 Dose: 85 mls/hr Insulin Aspart (Novolog Vial Sliding Scale -) 1 vial SQ BIDI [facility] PRN Reason: Protocol Last Admin: 01/28/17 07:53 Dose: Not Given Lactobacillus Acidophilus (Bacid -) 1 tab PO DAILY [facility] Last Admin: 01/28/17 09:58 Dose: 1 tab Latanoprost (Xalatan 0.005% Eye Drops -) [address] [facility] Last Admin: 01/27/17 21:19 Dose: 1 drop Montelukast Sodium (Singulair -) [address] [facility] Last Admin: 01/27/17 21:12 Dose: 10 mg Nifedipine (Procardia Xl -) 30 mg PO DAILY [facility] Propranolol HCl (Inderal -) 60 mg PO TID [facility] Last Admin: 01/28/17 05:38 Dose: 60 mg Ranitidine HCl (Zantac Oral Solution -) 150 mg PO BID [facility] Last Admin: 01/28/17 09:59 Dose: 150 mg Fluticasone/Salmeterol (Advair 100mcg/50mcg -) 1 puff IH BID [facility] Last Admin: 01/28/17 11:11 Dose: Not Given Venlafaxine HCl (Effexor Xr -) 150 mg PO DAILY [facility] Last Admin: 01/28/17 09:58 Dose: 150 mg - Objective Vital Signs: Vital Signs Temperature 97.7 F 01/28/17 01:00 Pulse Rate 102 H 01/28/17 01:00 Respiratory Rate 20 01/28/17 01:00 Blood Pressure 163/97 01/28/17 01:00 O2 Sat by Pulse Oximetry (%) 97 01/27/17 21:00 Constitutional: Yes: Calm Eyes: Yes: Conjunctiva Clear HENT: Yes: Atraumatic Cardiovascular: Yes: S1, S2 Respiratory: Yes: CTA Bilaterally Gastrointestinal: Yes: Soft, Abdomen, Obese Genitourinary: Yes: Incontinence Musculoskeletal: Yes: Muscle Weakness Edema: Yes Edema: LLE: 1+, RLE: 1+ Neurological: Yes: Other (drowsy) Labs: CBC, BMP 01/28/17 08:10 01/28/17 08:10 INR, PTT INR 1.31 (0.82-1.09) H 01/19/17 11:41 Problem List - Problems (1) Acute renal failure Code(s): N17.9 - ACUTE KIDNEY FAILURE, UNSPECIFIED Qualifiers: Acute renal failure type: unspecified Qualified Code(s): N17.9 - Acute kidney failure, unspecified (2) Altered mental status Code(s): R41.82 - ALTERED MENTAL STATUS, UNSPECIFIED Qualifiers: Altered mental status type: unspecified Qualified Code(s): R41.82 - Altered mental status, unspecified (3) Dehydration Code(s): E86.0 - DEHYDRATION (4) Sepsis Code(s): A41.9 - SEPSIS, UNSPECIFIED ORGANISM Qualifiers: Sepsis type: sepsis due to unspecified organism Qualified Code(s): A41.9 - Sepsis, unspecified organism (5) CKD (chronic kidney disease) Code(s): N18.9 - CHRONIC KIDNEY DISEASE, UNSPECIFIED (6) COPD (chronic obstructive pulmonary disease) Code(s): J44.9 - CHRONIC OBSTRUCTIVE PULMONARY DISEASE, UNSPECIFIED Qualifiers : COPD type: COPD with acute exacerbation Qualified Code(s): J44.1 - Chronic obstructive pulmonary disease with (acute) exacerbation (7) Depressed Code(s): F32.9 - MAJOR DEPRESSIVE DISORDER, SINGLE EPISODE, UNSPECIFIED (8) Bilateral lower extremity edema Code(s): R60.0 - LOCALIZED EDEMA Assessment/Plan Current Medications Generic Name Dose Route Start Last Admin Trade Name Freq PRN Reason Stop Dose Admin Aclidinium [place] 1 puff 01/25/17 22:00 01/28/17 11:11 Tudorza - IH Not Given BID [facility] Aripiprazole 10 mg 01/25/17 10:00 01/28/17 09:56 Abilify PO 10 mg DAILY [facility] Administration Aspirin 81 mg 01/25/17 18:15 01/28/17 09:57 Asa - PO 81 mg DAILY [facility] Administration Atorvastatin Calcium 40 mg 01/25/17 22:00 01/27/17 22:28 Lipitor - PO 40 mg HS [facility] Administration Divalproex Sodium 250 mg 01/25/17 22:30 01/28/17 09:56 Depakote Sprinkle Caps - PO 250 mg QID [facility] Administration Potassium Chloride 40 meq/ 1,020 mls @ 85 mls/hr 01/27/17 15:54 01/28/17 08:10 Dextrose IVPB 85 mls/hr Q12H [facility] Administration Insulin Aspart 1 vial 01/19/17 17:15 01/28/17 07:53 Novolog Vial Sliding Scale - SQ Not Given BIDI [facility] Protocol Lactobacillus Acidophilus 1 tab 01/20/17 10:00 01/28/17 09:58 Bacid - PO 1 tab DAILY [facility] Administration Latanoprost 1 drop 01/19/17 22:00 01/27/17 21:19 Xalatan 0.005% Eye Drops - OU 1 drop HS [facility] Administration Montelukast Sodium 10 mg 01/22/17 22:00 01/27/17 21:12 Singulair - PO 10 mg HS [facility] Administration Nifedipine 30 mg 01/28/17 13:00 Procardia Xl - PO DAILY [facility] Propranolol HCl 60 mg 01/27/17 14:00 01/28/17 05:38 Inderal - PO 60 mg TID [facility] Administration Ranitidine HCl 150 mg 01/19/17 22:00 01/28/17 09:59 Zantac Oral Solution - PO 150 mg BID [facility] Administration Fluticasone/Salmeterol 1 puff 01/19/17 22:00 01/28/17 11:11 Advair 100mcg/50mcg - IH Not Given BID [facility] Venlafaxine HCl 150 mg 01/25/17 10:00 01/28/17 09:58 Effexor Xr - PO 150 mg DAILY [facility] Administration Impression 1. DOMINIC 2. CKD 3. hyponatremia 4. altered mental status 5. gout 6. PNA 7. Depression 8. COPD 9. sepsis 10. positive hep C ab 11. HTN 12. leukocytosis Plan - will continue with fluids for now as she is not eating - encourage PO intake - cxr reviewed and there is no evidence of CHF - WBC is rising, ID follow up - monitor hg - replace potassium - will supplement magnesium - will follow closely - avoid nsaids - will not restart diovan at this time - increase dose of procardia Dr Marcelino
[2017-01-28] MEDS ORDERED: NIFEdipine E.R. 30 MG TABLET (FP) PO SCH (13:00)
[2017-01-28] MEDS ORDERED: MAGNESIUM SULF 50% (8.12 MEQ/2 ML-1 GM VIAL) IVPB ONE (13:10)
[2017-01-28] MEDS: NIFEdipine E.R 60 MG TABLET (UD) PO SCH (13:36)
--- NOTE | 2017-01-28 14:40 | PN ---
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, [employer] - Note 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: Selected Entries 01/26/17 01/26/17 01/26/17 02:01 06:00 10:00 Breakfast Temperature 98.4 F 97.2 F L 98.2 F 01/26/17 01/26/17 01/27/17 15:23 17:03 08:29 Breakfast Temperature 98.2 F 99 F 98.3 F 01/27/17 11:30 Breakfast 50% Temperature Selected Entries 01/27/17 01/27/17 01/27/17 11:30 14:43 18:24 Breakfast 50% Lunch 25% Supper 50% 01/28/17 12:10 Breakfast 25% Lunch Supper Limited PO aqcceptance. Nepro when fully alert. f/u by dietary.
[2017-01-28 15:13] LABS: MCH 30.2 pg (25.7-33.7); MCHC 34.2 g/dl (32.0-36.0); MEAN CELL VOLUME 88.4 fl (80-96); MEAN PLT VOLUME 8.7 fl (7.5-11.1); PLATELET COUNT 251 K/MM3 (134-434); RDW 17.2 % (11.6-15.6); WHITE BLOOD COUNT 28.5 K/mm3 (4.0-10.0)
[2017-01-28] MEDS ORDERED: ALBUTEROL SO4 0.083% IH SOL 2.5 MG/3 ML VIAL.NEB. NEB PRN (15:22)
--- NOTE | 2017-01-28 15:22 | PN ---
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, Physician History of Present Illness: PULMONARY DROWSY,NAD,-CONGESTION - Current Medication List Current Medications: Active Medications Aclidinium [place] (Tudorza -) 1 puff IH BID [facility] Last Admin: 01/28/17 11:11 Dose: Not Given Aripiprazole (Abilify) 10 mg PO DAILY [facility] Last Admin: 01/28/17 09:56 Dose: 10 mg Aspirin (Asa -) 81 mg PO DAILY [facility] Last Admin: 01/28/17 09:57 Dose: 81 mg Atorvastatin Calcium (Lipitor -) 40 mg PO HS [facility] Last Admin: 01/27/17 22:28 Dose: 40 mg Divalproex Sodium (Depakote Sprinkle Caps -) 250 mg PO QID [facility] Last Admin: 01/28/17 13:37 Dose: 250 mg Potassium Chloride 40 meq/ (Dextrose) 1,020 mls @ 100 mls/hr IVPB Q10H [facility] Last Admin: 01/28/17 13:36 Dose: 100 mls/hr Insulin Aspart (Novolog Vial Sliding Scale -) 1 vial SQ BIDI [facility] PRN Reason: Protocol Last Admin: 01/28/17 07:53 Dose: Not Given Lactobacillus Acidophilus (Bacid -) 1 tab PO DAILY [facility] Last Admin: 01/28/17 09:58 Dose: 1 tab Latanoprost (Xalatan 0.005% Eye Drops -) 1 drop OU [facility] Last Admin: 01/27/17 21:19 Dose: 1 drop Montelukast Sodium (Singulair -) 10 mg PO [facility] Last Admin: 01/27/17 21:12 Dose: 10 mg Nifedipine (Procardia Xl -) 60 mg PO DAILY [facility] Last Admin: 01/28/17 13:36 Dose: 60 mg Propranolol HCl (Inderal -) 60 mg PO TID [facility] Last Admin: 01/28/17 13:37 Dose: 60 mg Ranitidine HCl (Zantac Oral Solution -) 150 mg PO BID [facility] Last Admin: 01/28/17 09:59 Dose: 150 mg Fluticasone/Salmeterol (Advair 100mcg/50mcg -) 1 puff IH BID [facility] Last Admin: 01/28/17 11:11 Dose: Not Given Venlafaxine HCl (Effexor Xr -) 150 mg PO DAILY [facility] Last Admin: 01/28/17 09:58 Dose: 150 mg - Objective Vital Signs: Vital Signs Temperature 97.8 F 01/28/17 15:00 Pulse Rate 96 H 01/28/17 15:00 Respiratory Rate 20 01/28/17 15:00 Blood Pressure 122/74 01/28/17 15:00 O2 Sat by Pulse Oximetry (%) 96 01/28/17 09:00 Constitutional: Yes: Well Nourished, Other (DROWSY) Eyes: Yes: WNL HENT: Yes: WNL Neck: Yes: WNL Cardiovascular: Yes: Regular Rate and Rhythm, S1, S2 Respiratory: Yes: Diminished (POOR INSPIRATORY EFFORT) Gastrointestinal: Yes: Normal Bowel Sounds, Soft Extremities: Yes: WNL Edema: No Labs: CBC, BMP 01/28/17 08:10 INR, PTT INR 1.31 (0.82-1.09) H 01/19/17 11:41 Assessment/Plan - Problems (1) Acute renal failure Code(s): N17.9 - ACUTE KIDNEY FAILURE, UNSPECIFIED Qualifiers: Acute renal failure type: unspecified Qualified Code(s): N17.9 - Acute kidney failure, unspecified (2) Altered mental status Code(s): R41.82 - ALTERED MENTAL STATUS, UNSPECIFIED Qualifiers: Altered mental status type: unspecified Qualified Code(s): R41.82 - Altered mental status, unspecified (3) Dehydration Code(s): E86.0 - DEHYDRATION (4) Sepsis Code(s): A41.9 - SEPSIS, UNSPECIFIED ORGANISM Qualifiers: Sepsis type: sepsis due to unspecified organism Qualified Code(s): A41.9 - Sepsis, unspecified organism (5) COPD (chronic obstructive pulmonary disease) Code(s): J44.9 - CHRONIC OBSTRUCTIVE PULMONARY DISEASE, UNSPECIFIED Qualifiers : COPD type: COPD with acute exacerbation Qualified Code(s): J44.1 - Chronic obstructive pulmonary disease with (acute) exacerbation (6) Hypertension Code(s): I10 - ESSENTIAL (PRIMARY) HYPERTENSION (7) Hyponatremia Code(s): E87.1 - HYPO-OSMOLALITY AND HYPONATREMIA (8) Pneumonia Code(s): J18.9 - PNEUMONIA, UNSPECIFIED ORGANISM Qualifiers: Pneumonia type: due to unspecified organism Laterality: left Lung location: lower lobe of lung Qualified Code(s): J18.9 - Pneumonia, unspecified organism (9) Bilateral lower extremity edema Code(s): R60.0 - LOCALIZED EDEMA (10) Severe sepsis Code(s): A41.9 - SEPSIS, UNSPECIFIED ORGANISM R65.20 - SEVERE SEPSIS WITHOUT SEPTIC SHOCK (11) Hypochloremia Code(s): E87.8 - OTH DISORDERS OF ELECTROLYTE AND FLUID BALANCE, NEC Assessment/Plan ivf fluids per nephrology Aspiration precautions O2 as needed antibiotics Strict I&O DR MUELLER
[2017-01-28 15:50] LABS: PLATELET ESTIMATE ADEQUATE (NORMAL)
[2017-01-28 15:56] LABS: URIC ACID 12.3 mg/dL (2.6-7.2)
--- NOTE | 2017-01-28 16:08 | PATH ---
Surgical Pathology Report Patient Name: YAZMIN SAMUELS Med. Rec. #: [id number] /Age/Gender: 1960 (Age: 56) / F Account: [id number] Location: [facility] MED/SURG Taken: 01/26/2017 Received: 01/26/2017 Reported: 01/28/2017 Physicians: Humberto Mast Specimen(s) Received PERIPHERAL BLOOD 4 LAVENDER TOPS Clinical History R/o MPN Final Diagnosis JAK2 V617F MUTATION ANALYSIS BY PCR PERFORMED AND INTERPRETED AT [facility] [place], [place] ([id number]) SHOWED THE FOLLOWING: RESULTS: ONLY THE WILD-TYPE JAK2 SEQUENCE WAS DETECTED. INTERPRETATION: NEGATIVE FOR JAK2 V617F MUTATION. Electronically Signed Wilfrido Cedeno M.D. Addendum Reported: 02/01/2017 Addendum Diagnosis BCR-ABL GENE REARRANGEMENT-QUANTITATIVE REAL TIME PCR ANALYSIS (IS) PERFORMED AND INTERPRETED AT [facility] [facility] [employer] [place], [place] ([id number]) SHOWED THE FOLLOWING: RESULTS: NEGATIVE BCR/ABL MAJOR BREAKPOINTS (b2a2 and b3a2): NOT DETECTED. BCR/ABL MINOR BREAKPOINT (e1a2): NOT DETECTED. INTERPRETATION: NO BCR-ABL TRANSLOCATION WAS DETECTED IN THIS SAMPLE. Wilfrido Cedeno M.D. Gross Description Received are 4 lavender top tubes. Sent for further studies.
[2017-01-28 16:09] LABS: HIV 1 & 2 AB NEGATIVE; HIV 1 AGp24 NEGATIVE
--- NOTE | 2017-01-28 19:14 | PN ---
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 (short form) - Note 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: Patient seen and examined Non verbal , non communicative. Poorly responsive. Elevated WBC persistent Last Vital Signs Temp Pulse Resp BP Pulse Ox 98.5 F 106 H 20 118/77 96 01/28/17 18:34 01/28/17 18:34 01/28/17 18:34 01/28/17 18:34 01/28/17 09:00 HEENT: MARCOS, EOM Intact Cor: RSR, No murmurs, No gallops Lungs: diminished breath sounds and poor inspiratory effort Abd: Soft, Normal bowel sounds, No organomegaly Ext:left foot - 2 areas of cyst like swelling Skin: No rashes, Integument intact CBC, BMP 01/28/17 14:20 01/28/17 08:10 Current Medications Generic Name Dose Route Start Last Admin Trade Name Freq PRN Reason Stop Dose Admin Albuterol Sulfate 1 amp 01/28/17 15:22 Ventolin 0.083% Nebulizer Soln - NEB Q4H PRN SHORT OF BREATH/WHEEZING Albuterol/Ipratropium 1 amp 01/28/17 22:00 Duoneb - NEB TIDR ADELINE Aspirin 81 mg 01/25/17 18:15 01/28/17 09:57 Asa - PO 81 mg DAILY A[facility]LINE Administration Atorvastatin Calcium 40 mg 01/25/17 22:00 01/27/17 22:28 Lipitor - PO 40 mg HS ADELINE Administration Divalproex Sodium 250 mg 01/25/17 22:30 01/28/17 18:29 Depakote Sprinkle Caps - PO Not Given QID ADELINE Potassium Chloride 40 meq/ 1,020 mls @ 100 mls/hr 01/28/17 13:00 01/28/17 13:36 Dextrose IVPB 100 mls/hr Q10H [facility]LINE Administration Insulin Aspart 1 vial 01/19/17 17:15 01/28/17 18:28 Novolog Vial Sliding Scale - SQ Not Given BIDI A[facility] Protocol Lactobacillus Acidophilus 1 tab 01/20/17 10:00 01/28/17 09:58 Bacid - PO 1 tab DAILY [facility] Administration Latanoprost 1 drop 01/19/17 22:00 01/27/17 21:19 Xalatan 0.005% Eye Drops - OU 1 drop HS [facility] Administration Montelukast Sodium 10 mg 01/22/17 22:00 01/27/17 21:12 Singulair - PO 10 mg HS [facility] Administration Nifedipine 60 mg 01/28/17 13:15 01/28/17 13:36 Procardia Xl - PO 60 mg DAILY ADEILNE Administration Propranolol HCl 60 mg 01/27/17 14:00 01/28/17 13:37 Inderal - PO 60 mg TID A[facility]LINE Administration Ranitidine HCl 150 mg 01/19/17 22:00 01/28/17 09:59 Zantac Oral Solution - PO 150 mg BID [facility] Administration Impression Mental status change?? Leucocytosis In view of general poor status, would await results of CALLI-2 and BCR-ABL at this time. Problem List - Problems (1) Acute renal failure Code(s): N17.9 - ACUTE KIDNEY FAILURE, UNSPECIFIED Qualifiers: Acute renal failure type: unspecified Qualified Code(s): N17.9 - Acute kidney failure, unspecified (2) Altered mental status Code(s): R41.82 - ALTERED MENTAL STATUS, UNSPECIFIED Qualifiers: Altered mental status type: unspecified Qualified Code(s): R41.82 - Altered mental status, unspecified (3) Sepsis Code(s): A41.9 - SEPSIS, UNSPECIFIED ORGANISM Qualifiers: Sepsis type: sepsis due to unspecified organism Qualified Code(s): A41.9 - Sepsis, unspecified organism (4) Leukocytosis (leucocytosis) Code(s): D72.829 - ELEVATED WHITE BLOOD CELL COUNT, UNSPECIFIED (5) Anemia, chronic disease Code(s): D63.8 - ANEMIA IN OTHER CHRONIC DISEASES CLASSIFIED ELSEWHERE
[2017-01-28] MEDS: MONTELUKAST NA 5 MG TAB.CHEW PO SCH (22:28)
[2017-01-28] MEDS: ATORVASTATIN CA 40 MG TABLET (FP) PO SCH (22:28)
[2017-01-28] MEDS: LATANOPROST 0.005% OPHTH SOLN 2.5ML BOTTLE OU SCH (22:28)
[2017-01-28] MEDS: ALBUTEROL SO4 2.5/IPRATROPIUM 0.5 INH SOL 3 ML VIAL.NEB. NEB SCH (22:54)
[2017-01-29 00:15] LABS: A/G RATIO 0.5 (0.7-1.7); ALBUMIN 1.9 g/dL (2.9-4.4); ALPHA-1-GLOBULIN 0.4 g/dL (0.0-0.4); BETA GLOBULIN 0.8 g/dL (0.7-1.3); GAMMA GLOBULIN 2.5 g/dL (0.4-1.8); GLOBULIN, TOTAL 4.3 g/dL (2.2-3.9); M-SPIKE Not Observed g/dL (Not Observed); TOTAL PROTEIN 6.2 g/dL (6.0-8.5)
[2017-01-29] MEDS: PROPRANOLOL HCL 40 MG TABLET PO SCH ×3 (06:23→22:20)
[2017-01-29] MEDS: INSULIN SLIDING SCALE (NOVOLOG) 1 VIAL SQ SCH ×2 (06:27→17:52)
[2017-01-29] MEDS: ALBUTEROL SO4 2.5/IPRATROPIUM 0.5 INH SOL 3 ML VIAL.NEB. NEB SCH ×3 (06:34→22:27)
[2017-01-29] MEDS ORDERED: PT OWN MED DRAWER 7, Y5N ONE ×5 (07:29→21:49)
[2017-01-29 07:42] LABS: MCHC 32.9 g/dl (32.0-36.0); MEAN CELL VOLUME 91.1 fl (80-96); MEAN PLT VOLUME 8.9 fl (7.5-11.1); PLATELET COUNT 261 K/MM3 (134-434); RDW 17.8 % (11.6-15.6); WHITE BLOOD COUNT 26.8 K/mm3 (4.0-10.0)
[2017-01-29 08:06] LABS: ALBUMIN 1.8 g/dl (3.4-5.0); ANION GAP 9 (8-16); CALCIUM 8.1 mg/dL (8.5-10.1); CO2 29 mmol/L (21-32); GLUCOSE,RANDOM 97 mg/dL (74-106); MAGNESIUM 1.5 mg/dL (1.8-2.4); URIC ACID 11.2 mg/dL (2.6-7.2)
[2017-01-29 08:10] LABS: ALK PHOS 270 U/L (45-117); BILIRUBIN,TOTAL 1.4 mg/dL (0.2-1.0); CREATININE 0.9 mg/dL (0.55-1.02); PHOSPHOROUS 2.8 mg/dL (2.5-4.9); SGOT/AST 49 U/L (15-37); SGPT/ALT 22 U/L (12-78); TOT PROT 6.8 g/dl (6.4-8.2)
[2017-01-29] MEDS: POTASSIUM CHLORIDE 40 MEQ in DEXTROSE 5%-WATER - 1,000 ML IVPB SCH ×3 (09:08→20:21)
[2017-01-29] MEDS: ASPIRIN 81 MG CHEWABLE TABLETS PO SCH (09:09)
[2017-01-29] MEDS: RANITIDINE HCL 150 MG/10 ML UNIT-DOSE CUP PO SCH ×2 (09:09→22:19)
[2017-01-29] MEDS: NIFEdipine E.R 60 MG TABLET (UD) PO SCH (09:09)
[2017-01-29] MEDS: DIVALPROEX SODIUM 125 MG SPRINKLE CAPS (FP) PO SCH ×4 (09:10→22:20)
[2017-01-29] MEDS: LACTOBACILLUS ACIDOPHILUS 1 EACH TAB (FP) PO SCH (09:11)
--- NOTE | 2017-01-29 10:04 | PN ---
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 (short form) - Note 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: RENAL Pt is awake and alert appears comfortable confused Last Vital Signs Temp Pulse Resp BP Pulse Ox 96.8 F L 102 H 20 159/87 96 01/29/17 06:00 01/29/17 06:00 01/29/17 06:00 01/29/17 06:00 01/28/17 21:00 lungs clear cvs s1s2 rr +mary ellen abd soft ext +edema, has two bullae on left foot neuro confused CBC, BMP 01/29/17 06:00 01/29/17 06:00 Current Medications Generic Name Dose Route Start Last Admin Trade Name Freq PRN Reason Stop Dose Admin Albuterol Sulfate 1 amp 01/28/17 15:22 Ventolin 0.083% Nebulizer Soln - NEB Q4H PRN SHORT OF BREATH/WHEEZING Albuterol/Ipratropium 1 amp 01/28/17 22:00 01/29/17 06:34 Duoneb - NEB 1 amp TIDR ADELINE Administration Aspirin 81 mg 01/25/17 18:15 01/29/17 09:09 Asa - PO 81 mg DAILY ADELINE Administration Atorvastatin Calcium 40 mg 01/25/17 22:00 01/28/17 22:28 Lipitor - PO 40 mg HS ADELINE Administration Divalproex Sodium 250 mg 01/25/17 22:30 01/29/17 09:10 Depakote Sprinkle Caps - PO 250 mg QID ADELINE Administration Potassium Chloride 40 meq/ 1,020 mls @ 100 mls/hr 01/28/17 13:00 01/29/17 09:09 Dextrose IVPB 100 mls/hr Q10H ADELINE Administration Insulin Aspart 1 vial 01/19/17 17:15 01/29/17 06:27 Novolog Vial Sliding Scale - SQ Not Given BIDI ADELINE Protocol Lactobacillus Acidophilus 1 tab 01/20/17 10:00 01/29/17 09:11 Bacid - PO 1 tab DAILY ADELINE Administration Latanoprost 1 drop 01/19/17 22:00 01/28/17 22:28 Xalatan 0.005% Eye Drops - OU 1 drop HS A[facility]LINE Administration Montelukast Sodium 10 mg 01/22/17 22:00 01/28/17 22:28 Singulair - PO 10 mg HS A[facility]LINE Administration Nifedipine 60 mg 01/28/17 13:15 01/29/17 09:09 Procardia Xl - PO 60 mg DAILY ADELINE Administration Propranolol HCl 60 mg 01/27/17 14:00 01/29/17 06:23 Inderal - PO 60 mg TID ADELINE Administration Ranitidine HCl 150 mg 01/19/17 22:00 01/29/17 09:09 Zantac Oral Solution - PO 150 mg BID ADELINE Administration Impression 1. DOMINIC resolved 2. CKD 3. hyponatremia resolved 4. altered mental status 5. gout 6. PNA 7. Depression 8. COPD 9. sepsis 10. positive hep C ab 11. HTN 12. leukocytosis 13. malnutrition Plan - will continue with fluids for now as she is not eating - encourage PO intake - WBC is rising, ID follow up - monitor hg - replace potassium - will supplement magnesium - will follow closely - avoid nsaids - uloric or allopurinol given high uric acid MV
--- NOTE | 2017-01-29 11:11 | PN ---
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, Physician - Current Medication List Current Medications: Active Medications Albuterol Sulfate (Ventolin 0.083% Nebulizer Soln -) 1 amp NEB Q4H PRN PRN Reason: SHORT OF BREATH/WHEEZING Albuterol/Ipratropium (Duoneb -) 1 amp NEB TIDR [facility] Last Admin: 01/29/17 06:34 Dose: 1 amp Aspirin (Asa -) 81 mg PO DAILY [facility] Last Admin: 01/29/17 09:09 Dose: 81 mg Atorvastatin Calcium (Lipitor -) 40 mg PO HS [facility] Last Admin: 01/28/17 22:28 Dose: 40 mg Divalproex Sodium (Depakote Sprinkle Caps -) 250 mg PO QID [facility] Last Admin: 01/29/17 09:10 Dose: 250 mg Potassium Chloride 40 meq/ (Dextrose) 1,020 mls @ 100 mls/hr IVPB Q10H [facility] Last Admin: 01/29/17 09:09 Dose: 100 mls/hr Insulin Aspart (Novolog Vial Sliding Scale -) 1 vial SQ BIDI [facility] PRN Reason: Protocol Last Admin: 01/29/17 06:27 Dose: Not Given Lactobacillus Acidophilus (Bacid -) 1 tab PO DAILY [facility] Last Admin: 01/29/17 09:11 Dose: 1 tab Latanoprost (Xalatan 0.005% Eye Drops -) 1 drop OU [facility] Last Admin: 01/28/17 22:28 Dose: 1 drop Montelukast Sodium (Singulair -) 10 mg PO HS [facility] Last Admin: 01/28/17 22:28 Dose: 10 mg Nifedipine (Procardia Xl -) 60 mg PO DAILY [facility] Last Admin: 01/29/17 09:09 Dose: 60 mg Propranolol HCl (Inderal -) 60 mg PO TID [facility] Last Admin: 01/29/17 06:23 Dose: 60 mg Ranitidine HCl (Zantac Oral Solution -) 150 mg PO BID [facility] Last Admin: 01/29/17 09:09 Dose: 150 mg - Objective Vital Signs: Vital Signs Temperature 96.8 F L 01/29/17 06:00 Pulse Rate 102 H 01/29/17 06:00 Respiratory Rate 20 01/29/17 06:00 Blood Pressure 159/87 01/29/17 06:00 O2 Sat by Pulse Oximetry (%) 96 01/28/17 21:00 Constitutional: Yes: Well Nourished, No Distress, Calm Eyes: Yes: WNL, Conjunctiva Clear HENT: Yes: WNL, Atraumatic, Normocephalic Neck: Yes: WNL, Supple, Trachea Midline Cardiovascular: Yes: WNL, Regular Rate and Rhythm Respiratory: Yes: WNL, Regular, CTA Bilaterally Gastrointestinal: Yes: WNL, Normal Bowel Sounds Musculoskeletal: Yes: WNL Extremities: Yes: WNL Edema: No Integumentary: Yes: WNL Neurological: Yes: Alert, Confusion, Other (lethargy). No: Oriented ...Motor Strength: WNL Psychiatric: Yes: WNL Labs: CBC, BMP 01/29/17 06:00 01/29/17 06:00 INR, PTT INR 1.31 (0.82-1.09) H 01/19/17 11:41 Impression/Plan Impression/Plan: ASSESSMENT AND PLAN: 56 y/o F w/ PMH of HTN, HLD, COPD, seziures, schizoaffective d/o, CKD, CAD, gout admitted for altered mental status/metabolic encephalopathy altered mental status/metabolic encephalopathy -was initially thought to be due to sepsis given elevated WBC and tachycardia -mental status is not at baseline as per resident who had patient on previous admission -no laboratory data pointing to any cause of metabolic encephalopathy at this time -CT head negative -held abilify -completed full course of abx and cultures negative -WBC still elevated above 20 alone with bandemia, rouleux formation, hyperuricemia, and elevated total protein:albumin ration which is concerning for leukemia/lymphoma process -follow up SPEP/UPEP -heme/onc consult appreciated -Hb trended down to 6; transfused 2 units pRBC and Hb increased to 10 now stable at 9 Hypernatremia -started D5 water -repeat sodium trending down at acceptable rate -renal consult appreciated CAD -has been tachycardic throughout entire hospital stay -repeat EKG shows sinus tachycardia which may be due to dehydration, anemia, or possible leukemia/lymphoma process -will increase propranolol to 60TID to control heart rate in pt with CAD -started statin -restart ASA COPD -cont advair -cont singulair -started tudorza Visit type - Emergency Visit Emergency Visit: Yes ED Registration Date: 01/19/17 Care time: The patient presented to the Emergency Department on the above date and was hospitalized for further evaluation of their emergent condition. - New Patient This patient is new to me today: No - Critical Care Critical Care patient: No
--- NOTE | 2017-01-29 11:11 | PN ---
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 (short form) - Note 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: Awake and alert, but remains mildly confused. No CP or SOB. No acute events overnight. Intake & Output 01/26/17 01/27/17 01/28/17 01/29/17 23:59 23:59 23:59 23:59 Intake Total 2930 2210 200 1200 Balance 2930 2210 200 1200 Weight 238 lb 1.6 oz 231 lb 11.2 oz 230 lb 232 lb 12.8 oz Last Vital Signs Temp Pulse Resp BP Pulse Ox 96.8 F L 102 H 20 159/87 96 01/29/17 06:00 01/29/17 06:00 01/29/17 06:00 01/29/17 06:00 01/28/17 21:00 Active Medications Albuterol Sulfate (Ventolin 0.083% Nebulizer Soln -) 1 amp NEB Q4H PRN PRN Reason: SHORT OF BREATH/WHEEZING Albuterol/Ipratropium (Duoneb -) 1 amp NEB TIDR [facility] Last Admin: 01/29/17 06:34 Dose: 1 amp Aspirin (Asa -) 81 mg PO DAILY [facility] Last Admin: 01/29/17 09:09 Dose: 81 mg Atorvastatin Calcium (Lipitor -) 40 mg PO HS [facility] Last Admin: 01/28/17 22:28 Dose: 40 mg Divalproex Sodium (Depakote Sprinkle Caps -) 250 mg PO QID [facility] Last Admin: 01/29/17 09:10 Dose: 250 mg Potassium Chloride 40 meq/ (Dextrose) 1,020 mls @ 100 mls/hr IVPB Q10H [facility] Last Admin: 01/29/17 09:09 Dose: 100 mls/hr Insulin Aspart (Novolog Vial Sliding Scale -) 1 vial SQ BIDI [facility] PRN Reason: Protocol Last Admin: 01/29/17 06:27 Dose: Not Given Lactobacillus Acidophilus (Bacid -) 1 tab PO DAILY [facility] Last Admin: 01/29/17 09:11 Dose: 1 tab Latanoprost (Xalatan 0.005% Eye Drops -) 1 drop OU HS [facility] Last Admin: 01/28/17 22:28 Dose: 1 drop Montelukast Sodium (Singulair -) 10 mg PO HS [facility] Last Admin: 01/28/17 22:28 Dose: 10 mg Nifedipine (Procardia Xl -) 60 mg PO DAILY [facility] Last Admin: 01/29/17 09:09 Dose: 60 mg Propranolol HCl (Inderal -) 60 mg PO TID [facility] Last Admin: 01/29/17 06:23 Dose: 60 mg Ranitidine HCl (Zantac Oral Solution -) 150 mg PO BID [facility] Last Admin: 01/29/17 09:09 Dose: 150 mg Constitutional: Yes: NAD Eyes: Yes: WNL HENT: Yes: WNL Neck: Yes: WNL Cardiovascular: Yes: Regular Rate and Rhythm, S1, S2 Respiratory: Yes: Diminished at the bases Gastrointestinal: Yes: Normal Bowel Sounds, Soft Extremities: Yes: WNL Edema: No Labs: Laboratory Results - last 24 hr 01/26/17 01/28/17 01/28/17 07:45 08:10 14:20 WBC RBC Hgb Hct MCV MCHC RDW Plt Count MPV Neutrophils % Lymphocytes % Monocytes % Eosinophils % Differential Comment Platelet Estimate Retic Count Sodium Potassium Chloride Carbon Dioxide Anion Gap BUN Creatinine Creat Clearance w eGFR POC Glucometer Random Glucose Uric Acid 12.3 H Cancelled Calcium Phosphorus Magnesium Total Bilirubin GGT 790 H AST ALT Alkaline Phosphatase Serum Total Protein 6.2 Total Protein Albumin 1.9 L Globulin 4.3 H Albumin/Globulin Ratio 0.5 L Tboch-8-Utusgekmr 0.4 Ezgdd-9-Rzemwgpem 0.6 Beta Globulins 0.8 Gamma Globulins 2.5 H IgG 2479 H IgA 302 IgM 201 ALFREDO M-Shaun Not observed ALFREDO Comments Serum ALFREDO Interpret Comment: Hep Bs Antigen Hepatitis C Antibody HIV 1&2 Antibody Screen HIV P24 Antigen 01/28/17 01/28/17 01/28/17 14:20 14:20 15:21 WBC 28.5 H RBC 3.02 L Hgb 9.1 L Hct 26.7 L MCV 88.4 MCHC 34.2 RDW 17.2 H Plt Count 251 MPV 8.7 Neutrophils % 76.0 Lymphocytes % 14.0 D Monocytes % 7.0 Eosinophils % 3.0 Differential Comment Manual diff done Platelet Estimate Adequate Retic Count Sodium Potassium Chloride Carbon Dioxide Anion Gap BUN Creatinine Creat Clearance w eGFR POC Glucometer Random Glucose Uric Acid Calcium Phosphorus Magnesium Total Bilirubin GGT Cancelled AST ALT Cancelled Alkaline Phosphatase Serum Total Protein Total Protein Albumin Globulin Albumin/Globulin Ratio Khchv-4-Rfyrhssyb Huwua-5-Iyhlccqfx Beta Globulins Gamma Globulins IgG IgA IgM ALFREDO M-Shaun ALFREDO Comments Serum ALFREDO Interpret Hep Bs Antigen Hepatitis C Antibody HIV 1&2 Antibody Screen HIV P24 Antigen 01/28/17 01/28/17 01/28/17 15:21 15:21 18:26 WBC RBC Hgb Hct MCV MCHC RDW Plt Count MPV Neutrophils % Lymphocytes % Monocytes % Eosinophils % Differential Comment Platelet Estimate Retic Count Sodium Potassium Chloride Carbon Dioxide Anion Gap BUN Creatinine Creat Clearance w eGFR POC Glucometer 122 Random Glucose Uric Acid Calcium Phosphorus Magnesium Total Bilirubin GGT AST ALT Alkaline Phosphatase Serum Total Protein Total Protein Albumin Globulin Albumin/Globulin Ratio Nyfwy-1-Ysicwxknh Zgmvc-5-Dlxhaksmq Beta Globulins Gamma Globulins IgG IgA IgM ALFREDO M-Shaun ALFREDO Comments Serum ALFREDO Interpret Hep Bs Antigen Negative Hepatitis C Antibody >11.0 H HIV 1&2 Antibody Screen Negative HIV P24 Antigen Negative 01/29/17 01/29/17 01/29/17 06:00 06:00 06:00 WBC 26.8 H RBC 3.08 L Hgb 9.2 L Hct 28.1 L MCV 91.1 MCHC 32.9 RDW 17.8 H Plt Count 261 MPV 8.9 Neutrophils % Lymphocytes % Monocytes % Eosinophils % Differential Comment Platelet Estimate Retic Count 4.88 H Sodium 143 Potassium 4.2 Chloride 105 Carbon Dioxide 29 Anion Gap 9 BUN 16 D Creatinine 0.9 Creat Clearance w eGFR > 60 POC Glucometer Random Glucose 97 D Uric Acid 11.2 H Calcium 8.1 L Phosphorus 2.8 D Magnesium 1.5 L Total Bilirubin 1.4 H GGT AST 49 H ALT 22 Alkaline Phosphatase 270 H Serum Total Protein Total Protein 6.8 Albumin 1.8 L Globulin Albumin/Globulin Ratio Ttter-2-Absrrmvec Ggnst-5-Lyevjfwyt Beta Globulins Gamma Globulins IgG IgA IgM ALFREDO M-Shaun ALFREDO Comments Serum ALFREDO Interpret Hep Bs Antigen Hepatitis C Antibody HIV 1&2 Antibody Screen HIV P24 Antigen 01/29/17 06:19 WBC RBC Hgb Hct MCV MCHC RDW Plt Count MPV Neutrophils % Lymphocytes % Monocytes % Eosinophils % Differential Comment Platelet Estimate Retic Count Sodium Potassium Chloride Carbon Dioxide Anion Gap BUN Creatinine Creat Clearance w eGFR POC Glucometer 126 Random Glucose Uric Acid Calcium Phosphorus Magnesium Total Bilirubin GGT AST ALT Alkaline Phosphatase Serum Total Protein Total Protein Albumin Globulin Albumin/Globulin Ratio Joahl-9-Verzffzam Gqtma-0-Usqjtnegn Beta Globulins Gamma Globulins IgG IgA IgM ALFREDO M-Shaun ALFREDO Comments Serum ALFREDO Interpret Hep Bs Antigen Hepatitis C Antibody HIV 1&2 Antibody Screen HIV P24 Antigen Assessment/Plan - Problems (1) Acute renal failure Code(s): N17.9 - ACUTE KIDNEY FAILURE, UNSPECIFIED Qualifiers: Acute renal failure type: unspecified Qualified Code(s): N17.9 - Acute kidney failure, unspecified (2) Altered mental status Code(s): R41.82 - ALTERED MENTAL STATUS, UNSPECIFIED Qualifiers: Altered mental status type: unspecified Qualified Code(s): R41.82 - Altered mental status, unspecified (3) Dehydration Code(s): E86.0 - DEHYDRATION (4) Sepsis Code(s): A41.9 - SEPSIS, UNSPECIFIED ORGANISM Qualifiers: Sepsis type: sepsis due to unspecified organism Qualified Code(s): A41.9 - Sepsis, unspecified organism (5) COPD (chronic obstructive pulmonary disease) Code(s): J44.9 - CHRONIC OBSTRUCTIVE PULMONARY DISEASE, UNSPECIFIED Qualifiers : COPD type: COPD with acute exacerbation Qualified Code(s): J44.1 - Chronic obstructive pulmonary disease with (acute) exacerbation (6) Hypertension Code(s): I10 - ESSENTIAL (PRIMARY) HYPERTENSION (7) Hyponatremia Code(s): E87.1 - HYPO-OSMOLALITY AND HYPONATREMIA (8) Pneumonia Code(s): J18.9 - PNEUMONIA, UNSPECIFIED ORGANISM Qualifiers: Pneumonia type: due to unspecified organism Laterality: left Lung location: lower lobe of lung Qualified Code(s): J18.9 - Pneumonia, unspecified organism (9) Bilateral lower extremity edema Code(s): R60.0 - LOCALIZED EDEMA (10) Severe sepsis Code(s): A41.9 - SEPSIS, UNSPECIFIED ORGANISM R65.20 - SEVERE SEPSIS WITHOUT SEPTIC SHOCK (11) Hypochloremia Code(s): E87.8 - OTH DISORDERS OF ELECTROLYTE AND FLUID BALANCE, NEC Assessment/Plan IVF per nephrology Aspiration precautions O2 as needed BX I&O Dr Mckeon
[2017-01-29 13:50] LABS: MCH 29.4 pg (25.7-33.7); MCHC 32.7 g/dl (32.0-36.0); MEAN PLT VOLUME 8.5 fl (7.5-11.1); PLATELET COUNT 250 K/MM3 (134-434); RDW 17.8 % (11.6-15.6); WHITE BLOOD COUNT 25.5 K/mm3 (4.0-10.0)
[2017-01-29 19:37] LABS: MCH 30.1 pg (25.7-33.7); MCHC 33.6 g/dl (32.0-36.0); MEAN CELL VOLUME 89.6 fl (80-96); MEAN PLT VOLUME 8.7 fl (7.5-11.1); PLATELET COUNT 281 K/MM3 (134-434); RDW 17.6 % (11.6-15.6); WHITE BLOOD COUNT 21.4 K/mm3 (4.0-10.0)
[2017-01-29] MEDS: ATORVASTATIN CA 40 MG TABLET (FP) PO SCH (22:19)
[2017-01-29] MEDS: MONTELUKAST NA 5 MG TAB.CHEW PO SCH (22:20)
[2017-01-29] MEDS: LATANOPROST 0.005% OPHTH SOLN 2.5ML BOTTLE OU SCH (22:21)
[2017-01-30] MEDS: POTASSIUM CHLORIDE 40 MEQ in DEXTROSE 5%-WATER - 1,000 ML IVPB SCH ×3 (05:34→17:56)
[2017-01-30] MEDS: INSULIN SLIDING SCALE (NOVOLOG) 1 VIAL SQ SCH ×2 (06:04→17:56)
[2017-01-30] MEDS: PROPRANOLOL HCL 40 MG TABLET PO SCH ×3 (06:04→21:41)
[2017-01-30] MEDS: ALBUTEROL SO4 2.5/IPRATROPIUM 0.5 INH SOL 3 ML VIAL.NEB. NEB SCH ×3 (06:55→22:33)
--- NOTE | 2017-01-30 07:57 | PN ---
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, Physician - Current Medication List Current Medications: Active Medications Albuterol Sulfate (Ventolin 0.083% Nebulizer Soln -) 1 amp NEB Q4H PRN PRN Reason: SHORT OF BREATH/WHEEZING Albuterol/Ipratropium (Duoneb -) 1 amp NEB TIDR [facility] Last Admin: 01/30/17 06:55 Dose: 1 amp Aspirin (Asa -) 81 mg PO DAILY [facility] Last Admin: 01/29/17 09:09 Dose: 81 mg Atorvastatin Calcium (Lipitor -) 40 mg PO HS [facility] Last Admin: 01/29/17 22:19 Dose: 40 mg Divalproex Sodium (Depakote Sprinkle Caps -) 250 mg PO QID [facility] Last Admin: 01/29/17 22:20 Dose: 250 mg Potassium Chloride 40 meq/ (Dextrose) 1,020 mls @ 100 mls/hr IVPB Q10H [facility] Last Admin: 01/30/17 06:32 Dose: 100 mls/hr Insulin Aspart (Novolog Vial Sliding Scale -) 1 vial SQ BIDI [facility] PRN Reason: Protocol Last Admin: 01/30/17 06:04 Dose: Not Given Lactobacillus Acidophilus (Bacid -) 1 tab PO DAILY [facility] Last Admin: 01/29/17 09:11 Dose: 1 tab Latanoprost (Xalatan 0.005% Eye Drops -) 1 drop OU [facility] Last Admin: 01/29/17 22:21 Dose: 1 drop Montelukast Sodium (Singulair -) 10 mg PO HS [facility] Last Admin: 01/29/17 22:20 Dose: 10 mg Nifedipine (Procardia Xl -) 60 mg PO DAILY [facility] Last Admin: 01/29/17 09:09 Dose: 60 mg Propranolol HCl (Inderal -) 60 mg PO TID [facility] Last Admin: 01/30/17 06:04 Dose: 60 mg Ranitidine HCl (Zantac Oral Solution -) 150 mg PO BID [facility] Last Admin: 01/29/17 22:19 Dose: 150 mg - Objective Vital Signs: Vital Signs Temperature 99.7 F H 01/30/17 06:00 Pulse Rate 110 H 01/30/17 06:00 Respiratory Rate 20 01/30/17 06:00 Blood Pressure 157/91 01/30/17 06:00 O2 Sat by Pulse Oximetry (%) 96 01/29/17 21:00 Constitutional: Yes: Well Nourished, No Distress, Calm Eyes: Yes: WNL, Conjunctiva Clear HENT: Yes: WNL, Atraumatic, Normocephalic Neck: Yes: WNL, Supple, Trachea Midline Cardiovascular: Yes: WNL, Regular Rate and Rhythm Respiratory: Yes: WNL, Regular, CTA Bilaterally Gastrointestinal: Yes: WNL, Normal Bowel Sounds Musculoskeletal: Yes: WNL Extremities: Yes: WNL Edema: No Integumentary: Yes: WNL Neurological: Yes: Alert, Other (lethargic but arousable). No: Oriented ...Motor Strength: WNL Psychiatric: Yes: WNL Labs: CBC, BMP 01/29/17 19:30 01/29/17 06:00 INR, PTT INR 1.31 (0.82-1.09) H 01/19/17 11:41 Impression/Plan Impression/Plan: ASSESSMENT AND PLAN: 56 y/o F w/ PMH of HTN, HLD, COPD, seziures, schizoaffective d/o, CKD, CAD, gout admitted for altered mental status/metabolic encephalopathy altered mental status/metabolic encephalopathy -was initially thought to be due to sepsis given elevated WBC and tachycardia -completed full course of abx and cultures negative -even after treatment of infection, renal failure and hypernatremia mental status is not at baseline as per resident who had patient on previous admission -no laboratory data pointing to any cause of metabolic encephalopathy at this time -CT head negative x2 -held abilify to avoid oversedation -on review of chart pt was hyperthoid in Nov and on this admission one month later is now hypothyroid; follow up endocrine consult Leukocytosis -WBC still elevated above 20 alone with bandemia, rouleux formation, hyperuricemia, and elevated total protein:albumin ration which is concerning for leukemia/lymphoma process -SPEP/UPEP shows elevation in M spike and kappa/lambda chains -awaiting heme/onc consult input Anemia -Hb trended down to 6; transfused 2 units pRBC and Hb increased to 10 now stable at 9 Hypernatremia -started D5 water -repeat sodium trended down -renal consult appreciated CAD -has been tachycardic throughout entire hospital stay -repeat EKG shows sinus tachycardia which may be due to dehydration, anemia, or possible leukemia/lymphoma process -will increased propranolol to 60TID to control heart rate in pt with CAD -started statin -restarted ASA COPD -cont advair -cont singulair -started fletcher Visit type - Emergency Visit Emergency Visit: Yes ED Registration Date: 01/19/17 Care time: The patient presented to the Emergency Department on the above date and was hospitalized for further evaluation of their emergent condition. - New Patient This patient is new to me today: No - Critical Care Critical Care patient: No
[2017-01-30 08:55] LABS: BASOPHIL 0.8 % (0-2.0); EOSINOPHIL 0.9 % (0-4.5); MCH 30.4 pg (25.7-33.7); MCHC 33.9 g/dl (32.0-36.0); MEAN CELL VOLUME 89.6 fl (80-96); MEAN PLT VOLUME 8.8 fl (7.5-11.1); NEUTROPHILS 71.9 % (42.8-82.8); PLATELET COUNT 241 K/MM3 (134-434); RDW 17.8 % (11.6-15.6); WHITE BLOOD COUNT 21.4 K/mm3 (4.0-10.0)
[2017-01-30 09:21] LABS: ALBUMIN 1.6 g/dl (3.4-5.0); ALK PHOS 244 U/L (45-117); ANION GAP 8 (8-16); BILIRUBIN,TOTAL 1.6 mg/dL (0.2-1.0); CALCIUM 7.5 mg/dL (8.5-10.1); CO2 28 mmol/L (21-32); CREATININE 0.8 mg/dL (0.55-1.02); GLUCOSE,RANDOM 119 mg/dL (74-106); SGOT/AST 45 U/L (15-37); SGPT/ALT 19 U/L (12-78); TOT PROT 5.8 g/dl (6.4-8.2)
[2017-01-30] MEDS: NIFEdipine E.R 60 MG TABLET (UD) PO SCH (10:00)
[2017-01-30] MEDS: ASPIRIN 81 MG CHEWABLE TABLETS PO SCH (10:00)
[2017-01-30] MEDS: DIVALPROEX SODIUM 125 MG SPRINKLE CAPS (FP) PO SCH ×4 (10:01→21:41)
[2017-01-30] MEDS: RANITIDINE HCL 150 MG/10 ML UNIT-DOSE CUP PO SCH ×2 (10:01→21:41)
[2017-01-30] MEDS: LACTOBACILLUS ACIDOPHILUS 1 EACH TAB (FP) PO SCH (10:01)
--- NOTE | 2017-01-30 10:16 | PN ---
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 (short form) - Note 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: Remains mildly confused. No CP or SOB. No acute events overnight. Intake & Output 01/27/17 01/28/17 01/29/17 01/30/17 23:59 23:59 23:59 23:59 Intake Total 2210 200 2315 1200 Balance 2210 200 2315 1200 Weight 231 lb 11.2 oz 230 lb 232 lb 12.8 oz Last Vital Signs Temp Pulse Resp BP Pulse Ox 99.7 F H 110 H 20 157/91 96 01/30/17 06:00 01/30/17 06:00 01/30/17 06:00 01/30/17 06:00 01/29/17 21:00 Active Medications Albuterol Sulfate (Ventolin 0.083% Nebulizer Soln -) 1 amp NEB Q4H PRN PRN Reason: SHORT OF BREATH/WHEEZING Albuterol/Ipratropium (Duoneb -) 1 amp NEB TIDR [facility] Last Admin: 01/30/17 06:55 Dose: 1 amp Aspirin (Asa -) 81 mg PO DAILY [facility] Last Admin: 01/30/17 10:00 Dose: 81 mg Atorvastatin Calcium (Lipitor -) 40 mg PO HS [facility] Last Admin: 01/29/17 22:19 Dose: 40 mg Divalproex Sodium (Depakote Sprinkle Caps -) 250 mg PO QID [facility] Last Admin: 01/30/17 10:01 Dose: 250 mg Potassium Chloride 40 meq/ (Dextrose) 1,020 mls @ 100 mls/hr IVPB Q10H [facility] Last Admin: 01/30/17 06:32 Dose: 100 mls/hr Insulin Aspart (Novolog Vial Sliding Scale -) 1 vial SQ BIDI [facility] PRN Reason: Protocol Last Admin: 01/30/17 06:04 Dose: Not Given Lactobacillus Acidophilus (Bacid -) 1 tab PO DAILY [facility] Last Admin: 01/30/17 10:01 Dose: 1 tab Latanoprost (Xalatan 0.005% Eye Drops -) 1 drop OU [facility] Last Admin: 01/29/17 22:21 Dose: 1 drop Montelukast Sodium (Singulair -) 10 mg PO HS [facility] Last Admin: 01/29/17 22:20 Dose: 10 mg Nifedipine (Procardia Xl -) 60 mg PO DAILY [facility] Last Admin: 01/30/17 10:00 Dose: 60 mg Propranolol HCl (Inderal -) 60 mg PO TID [facility] Last Admin: 01/30/17 06:04 Dose: 60 mg Ranitidine HCl (Zantac Oral Solution -) 150 mg PO BID [facility] Last Admin: 01/30/17 10:01 Dose: 150 mg Constitutional: Yes: NAD Eyes: Yes: WNL HENT: Yes: WNL Neck: Yes: WNL Cardiovascular: Yes: Regular Rate and Rhythm, S1, S2 Respiratory: Yes: Diminished at the bases Gastrointestinal: Yes: Normal Bowel Sounds, Soft Extremities: Yes: WNL Edema: No Labs: Laboratory Results - last 24 hr 01/26/17 01/29/17 01/29/17 15:00 13:10 17:28 WBC 25.5 H RBC 3.04 L Hgb 8.9 L Hct 27.4 L MCV 90.0 MCHC 32.7 RDW 17.8 H Plt Count 250 MPV 8.5 Neutrophils % Lymphocytes % Monocytes % Eosinophils % Basophils % Sodium Potassium Chloride Carbon Dioxide Anion Gap BUN Creatinine Creat Clearance w eGFR POC Glucometer 112 Random Glucose Calcium Total Bilirubin AST ALT Alkaline Phosphatase Ammonia Total Protein Albumin Blood Type A POSITIVE Antibody Screen Negative Crossmatch See Detail Spec Expiration Date 01/29/17 01/30/17 01/30/17 19:30 06:03 08:30 WBC 21.4 H 21.4 H RBC 2.89 L 2.62 L Hgb 8.7 L 8.0 L Hct 25.9 L 23.5 L MCV 89.6 89.6 MCHC 33.6 33.9 RDW 17.6 H 17.8 H Plt Count 281 241 MPV 8.7 8.8 Neutrophils % 71.9 Lymphocytes % 13.2 Monocytes % 13.2 H D Eosinophils % 0.9 Basophils % 0.8 D Sodium Potassium Chloride Carbon Dioxide Anion Gap BUN Creatinine Creat Clearance w eGFR POC Glucometer 113 Random Glucose Calcium Total Bilirubin AST ALT Alkaline Phosphatase Ammonia Total Protein Albumin Blood Type Antibody Screen Crossmatch Spec Expiration Date 01/30/17 01/30/17 08:30 08:30 WBC RBC Hgb Hct MCV MCHC RDW Plt Count MPV Neutrophils % Lymphocytes % Monocytes % Eosinophils % Basophils % Sodium 138 Potassium 3.8 Chloride 102 Carbon Dioxide 28 Anion Gap 8 BUN 9 D Creatinine 0.8 Creat Clearance w eGFR > 60 POC Glucometer Random Glucose 119 H D Calcium 7.5 L Total Bilirubin 1.6 H AST 45 H ALT 19 Alkaline Phosphatase 244 H Ammonia 12.86 Total Protein 5.8 L Albumin 1.6 L Blood Type Antibody Screen Crossmatch Spec Expiration Date Assessment/Plan - Problems (1) Acute renal failure Code(s): N17.9 - ACUTE KIDNEY FAILURE, UNSPECIFIED Qualifiers: Acute renal failure type: unspecified Qualified Code(s): N17.9 - Acute kidney failure, unspecified (2) Altered mental status Code(s): R41.82 - ALTERED MENTAL STATUS, UNSPECIFIED Qualifiers: Altered mental status type: unspecified Qualified Code(s): R41.82 - Altered mental status, unspecified (3) Dehydration Code(s): E86.0 - DEHYDRATION (4) Sepsis Code(s): A41.9 - SEPSIS, UNSPECIFIED ORGANISM Qualifiers: Sepsis type: sepsis due to unspecified organism Qualified Code(s): A41.9 - Sepsis, unspecified organism (5) COPD (chronic obstructive pulmonary disease) Code(s): J44.9 - CHRONIC OBSTRUCTIVE PULMONARY DISEASE, UNSPECIFIED Qualifiers : COPD type: COPD with acute exacerbation Qualified Code(s): J44.1 - Chronic obstructive pulmonary disease with (acute) exacerbation (6) Hypertension Code(s): I10 - ESSENTIAL (PRIMARY) HYPERTENSION (7) Hyponatremia Code(s): E87.1 - HYPO-OSMOLALITY AND HYPONATREMIA (8) Pneumonia Code(s): J18.9 - PNEUMONIA, UNSPECIFIED ORGANISM Qualifiers: Pneumonia type: due to unspecified organism Laterality: left Lung location: lower lobe of lung Qualified Code(s): J18.9 - Pneumonia, unspecified organism (9) Bilateral lower extremity edema Code(s): R60.0 - LOCALIZED EDEMA (10) Severe sepsis Code(s): A41.9 - SEPSIS, UNSPECIFIED ORGANISM R65.20 - SEVERE SEPSIS WITHOUT SEPTIC SHOCK (11) Hypochloremia Code(s): E87.8 - OTH DISORDERS OF ELECTROLYTE AND FLUID BALANCE, NEC Assessment/Plan IVF per nephrology Aspiration precautions O2 as needed BX Hematologic workup ongoing Dr Mckeon
--- NOTE | 2017-01-30 12:52 | PN ---
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 (short form) - Note 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: RENAL Pt is awake and alert appears comfortable confused Last Vital Signs Temp Pulse Resp BP Pulse Ox 99.7 F H 110 H 20 157/91 94 L 01/30/17 06:00 01/30/17 06:00 01/30/17 06:00 01/30/17 06:00 01/30/17 09:00 lungs clear cvs s1s2 rr +mray ellen abd soft ext +edema, has two bullae on left foot neuro confused CBC, BMP 01/30/17 08:30 01/30/17 08:30 Current Medications Generic Name Dose Route Start Last Admin Trade Name Freq PRN Reason Stop Dose Admin Albuterol Sulfate 1 amp 01/28/17 15:22 Ventolin 0.083% Nebulizer Soln - NEB Q4H PRN SHORT OF BREATH/WHEEZING Albuterol/Ipratropium 1 amp 01/28/17 22:00 01/30/17 06:55 Duoneb - NEB 1 amp TIDR [facility] Administration Aspirin 81 mg 01/25/17 18:15 01/30/17 10:00 Asa - PO 81 mg DAILY [facility] Administration Atorvastatin Calcium 40 mg 01/25/17 22:00 01/29/17 22:19 Lipitor - PO 40 mg HS [facility] Administration Divalproex Sodium 250 mg 01/25/17 22:30 01/30/17 10:01 Depakote Sprinkle Caps - PO 250 mg QID [facility] Administration Potassium Chloride 40 meq/ 1,020 mls @ 100 mls/hr 01/28/17 13:00 01/30/17 06:32 Dextrose IVPB 100 mls/hr Q10H [facility] Administration Insulin Aspart 1 vial 01/19/17 17:15 01/30/17 06:04 Novolog Vial Sliding Scale - SQ Not Given BIDI [facility] Protocol Lactobacillus Acidophilus 1 tab 01/20/17 10:00 01/30/17 10:01 Bacid - PO 1 tab DAILY [facility] Administration Latanoprost 1 drop 01/19/17 22:00 01/29/17 22:21 Xalatan 0.005% Eye Drops - OU 1 drop HS [facility] Administration Montelukast Sodium 10 mg 01/22/17 22:00 01/29/17 22:20 Singulair - PO 10 mg HS [facility] Administration Nifedipine 60 mg 01/28/17 13:15 01/30/17 10:00 Procardia Xl - PO 60 mg DAILY [facility] Administration Propranolol HCl 60 mg 01/27/17 14:00 01/30/17 06:04 Inderal - PO 60 mg TID [facility] Administration Ranitidine HCl 150 mg 01/19/17 22:00 01/30/17 10:01 Zantac Oral Solution - PO 150 mg BID [facility] Administration Impression 1. DOMINIC resolved 2. CKD 3. hyponatremia resolved 4. altered mental status 5. gout 6. PNA 7. Depression 8. COPD 9. sepsis 10. positive hep C ab 11. HTN 12. leukocytosis 13. malnutrition Plan -continue fluids - will need hep c rna if not already done -anemia with high ferritin probably from liver disease. ?heme eval - uloric or allopurinol given high uric acid MV
[2017-01-30] MEDS ORDERED: PT OWN MED DRAWER 7, Y5N ONE ×3 (13:52→21:00)
[2017-01-30] MEDS: ATORVASTATIN CA 40 MG TABLET (FP) PO SCH (21:41)
[2017-01-30] MEDS: LATANOPROST 0.005% OPHTH SOLN 2.5ML BOTTLE OU SCH (21:42)
[2017-01-30] MEDS: MONTELUKAST NA 5 MG TAB.CHEW PO SCH (21:42)
[2017-01-30] MEDS: ZINC OXIDE/PANTHENOL/VITAMIN E 56 GM TUBE TP SCH (21:42)
--- NOTE | 2017-01-31 02:03 | CONSULT ---
Consult Consult Specialty:: endocrine Referred by:: dr.collier hartmann Reason for Consultation:: hypothyroidism/iddm - History of Present Illness Chief Complaint: lethargic History of Present Illness: 56 year old female with significant past medical history of hypertension, hyperlipidemia, COPD, seizures, schizoaffective disorder, CKD, CAD, and gout who presents to the emergency department with altered mental status since this morning; last known well was last night. The patient was recently admitted to [facility] for pneumonia and septic shock; she was discharged on 12/30/16 to [facility]. Per EMS, the patient was at her baseline last night, which is alert and oriented, however today the staff at her rehab center noted her to have altered behaviour and actions,tremulous,very weak, - Past Medical History [employer] REPORTER: Yes: Other (Chart reports- schizo-affective personality) Cardio/Vascular: Yes: CAD, HTN, Hyperlipdemia Renal/: Yes: Renal Inusuff ...: No Psych: Yes: Depression Musculoskeletal: Yes: Chronic low back pain Rheumatology: Yes: Gout - Alcohol/Substance Use Hx Alcohol Use: Yes History of Substance Use: reports: Cocaine - Smoking History Smoking history: Former smoker Have you smoked in the past 12 months: No If you are a former smoker, when did you quit?: 2001 - Social History Usual Living Arrangement: Alone Home Medications - Allergies Allergies/Adverse Reactions: Allergies Allergy/AdvReac Type Severity Reaction Status Date / Time haloperidol [From Haldol] Allergy Mild itchings, Verified 01/19/17 11:18 stiffness seasonal Allergy Mild itch/rash Uncoded 01/19/17 11:18 - Home Medications Home Medications: Ambulatory Orders Acidoph/L.bulg/Bif.b/S.thermop [Bacid Caplet] 1 each PO BID 01/19/17 Albuterol 0.083% Nebulizer Adry [Ventolin 0.083%] 1 neb NEB QID 01/19/17 Aripiprazole [Abilify] 10 mg PO DAILY 01/19/17 Aspirin [ASA -] 81 mg PO DAILY 01/19/17 Bacitracin 30 gm TP DAILY 01/19/17 Divalproex *ER* [Depakote *ER* -] 500 mg PO BID 01/19/17 Folic Acid 1 mg PO DAILY 01/19/17 Gabapentin 400 mg PO TID 01/19/17 Insulin Glargine,Hum.rec.anlog [Lantus (nf)] 34 units SQ HS 01/19/17 Latanoprost 0.005% Eye Drops [Xalatan 0.005% Eye Drops -] 1 drop OU HS 01/19/17 Loratadine [Alavert] 10 mg PO DAILY 01/19/17 Montelukast Na [Singulair -] 10 mg PO HS 01/19/17 Multivitamin [Poly-Vitamin] 1 each PO DAILY 01/19/17 Oxycodone HCl/Acetaminophen [Percocet 10-325 mg Tablet] 1 each PO BID 01/19/17 Propranolol HCl [Inderal] 20 mg PO DAILY 01/19/17 Ranitidine [Zantac -] 150 mg PO BID 01/19/17 Salmeterol/Fluticasone [Advair 100Mcg/50Mcg -] 1 inh PO BID 01/19/17 Valsartan 320 mg PO DAILY 01/19/17 Venlafaxine HCl ER [Effexor Xr -] 150 mg PO DAILY 01/19/17 Family Disease History - Family Disease History Family Disease History: Diabetes: Father, Heart Disease: Mother Review of Systems Unable to obtain ROS, reason: very weak - Review of Systems Constitutional: reports: Lethargy, Malaise Physical Exam Vital Signs: Vital Signs Temperature 99 F 01/30/17 17:19 Pulse Rate 102 H 01/30/17 21:00 Respiratory Rate 18 01/30/17 21:00 Blood Pressure 146/81 01/30/17 21:00 O2 Sat by Pulse Oximetry (%) 94 L 01/30/17 09:00 Constitutional: Yes: Calm Eyes: Yes: EOM Intact HENT: Yes: Normocephalic Neck: Yes: Trachea Midline Cardiovascular: Yes: Regular Rate and Rhythm Respiratory: Yes: On Nasal O2, SOB, SOB on Exertion, Tachypnea Gastrointestinal: Yes: Normal Bowel Sounds ...Rectal Exam: Yes: Deferred Renal/: Yes: WNL Breast(s): Yes: WNL Musculoskeletal: Yes: Joint Swelling, Muscle Pain, Muscle Weakness Edema: Yes Peripheral Pulses WNL: Yes Neurological: Yes: Alert, Tremors, Weakness Labs: CBC, BMP 01/30/17 08:30 01/30/17 08:30 Problem List - Problems (1) Acute renal failure Code(s): N17.9 - ACUTE KIDNEY FAILURE, UNSPECIFIED Qualifiers: Acute renal failure type: unspecified Qualified Code(s): N17.9 - Acute kidney failure, unspecified (2) Hypothyroidism Code(s): E03.9 - HYPOTHYROIDISM, UNSPECIFIED (3) Type 2 diabetes mellitus with diabetic autonomic (poly)neuropathy Code(s): E11.43 - TYPE 2 DIABETES W DIABETIC AUTONOMIC (POLY)NEUROPATHY Assessment/Plan Current Active Problems Acute renal failure (Acute) Altered mental status (Acute) Anemia (Acute) Anemia, chronic disease (Acute) Dehydration (Acute) Hypochloremia (Acute) Leukocytosis (leucocytosis) (Acute) Sepsis (Acute) Severe sepsis (Acute) Tachycardia (Acute) Past Problems Hepatitis C carrier (Resolved) iddm/ckd hypothyroidism clara Abnormal Lab Results 01/30/17 01/30/17 08:30 08:30 WBC 21.4 H RBC 2.62 L Hgb 8.0 L Hct 23.5 L RDW 17.8 H Monocytes % 13.2 H D Random Glucose 119 H D Calcium 7.5 L Total Bilirubin 1.6 H AST 45 H Alkaline Phosphatase 244 H Total Protein 5.8 L Albumin 1.6 L Abnormal Lab Results Laboratory Tests 01/19/17 01/19/17 01/30/17 20:30 20:30 08:30 Sodium 138 Potassium 3.8 Chloride 102 Carbon Dioxide 28 Anion Gap 8 BUN 9 D Creatinine 0.8 Creat Clearance w eGFR > 60 Random Glucose 119 H D Calcium 7.5 L TSH 4.79 H D Free T4 1.13 plan: ro hepatic encephalopathy check NH3 level bgm bid novolog coverage repeat tsh given recent keshawn ck b12 level
[2017-01-31] MEDS: POTASSIUM CHLORIDE 40 MEQ in DEXTROSE 5%-WATER - 1,000 ML IVPB SCH ×2 (05:02→12:15)
[2017-01-31] MEDS: PROPRANOLOL HCL 40 MG TABLET PO SCH ×3 (06:21→22:26)
[2017-01-31] MEDS: INSULIN SLIDING SCALE (NOVOLOG) 1 VIAL SQ SCH ×2 (06:43→18:09)
[2017-01-31] MEDS: ALBUTEROL SO4 2.5/IPRATROPIUM 0.5 INH SOL 3 ML VIAL.NEB. NEB SCH ×3 (06:43→22:21)
[2017-01-31 08:07] LABS: BASOPHIL 0.5 % (0-2.0); EOSINOPHIL 0.5 % (0-4.5); MCH 29.8 pg (25.7-33.7); MCHC 33.4 g/dl (32.0-36.0); MEAN CELL VOLUME 89.5 fl (80-96); MEAN PLT VOLUME 8.8 fl (7.5-11.1); NEUTROPHILS 66.9 % (42.8-82.8); PLATELET COUNT 309 K/MM3 (134-434); RDW 17.6 % (11.6-15.6); WHITE BLOOD COUNT 20.4 K/mm3 (4.0-10.0)
[2017-01-31 08:24] LABS: ALBUMIN 1.7 g/dl (3.4-5.0); ANION GAP 8 (8-16); BILIRUBIN,TOTAL 1.9 mg/dL (0.2-1.0); CALCIUM 8.1 mg/dL (8.5-10.1); CO2 28 mmol/L (21-32); CREATININE 0.8 mg/dL (0.55-1.02); GLUCOSE,RANDOM 126 mg/dL (74-106); SGOT/AST 54 U/L (15-37); SGPT/ALT 23 U/L (12-78)
[2017-01-31 08:25] LABS: ALK PHOS 282 U/L (45-117); TOT PROT 6.3 g/dl (6.4-8.2)
--- NOTE | 2017-01-31 08:47 | PN ---
<Brodie Alas - Last Filed: 01/31/17 14:48> Physical Exam: SUBJECTIVE: Patient seen and examined at bedside. Mental status improved to compared to previously. Pt can state her full name but responds "yes" to most other questions. Pt was able to tell me she was wet (gown was soaked in abdominal/genital region). OBJECTIVE: Vital Signs Temperature 98.2 F 01/31/17 06:50 Pulse Rate 110 H 01/31/17 06:50 Respiratory Rate 20 01/31/17 06:50 Blood Pressure 164/102 01/31/17 06:50 O2 Sat by Pulse Oximetry (%) 94 L 01/30/17 21:00 GENERAL: The patient is awake, alert, oriented to self only, in NAD HEAD: Normal with no signs of trauma. EYES: extraocular movements intact, sclera anicteric, conjunctiva clear. No ptosis. ENT: Ears normal, nares patent, moist mucous membranes. NECK: Trachea midline LUNGS: Auscultated anteriorly, Breath sounds equal, clear to auscultation bilaterally, no wheezes, no crackles, no accessory muscle use. HEART: Tachycardic, S1, S2 without murmur, rub or gallop. ABDOMEN: Soft, obese, nontender, nondistended, normoactive bowel sounds, no guarding, no rebound, no hepatosplenomegaly, no masses. EXTREMITIES: 2+ pulses, warm, well-perfused, 2+ pitting edema B/L LE. L foot bullae near ankle. L foot bullae near toe. Both are non-tender, fluid filled. NEUROLOGICAL:Slow speech, gait not observed. SKIN: Warm, dry, normal turgor, no rashes or lesions noted Laboratory Results - last 24 hr 01/30/17 01/30/17 01/30/17 08:30 08:30 08:30 WBC 21.4 H RBC 2.62 L Hgb 8.0 L Hct 23.5 L MCV 89.6 MCHC 33.9 RDW 17.8 H Plt Count 241 MPV 8.8 Neutrophils % 71.9 Lymphocytes % 13.2 Monocytes % 13.2 H D Eosinophils % 0.9 Basophils % 0.8 D Sodium 138 Potassium 3.8 Chloride 102 Carbon Dioxide 28 Anion Gap 8 BUN 9 D Creatinine 0.8 Creat Clearance w eGFR > 60 POC Glucometer Random Glucose 119 H D Calcium 7.5 L Total Bilirubin 1.6 H AST 45 H ALT 19 Alkaline Phosphatase 244 H Ammonia 12.86 Total Protein 5.8 L Albumin 1.6 L Vitamin B12 TSH 01/30/17 01/31/17 01/31/17 17:30 06:43 07:45 WBC 20.4 H RBC 3.02 L Hgb 9.0 L D Hct 27.0 L MCV 89.5 MCHC 33.4 RDW 17.6 H Plt Count 309 D MPV 8.8 Neutrophils % 66.9 Lymphocytes % 14.5 Monocytes % 17.6 H Eosinophils % 0.5 Basophils % 0.5 Sodium Potassium Chloride Carbon Dioxide Anion Gap BUN Creatinine Creat Clearance w eGFR POC Glucometer 106 121 Random Glucose Calcium Total Bilirubin AST ALT Alkaline Phosphatase Ammonia Total Protein Albumin Vitamin B12 TSH 01/31/17 01/31/17 07:45 07:45 WBC RBC Hgb Hct MCV MCHC RDW Plt Count MPV Neutrophils % Lymphocytes % Monocytes % Eosinophils % Basophils % Sodium 136 Potassium 4.0 Chloride 100 Carbon Dioxide 28 Anion Gap 8 BUN 5 L D Creatinine 0.8 Creat Clearance w eGFR > 60 POC Glucometer Random Glucose 126 H Calcium 8.1 L Total Bilirubin 1.9 H AST 54 H ALT 23 D Alkaline Phosphatase 282 H Ammonia Total Protein 6.3 L Albumin 1.7 L Vitamin B12 Cancelled TSH Cancelled Active Medications Generic Name Dose Route Start Last Admin Trade Name Freq PRN Reason Stop Dose Admin Albuterol Sulfate 1 amp 01/28/17 15:22 Ventolin 0.083% Nebulizer Soln - NEB Q4H PRN SHORT OF BREATH/WHEEZING Albuterol/Ipratropium 1 amp 01/28/17 22:00 01/31/17 06:43 Duoneb - NEB 1 amp TIDR [facility] Administration Aspirin 81 mg 01/25/17 18:15 01/30/17 10:00 Asa - PO 81 mg DAILY [facility] Administration Atorvastatin Calcium 40 mg 01/25/17 22:00 01/30/17 21:41 Lipitor - PO 40 mg HS [facility] Administration Divalproex Sodium 250 mg 01/25/17 22:30 01/30/17 21:41 Depakote Sprinkle Caps - PO 250 mg QID [facility] Administration Potassium Chloride 40 meq/ 1,020 mls @ 100 mls/hr 01/28/17 13:00 01/31/17 05:02 Dextrose IVPB Not Given Q10H [facility] Insulin Aspart 1 vial 01/19/17 17:15 01/31/17 06:43 Novolog Vial Sliding Scale - SQ Not Given BIDI [facility] Protocol Lactobacillus Acidophilus 1 tab 01/20/17 10:00 01/30/17 10:01 Bacid - PO 1 tab DAILY [facility] Administration Latanoprost 1 drop 01/19/17 22:00 01/30/17 21:42 Xalatan 0.005% Eye Drops - OU 1 drop HS [facility] Administration Montelukast Sodium 10 mg 01/22/17 22:00 01/30/17 21:42 Singulair - PO 10 mg HS [facility] Administration Nifedipine 60 mg 01/28/17 13:15 01/30/17 10:00 Procardia Xl - PO 60 mg DAILY [facility] Administration Propranolol HCl 60 mg 01/27/17 14:00 01/31/17 06:21 Inderal - PO 60 mg TID [facility] Administration Ranitidine HCl 150 mg 01/19/17 22:00 01/30/17 21:41 Zantac Oral Solution - PO 150 mg BID [facility] Administration Zinc Oxide/Panthenol/Vitamin E 1 applic 01/30/17 22:00 01/30/17 21:42 Balmex Cream - TP 1 applic BID [facility] Administration ASSESSMENT/PLAN: 56 y/o F w/ PMH of HTN, HLD, COPD, seziures, schizoaffective d/o, CKD, CAD, gout presented to ER from [facility] for AMS. -Acute metabolic encephalopathy secondary to severe sepsis from PNA vs C. Diff -mental status improved today -WBC: 20.4 (trending down) -May need bone marrow biospy -TSH: 3.6, B12: 1983, A1C: 4.5 -DOMINIC secondary to severe sepsis, dehydration -improved -BUN/Cr: 5/.8 (on last discharge Cr ws 0.7) -D5W + 40 meq KCl @ 30 ml/hr -Nephrology on board (Dr. Marcelino) -Acute Normocytic Anemia -Hgb 9.0, stable -s/p 2 units PRBC -Leukemia vs MM? -Elevated WBC, myelocytes, bands, rouleaux -Heme/Onc consulted (Dr. Mallory) -IgG 2479, IgA 302, IgM 201 -free kappa: 117, free lambda: 119, ratio 0.98 -M-spike 0.3 -May need bone marrow biopsy -Elevated AST, Alk phos -will continue to monitor -GGT (01/28/17) elevated at 790 -Gout -Allopurinol 100 mg po qd, to be increased 100 mg/day (for 1 week), until uric acid <6mg/dL (max dose 800 mg/day) -Seizures -valproic acid level at 52 on 01/26/17 -c/w depakote sprinkles 250 mg qid -Tachycardia -c/w propanolol to 60 mg PO TID -increased procardia to 90 mg qd -may be secondary to possible malignancy? -HTN -uncontrolled -propanolol 60 mg tid -increased procardia to 90 mg qd -Schizoaffective d/o -held effexor xr 150 mg po qd -held abilify 10 mg po qd -COPD -advair 1 puff bid, symbicort, singular -CAD -statin, asa -DM -ISS bid, BGMs bid -FEN -D5W + 40 meq KCl @ 30ml/hr -Dysphagia puree diet -Dispo: -Monitor on floors. Problem List - Problems (1) Acute renal failure Code(s): N17.9 - ACUTE KIDNEY FAILURE, UNSPECIFIED Qualifiers: Acute renal failure type: unspecified Qualified Code(s): N17.9 - Acute kidney failure, unspecified (2) Altered mental status Code(s): R41.82 - ALTERED MENTAL STATUS, UNSPECIFIED Qualifiers: Altered mental status type: unspecified Qualified Code(s): R41.82 - Altered mental status, unspecified (3) Dehydration Code(s): E86.0 - DEHYDRATION (4) Sepsis Code(s): A41.9 - SEPSIS, UNSPECIFIED ORGANISM Qualifiers: Sepsis type: sepsis due to unspecified organism Qualified Code(s): A41.9 - Sepsis, unspecified organism (5) COPD (chronic obstructive pulmonary disease) Code(s): J44.9 - CHRONIC OBSTRUCTIVE PULMONARY DISEASE, UNSPECIFIED Qualifiers : COPD type: COPD with acute exacerbation Qualified Code(s): J44.1 - Chronic obstructive pulmonary disease with (acute) exacerbation (6) Hypertension Code(s): I10 - ESSENTIAL (PRIMARY) HYPERTENSION (7) Hyponatremia Code(s): E87.1 - HYPO-OSMOLALITY AND HYPONATREMIA (8) Pneumonia Code(s): J18.9 - PNEUMONIA, UNSPECIFIED ORGANISM Qualifiers: Pneumonia type: due to unspecified organism Laterality: left Lung location: lower lobe of lung Qualified Code(s): J18.9 - Pneumonia, unspecified organism (9) Bilateral lower extremity edema Code(s): R60.0 - LOCALIZED EDEMA (10) Severe sepsis Code(s): A41.9 - SEPSIS, UNSPECIFIED ORGANISM R65.20 - SEVERE SEPSIS WITHOUT SEPTIC SHOCK (11) Hypochloremia Code(s): E87.8 - OTH DISORDERS OF ELECTROLYTE AND FLUID BALANCE, NEC (12) Tachycardia Code(s): R00.0 - TACHYCARDIA, UNSPECIFIED (13) Anemia Code(s): D64.9 - ANEMIA, UNSPECIFIED Visit type - Emergency Visit Emergency Visit: Yes ED Registration Date: 01/19/17 Care time: The patient presented to the Emergency Department on the above date and was hospitalized for further evaluation of their emergent condition. - New Patient This patient is new to me today: No - Critical Care Critical Care patient: No <John Chamberlain - Last Filed: 01/31/17 16:05> Physical Exam: ATTENDING PHYSICIAN STATEMENT I saw and evaluated the patient. I reviewed the resident's note and discussed the case with the resident. I agree with the resident's findings and plan as documented. SUBJECTIVE: seen and evaluated at the bedside OBJECTIVE: more alert today ASSESSMENT AND PLAN: 56 y/o F w/ PMH of HTN, HLD, COPD, seziures, schizoaffective d/o, CKD, CAD, gout admitted for altered mental status/metabolic encephalopathy altered mental status/metabolic encephalopathy -was initially thought to be due to sepsis given elevated WBC and tachycardia -completed full course of abx and cultures negative -even after treatment of infection, renal failure and hypernatremia mental status is not at baseline as per resident who had patient on previous admission -no laboratory data pointing to any cause of metabolic encephalopathy at this time -CT head negative x2 -held abilify to avoid oversedation -on review of chart pt was hyperthoid in Nov and on this admission one month later is now hypothyroid; follow up endocrine consult Leukocytosis -WBC still elevated above 20 alone with bandemia, rouleux formation, hyperuricemia, and elevated total protein:albumin ration which is concerning for leukemia/lymphoma process -SPEP/UPEP shows elevation in M spike and kappa/lambda chains -awaiting heme/onc consult input Anemia -Hb trended down to 6; transfused 2 units pRBC and Hb increased to 10 now stable at 9 Hypernatremia -started D5 water -repeat sodium trended down -renal consult appreciated CAD -has been tachycardic throughout entire hospital stay -repeat EKG shows sinus tachycardia which may be due to dehydration, anemia, or possible leukemia/lymphoma process -will increased propranolol to 60TID to control heart rate in pt with CAD -started statin -restarted ASA COPD -cont advair -cont singulair -started tudorza
[2017-01-31] MEDS: ASPIRIN 81 MG CHEWABLE TABLETS PO SCH (09:19)
[2017-01-31] MEDS: NIFEdipine E.R 60 MG TABLET (UD) PO SCH (09:19)
[2017-01-31] MEDS: RANITIDINE HCL 150 MG/10 ML UNIT-DOSE CUP PO SCH ×2 (09:19→22:25)
[2017-01-31] MEDS: LACTOBACILLUS ACIDOPHILUS 1 EACH TAB (FP) PO SCH (09:19)
[2017-01-31] MEDS: ZINC OXIDE/PANTHENOL/VITAMIN E 56 GM TUBE TP SCH ×2 (09:20→22:47)
[2017-01-31] MEDS ORDERED: PT OWN MED DRAWER 7, Y5N ONE ×4 (09:24→23:03)
[2017-01-31] MEDS: DIVALPROEX SODIUM 125 MG SPRINKLE CAPS (FP) PO SCH ×4 (09:31→22:25)
--- NOTE | 2017-01-31 12:31 | PN ---
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, Physician History of Present Illness: Pt seen and examined at bedside. She is more interactive today. Her appetite is slightly improved. - Current Medication List Current Medications: Active Medications Albuterol Sulfate (Ventolin 0.083% Nebulizer Soln -) 1 amp NEB Q4H PRN PRN Reason: SHORT OF BREATH/WHEEZING Albuterol/Ipratropium (Duoneb -) 1 amp NEB TIDR [facility] Last Admin: 01/31/17 06:43 Dose: 1 amp Aspirin (Asa -) 81 mg PO DAILY [facility] Last Admin: 01/31/17 09:19 Dose: 81 mg Atorvastatin Calcium (Lipitor -) 40 mg PO HS [facility] Last Admin: 01/30/17 21:41 Dose: 40 mg Divalproex Sodium (Depakote Sprinkle Caps -) 250 mg PO QID [facility] Last Admin: 01/31/17 09:31 Dose: 250 mg Dextrose/Sodium Chloride (D5-1/2ns+40 Meq Kcl -) 1,000 mls @ 30 mls/hr IV ASDIR [facility] Insulin Aspart (Novolog Vial Sliding Scale -) 1 vial SQ BIDI [facility] PRN Reason: Protocol Last Admin: 01/31/17 06:43 Dose: Not Given Lactobacillus Acidophilus (Bacid -) 1 tab PO DAILY [facility] Last Admin: 01/31/17 09:19 Dose: 1 tab Latanoprost (Xalatan 0.005% Eye Drops -) 1 drop OU [facility] Last Admin: 01/30/17 21:42 Dose: 1 drop Montelukast Sodium (Singulair -) 10 mg PO HS [facility] Last Admin: 01/30/17 21:42 Dose: 10 mg Nifedipine (Procardia Xl -) 90 mg PO DAILY [facility] Propranolol HCl (Inderal -) 60 mg PO TID [facility] Last Admin: 01/31/17 06:21 Dose: 60 mg Ranitidine HCl (Zantac Oral Solution -) 150 mg PO BID [facility] Last Admin: 01/31/17 09:19 Dose: 150 mg Zinc Oxide/Panthenol/Vitamin E (Balmex Cream -) 1 applic TP BID [facility] Last Admin: 01/31/17 09:20 Dose: 1 applic - Objective Vital Signs: Vital Signs Temperature 98.2 F 01/31/17 06:50 Pulse Rate 110 H 01/31/17 06:50 Respiratory Rate 20 01/31/17 06:50 Blood Pressure 164/102 01/31/17 06:50 O2 Sat by Pulse Oximetry (%) 94 L 01/30/17 21:00 Constitutional: Yes: Calm Eyes: Yes: Conjunctiva Clear HENT: Yes: Atraumatic Cardiovascular: Yes: S1, S2 Respiratory: Yes: CTA Bilaterally Gastrointestinal: Yes: Soft, Abdomen, Obese Genitourinary: Yes: Incontinence Musculoskeletal: Yes: Muscle Weakness Edema: Yes Edema: LLE: Trace, RLE: Trace Neurological: Yes: Oriented Psychiatric: Yes: Oriented Labs: CBC, BMP 01/31/17 07:45 01/31/17 07:45 INR, PTT INR 1.31 (0.82-1.09) H 01/19/17 11:41 Problem List - Problems (1) Acute renal failure Code(s): N17.9 - ACUTE KIDNEY FAILURE, UNSPECIFIED Qualifiers: Acute renal failure type: unspecified Qualified Code(s): N17.9 - Acute kidney failure, unspecified (2) Altered mental status Code(s): R41.82 - ALTERED MENTAL STATUS, UNSPECIFIED Qualifiers: Altered mental status type: unspecified Qualified Code(s): R41.82 - Altered mental status, unspecified (3) Dehydration Code(s): E86.0 - DEHYDRATION (4) Sepsis Code(s): A41.9 - SEPSIS, UNSPECIFIED ORGANISM Qualifiers: Sepsis type: sepsis due to unspecified organism Qualified Code(s): A41.9 - Sepsis, unspecified organism (5) CKD (chronic kidney disease) Code(s): N18.9 - CHRONIC KIDNEY DISEASE, UNSPECIFIED (6) COPD (chronic obstructive pulmonary disease) Code(s): J44.9 - CHRONIC OBSTRUCTIVE PULMONARY DISEASE, UNSPECIFIED Qualifiers : COPD type: COPD with acute exacerbation Qualified Code(s): J44.1 - Chronic obstructive pulmonary disease with (acute) exacerbation (7) Depressed Code(s): F32.9 - MAJOR DEPRESSIVE DISORDER, SINGLE EPISODE, UNSPECIFIED (8) Bilateral lower extremity edema Code(s): R60.0 - LOCALIZED EDEMA Assessment/Plan Current Medications Generic Name Dose Route Start Last Admin Trade Name Freq PRN Reason Stop Dose Admin Albuterol Sulfate 1 amp 01/28/17 15:22 Ventolin 0.083% Nebulizer Soln - NEB Q4H PRN SHORT OF BREATH/WHEEZING Albuterol/Ipratropium 1 amp 01/28/17 22:00 01/31/17 06:43 Duoneb - NEB 1 amp TIDR [facility] Administration Aspirin 81 mg 01/25/17 18:15 01/31/17 09:19 Asa - PO 81 mg DAILY [facility] Administration Atorvastatin Calcium 40 mg 01/25/17 22:00 01/30/17 21:41 Lipitor - PO 40 mg HS [facility] Administration Divalproex Sodium 250 mg 01/25/17 22:30 01/31/17 09:31 Depakote Sprinkle Caps - PO 250 mg QID [facility] Administration Dextrose/Sodium Chloride 1,000 mls @ 30 mls/hr 01/31/17 12:00 D5-1/2ns+40 Meq Kcl - IV ASDIR [facility] Insulin Aspart 1 vial 01/19/17 17:15 01/31/17 06:43 Novolog Vial Sliding Scale - SQ Not Given BIDI [facility] Protocol Lactobacillus Acidophilus 1 tab 01/20/17 10:00 01/31/17 09:19 Bacid - PO 1 tab DAILY [facility] Administration Latanoprost 1 drop 01/19/17 22:00 01/30/17 21:42 Xalatan 0.005% Eye Drops - OU 1 drop HS [facility] Administration Montelukast Sodium 10 mg 01/22/17 22:00 01/30/17 21:42 Singulair - PO 10 mg HS [facility] Administration Nifedipine 90 mg 02/01/17 10:00 Procardia Xl - PO DAILY [facility] Propranolol HCl 60 mg 01/27/17 14:00 01/31/17 06:21 Inderal - PO 60 mg TID [facility] Administration Ranitidine HCl 150 mg 01/19/17 22:00 01/31/17 09:19 Zantac Oral Solution - PO 150 mg BID [facility] Administration Zinc Oxide/Panthenol/Vitamin E 1 applic 01/30/17 22:00 01/31/17 09:20 Balmex Cream - TP 1 applic BID [facility] Administration Impression 1. DOMINIC 2. CKD 3. hyponatremia 4. altered mental status 5. gout 6. PNA 7. Depression 8. COPD 9. sepsis 10. positive hep C ab 11. HTN 12. leukocytosis Plan - renal function is stable - consider starting treatment for gout at this time - encourage PO intake - cont rehab - monitor hg - replace potassium - avoid nsaids - will not restart diovan at this time - monitor BP - discussed case with medical care evaluation specialist Dr Marcelino
--- NOTE | 2017-01-31 14:15 | PN ---
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 (short form) - Note 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: Remains mildly confused, but mental status is better today. No CP or SOB. No acute events overnight. Intake & Output 01/28/17 01/29/17 01/30/17 01/31/17 23:59 23:59 23:59 23:59 Intake Total 200 2315 2650 1560 Balance 200 2315 2650 1560 Weight 230 lb 232 lb 12.8 oz 223 lb Last Vital Signs Temp Pulse Resp BP Pulse Ox 98.2 F 110 H 20 164/102 94 L 01/31/17 06:50 01/31/17 06:50 01/31/17 06:50 01/31/17 06:50 01/30/17 21:00 Active Medications Albuterol Sulfate (Ventolin 0.083% Nebulizer Soln -) 1 amp NEB Q4H PRN PRN Reason: SHORT OF BREATH/WHEEZING Albuterol/Ipratropium (Duoneb -) 1 amp NEB TIDR [facility] Last Admin: 01/31/17 06:43 Dose: 1 amp Aspirin (Asa -) 81 mg PO DAILY [facility] Last Admin: 01/31/17 09:19 Dose: 81 mg Atorvastatin Calcium (Lipitor -) 40 mg PO HS [facility] Last Admin: 01/30/17 21:41 Dose: 40 mg Divalproex Sodium (Depakote Sprinkle Caps -) 250 mg PO QID [facility] Last Admin: 01/31/17 09:31 Dose: 250 mg Dextrose/Sodium Chloride (D5-1/2ns+40 Meq Kcl -) 1,000 mls @ 30 mls/hr IV ASDIR [facility] Insulin Aspart (Novolog Vial Sliding Scale -) 1 vial SQ BIDI [facility] PRN Reason: Protocol Last Admin: 01/31/17 06:43 Dose: Not Given Lactobacillus Acidophilus (Bacid -) 1 tab PO DAILY [facility] Last Admin: 01/31/17 09:19 Dose: 1 tab Latanoprost (Xalatan 0.005% Eye Drops -) 1 drop OU [facility] Last Admin: 01/30/17 21:42 Dose: 1 drop Montelukast Sodium (Singulair -) 10 mg PO HS [facility] Last Admin: 01/30/17 21:42 Dose: 10 mg Nifedipine (Procardia Xl -) 90 mg PO DAILY [facility] Propranolol HCl (Inderal -) 60 mg PO TID [facility] Last Admin: 01/31/17 06:21 Dose: 60 mg Ranitidine HCl (Zantac Oral Solution -) 150 mg PO BID [facility] Last Admin: 01/31/17 09:19 Dose: 150 mg Zinc Oxide/Panthenol/Vitamin E (Balmex Cream -) 1 applic TP BID [facility] Last Admin: 01/31/17 09:20 Dose: 1 applic Constitutional: Yes: NAD Eyes: Yes: WNL HENT: Yes: WNL Neck: Yes: WNL Cardiovascular: Yes: Regular Rate and Rhythm, S1, S2 Respiratory: Yes: Diminished at the bases Gastrointestinal: Yes: Normal Bowel Sounds, Soft Extremities: Yes: WNL Edema: No Labs: Laboratory Results - last 24 hr 01/28/17 01/30/17 01/31/17 15:21 17:30 06:43 WBC RBC Hgb Hct MCV MCHC RDW Plt Count MPV Neutrophils % Lymphocytes % Monocytes % Eosinophils % Basophils % Sodium Potassium Chloride Carbon Dioxide Anion Gap BUN Creatinine Creat Clearance w eGFR POC Glucometer 106 121 Random Glucose Hemoglobin A1c % Calcium Total Bilirubin AST ALT Alkaline Phosphatase Total Protein Albumin Vitamin B12 TSH Hepatitis C Antibody >11.0 H 01/31/17 01/31/17 01/31/17 07:45 07:45 07:45 WBC 20.4 H RBC 3.02 L Hgb 9.0 L D Hct 27.0 L MCV 89.5 MCHC 33.4 RDW 17.6 H Plt Count 309 D MPV 8.8 Neutrophils % 66.9 Lymphocytes % 14.5 Monocytes % 17.6 H Eosinophils % 0.5 Basophils % 0.5 Sodium 136 Potassium 4.0 Chloride 100 Carbon Dioxide 28 Anion Gap 8 BUN 5 L D Creatinine 0.8 Creat Clearance w eGFR > 60 POC Glucometer Random Glucose 126 H Hemoglobin A1c % Calcium 8.1 L Total Bilirubin 1.9 H AST 54 H ALT 23 D Alkaline Phosphatase 282 H Total Protein 6.3 L Albumin 1.7 L Vitamin B12 1983 H Cancelled TSH 3.60 D Cancelled Hepatitis C Antibody 01/31/17 07:45 WBC RBC Hgb Hct MCV MCHC RDW Plt Count MPV Neutrophils % Lymphocytes % Monocytes % Eosinophils % Basophils % Sodium Potassium Chloride Carbon Dioxide Anion Gap BUN Creatinine Creat Clearance w eGFR POC Glucometer Random Glucose Hemoglobin A1c % 4.5 L Calcium Total Bilirubin AST ALT Alkaline Phosphatase Total Protein Albumin Vitamin B12 TSH Hepatitis C Antibody Assessment/Plan - Problems (1) Acute renal failure Code(s): N17.9 - ACUTE KIDNEY FAILURE, UNSPECIFIED Qualifiers: Acute renal failure type: unspecified Qualified Code(s): N17.9 - Acute kidney failure, unspecified (2) Altered mental status Code(s): R41.82 - ALTERED MENTAL STATUS, UNSPECIFIED Qualifiers: Altered mental status type: unspecified Qualified Code(s): R41.82 - Altered mental status, unspecified (3) Dehydration Code(s): E86.0 - DEHYDRATION (4) Sepsis Code(s): A41.9 - SEPSIS, UNSPECIFIED ORGANISM Qualifiers: Sepsis type: sepsis due to unspecified organism Qualified Code(s): A41.9 - Sepsis, unspecified organism (5) COPD (chronic obstructive pulmonary disease) Code(s): J44.9 - CHRONIC OBSTRUCTIVE PULMONARY DISEASE, UNSPECIFIED Qualifiers : COPD type: COPD with acute exacerbation Qualified Code(s): J44.1 - Chronic obstructive pulmonary disease with (acute) exacerbation (6) Hypertension Code(s): I10 - ESSENTIAL (PRIMARY) HYPERTENSION (7) Hyponatremia Code(s): E87.1 - HYPO-OSMOLALITY AND HYPONATREMIA (8) Pneumonia Code(s): J18.9 - PNEUMONIA, UNSPECIFIED ORGANISM Qualifiers: Pneumonia type: due to unspecified organism Laterality: left Lung location: lower lobe of lung Qualified Code(s): J18.9 - Pneumonia, unspecified organism (9) Bilateral lower extremity edema Code(s): R60.0 - LOCALIZED EDEMA (10) Severe sepsis Code(s): A41.9 - SEPSIS, UNSPECIFIED ORGANISM R65.20 - SEVERE SEPSIS WITHOUT SEPTIC SHOCK (11) Hypochloremia Code(s): E87.8 - OTH DISORDERS OF ELECTROLYTE AND FLUID BALANCE, NEC Assessment/Plan IVF per nephrology Aspiration precautions O2 as needed BX Hematologic workup ongoing Dr Mckeon
[2017-01-31] MEDS: D5-1/2NS+40 MEQ KCL - 1,000 ML IV SCH (14:29)
[2017-01-31] MEDS ORDERED: ALLOPURINOL 100 MG TABLET (FP) PO ONE (16:00)
--- NOTE | 2017-01-31 17:37 | PN ---
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 (short form) - Note 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: PAtient seen and examined follow ing commands, simple mumbling lethargic Last Vital Signs Temp Pulse Resp BP Pulse Ox 98.5 F 107 H 20 116/85 94 L 01/31/17 14:39 01/31/17 14:39 01/31/17 16:43 01/31/17 14:39 01/30/17 21:00 Cor: RSR, No murmurs, No gallops Lungs: Clear to P&A Abd: Soft, Normal bowel sounds, No organomegaly Ext:No significant edema Skin: No rashes, Integument intact Abnormal Lab Results 01/28/17 01/31/17 01/31/17 15:21 07:45 07:45 WBC 20.4 H RBC 3.02 L Hgb 9.0 L D Hct 27.0 L RDW 17.6 H Monocytes % 17.6 H BUN 5 L D Random Glucose 126 H Hemoglobin A1c % Calcium 8.1 L Total Bilirubin 1.9 H AST 54 H Alkaline Phosphatase 282 H Total Protein 6.3 L Albumin 1.7 L Vitamin B12 1983 H Hepatitis C Antibody >11.0 H 01/31/17 07:45 WBC RBC Hgb Hct RDW Monocytes % BUN Random Glucose Hemoglobin A1c % 4.5 L Calcium Total Bilirubin AST Alkaline Phosphatase Total Protein Albumin Vitamin B12 Hepatitis C Antibody Current Medications Albuterol Sulfate (Ventolin 0.083% Nebulizer Soln -) 1 amp NEB Q4H PRN PRN Reason: SHORT OF BREATH/WHEEZING Albuterol/Ipratropium (Duoneb -) 1 amp NEB TIDR [facility] Last Admin: 01/31/17 13:45 Dose: 1 amp Allopurinol (Zyloprim -) 100 mg PO DAILY [facility] Aspirin (Asa -) 81 mg PO DAILY [facility] Last Admin: 01/31/17 09:19 Dose: 81 mg Atorvastatin Calcium (Lipitor -) 40 mg PO HS [facility] Last Admin: 01/30/17 21:41 Dose: 40 mg Divalproex Sodium (Depakote Sprinkle Caps -) 250 mg PO QID [facility] Last Admin: 01/31/17 14:30 Dose: 250 mg Dextrose/Sodium Chloride (D5-1/2ns+40 Meq Kcl -) 1,000 mls @ 30 mls/hr IV ASDIR [facility] Last Admin: 03/06/17 14:29 Dose: 30 mls/hr Insulin Aspart (Novolog Vial Sliding Scale -) 1 vial SQ BIDI [facility] PRN Reason: Protocol Last Admin: 01/31/17 06:43 Dose: Not Given Lactobacillus Acidophilus (Bacid -) 1 tab PO DAILY [facility] Last Admin: 01/31/17 09:19 Dose: 1 tab Latanoprost (Xalatan 0.005% Eye Drops -) 1 drop OU HS [facility] Last Admin: 01/30/17 21:42 Dose: 1 drop Montelukast Sodium (Singulair -) 10 mg PO HS [facility] Last Admin: 01/30/17 21:42 Dose: 10 mg Nifedipine (Procardia Xl -) 90 mg PO DAILY [facility] Propranolol HCl (Inderal -) 60 mg PO TID [facility] Last Admin: 01/31/17 14:32 Dose: 60 mg Ranitidine HCl (Zantac Oral Solution -) 150 mg PO BID [facility] Last Admin: 01/31/17 09:19 Dose: 150 mg Zinc Oxide/Panthenol/Vitamin E (Balmex Cream -) 1 applic TP BID [facility] Last Admin: 01/31/17 09:20 Dose: 1 applic A/P 56 y/o patient presented with septic picture/renal failure /altered mental status Leucocytosis In view of general poor status, would await results of flow/bcr;abl JAK2 is negative seems reactive would have ID f/u for persistent leukocytosis Suspect reactive to uinderlying issues normal WBC 07/21/16 Elevated since 12/24/16 SIFE -- 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 Plyclonal gammopathy.and a previous study showed One spike of 0.3 Elevated light chains but ratio is normal this is not suggestive of plasma cell dyscrasia or myeloma h/o HEp. C ? hepatic encephalopatthy would consider neuro/gi consults
[2017-01-31] MEDS: ATORVASTATIN CA 40 MG TABLET (FP) PO SCH (22:25)
[2017-01-31] MEDS: MONTELUKAST NA 5 MG TAB.CHEW PO SCH (22:29)
[2017-01-31] MEDS: LATANOPROST 0.005% OPHTH SOLN 2.5ML BOTTLE OU SCH (22:29)
[2017-02-01] MEDS: INSULIN SLIDING SCALE (NOVOLOG) 1 VIAL SQ SCH ×2 (06:01→18:25)
[2017-02-01] MEDS: PROPRANOLOL HCL 40 MG TABLET PO SCH (06:16)
[2017-02-01] MEDS: ALBUTEROL SO4 2.5/IPRATROPIUM 0.5 INH SOL 3 ML VIAL.NEB. NEB SCH ×3 (06:50→21:40)
[2017-02-01 08:12] LABS: MCH 30.4 pg (25.7-33.7); MCHC 33.4 g/dl (32.0-36.0); MEAN CELL VOLUME 91.1 fl (80-96); MEAN PLT VOLUME 9.4 fl (7.5-11.1); PLATELET COUNT 321 K/MM3 (134-434); RDW 17.3 % (11.6-15.6); WHITE BLOOD COUNT 17.4 K/mm3 (4.0-10.0)
[2017-02-01 08:25] LABS: ALBUMIN 1.8 g/dl (3.4-5.0); ANION GAP 11 (8-16); BILIRUBIN,TOTAL 1.8 mg/dL (0.2-1.0); CALCIUM 8.3 mg/dL (8.5-10.1); CO2 27 mmol/L (21-32); CREATININE 0.8 mg/dL (0.55-1.02); GLUCOSE,RANDOM 115 mg/dL (74-106); SGOT/AST 49 U/L (15-37); SGPT/ALT 21 U/L (12-78); TOT PROT 6.5 g/dl (6.4-8.2); URIC ACID 7.4 mg/dL (2.6-7.2)
[2017-02-01 08:26] LABS: ALK PHOS 289 U/L (45-117)
[2017-02-01] MEDS ORDERED: ALLOPURINOL 100 MG TABLET (FP) PO SCH (10:00)
[2017-02-01] MEDS ORDERED: PT OWN MED DRAWER 7, Y5N ONE ×4 (10:13→21:07)
--- NOTE | 2017-02-01 10:27 | PN ---
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 (short form) - Note 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: No acute events overnight. No CP or SOB. Mental status improving. Intake & Output 01/29/17 01/30/17 01/31/17 02/01/17 23:59 23:59 23:59 23:59 Intake Total 2315 2650 2880 360 Balance 2315 2650 2880 360 Weight 232 lb 12.8 oz 223 lb Last Vital Signs Temp Pulse Resp BP Pulse Ox 97.8 F 107 H 22 123/82 95 02/01/17 09:14 02/01/17 09:14 02/01/17 09:14 02/01/17 09:14 01/31/17 21:00 Active Medications Albuterol Sulfate (Ventolin 0.083% Nebulizer Soln -) 1 amp NEB Q4H PRN PRN Reason: SHORT OF BREATH/WHEEZING Albuterol/Ipratropium (Duoneb -) 1 amp NEB TIDR [facility] Last Admin: 02/01/17 06:50 Dose: 1 amp Allopurinol (Zyloprim -) 100 mg PO DAILY [facility] Aspirin (Asa -) 81 mg PO DAILY [facility] Last Admin: 01/31/17 09:19 Dose: 81 mg Atorvastatin Calcium (Lipitor -) 40 mg PO HS [facility] Last Admin: 01/31/17 22:25 Dose: 40 mg Divalproex Sodium (Depakote Sprinkle Caps -) 250 mg PO QID [facility] Last Admin: 01/31/17 22:25 Dose: Not Given Dextrose/Sodium Chloride (D5-1/2ns+40 Meq Kcl -) 1,000 mls @ 30 mls/hr IV ASDIR [facility] Last Admin: 01/31/17 14:29 Dose: 30 mls/hr Insulin Aspart (Novolog Vial Sliding Scale -) 1 vial SQ BIDI [facility] PRN Reason: Protocol Last Admin: 02/01/17 06:01 Dose: Not Given Lactobacillus Acidophilus (Bacid -) 1 tab PO DAILY [facility] Last Admin: 01/31/17 09:19 Dose: 1 tab Latanoprost (Xalatan 0.005% Eye Drops -) 1 drop OU HS [facility] Last Admin: 01/31/17 22:29 Dose: 1 drop Montelukast Sodium (Singulair -) 10 mg PO HS [facility] Last Admin: 01/31/17 22:29 Dose: 10 mg Nifedipine (Procardia Xl -) 90 mg PO DAILY [facility] Propranolol HCl (Inderal -) 60 mg PO TID [facility] Last Admin: 02/01/17 06:16 Dose: 60 mg Ranitidine HCl (Zantac Oral Solution -) 150 mg PO BID [facility] Last Admin: 01/31/17 22:25 Dose: 150 mg Zinc Oxide/Panthenol/Vitamin E (Balmex Cream -) 1 applic TP BID [facility] Last Admin: 01/31/17 22:47 Dose: 1 applic Constitutional: Yes: NAD Eyes: Yes: WNL HENT: Yes: WNL Neck: Yes: WNL Cardiovascular: Yes: Regular Rate and Rhythm, S1, S2 Respiratory: Yes: Diminished at the bases Gastrointestinal: Yes: Normal Bowel Sounds, Soft Extremities: Yes: WNL Edema: No Labs: Laboratory Results - last 24 hr 01/28/17 01/31/17 02/01/17 15:21 17:54 06:00 WBC 17.4 H RBC 2.95 L Hgb 9.0 L Hct 26.9 L MCV 91.1 MCHC 33.4 RDW 17.3 H Plt Count 321 MPV 9.4 Neutrophils % Y Lymphocytes % Y Sodium Potassium Chloride Carbon Dioxide Anion Gap BUN Creatinine Creat Clearance w eGFR POC Glucometer 108 Random Glucose Uric Acid Calcium Total Bilirubin AST ALT Alkaline Phosphatase Total Protein Albumin Hepatitis C Antibody >11.0 H 02/01/17 02/01/17 06:00 06:00 WBC RBC Hgb Hct MCV MCHC RDW Plt Count MPV Neutrophils % Lymphocytes % Sodium 138 Potassium 4.3 Chloride 100 Carbon Dioxide 27 Anion Gap 11 BUN 5 L Creatinine 0.8 Creat Clearance w eGFR > 60 POC Glucometer 117 Random Glucose 115 H Uric Acid 7.4 H D Calcium 8.3 L Total Bilirubin 1.8 H AST 49 H ALT 21 Alkaline Phosphatase 289 H Total Protein 6.5 Albumin 1.8 L Hepatitis C Antibody Assessment/Plan - Problems (1) Acute renal failure Code(s): N17.9 - ACUTE KIDNEY FAILURE, UNSPECIFIED Qualifiers: Acute renal failure type: unspecified Qualified Code(s): N17.9 - Acute kidney failure, unspecified (2) Altered mental status Code(s): R41.82 - ALTERED MENTAL STATUS, UNSPECIFIED Qualifiers: Altered mental status type: unspecified Qualified Code(s): R41.82 - Altered mental status, unspecified (3) Dehydration Code(s): E86.0 - DEHYDRATION (4) Sepsis Code(s): A41.9 - SEPSIS, UNSPECIFIED ORGANISM Qualifiers: Sepsis type: sepsis due to unspecified organism Qualified Code(s): A41.9 - Sepsis, unspecified organism (5) COPD (chronic obstructive pulmonary disease) Code(s): J44.9 - CHRONIC OBSTRUCTIVE PULMONARY DISEASE, UNSPECIFIED Qualifiers : COPD type: COPD with acute exacerbation Qualified Code(s): J44.1 - Chronic obstructive pulmonary disease with (acute) exacerbation (6) Hypertension Code(s): I10 - ESSENTIAL (PRIMARY) HYPERTENSION (7) Hyponatremia Code(s): E87.1 - HYPO-OSMOLALITY AND HYPONATREMIA (8) Pneumonia Code(s): J18.9 - PNEUMONIA, UNSPECIFIED ORGANISM Qualifiers: Pneumonia type: due to unspecified organism Laterality: left Lung location: lower lobe of lung Qualified Code(s): J18.9 - Pneumonia, unspecified organism (9) Bilateral lower extremity edema Code(s): R60.0 - LOCALIZED EDEMA (10) Severe sepsis Code(s): A41.9 - SEPSIS, UNSPECIFIED ORGANISM R65.20 - SEVERE SEPSIS WITHOUT SEPTIC SHOCK (11) Hypochloremia Code(s): E87.8 - OTH DISORDERS OF ELECTROLYTE AND FLUID BALANCE, NEC Assessment/Plan Aspiration precautions O2 as needed BX Hematologic workup ongoing Dr Mckeon
[2017-02-01] MEDS: NIFEdipine E.R. 90 MG TABLET (FP) PO SCH (10:41)
[2017-02-01] MEDS: ASPIRIN 81 MG CHEWABLE TABLETS PO SCH (10:41)
[2017-02-01] MEDS: DIVALPROEX SODIUM 125 MG SPRINKLE CAPS (FP) PO SCH ×4 (10:41→21:41)
[2017-02-01] MEDS: LACTOBACILLUS ACIDOPHILUS 1 EACH TAB (FP) PO SCH (10:42)
[2017-02-01] MEDS: RANITIDINE HCL 150 MG/10 ML UNIT-DOSE CUP PO SCH ×2 (10:42→21:41)
[2017-02-01] MEDS: ZINC OXIDE/PANTHENOL/VITAMIN E 56 GM TUBE TP SCH ×2 (10:42→21:42)
--- NOTE | 2017-02-01 13:52 | PN ---
Physical Exam: SUBJECTIVE: Patient seen and examined at bedside. Pt is able to follow some basic commands. Pt responds to and says her own name. Answers "yes" or "no" sometimes but answers are inconsistent. ADALBERTO overnight. Pt is less verbal than yesterday. Pt is not eating and says "no" when asked if she is hungry. OBJECTIVE: Vital Signs Temperature 97.8 F 02/01/17 09:14 Pulse Rate 107 H 02/01/17 09:14 Respiratory Rate 22 02/01/17 09:14 Blood Pressure 123/82 02/01/17 09:14 O2 Sat by Pulse Oximetry (%) 98 02/01/17 09:00 GENERAL: The patient is awake, alert, oriented to self only, in NAD HEAD: Normal with no signs of trauma. EYES: sclera anicteric, conjunctiva clear. No ptosis. ENT: Ears normal, nares patent, moist mucous membranes. NECK: Trachea midline LUNGS: Auscultated anteriorly, Breath sounds equal, clear to auscultation bilaterally, no wheezes, no crackles, no accessory muscle use. HEART: Tachycardic, S1, S2 without murmur, rub or gallop. ABDOMEN: Soft, obese, nontender, nondistended, normoactive bowel sounds, no guarding, no rebound, no hepatosplenomegaly, no masses. EXTREMITIES: 2+ pulses, warm, well-perfused, 2+ pitting edema B/L LE. L foot bullae near ankle. L foot bullae near toe. Both are non-tender, fluid filled. NEUROLOGICAL:Slow speech, gait not observed. SKIN: Warm, dry, normal turgor, no rashes or lesions noted Laboratory Results - last 24 hr 01/31/17 02/01/17 02/01/17 17:54 06:00 06:00 WBC 17.4 H RBC 2.95 L Hgb 9.0 L Hct 26.9 L MCV 91.1 MCHC 33.4 RDW 17.3 H Plt Count 321 MPV 9.4 Neutrophils % 65.0 Lymphocytes % 17.0 Monocytes % 18.0 H Differential Comment Manual diff done Sodium 138 Potassium 4.3 Chloride 100 Carbon Dioxide 27 Anion Gap 11 BUN 5 L Creatinine 0.8 Creat Clearance w eGFR > 60 POC Glucometer 108 Random Glucose 115 H Uric Acid 7.4 H D Calcium 8.3 L Total Bilirubin 1.8 H AST 49 H ALT 21 Alkaline Phosphatase 289 H Total Protein 6.5 Albumin 1.8 L 02/01/17 06:00 WBC RBC Hgb Hct MCV MCHC RDW Plt Count MPV Neutrophils % Lymphocytes % Monocytes % Differential Comment Sodium Potassium Chloride Carbon Dioxide Anion Gap BUN Creatinine Creat Clearance w eGFR POC Glucometer 117 Random Glucose Uric Acid Calcium Total Bilirubin AST ALT Alkaline Phosphatase Total Protein Albumin Microbiology 01/21/17 19:15 Aspirate Gram Stain - Final 01/21/17 19:15 Aspirate Body Fluid Culture - Final NO GROWTH OF AEROBIC ORGANISMS AFTER 48 HOURS INCUBATION 01/21/17 19:15 Aspirate Anaerobic Culture - Final NO ANAEROBES WERE ISOLATED 01/19/17 12:56 Blood - Peripheral Venous Blood Culture - Final NO GROWTH AFTER 5 DAYS INCUBATION 01/19/17 12:56 Blood - Peripheral Venous Blood Culture - Final NO GROWTH AFTER 5 DAYS INCUBATION 01/23/17 06:00 Stool Clostridium difficile Antigen (JOCE) - Final 01/23/17 06:00 Stool Clostridium difficile Toxin Assay - Final 01/19/17 21:20 Urine - Urine Clean Catch Urine Culture - Final NO GROWTH OBTAINED 01/19/17 12:50 Urine - Urine Bajwa Urine Culture - Final Yeast Like Organism 01/19/17 16:27 Urine For Antigen Detection Legionella Antigen - Final 01/19/17 16:27 Urine For Antigen Detection Streptococcus pneumoniae Antigen (M - Final Active Medications Generic Name Dose Route Start Last Admin Trade Name Freq PRN Reason Stop Dose Admin Albuterol Sulfate 1 amp 01/28/17 15:22 Ventolin 0.083% Nebulizer Soln - NEB Q4H PRN SHORT OF BREATH/WHEEZING Albuterol/Ipratropium 1 amp 01/28/17 22:00 02/01/17 06:50 Duoneb - NEB 1 amp TIDR ADELINE Administration Allopurinol 100 mg 02/01/17 10:00 02/01/17 10:42 Zyloprim - PO 100 mg DAILY A[facility]LINE Administration Aspirin 81 mg 01/25/17 18:15 02/01/17 10:41 Asa - PO 81 mg DAILY [facility]LINE Administration Atenolol 50 mg 02/01/17 13:15 Tenormin - PO DAILY A[facility]LINE Atorvastatin Calcium 40 mg 01/25/17 22:00 01/31/17 22:25 Lipitor - PO 40 mg HS ADELINE Administration Divalproex Sodium 250 mg 01/25/17 22:30 02/01/17 10:41 Depakote Sprinkle Caps - PO 250 mg QID A[facility]LINE Administration Dextrose/Sodium Chloride 1,000 mls @ 30 mls/hr 01/31/17 12:00 01/31/17 14:29 D5-1/2ns+40 Meq Kcl - IV 30 mls/hr ASDIR ADELINE Administration Insulin Aspart 1 vial 01/19/17 17:15 02/01/17 06:01 Novolog Vial Sliding Scale - SQ Not Given BIDI A[facility]LINE Protocol Lactobacillus Acidophilus 1 tab 01/20/17 10:00 02/01/17 10:42 Bacid - PO 1 tab DAILY [facility] Administration Latanoprost 1 drop 01/19/17 22:00 01/31/17 22:29 Xalatan 0.005% Eye Drops - OU 1 drop HS [facility]LINE Administration Montelukast Sodium 10 mg 01/22/17 22:00 01/31/17 22:29 Singulair - PO 10 mg HS [facility]LINE Administration Nifedipine 90 mg 02/01/17 10:00 02/01/17 10:41 Procardia Xl - PO 90 mg DAILY [facility]LINE Administration Nystatin 1 applic 02/01/17 14:00 Nystop Powder - TP DAILY [facility] Ranitidine HCl 150 mg 01/19/17 22:00 02/01/17 10:42 Zantac Oral Solution - PO 150 mg BID A[facility]LINE Administration Zinc Oxide/Panthenol/Vitamin E 1 applic 01/30/17 22:00 02/01/17 10:42 Balmex Cream - TP 1 applic BID ADELINE Administration ASSESSMENT/PLAN: 56 y/o F w/ PMH of HTN, HLD, COPD, seziures, schizoaffective d/o, CKD, CAD, gout presented to ER from [facility] for AMS. -Acute metabolic encephalopathy secondary to leukocytosis from infectious etiology most likely at this time. -mental status approximately the same as yesterday -WBC: 17.4 (trending down), monocytic shift -TSH: 3.6, B12: 1983, A1C: 4.5, Ammonia: 12.86 -Acute Normocytic Anemia -Hgb 9.0, stable -s/p 2 units PRBC -Leukocytosis -ID asked to re-evaluate pt -Elevated AST, Alk phos -will continue to monitor -GGT (01/28/17) elevated at 790 -Gout -Allopurinol 200 mg po ordered, to be increased 100 mg/day (for 1 week), until uric acid <6mg/dL (max dose 800 mg/day) -uric acid 7.4, monitor uric acid -kidney function is stable -Seizures -valproic acid level at 52 on 01/26/17 -c/w depakote sprinkles 250 mg qid -Tachycardia -d/c propanolol to 60 mg PO TID -started on atenolol 50 mg po qd, to be given first dose today -increased procardia to 90 mg qd -HTN -uncontrolled -d/c propanolol 60 mg tid -started on atenolol 50 mg po qd -increased procardia to 90 mg qd -Schizoaffective d/o -held effexor xr 150 mg po qd -held abilify 10 mg po qd -COPD -advair 1 puff bid, symbicort, singular -CAD -statin, asa -DM -ISS bid, BGMs bid -FEN -D5W + 40 meq KCl @ 30ml/hr -Dysphagia puree diet, pt not eating -Dispo: -Monitor on floors. Problem List - Problems (1) Acute renal failure Code(s): N17.9 - ACUTE KIDNEY FAILURE, UNSPECIFIED Qualifiers: Acute renal failure type: unspecified Qualified Code(s): N17.9 - Acute kidney failure, unspecified (2) Altered mental status Code(s): R41.82 - ALTERED MENTAL STATUS, UNSPECIFIED Qualifiers: Altered mental status type: unspecified Qualified Code(s): R41.82 - Altered mental status, unspecified (3) Dehydration Code(s): E86.0 - DEHYDRATION (4) Sepsis Code(s): A41.9 - SEPSIS, UNSPECIFIED ORGANISM Qualifiers: Sepsis type: sepsis due to unspecified organism Qualified Code(s): A41.9 - Sepsis, unspecified organism (5) COPD (chronic obstructive pulmonary disease) Code(s): J44.9 - CHRONIC OBSTRUCTIVE PULMONARY DISEASE, UNSPECIFIED Qualifiers : COPD type: COPD with acute exacerbation Qualified Code(s): J44.1 - Chronic obstructive pulmonary disease with (acute) exacerbation (6) Hypertension Code(s): I10 - ESSENTIAL (PRIMARY) HYPERTENSION (7) Hyponatremia Code(s): E87.1 - HYPO-OSMOLALITY AND HYPONATREMIA (8) Pneumonia Code(s): J18.9 - PNEUMONIA, UNSPECIFIED ORGANISM Qualifiers: Pneumonia type: due to unspecified organism Laterality: left Lung location: lower lobe of lung Qualified Code(s): J18.9 - Pneumonia, unspecified organism (9) Bilateral lower extremity edema Code(s): R60.0 - LOCALIZED EDEMA (10) Severe sepsis Code(s): A41.9 - SEPSIS, UNSPECIFIED ORGANISM R65.20 - SEVERE SEPSIS WITHOUT SEPTIC SHOCK (11) Hypochloremia Code(s): E87.8 - OTH DISORDERS OF ELECTROLYTE AND FLUID BALANCE, NEC (12) Tachycardia Code(s): R00.0 - TACHYCARDIA, UNSPECIFIED (13) Anemia Code(s): D64.9 - ANEMIA, UNSPECIFIED Visit type - Emergency Visit Emergency Visit: Yes ED Registration Date: 01/19/17 Care time: The patient presented to the Emergency Department on the above date and was hospitalized for further evaluation of their emergent condition. - New Patient This patient is new to me today: No - Critical Care Critical Care patient: No
[2017-02-01] MEDS: D5-1/2NS+40 MEQ KCL - 1,000 ML IV SCH ×2 (14:01→18:51)
[2017-02-01] MEDS: NYSTATIN POWDER 100,000 UNITS/GM - 15 GM TOPICAL POWDER TP SCH (15:25)
[2017-02-01] MEDS: ATENOLOL 50 MG TABLET (FP) PO SCH (15:25)
--- NOTE | 2017-02-01 15:56 | PN ---
Teaching Attending Note Name of Resident: Brodie Alas ATTENDING PHYSICIAN STATEMENT I saw and evaluated the patient. I reviewed the resident's note and discussed the case with the resident. I agree with the resident's findings and plan as documented. SUBJECTIVE:responds in 1 or 2 word phrases. denies any complaints OBJECTIVE: Last Vital Signs Temp Pulse Resp BP Pulse Ox 98.6 F 99 H 20 97/71 98 02/01/17 14:08 02/01/17 14:08 02/01/17 14:08 02/01/17 14:08 02/01/17 09:00 General NAD A&Ox1 (self) responds to verbal stimuli, follows simple commands Extremities swelling at the 1st metatarsal and medial malleolus areas not tender Neuro moves all 4 extremities on command. ASSESSMENT AND PLAN: 56yo F with PMH HTN, HLD, COPD, seziures, schizoaffective d/o, CKD, CAD, gout presented to the ER and was admitted for further evaluation of their emergent condition 1. Acute metabolic encephalopathy-appears to be waxing/wanning. unsure if pt is being selective on responses. appears to be change according to d/c summary on recent admission. no other causes identified for change in mental status. will consult psych to see if component of bipolar disorder. effexor now being held. on depakote. 2. tachycardia- does not appear to be in pain. propanolol titrated up with no improvement. will d/c and switch to atenolol. 3. Leukocytosis- hematology workup for possible underlying MM or lymphoma which appears to be negative. no other signs of infection. will request ID to confirm no need for abx at this time. was d/c with leukocytosis on 13. 4. Acute gout flare-s/p aspiration by podiatry but not sent for crystals. started on allopurinol. 5. Acute on CKD- resolved 6. DVT ppx- hep sq
--- NOTE | 2017-02-01 17:21 | PN ---
Mental Health Exam - Mental Status Exam Alert and Oriented to: Time, Place, Person Cognitive Function: Grossly Intact Patient Appearance: Disheveled Mood: Nervous, Anxious Affect: Appropriate Patient Behavior: Dependent, Passive Speech Pattern: Unclear, Delayed, Garbled (only got a sentence, out, mostly single words.) Voice Loudness: Severely Soft/Quiet Thought Process: Circumstantial (queestioned re roomate assisted to WC by RN. ) Thought Disorder: Bizarre (Often undressed by self as report by ruthie Garcia. ) Hallucinations: Denies Suicidal Ideation: No Plan (nods on questioning. ) Homicidal Ideation: None
--- NOTE | 2017-02-01 17:27 | PN ---
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, Physician History of Present Illness: Pt seen and examined at bedside. She is more awake and interactive. - Current Medication List Current Medications: Active Medications Albuterol Sulfate (Ventolin 0.083% Nebulizer Soln -) 1 amp NEB Q4H PRN PRN Reason: SHORT OF BREATH/WHEEZING Albuterol/Ipratropium (Duoneb -) 1 amp NEB TIDR [facility] Last Admin: 02/01/17 14:08 Dose: 1 amp Allopurinol (Zyloprim -) 200 mg PO DAILY [facility] Aspirin (Asa -) 81 mg PO DAILY [facility] Last Admin: 02/01/17 10:41 Dose: 81 mg Atenolol (Tenormin -) 50 mg PO DAILY [facility] Last Admin: 02/01/17 15:25 Dose: Not Given Atorvastatin Calcium (Lipitor -) 40 mg PO HS [facility] Last Admin: 01/31/17 22:25 Dose: 40 mg Divalproex Sodium (Depakote Sprinkle Caps -) 250 mg PO QID [facility] Last Admin: 02/01/17 15:24 Dose: 250 mg Dextrose/Sodium Chloride (D5-1/2ns+40 Meq Kcl -) 1,000 mls @ 30 mls/hr IV ASDIR [facility] Last Admin: 02/01/17 14:01 Dose: Not Given Insulin Aspart (Novolog Vial Sliding Scale -) 1 vial SQ BIDI [facility] PRN Reason: Protocol Last Admin: 02/01/17 06:01 Dose: Not Given Lactobacillus Acidophilus (Bacid -) 1 tab PO DAILY [facility] Last Admin: 02/01/17 10:42 Dose: 1 tab Latanoprost (Xalatan 0.005% Eye Drops -) 1 drop OU [facility] Last Admin: 01/31/17 22:29 Dose: 1 drop Montelukast Sodium (Singulair -) 10 mg PO HS [facility] Last Admin: 01/31/17 22:29 Dose: 10 mg Nifedipine (Procardia Xl -) 90 mg PO DAILY [facility] Last Admin: 02/01/17 10:41 Dose: 90 mg Nystatin (Nystop Powder -) 1 applic TP DAILY [facility] Last Admin: 02/01/17 15:25 Dose: 1 applic Ranitidine HCl (Zantac Oral Solution -) 150 mg PO BID [facility] Last Admin: 02/01/17 10:42 Dose: 150 mg Zinc Oxide/Panthenol/Vitamin E (Balmex Cream -) 1 applic TP BID [facility]LINE Last Admin: 02/01/17 10:42 Dose: 1 applic - Objective Vital Signs: Vital Signs Temperature 98.6 F 02/01/17 14:08 Pulse Rate 99 H 02/01/17 14:08 Respiratory Rate 20 02/01/17 14:08 Blood Pressure 97/71 02/01/17 14:08 O2 Sat by Pulse Oximetry (%) 98 02/01/17 09:00 Constitutional: Yes: Calm Eyes: Yes: Conjunctiva Clear HENT: Yes: Atraumatic Neck: Yes: Supple Cardiovascular: Yes: S1, S2 Respiratory: Yes: CTA Bilaterally Gastrointestinal: Yes: Normal Bowel Sounds, Soft, Abdomen, Obese Musculoskeletal: Yes: Joint Swelling Edema: Yes Edema: LLE: Trace, RLE: Trace Neurological: Yes: Oriented Labs: CBC, BMP 02/01/17 06:00 02/01/17 06:00 INR, PTT INR 1.31 (0.82-1.09) H 01/19/17 11:41 Problem List - Problems (1) Acute renal failure Code(s): N17.9 - ACUTE KIDNEY FAILURE, UNSPECIFIED Qualifiers: Acute renal failure type: unspecified Qualified Code(s): N17.9 - Acute kidney failure, unspecified (2) Altered mental status Code(s): R41.82 - ALTERED MENTAL STATUS, UNSPECIFIED Qualifiers: Altered mental status type: unspecified Qualified Code(s): R41.82 - Altered mental status, unspecified (3) Dehydration Code(s): E86.0 - DEHYDRATION (4) Sepsis Code(s): A41.9 - SEPSIS, UNSPECIFIED ORGANISM Qualifiers: Sepsis type: sepsis due to unspecified organism Qualified Code(s): A41.9 - Sepsis, unspecified organism (5) CKD (chronic kidney disease) Code(s): N18.9 - CHRONIC KIDNEY DISEASE, UNSPECIFIED (6) COPD (chronic obstructive pulmonary disease) Code(s): J44.9 - CHRONIC OBSTRUCTIVE PULMONARY DISEASE, UNSPECIFIED Qualifiers : COPD type: COPD with acute exacerbation Qualified Code(s): J44.1 - Chronic obstructive pulmonary disease with (acute) exacerbation (7) Depressed Code(s): F32.9 - MAJOR DEPRESSIVE DISORDER, SINGLE EPISODE, UNSPECIFIED (8) Bilateral lower extremity edema Code(s): R60.0 - LOCALIZED EDEMA Assessment/Plan Current Medications Generic Name Dose Route Start Last Admin Trade Name Freq PRN Reason Stop Dose Admin Albuterol Sulfate 1 amp 01/28/17 15:22 Ventolin 0.083% Nebulizer Soln - NEB Q4H PRN SHORT OF BREATH/WHEEZING Albuterol/Ipratropium 1 amp 01/28/17 22:00 02/01/17 14:08 Duoneb - NEB 1 amp TIDR ADELINE Administration Allopurinol 200 mg 02/02/17 10:00 Zyloprim - PO DAILY ADELINE Aspirin 81 mg 01/25/17 18:15 02/01/17 10:41 Asa - PO 81 mg DAILY ADELINE Administration Atenolol 50 mg 02/01/17 13:15 02/01/17 15:25 Tenormin - PO Not Given DAILY ADELINE Atorvastatin Calcium 40 mg 01/25/17 22:00 01/31/17 22:25 Lipitor - PO 40 mg HS ADELINE Administration Divalproex Sodium 250 mg 01/25/17 22:30 02/01/17 15:24 Depakote Sprinkle Caps - PO 250 mg QID ADELINE Administration Dextrose/Sodium Chloride 1,000 mls @ 30 mls/hr 01/31/17 12:00 02/01/17 14:01 D5-1/2ns+40 Meq Kcl - IV Not Given ASDIR ADELINE Insulin Aspart 1 vial 01/19/17 17:15 02/01/17 06:01 Novolog Vial Sliding Scale - SQ Not Given BIDI ADELINE Protocol Lactobacillus Acidophilus 1 tab 01/20/17 10:00 02/01/17 10:42 Bacid - PO 1 tab DAILY ADELINE Administration Latanoprost 1 drop 01/19/17 22:00 01/31/17 22:29 Xalatan 0.005% Eye Drops - OU 1 drop HS A[facility]LINE Administration Montelukast Sodium 10 mg 01/22/17 22:00 01/31/17 22:29 Singulair - PO 10 mg HS A[facility]LINE Administration Nifedipine 90 mg 02/01/17 10:00 02/01/17 10:41 Procardia Xl - PO 90 mg DAILY ADELINE Administration Nystatin 1 applic 02/01/17 14:00 02/01/17 15:25 Nystop Powder - TP 1 applic DAILY A[facility]LINE Administration Ranitidine HCl 150 mg 01/19/17 22:00 02/01/17 10:42 Zantac Oral Solution - PO 150 mg BID A[facility]LINE Administration Zinc Oxide/Panthenol/Vitamin E 1 applic 01/30/17 22:00 02/01/17 10:42 Balmex Cream - TP 1 applic BID ADELINE Administration Impression 1. DOMINIC 2. CKD 3. hyponatremia 4. altered mental status 5. gout 6. PNA 7. Depression 8. COPD 9. sepsis 10. positive hep C ab 11. HTN 12. leukocytosis Plan - will not restart diovan as her BP is actually low today - repeat labs in am - renal function is stabilizing - replace potassium - avoid nsaids - monitor BP Dr Marcelino
--- NOTE | 2017-02-01 17:31 | PN ---
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, Physician Chief Complaint: Is her current condition a component of her schizoaffective disorder/bipolar? per consult request. History of Present Illness: poor historian unable to get a history from client. resided at [facility], whit a history of taking depakote 250 po qid, abilify 15 and effexor. Meds on hold at present. Likely chronic persistent mental illness. R/o developmental/ cognitive delays. - Current Medication List Current Medications: Active Medications Albuterol Sulfate (Ventolin 0.083% Nebulizer Soln -) 1 amp NEB Q4H PRN PRN Reason: SHORT OF BREATH/WHEEZING Albuterol/Ipratropium (Duoneb -) 1 amp NEB TIDR [facility] Last Admin: 02/01/17 14:08 Dose: 1 amp Allopurinol (Zyloprim -) 200 mg PO DAILY [facility] Aspirin (Asa -) 81 mg PO DAILY [facility] Last Admin: 02/01/17 10:41 Dose: 81 mg Atenolol (Tenormin -) 50 mg PO DAILY [facility] Last Admin: 02/01/17 15:25 Dose: Not Given Atorvastatin Calcium (Lipitor -) 40 mg PO HS [facility] Last Admin: 01/31/17 22:25 Dose: 40 mg Divalproex Sodium (Depakote Sprinkle Caps -) 250 mg PO QID [facility] Last Admin: 02/01/17 15:24 Dose: 250 mg Dextrose/Sodium Chloride (D5-1/2ns+40 Meq Kcl -) 1,000 mls @ 30 mls/hr IV ASDIR [facility] Last Admin: 02/01/17 14:01 Dose: Not Given Insulin Aspart (Novolog Vial Sliding Scale -) 1 vial SQ BIDI [facility] PRN Reason: Protocol Last Admin: 02/01/17 06:01 Dose: Not Given Lactobacillus Acidophilus (Bacid -) 1 tab PO DAILY [facility] Last Admin: 02/01/17 10:42 Dose: 1 tab Latanoprost (Xalatan 0.005% Eye Drops -) 1 drop OU [facility] Last Admin: 01/31/17 22:29 Dose: 1 drop Montelukast Sodium (Singulair -) 10 mg PO HS [facility] Last Admin: 01/31/17 22:29 Dose: 10 mg Nifedipine (Procardia Xl -) 90 mg PO DAILY [facility] Last Admin: 02/01/17 10:41 Dose: 90 mg Nystatin (Nystop Powder -) 1 applic TP DAILY [facility] Last Admin: 02/01/17 15:25 Dose: 1 applic Ranitidine HCl (Zantac Oral Solution -) 150 mg PO BID [facility] Last Admin: 02/01/17 10:42 Dose: 150 mg Zinc Oxide/Panthenol/Vitamin E (Balmex Cream -) 1 applic TP BID [facility] Last Admin: 02/01/17 10:42 Dose: 1 applic - Objective Vital Signs: Vital Signs Temperature 98.6 F 02/01/17 14:08 Pulse Rate 99 H 02/01/17 14:08 Respiratory Rate 20 02/01/17 14:08 Blood Pressure 97/71 02/01/17 14:08 O2 Sat by Pulse Oximetry (%) 98 02/01/17 09:00 Additional Findings/Remarks: speaks in monosyllables, wax and wane in full counscious. Labs: CBC, BMP 02/01/17 06:00 02/01/17 06:00 INR, PTT INR 1.31 (0.82-1.09) H 01/19/17 11:41 Assessment/Plan Valporic acid level was 52.4 on is not toxic, WBC still elevated. Recommend continue to hold psych meds until more stable. Attempt to get full history, if Psyches is available or treating psychiatrist to evaluate change in mental status. Spoke with BRENNAN Garcia on unit. Denies SI, HI, ah or VH at present. Treatment as per medical team, thanks for consult.
--- NOTE | 2017-02-01 18:19 | PN ---
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 (short form) - Note 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: asked to see for elevated WBC chart reviewed more alert still unable to ambulate Vital Signs Period Temp Pulse Resp BP Sys/Chahal Pulse Ox Last 24 Hr 97.3 F-98.6 F 99-112 20-22 97-160/71-96 95-98 cor-rrr lungs decreased bs at bases abd soft,nt ext still with tophi on her feet no erythema CBC, BMP 02/01/17 06:00 02/01/17 06:00 a/p leukocytosis- off prednisone since 01/27 continues to trend down check cdiff check sono gallbladder- abnl lfts noted continue off antibiotics
--- NOTE | 2017-02-01 21:07 | PN ---
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 (short form) - Note 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: Patient seen and examined More alert and somewhat communicative Last Vital Signs Temp Pulse Resp BP Pulse Ox 98.0 F 103 H 20 125/71 98 02/01/17 17:35 02/01/17 17:35 02/01/17 17:35 02/01/17 17:35 02/01/17 09:00 HEENT: MARCOS, EOM Intact Cor: RSR, No murmurs, No gallops Lungs: diminished breath sounds Abd: Soft, Normal bowel sounds, No organomegaly Ext LE edema Skin: Integument intact CBC, BMP 02/01/17 06:00 02/01/17 06:00 Current Medications Generic Name Dose Route Start Last Admin Trade Name Freq PRN Reason Stop Dose Admin Albuterol Sulfate 1 amp 01/28/17 15:22 Ventolin 0.083% Nebulizer Soln - NEB Q4H PRN SHORT OF BREATH/WHEEZING Albuterol/Ipratropium 1 amp 01/28/17 22:00 02/01/17 14:08 Duoneb - NEB 1 amp TIDR [facility] Administration Allopurinol 200 mg 02/02/17 10:00 Zyloprim - PO DAILY [facility]LINE Aspirin 81 mg 01/25/17 18:15 02/01/17 10:41 Asa - PO 81 mg DAILY [facility]LINE Administration Atenolol 50 mg 02/01/17 13:15 02/01/17 15:25 Tenormin - PO Not Given DAILY A[facility] Atorvastatin Calcium 40 mg 01/25/17 22:00 01/31/17 22:25 Lipitor - PO 40 mg HS A[facility]LINE Administration Divalproex Sodium 250 mg 01/25/17 22:30 02/01/17 18:12 Depakote Sprinkle Caps - PO 250 mg QID [facility] Administration Dextrose/Sodium Chloride 1,000 mls @ 30 mls/hr 01/31/17 12:00 02/01/17 18:51 D5-1/2ns+40 Meq Kcl - IV 30 mls/hr ASDIR A[facility]LINE Administration Insulin Aspart 1 vial 01/19/17 17:15 02/01/17 18:25 Novolog Vial Sliding Scale - SQ Not Given BIDI A[facility]LINE Protocol Lactobacillus Acidophilus 1 tab 01/20/17 10:00 02/01/17 10:42 Bacid - PO 1 tab DAILY [facility] Administration Latanoprost 1 drop 01/19/17 22:00 01/31/17 22:29 Xalatan 0.005% Eye Drops - OU 1 drop HS [facility]LINE Administration Montelukast Sodium 10 mg 01/22/17 22:00 01/31/17 22:29 Singulair - PO 10 mg HS [facility]LINE Administration Nifedipine 90 mg 02/01/17 10:00 02/01/17 10:41 Procardia Xl - PO 90 mg DAILY [facility] Administration Nystatin 1 applic 02/01/17 14:00 02/01/17 15:25 Nystop Powder - TP 1 applic DAILY [facility] Administration Ranitidine HCl 150 mg 01/19/17 22:00 02/01/17 10:42 Zantac Oral Solution - PO 150 mg BID [facility] Administration Zinc Oxide/Panthenol/Vitamin E 1 applic 01/30/17 22:00 02/01/17 10:42 Balmex Cream - TP 1 applic BID [facility] Administration Impression: Fluctuating Mental status hepatitis C Leucocytosis Cora-2 and BCR-ABL by PCR negative for underlying hematologic disorder. Free [place]/ Free jeffry light chains both elevated - but ratio is normal. This is against a monoclonal component or dysproteinemia Suspect reactive process as underlying etiology for elevated WBC count. Problem List - Problems (1) Acute renal failure Code(s): N17.9 - ACUTE KIDNEY FAILURE, UNSPECIFIED Qualifiers: Acute renal failure type: unspecified Qualified Code(s): N17.9 - Acute kidney failure, unspecified (2) Altered mental status Code(s): R41.82 - ALTERED MENTAL STATUS, UNSPECIFIED Qualifiers: Altered mental status type: unspecified Qualified Code(s): R41.82 - Altered mental status, unspecified (3) Sepsis Code(s): A41.9 - SEPSIS, UNSPECIFIED ORGANISM Qualifiers: Sepsis type: sepsis due to unspecified organism Qualified Code(s): A41.9 - Sepsis, unspecified organism (4) Leukocytosis (leucocytosis) Code(s): D72.829 - ELEVATED WHITE BLOOD CELL COUNT, UNSPECIFIED (5) Anemia, chronic disease Code(s): D63.8 - ANEMIA IN OTHER CHRONIC DISEASES CLASSIFIED ELSEWHERE
[2017-02-01] MEDS: ATORVASTATIN CA 40 MG TABLET (FP) PO SCH (21:41)
[2017-02-01] MEDS: MONTELUKAST NA 5 MG TAB.CHEW PO SCH (21:41)
[2017-02-01] MEDS: LATANOPROST 0.005% OPHTH SOLN 2.5ML BOTTLE OU SCH (21:42)
[2017-02-02] MEDS: ALBUTEROL SO4 2.5/IPRATROPIUM 0.5 INH SOL 3 ML VIAL.NEB. NEB SCH ×3 (07:00→23:00)
[2017-02-02] MEDS: INSULIN SLIDING SCALE (NOVOLOG) 1 VIAL SQ SCH ×2 (08:30→17:43)
[2017-02-02 08:52] LABS: BASOPHIL 0.6 % (0-2.0); EOSINOPHIL 0.5 % (0-4.5); MCH 30.3 pg (25.7-33.7); MCHC 33.5 g/dl (32.0-36.0); MEAN CELL VOLUME 90.5 fl (80-96); MEAN PLT VOLUME 9.3 fl (7.5-11.1); NEUTROPHILS 51.7 % (42.8-82.8); PLATELET COUNT 278 K/MM3 (134-434); RDW 16.8 % (11.6-15.6); WHITE BLOOD COUNT 11.6 K/mm3 (4.0-10.0)
[2017-02-02 09:41] LABS: ALBUMIN 1.7 g/dl (3.4-5.0); ALK PHOS 279 U/L (45-117); ANION GAP 12 (8-16); BILIRUBIN,TOTAL 1.3 mg/dL (0.2-1.0); CALCIUM 8.1 mg/dL (8.5-10.1); CO2 24 mmol/L (21-32); CREATININE 0.9 mg/dL (0.55-1.02); GLUCOSE,RANDOM 102 mg/dL (74-106); PHOSPHOROUS 3.6 mg/dL (2.5-4.9); SGOT/AST 41 U/L (15-37); SGPT/ALT 20 U/L (12-78); TOT PROT 6.4 g/dl (6.4-8.2); URIC ACID 8.2 mg/dL (2.6-7.2)
[2017-02-02] MEDS ORDERED: ALLOPURINOL 100 MG TABLET (FP) PO SCH (10:00)
[2017-02-02] MEDS ORDERED: PT OWN MED DRAWER 7, Y5N ONE ×4 (10:25→21:51)
[2017-02-02] MEDS: ASPIRIN 81 MG CHEWABLE TABLETS PO SCH (10:34)
[2017-02-02] MEDS: LACTOBACILLUS ACIDOPHILUS 1 EACH TAB (FP) PO SCH (10:34)
[2017-02-02] MEDS: DIVALPROEX SODIUM 125 MG SPRINKLE CAPS (FP) PO SCH ×4 (10:35→22:20)
[2017-02-02] MEDS: RANITIDINE HCL 150 MG/10 ML UNIT-DOSE CUP PO SCH ×2 (10:35→22:20)
[2017-02-02] MEDS: NIFEdipine E.R. 90 MG TABLET (FP) PO SCH (10:35)
[2017-02-02] MEDS: ATENOLOL 50 MG TABLET (FP) PO SCH (10:35)
[2017-02-02] MEDS: ZINC OXIDE/PANTHENOL/VITAMIN E 56 GM TUBE TP SCH ×2 (10:36→22:21)
[2017-02-02] MEDS: NYSTATIN POWDER 100,000 UNITS/GM - 15 GM TOPICAL POWDER TP SCH (10:36)
--- NOTE | 2017-02-02 10:47 | PN ---
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 (short form) - Note 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: alert and conversant still unable to ambulate now with knee pain Vital Signs Period Temp Pulse Resp BP Sys/Chahal Pulse Ox Last 24 Hr 98.0 F-99.1 F 99-119 20-20 97-146/71-90 cor-rrr lungs clear abd soft, nt, no RUQ pain ext swelling of feet unchanged CBC, BMP 02/02/17 06:00 02/02/17 06:00 sono noted a/p leukocytosis- improved! continues to trend down no diarrhea no abdominal pain on exam lfts continue to improve continue off antibiotics consider rheumatology evaluation- maybe helpful in managing gout which would help patient ambulate
--- NOTE | 2017-02-02 11:57 | PN ---
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, Physician History of Present Illness: pulmonary alert,nad,-sob,-congestion - Current Medication List Current Medications: Active Medications Albuterol Sulfate (Ventolin 0.083% Nebulizer Soln -) 1 amp NEB Q4H PRN PRN Reason: SHORT OF BREATH/WHEEZING Albuterol/Ipratropium (Duoneb -) 1 amp NEB TIDR [facility] Last Admin: 02/02/17 07:00 Dose: 1 amp Allopurinol (Zyloprim -) 200 mg PO DAILY [facility] Last Admin: 02/02/17 10:34 Dose: 200 mg Aspirin (Asa -) 81 mg PO DAILY [facility] Last Admin: 02/02/17 10:34 Dose: 81 mg Atenolol (Tenormin -) 50 mg PO DAILY [facility] Last Admin: 02/02/17 10:35 Dose: 50 mg Atorvastatin Calcium (Lipitor -) 40 mg PO HS [facility] Last Admin: 02/01/17 21:41 Dose: 40 mg Divalproex Sodium (Depakote Sprinkle Caps -) 250 mg PO QID [facility] Last Admin: 02/02/17 10:35 Dose: 250 mg Dextrose/Sodium Chloride (D5-1/2ns+40 Meq Kcl -) 1,000 mls @ 30 mls/hr IV ASDIR [facility] Last Admin: 02/01/17 18:51 Dose: 30 mls/hr Insulin Aspart (Novolog Vial Sliding Scale -) 1 vial SQ BIDI [facility] PRN Reason: Protocol Last Admin: 02/02/17 08:30 Dose: Not Given Lactobacillus Acidophilus (Bacid -) 1 tab PO DAILY [facility] Last Admin: 02/02/17 10:34 Dose: 1 tab Latanoprost (Xalatan 0.005% Eye Drops -) 1 drop OU [facility] Last Admin: 02/01/17 21:42 Dose: 1 drop Montelukast Sodium (Singulair -) 10 mg PO HS [facility] Last Admin: 02/01/17 21:41 Dose: 10 mg Nifedipine (Procardia Xl -) 90 mg PO DAILY [facility] Last Admin: 02/02/17 10:35 Dose: 90 mg Nystatin (Nystop Powder -) 1 applic TP DAILY [facility] Last Admin: 02/02/17 10:36 Dose: 1 applic Ranitidine HCl (Zantac Oral Solution -) 150 mg PO BID [facility] Last Admin: 02/02/17 10:35 Dose: 150 mg Zinc Oxide/Panthenol/Vitamin E (Balmex Cream -) 1 applic TP BID [facility] Last Admin: 02/02/17 10:36 Dose: 1 applic - Objective Vital Signs: Vital Signs Temperature 99.1 F 02/02/17 06:00 Pulse Rate 100 H 02/02/17 09:40 Respiratory Rate 20 02/02/17 06:00 Blood Pressure 146/90 02/02/17 06:00 O2 Sat by Pulse Oximetry (%) 97 02/02/17 09:40 Constitutional: Yes: Well Nourished, Calm Eyes: Yes: WNL HENT: Yes: WNL Neck: Yes: WNL Cardiovascular: Yes: Regular Rate and Rhythm, S1, S2 Respiratory: Yes: CTA Bilaterally Gastrointestinal: Yes: WNL Extremities: Yes: WNL Edema: No Labs: CBC, BMP 02/02/17 06:00 02/02/17 06:00 INR, PTT INR 1.31 (0.82-1.09) H 01/19/17 11:41 Assessment/Plan - Problems (1) Acute renal failure Code(s): N17.9 - ACUTE KIDNEY FAILURE, UNSPECIFIED Qualifiers: Acute renal failure type: unspecified Qualified Code(s): N17.9 - Acute kidney failure, unspecified (2) Altered mental status Code(s): R41.82 - ALTERED MENTAL STATUS, UNSPECIFIED Qualifiers: Altered mental status type: unspecified Qualified Code(s): R41.82 - Altered mental status, unspecified (3) Dehydration Code(s): E86.0 - DEHYDRATION (4) Sepsis Code(s): A41.9 - SEPSIS, UNSPECIFIED ORGANISM Qualifiers: Sepsis type: sepsis due to unspecified organism Qualified Code(s): A41.9 - Sepsis, unspecified organism (5) COPD (chronic obstructive pulmonary disease) Code(s): J44.9 - CHRONIC OBSTRUCTIVE PULMONARY DISEASE, UNSPECIFIED Qualifiers : COPD type: COPD with acute exacerbation Qualified Code(s): J44.1 - Chronic obstructive pulmonary disease with (acute) exacerbation (6) Hypertension Code(s): I10 - ESSENTIAL (PRIMARY) HYPERTENSION (7) Hyponatremia Code(s): E87.1 - HYPO-OSMOLALITY AND HYPONATREMIA NORMAL (8) Pneumonia Code(s): J18.9 - PNEUMONIA, UNSPECIFIED ORGANISM Qualifiers: Pneumonia type: due to unspecified organism Laterality: left Lung location: lower lobe of lung Qualified Code(s): J18.9 - Pneumonia, unspecified organism (9) Bilateral lower extremity edema Code(s): R60.0 - LOCALIZED EDEMA (10) Severe sepsis Code(s): A41.9 - SEPSIS, UNSPECIFIED ORGANISM R65.20 - SEVERE SEPSIS WITHOUT SEPTIC SHOCK (11) Hypochloremia Code(s): E87.8 - OTH DISORDERS OF ELECTROLYTE AND FLUID BALANCE, NEC NORMAL Assessment/Plan Aspiration precautions O2 as needed Strict I&O heme w/u in progress DR MUELLER
--- NOTE | 2017-02-02 13:06 | PN ---
Physical Exam: SUBJECTIVE: Patient seen and examined at bedside. Mental status much improved today and pt is AAOX2 (person and place). Pt denied any complaints when asked. Denied any pain in body when asked. She would like to have more solid food. OBJECTIVE: Vital Signs Temperature 99.1 F 02/02/17 06:00 Pulse Rate 100 H 02/02/17 09:40 Respiratory Rate 20 02/02/17 06:00 Blood Pressure 146/90 02/02/17 06:00 O2 Sat by Pulse Oximetry (%) 97 02/02/17 09:40 GENERAL: The patient is awake, alert, oriented to self and place, in NAD HEAD: Normal with no signs of trauma. EYES: sclera anicteric, conjunctiva clear. No ptosis. ENT: Ears normal, nares patent, moist mucous membranes. NECK: Trachea midline LUNGS: Auscultated anteriorly, Breath sounds equal, clear to auscultation bilaterally, no wheezes, no crackles, no accessory muscle use. HEART: Tachycardic, S1, S2 without murmur, rub or gallop. ABDOMEN: Soft, obese, nontender, nondistended, normoactive bowel sounds, no guarding, no rebound, no hepatosplenomegaly, no masses. EXTREMITIES: 2+ pulses, warm, well-perfused, 2+ pitting edema B/L LE. L foot bullae near ankle. L foot bullae near toe. Both are non-tender, fluid filled. Pain with palpation at both knees. NEUROLOGICAL: Normal speech, gait not observed. SKIN: Warm, dry, normal turgor, no rashes or lesions noted Laboratory Results - last 24 hr 01/28/17 02/01/17 02/02/17 15:32 18:22 06:00 WBC 11.6 H D RBC 2.61 L Hgb 7.9 L D Hct 23.6 L MCV 90.5 MCHC 33.5 RDW 16.8 H Plt Count 278 MPV 9.3 Neutrophils % 51.7 D Lymphocytes % 24.1 D Monocytes % 23.1 H Eosinophils % 0.5 Basophils % 0.6 Sodium Potassium Chloride Carbon Dioxide Anion Gap BUN Creatinine Creat Clearance w eGFR POC Glucometer 139 Random Glucose Uric Acid Calcium Phosphorus Magnesium Total Bilirubin AST ALT Alkaline Phosphatase Total Protein Albumin HCV Quantitation Hcv not detected HCV RNA log copies/mL TNP 02/02/17 06:00 WBC RBC Hgb Hct MCV MCHC RDW Plt Count MPV Neutrophils % Lymphocytes % Monocytes % Eosinophils % Basophils % Sodium 141 Potassium 3.8 Chloride 105 Carbon Dioxide 24 Anion Gap 12 BUN 5 L Creatinine 0.9 Creat Clearance w eGFR > 60 POC Glucometer Random Glucose 102 Uric Acid 8.2 H Calcium 8.1 L Phosphorus 3.6 D Magnesium 1.0 L D Total Bilirubin 1.3 H D AST 41 H ALT 20 Alkaline Phosphatase 279 H Total Protein 6.4 Albumin 1.7 L HCV Quantitation HCV RNA log copies/mL Active Medications Generic Name Dose Route Start Last Admin Trade Name Freq PRN Reason Stop Dose Admin Albuterol Sulfate 1 amp 01/28/17 15:22 Ventolin 0.083% Nebulizer Soln - NEB Q4H PRN SHORT OF BREATH/WHEEZING Albuterol/Ipratropium 1 amp 01/28/17 22:00 02/02/17 07:00 Duoneb - NEB 1 amp TIDR [facility] Administration Allopurinol 200 mg 02/02/17 10:00 02/02/17 10:34 Zyloprim - PO 200 mg DAILY [facility] Administration Aspirin 81 mg 01/25/17 18:15 02/02/17 10:34 Asa - PO 81 mg DAILY [facility] Administration Atenolol 50 mg 02/01/17 13:15 02/02/17 10:35 Tenormin - PO 50 mg DAILY [facility] Administration Atorvastatin Calcium 40 mg 01/25/17 22:00 02/01/17 21:41 Lipitor - PO 40 mg HS [facility] Administration Divalproex Sodium 250 mg 01/25/17 22:30 02/02/17 10:35 Depakote Sprinkle Caps - PO 250 mg QID [facility] Administration Dextrose/Sodium Chloride 1,000 mls @ 30 mls/hr 01/31/17 12:00 02/01/17 18:51 D5-1/2ns+40 Meq Kcl - IV 30 mls/hr ASDIR ADELINE Administration Insulin Aspart 1 vial 01/19/17 17:15 02/02/17 08:30 Novolog Vial Sliding Scale - SQ Not Given BIDI [facility] Protocol Lactobacillus Acidophilus 1 tab 01/20/17 10:00 02/02/17 10:34 Bacid - PO 1 tab DAILY [facility] Administration Latanoprost 1 drop 01/19/17 22:00 02/01/17 21:42 Xalatan 0.005% Eye Drops - OU 1 drop HS [facility] Administration Montelukast Sodium 10 mg 01/22/17 22:00 02/01/17 21:41 Singulair - PO 10 mg HS [facility] Administration Nifedipine 90 mg 02/01/17 10:00 02/02/17 10:35 Procardia Xl - PO 90 mg DAILY [facility] Administration Nystatin 1 applic 02/01/17 14:00 02/02/17 10:36 Nystop Powder - TP 1 applic DAILY [facility] Administration Ranitidine HCl 150 mg 01/19/17 22:00 02/02/17 10:35 Zantac Oral Solution - PO 150 mg BID [facility] Administration Zinc Oxide/Panthenol/Vitamin E 1 applic 01/30/17 22:00 02/02/17 10:36 Balmex Cream - TP 1 applic BID [facility] Administration ASSESSMENT/PLAN: 56 y/o F w/ PMH of HTN, HLD, COPD, seziures, schizoaffective d/o, CKD, CAD, gout presented to ER from [facility] for AMS. -Acute metabolic encephalopathy secondary to leukocytosis from infectious etiology most likely at this time. -mental status much improved -WBC: 11.6 -TSH: 3.6, B12: 1983, A1C: 4.5, Ammonia: 12.86 -Acute Normocytic Anemia -Hgb 7.9, repeat CBC Hgb: 8.3, stable -s/p 2 units PRBC this admission -Leukocytosis -improved today, close to wnl -Elevated AST, Alk phos -abd U/S - contracted gallbladder and diffuse fatty infiltration of the liver. -Gout -Allopurinol 300 mg po ordered, to be increased 100 mg/day (for 1 week), until uric acid <6mg/dL (max dose 800 mg/day) -uric acid 8.2, monitor uric acid -kidney function is stable -Knee pain -B/L 3 position knee xr ordered -Seizures -valproic acid level at 52 on 01/26/17 -c/w depakote sprinkles 250 mg qid -Tachycardia -c/w atenolol 50 mg po qd -c/w procardia 90 mg qd -HTN -uncontrolled -c/w atenolol 50 mg po qd -cW procardia 90 mg qd -Schizoaffective d/o -held effexor xr 150 mg po qd -held abilify 10 mg po qd -COPD -advair 1 puff bid, symbicort, singular -CAD -statin, asa -DM -ISS bid, BGMs bid -FEN -D5W + 40 meq KCl @ 30ml/hr -Dysphagia puree diet, pt not eating -Dispo: -For discharge to [facility]. Problem List - Problems (1) Acute renal failure Code(s): N17.9 - ACUTE KIDNEY FAILURE, UNSPECIFIED Qualifiers: Acute renal failure type: unspecified Qualified Code(s): N17.9 - Acute kidney failure, unspecified (2) Altered mental status Code(s): R41.82 - ALTERED MENTAL STATUS, UNSPECIFIED Qualifiers: Altered mental status type: unspecified Qualified Code(s): R41.82 - Altered mental status, unspecified (3) Dehydration Code(s): E86.0 - DEHYDRATION (4) Sepsis Code(s): A41.9 - SEPSIS, UNSPECIFIED ORGANISM Qualifiers: Sepsis type: sepsis due to unspecified organism Qualified Code(s): A41.9 - Sepsis, unspecified organism (5) COPD (chronic obstructive pulmonary disease) Code(s): J44.9 - CHRONIC OBSTRUCTIVE PULMONARY DISEASE, UNSPECIFIED Qualifiers : COPD type: COPD with acute exacerbation Qualified Code(s): J44.1 - Chronic obstructive pulmonary disease with (acute) exacerbation (6) Hypertension Code(s): I10 - ESSENTIAL (PRIMARY) HYPERTENSION (7) Hyponatremia Code(s): E87.1 - HYPO-OSMOLALITY AND HYPONATREMIA (8) Pneumonia Code(s): J18.9 - PNEUMONIA, UNSPECIFIED ORGANISM Qualifiers: Pneumonia type: due to unspecified organism Laterality: left Lung location: lower lobe of lung Qualified Code(s): J18.9 - Pneumonia, unspecified organism (9) Bilateral lower extremity edema Code(s): R60.0 - LOCALIZED EDEMA (10) Severe sepsis Code(s): A41.9 - SEPSIS, UNSPECIFIED ORGANISM R65.20 - SEVERE SEPSIS WITHOUT SEPTIC SHOCK (11) Hypochloremia Code(s): E87.8 - OTH DISORDERS OF ELECTROLYTE AND FLUID BALANCE, NEC (12) Tachycardia Code(s): R00.0 - TACHYCARDIA, UNSPECIFIED (13) Anemia Code(s): D64.9 - ANEMIA, UNSPECIFIED (14) Knee pain Code(s): M25.569 - PAIN IN UNSPECIFIED KNEE Visit type - Emergency Visit Emergency Visit: Yes ED Registration Date: 01/19/17 Care time: The patient presented to the Emergency Department on the above date and was hospitalized for further evaluation of their emergent condition. - New Patient This patient is new to me today: No - Critical Care Critical Care patient: No
[2017-02-02 13:39] LABS: MCH 30.1 pg (25.7-33.7); MCHC 33.4 g/dl (32.0-36.0); MEAN CELL VOLUME 90.1 fl (80-96); MEAN PLT VOLUME 8.6 fl (7.5-11.1); PLATELET COUNT 337 K/MM3 (134-434); RDW 17.1 % (11.6-15.6); WHITE BLOOD COUNT 13.3 K/mm3 (4.0-10.0)
[2017-02-02] MEDS: D5-1/2NS+40 MEQ KCL - 1,000 ML IV SCH (13:43)
--- NOTE | 2017-02-02 14:24 | PN ---
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, [employer] - Note 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: Selected Entries 02/01/17 02/01/17 02/01/17 06:00 09:14 11:29 Breakfast 0 Lunch Supper Temperature 97.3 F L 97.8 F 02/01/17 02/01/17 02/01/17 14:08 17:35 18:00 Breakfast Lunch 25% Supper 0 Temperature 98.6 F 98.0 F 02/02/17 02/02/17 02/02/17 06:00 09:56 10:00 Breakfast 50% Lunch Supper Temperature 99.1 F 98.7 F 02/02/17 14:11 Breakfast Lunch 75% Supper Temperature 98.4 F Laboratory Tests 01/30/17 01/31/17 02/01/17 08:30 07:45 06:00 WBC 21.4 H 20.4 H 17.4 H 02/02/17 06:00 WBC 11.6 H D Pt more alert, verbal, speech production reduced in VOM and precision. Diet was upgraded to soft food and thin liquid. Pt was on a mechanical soft diet with thin liquid at [facility]. Pt seen drinking OJ, with no overt signs of aspiration, although risk is suspected with delayed swallow onset. Pt is edentulous, awaiting dentures. Monitor PO tolerance. Risk of aspiration suspected. MBS if signs of aspiration, cough, throat clearing observed. Educated pt and (?), as well as staff.
[2017-02-02] MEDS ORDERED: MAGNESIUM OXIDE 400 MG TABLET (FP) PO ONE (15:06)
[2017-02-02] MEDS ORDERED: predniSONE 20 MG TABLET (UD) PO ONE (16:22)
[2017-02-02] MEDS ORDERED: MAGNESIUM SULF 50% (8.12 MEQ/2 ML-1 GM VIAL) IVPB ONE (17:29)
--- NOTE | 2017-02-02 17:29 | PN ---
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, Physician History of Present Illness: Pt seen and examined at bedside. She is awake and more alert. She complains of knee pain. - Current Medication List Current Medications: Active Medications Albuterol/Ipratropium (Duoneb -) 1 amp NEB TIDR [facility] Last Admin: 02/02/17 14:45 Dose: 1 amp Allopurinol (Zyloprim -) 300 mg PO DAILY [facility] Aspirin (Asa -) 81 mg PO DAILY [facility] Last Admin: 02/02/17 10:34 Dose: 81 mg Atenolol (Tenormin -) 50 mg PO DAILY [facility] Last Admin: 02/02/17 10:35 Dose: 50 mg Atorvastatin Calcium (Lipitor -) 40 mg PO HS [facility] Last Admin: 02/01/17 21:41 Dose: 40 mg Divalproex Sodium (Depakote Sprinkle Caps -) 250 mg PO QID [facility] Last Admin: 02/02/17 13:44 Dose: 250 mg Dextrose/Sodium Chloride (D5-1/2ns+40 Meq Kcl -) 1,000 mls @ 30 mls/hr IV ASDIR [facility] Last Admin: 02/02/17 13:43 Dose: Not Given Insulin Aspart (Novolog Vial Sliding Scale -) 1 vial SQ BIDI [facility] PRN Reason: Protocol Last Admin: 02/02/17 08:30 Dose: Not Given Lactobacillus Acidophilus (Bacid -) 1 tab PO DAILY [facility] Last Admin: 02/02/17 10:34 Dose: 1 tab Latanoprost (Xalatan 0.005% Eye Drops -) 1 drop OU [facility] Last Admin: 02/01/17 21:42 Dose: 1 drop Montelukast Sodium (Singulair -) 10 mg PO HS [facility] Last Admin: 02/01/17 21:41 Dose: 10 mg Nifedipine (Procardia Xl -) 90 mg PO DAILY [facility] Last Admin: 02/02/17 10:35 Dose: 90 mg Nystatin (Nystop Powder -) 1 applic TP DAILY [facility] Last Admin: 02/02/17 10:36 Dose: 1 applic Ranitidine HCl (Zantac Oral Solution -) 150 mg PO BID [facility] Last Admin: 02/02/17 10:35 Dose: 150 mg Zinc Oxide/Panthenol/Vitamin E (Balmex Cream -) 1 applic TP BID [facility] Last Admin: 02/02/17 10:36 Dose: 1 applic - Objective Vital Signs: Vital Signs Temperature 98.6 F 02/02/17 16:35 Pulse Rate 124 H 02/02/17 16:35 Respiratory Rate 20 02/02/17 16:35 Blood Pressure 154/78 02/02/17 16:35 O2 Sat by Pulse Oximetry (%) 97 02/02/17 09:40 Constitutional: Yes: Calm Eyes: Yes: Conjunctiva Clear HENT: Yes: Atraumatic Neck: Yes: Supple Cardiovascular: Yes: S1, S2 Respiratory: Yes: CTA Bilaterally Gastrointestinal: Yes: Soft, Abdomen, Obese Genitourinary: Yes: WNL Musculoskeletal: Yes: Joint Swelling Edema: Yes Edema: LLE: Trace, RLE: Trace Neurological: Yes: Oriented Psychiatric: Yes: Oriented Labs: CBC, BMP 02/02/17 13:20 02/02/17 06:00 INR, PTT INR 1.31 (0.82-1.09) H 01/19/17 11:41 Problem List - Problems (1) Acute renal failure Code(s): N17.9 - ACUTE KIDNEY FAILURE, UNSPECIFIED Qualifiers: Acute renal failure type: unspecified Qualified Code(s): N17.9 - Acute kidney failure, unspecified (2) Altered mental status Code(s): R41.82 - ALTERED MENTAL STATUS, UNSPECIFIED Qualifiers: Altered mental status type: unspecified Qualified Code(s): R41.82 - Altered mental status, unspecified (3) Dehydration Code(s): E86.0 - DEHYDRATION (4) Sepsis Code(s): A41.9 - SEPSIS, UNSPECIFIED ORGANISM Qualifiers: Sepsis type: sepsis due to unspecified organism Qualified Code(s): A41.9 - Sepsis, unspecified organism (5) CKD (chronic kidney disease) Code(s): N18.9 - CHRONIC KIDNEY DISEASE, UNSPECIFIED (6) COPD (chronic obstructive pulmonary disease) Code(s): J44.9 - CHRONIC OBSTRUCTIVE PULMONARY DISEASE, UNSPECIFIED Qualifiers : COPD type: COPD with acute exacerbation Qualified Code(s): J44.1 - Chronic obstructive pulmonary disease with (acute) exacerbation (7) Depressed Code(s): F32.9 - MAJOR DEPRESSIVE DISORDER, SINGLE EPISODE, UNSPECIFIED (8) Bilateral lower extremity edema Code(s): R60.0 - LOCALIZED EDEMA Assessment/Plan Current Medications Generic Name Dose Route Start Last Admin Trade Name Gil PRN Reason Stop Dose Admin Albuterol/Ipratropium 1 amp 01/28/17 22:00 02/02/17 14:45 Duoneb - NEB 1 amp TIDR [facility] Administration Allopurinol 300 mg 02/03/17 10:00 Zyloprim - PO DAILY [facility] Aspirin 81 mg 01/25/17 18:15 02/02/17 10:34 Asa - PO 81 mg DAILY [facility] Administration Atenolol 50 mg 02/01/17 13:15 02/02/17 10:35 Tenormin - PO 50 mg DAILY [facility] Administration Atorvastatin Calcium 40 mg 01/25/17 22:00 02/01/17 21:41 Lipitor - PO 40 mg HS [facility] Administration Divalproex Sodium 250 mg 01/25/17 22:30 02/02/17 13:44 Depakote Sprinkle Caps - PO 250 mg QID [facility] Administration Dextrose/Sodium Chloride 1,000 mls @ 30 mls/hr 01/31/17 12:00 02/02/17 13:43 D5-1/2ns+40 Meq Kcl - IV Not Given ASDIR [facility] Insulin Aspart 1 vial 01/19/17 17:15 02/02/17 08:30 Novolog Vial Sliding Scale - SQ Not Given BIDI [facility] Protocol Lactobacillus Acidophilus 1 tab 01/20/17 10:00 02/02/17 10:34 Bacid - PO 1 tab DAILY [facility] Administration Latanoprost 1 drop 01/19/17 22:00 02/01/17 21:42 Xalatan 0.005% Eye Drops - OU 1 drop HS [facility] Administration Montelukast Sodium 10 mg 01/22/17 22:00 02/01/17 21:41 Singulair - PO 10 mg HS [facility] Administration Nifedipine 90 mg 02/01/17 10:00 02/02/17 10:35 Procardia Xl - PO 90 mg DAILY [facility] Administration Nystatin 1 applic 02/01/17 14:00 02/02/17 10:36 Nystop Powder - TP 1 applic DAILY [facility] Administration Ranitidine HCl 150 mg 01/19/17 22:00 02/02/17 10:35 Zantac Oral Solution - PO 150 mg BID [facility] Administration Zinc Oxide/Panthenol/Vitamin E 1 applic 01/30/17 22:00 02/02/17 10:36 Balmex Cream - TP 1 applic BID [facility] Administration Impression 1. DOMINIC 2. CKD 3. hyponatremia 4. altered mental status 5. gout 6. PNA 7. Depression 8. COPD 9. sepsis 10. positive hep C ab 11. HTN 12. leukocytosis Plan - will restart diovan at lower dose - repeat labs in am - monitor bp - renal function is stabilizing - replace magnesium - avoid nsaids - monitor BP Dr Marcelino
[2017-02-02] MEDS ORDERED: INSULIN (NOVOLOG) ASPART 100 UNITS/ML 10ML VIAL ONE (17:41)
--- NOTE | 2017-02-02 18:22 | PN ---
Teaching Attending Note Name of Resident: Brodie Alas ATTENDING PHYSICIAN STATEMENT I saw and evaluated the patient. I reviewed the resident's note and discussed the case with the resident. I agree with the resident's findings and plan as documented. SUBJECTIVE:alert. c/o B/L knee pain. denies CP, SOB, fever, chills, N/V/C/D OBJECTIVE: Last Vital Signs Temp Pulse Resp BP Pulse Ox 98.6 F 124 H 20 154/78 97 02/02/17 16:35 02/02/17 16:35 02/02/17 16:35 02/02/17 16:35 02/02/17 09:40 General NAD, A&Ox2 (self and place) Extremities no tenderness or joint swelling appreciated over each knee. mild pain on passive movement. pt does not participate in active ROM. swelling at the 1st metatarsal and medial malleolus areas not tender Neuro moves all 4 extremities on command. ASSESSMENT AND PLAN: 56yo F with PMH HTN, HLD, COPD, seziures, schizoaffective d/o, CKD, CAD, gout presented to the ER and was admitted for further evaluation of their emergent condition 1. Acute metabolic encephalopathy-resolved. today pt is the most alert and responsive that i have seen over this hospitalization. brother present at bedside states this is her baseline currently. will cont to hold psych medications but explained to both patient and brother that she sees her therapist as soon as discharged to see if medications should be re-started. psych here said to hold at the present time. will see if she can be re- evaluated at appears mental status has improved. on depakote. d/c ivf 2. tachycardia- does not appear to be in pain. will titrate atenolol to optimize BP. repeat EKG 3. Leukocytosis- hematology workup for possible underlying MM or lymphoma which appears to be negative. has mild loose stool. will send for cdiff. u/s done shows no acute cholecytitis. 4. B/L knee pain- possible gout flare as uric acid level trended up slightly. restarted on allopurinol. will avoid nsaids with recent DOMINIC. give short steroid taper. check XR. 5. Acute on CKD- resolved 6. DVT ppx- hep sq 7. will need [facility] on discharge. both patient and brother agreeable to [facility] at this time. [facility] sent out to multiple facilities. awaiting response
[2017-02-02] MEDS: ATORVASTATIN CA 40 MG TABLET (FP) PO SCH (22:20)
[2017-02-02] MEDS: LATANOPROST 0.005% OPHTH SOLN 2.5ML BOTTLE OU SCH (22:21)
[2017-02-02] MEDS: MONTELUKAST NA 5 MG TAB.CHEW PO SCH (22:21)
[2017-02-03] MEDS: INSULIN SLIDING SCALE (NOVOLOG) 1 VIAL SQ SCH (06:31)
[2017-02-03] MEDS ORDERED: PT OWN MED DRAWER 7, Y5N ONE ×4 (06:52→13:11)
[2017-02-03 07:51] LABS: MCH 30.4 pg (25.7-33.7); MCHC 33.4 g/dl (32.0-36.0); MEAN CELL VOLUME 91.2 fl (80-96); MEAN PLT VOLUME 9.4 fl (7.5-11.1); PLATELET COUNT 354 K/MM3 (134-434); RDW 16.3 % (11.6-15.6); WHITE BLOOD COUNT 10.5 K/mm3 (4.0-10.0)
[2017-02-03 08:26] LABS: ALBUMIN 2.1 g/dl (3.4-5.0); CALCIUM 8.9 mg/dL (8.5-10.1); MAGNESIUM 1.8 mg/dL (1.8-2.4); PHOSPHOROUS 3.2 mg/dL (2.5-4.9)
[2017-02-03 08:28] LABS: BILIRUBIN,TOTAL 1.2 mg/dL (0.2-1.0); TOT PROT 7.9 g/dl (6.4-8.2)
--- NOTE | 2017-02-03 08:48 | PN ---
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 (short form) - Note 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: No acute events overnight. No CP or SOB. Intake & Output 01/31/17 02/01/17 02/02/17 02/03/17 23:59 23:59 23:59 23:59 Intake Total 2880 1430 1180 Balance 2880 1430 1180 Weight 223 lb Last Vital Signs Temp Pulse Resp BP Pulse Ox 97.6 F 115 H 20 132/80 97 02/03/17 06:00 02/03/17 06:00 02/03/17 06:00 02/03/17 06:00 02/02/17 20:56 Active Medications Allopurinol (Zyloprim -) 300 mg PO DAILY [facility] Aspirin (Asa -) 81 mg PO DAILY [facility] Last Admin: 02/02/17 10:34 Dose: 81 mg Atenolol (Tenormin -) 50 mg PO DAILY [facility] Last Admin: 02/02/17 10:35 Dose: 50 mg Atorvastatin Calcium (Lipitor -) 40 mg PO HS [facility] Last Admin: 02/02/17 22:20 Dose: 40 mg Divalproex Sodium (Depakote Sprinkle Caps -) 250 mg PO QID [facility] Last Admin: 02/02/17 22:20 Dose: 250 mg Insulin Aspart (Novolog Vial Sliding Scale -) 1 vial SQ BIDI [facility] PRN Reason: Protocol Last Admin: 02/03/17 06:31 Dose: Not Given Lactobacillus Acidophilus (Bacid -) 1 tab PO DAILY [facility] Last Admin: 02/02/17 10:34 Dose: 1 tab Latanoprost (Xalatan 0.005% Eye Drops -) 1 drop OU HS [facility] Last Admin: 02/02/17 22:21 Dose: 1 drop Montelukast Sodium (Singulair -) 10 mg PO HS [facility] Last Admin: 02/02/17 22:21 Dose: 10 mg Nifedipine (Procardia Xl -) 90 mg PO DAILY [facility] Last Admin: 02/02/17 10:35 Dose: 90 mg Nystatin (Nystop Powder -) 1 applic TP DAILY [facility] Last Admin: 02/02/17 10:36 Dose: 1 applic Ranitidine HCl (Zantac Oral Solution -) 150 mg PO BID [facility] Last Admin: 02/02/17 22:20 Dose: 150 mg Valsartan (Diovan -) 40 mg PO DAILY [facility] Zinc Oxide/Panthenol/Vitamin E (Balmex Cream -) 1 applic TP BID [facility] Last Admin: 02/02/17 22:21 Dose: 1 applic Constitutional: Yes: NAD Eyes: Yes: WNL HENT: Yes: WNL Neck: Yes: WNL Cardiovascular: Yes: Regular Rate and Rhythm, S1, S2 Respiratory: Yes: Diminished at the bases Gastrointestinal: Yes: Normal Bowel Sounds, Soft Extremities: Yes: WNL Edema: No Labs: Laboratory Results - last 24 hr 02/02/17 02/02/17 02/02/17 06:00 06:00 13:20 WBC 11.6 H D 13.3 H RBC 2.61 L 2.77 L Hgb 7.9 L D 8.3 L Hct 23.6 L 24.9 L MCV 90.5 90.1 MCHC 33.5 33.4 RDW 16.8 H 17.1 H Plt Count 278 337 D MPV 9.3 8.6 Neutrophils % 51.7 D Lymphocytes % 24.1 D Monocytes % 23.1 H Eosinophils % 0.5 Basophils % 0.6 Sodium 141 Potassium 3.8 Chloride 105 Carbon Dioxide 24 Anion Gap 12 BUN 5 L Creatinine 0.9 Creat Clearance w eGFR > 60 Random Glucose 102 Uric Acid 8.2 H Calcium 8.1 L Phosphorus 3.6 D Magnesium 1.0 L D Total Bilirubin 1.3 H D AST 41 H ALT 20 Alkaline Phosphatase 279 H Total Protein 6.4 Albumin 1.7 L 02/03/17 02/03/17 06:00 06:00 WBC 10.5 H RBC 3.04 L Hgb 9.2 L D Hct 27.7 L MCV 91.2 MCHC 33.4 RDW 16.3 H Plt Count 354 MPV 9.4 Neutrophils % Lymphocytes % Monocytes % Eosinophils % Basophils % Sodium 139 Potassium 4.8 D Chloride 101 Carbon Dioxide 25 Anion Gap 13 BUN 6 L Creatinine 1.0 Creat Clearance w eGFR 57.15 Random Glucose 138 H D Uric Acid Calcium 8.9 Phosphorus 3.2 Magnesium 1.8 D Total Bilirubin 1.2 H AST 41 H ALT 23 Alkaline Phosphatase 329 H Total Protein 7.9 D Albumin 2.1 L D Assessment/Plan - Problems (1) Acute renal failure Code(s): N17.9 - ACUTE KIDNEY FAILURE, UNSPECIFIED Qualifiers: Acute renal failure type: unspecified Qualified Code(s): N17.9 - Acute kidney failure, unspecified (2) Altered mental status Code(s): R41.82 - ALTERED MENTAL STATUS, UNSPECIFIED Qualifiers: Altered mental status type: unspecified Qualified Code(s): R41.82 - Altered mental status, unspecified (3) Dehydration Code(s): E86.0 - DEHYDRATION (4) Sepsis Code(s): A41.9 - SEPSIS, UNSPECIFIED ORGANISM Qualifiers: Sepsis type: sepsis due to unspecified organism Qualified Code(s): A41.9 - Sepsis, unspecified organism (5) COPD (chronic obstructive pulmonary disease) Code(s): J44.9 - CHRONIC OBSTRUCTIVE PULMONARY DISEASE, UNSPECIFIED Qualifiers : COPD type: COPD with acute exacerbation Qualified Code(s): J44.1 - Chronic obstructive pulmonary disease with (acute) exacerbation (6) Hypertension Code(s): I10 - ESSENTIAL (PRIMARY) HYPERTENSION (7) Hyponatremia Code(s): E87.1 - HYPO-OSMOLALITY AND HYPONATREMIA (8) Pneumonia Code(s): J18.9 - PNEUMONIA, UNSPECIFIED ORGANISM Qualifiers: Pneumonia type: due to unspecified organism Laterality: left Lung location: lower lobe of lung Qualified Code(s): J18.9 - Pneumonia, unspecified organism (9) Bilateral lower extremity edema Code(s): R60.0 - LOCALIZED EDEMA (10) Severe sepsis Code(s): A41.9 - SEPSIS, UNSPECIFIED ORGANISM R65.20 - SEVERE SEPSIS WITHOUT SEPTIC SHOCK (11) Hypochloremia Code(s): E87.8 - OTH DISORDERS OF ELECTROLYTE AND FLUID BALANCE, NEC Assessment/Plan Aspiration precautions O2 as needed Ha D/C planning Dr Mckeon
--- NOTE | 2017-02-03 09:57 | CON.ORTH ---
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 (Chart reports- schizo-affective personality) Cardio/Vascular: Yes: CAD, HTN, Hyperlipdemia Renal/: Yes: Renal Inusuff ...: No Psych: Yes: Depression Musculoskeletal: Yes: Chronic low back pain Rheumatology: Yes: Gout - Alcohol/Substance Use Hx Alcohol Use: Yes History of Substance Use: reports: Cocaine - Smoking History Smoking history: Former smoker Have you smoked in the past 12 months: No If you are a former smoker, when did you quit?: 2001 - Social History Usual Living Arrangement: Alone Home Medications - Allergies Allergies/Adverse Reactions: Allergies Allergy/AdvReac Type Severity Reaction Status Date / Time haloperidol [From Haldol] Allergy Mild itchings, Verified 01/19/17 11:18 stiffness seasonal Allergy Mild itch/rash Uncoded 01/19/17 11:18 - Home Medications Home Medications: Ambulatory Orders Acidoph/L.bulg/Bif.b/S.thermop [Bacid Caplet] 1 each PO BID 01/19/17 Albuterol 0.083% Nebulizer Adry [Ventolin 0.083%] 1 neb NEB QID 01/19/17 Aripiprazole [Abilify] 10 mg PO DAILY 01/19/17 Aspirin [ASA -] 81 mg PO DAILY 01/19/17 Bacitracin 30 gm TP DAILY 01/19/17 Divalproex *ER* [Depakote *ER* -] 500 mg PO BID 01/19/17 Folic Acid 1 mg PO DAILY 01/19/17 Gabapentin 400 mg PO TID 01/19/17 Insulin Glargine,Hum.rec.anlog [Lantus (nf)] 34 units SQ HS 01/19/17 Latanoprost 0.005% Eye Drops [Xalatan 0.005% Eye Drops -] 1 drop OU HS 01/19/17 Loratadine [Alavert] 10 mg PO DAILY 01/19/17 Montelukast Na [Singulair -] 10 mg PO HS 01/19/17 Multivitamin [Poly-Vitamin] 1 each PO DAILY 01/19/17 Oxycodone HCl/Acetaminophen [Percocet 10-325 mg Tablet] 1 each PO BID 01/19/17 Propranolol HCl [Inderal] 20 mg PO DAILY 01/19/17 Ranitidine [Zantac -] 150 mg PO BID 01/19/17 Salmeterol/Fluticasone [Advair 100Mcg/50Mcg -] 1 inh PO BID 01/19/17 Valsartan 320 mg PO DAILY 01/19/17 Venlafaxine HCl ER [Effexor Xr -] 150 mg PO DAILY 01/19/17 Family Disease History - Family Disease History Family Disease History: Diabetes: Father, Heart Disease: Mother Physical Exam for Ortho Vital Signs: Vital Signs Temperature 97.6 F 02/03/17 06:00 Pulse Rate 115 H 02/03/17 06:00 Respiratory Rate 20 02/03/17 06:00 Blood Pressure 132/80 02/03/17 06:00 O2 Sat by Pulse Oximetry (%) 97 02/02/17 20:56 Labs: CBC, BMP 02/03/17 06:00 02/03/17 06:00 INR, PTT INR 1.31 (0.82-1.09) H 01/19/17 11:41 - Lower Extremity Knee: Yes: Left, Right, Pain, Swelling, Tenderness, Other (right knee- diffuse tenderness, rom 0-90, calf, nt, nvi) Imaging - Results X-ray: Report Reviewed, Image Reviewed Assessment/Plan 56yo F with PMH HTN, HLD, COPD, seziures, schizoaffective d/o, CKD, CAD, gout presented to the ER and was admitted for sepsis and altered mental status. No w with c/o bilateral knee pain r>l. a/p Bilateral knee DJD with gout Allopurinol and prednisone started NO injection at present time given pts status PT if able oob to chair if able dvt ppx pain control will follow d/w Dr. Gabriel
[2017-02-03] MEDS ORDERED: VALSARTAN 40 MG TABLET (FP) PO SCH (10:00)
[2017-02-03] MEDS ORDERED: ALLOPURINOL 300 MG TABLET (FP) PO SCH (10:00)
[2017-02-03 10:16] VITALS: BP 136/74; PULSE 120; TEMP 98.4
[2017-02-03] MEDS: ASPIRIN 81 MG CHEWABLE TABLETS PO SCH (10:17)
[2017-02-03] MEDS: LACTOBACILLUS ACIDOPHILUS 1 EACH TAB (FP) PO SCH (10:17)
[2017-02-03] MEDS: ZINC OXIDE/PANTHENOL/VITAMIN E 56 GM TUBE TP SCH (10:17)
[2017-02-03] MEDS: DIVALPROEX SODIUM 125 MG SPRINKLE CAPS (FP) PO SCH ×2 (10:18→13:13)
[2017-02-03] MEDS: NYSTATIN POWDER 100,000 UNITS/GM - 15 GM TOPICAL POWDER TP SCH (10:18)
[2017-02-03] MEDS: RANITIDINE HCL 150 MG/10 ML UNIT-DOSE CUP PO SCH (10:19)
[2017-02-03] MEDS: NIFEdipine E.R. 90 MG TABLET (FP) PO SCH (10:19)
[2017-02-03] MEDS: ATENOLOL 50 MG TABLET (FP) PO SCH (10:19)
--- NOTE | 2017-02-03 10:26 | EKG ---
Test Reason : Blood Pressure : / mmHG Vent. Rate : 123 BPM Atrial Rate : 123 BPM P-R Int : 132 ms QRS Dur : 078 ms QT Int : 332 ms P-R-T Axes : 044 -09 162 degrees QTc Int : 475 ms SINUS TACHYCARDIA MINIMAL VOLTAGE CRITERIA FOR LVH, MAY BE NORMAL VARIANT NONSPECIFIC T WAVE ABNORMALITY ABNORMAL ECG WHEN COMPARED WITH ECG OF 26-JAN-2017 14:15, PREMATURE ATRIAL COMPLEXES ARE NO LONGER PRESENT Confirmed by ROXANNA KANG, KAMRAN ([id number]) on 02/03/2017 10:25:51 AM Referred By: RHETT THOMAS Confirmed By:KAMRAN MCKNIGHT MD
--- NOTE | 2017-02-03 11:46 | DS ---
Physical Exam: SUBJECTIVE: Patient seen and examined at bedside. Alert and awake. Pt denied any complaints to me this AM. OBJECTIVE: Vital Signs Temperature 98.4 F 02/03/17 10:00 Pulse Rate 120 H 02/03/17 10:00 Respiratory Rate 20 02/03/17 10:00 Blood Pressure 136/74 02/03/17 10:00 O2 Sat by Pulse Oximetry (%) 96 02/03/17 09:00 PHYSICAL EXAM GENERAL: The patient is awake, alert, oriented to self and place, in NAD HEAD: Normal with no signs of trauma. EYES: sclera anicteric, conjunctiva clear. No ptosis. ENT: Ears normal, nares patent, moist mucous membranes. NECK: Trachea midline LUNGS: Auscultated anteriorly, Breath sounds equal, clear to auscultation bilaterally, no wheezes, no crackles, no accessory muscle use. HEART: Tachycardic, S1, S2 without murmur, rub or gallop. ABDOMEN: Soft, obese, nontender, nondistended, normoactive bowel sounds, no guarding, no rebound, no hepatosplenomegaly, no masses. EXTREMITIES: 2+ pulses, warm, well-perfused, 2+ pitting edema B/L LE. L foot bullae near ankle. L foot bullae near toe. Both are non-tender, fluid filled. Pain with palpation at both knees. NEUROLOGICAL: Normal speech, gait not observed. SKIN: Warm, dry, normal turgor, no rashes or lesions noted LABS Laboratory Results - last 24 hr 02/02/17 02/02/17 02/03/17 13:20 17:38 06:00 WBC 13.3 H 10.5 H RBC 2.77 L 3.04 L Hgb 8.3 L 9.2 L D Hct 24.9 L 27.7 L MCV 90.1 91.2 MCHC 33.4 33.4 RDW 17.1 H 16.3 H Plt Count 337 D 354 MPV 8.6 9.4 Sodium Potassium Chloride Carbon Dioxide Anion Gap BUN Creatinine Creat Clearance w eGFR POC Glucometer 170 Random Glucose Calcium Phosphorus Magnesium Total Bilirubin AST ALT Alkaline Phosphatase Total Protein Albumin 02/03/17 02/03/17 06:00 06:30 WBC RBC Hgb Hct MCV MCHC RDW Plt Count MPV Sodium 139 Potassium 4.8 D Chloride 101 Carbon Dioxide 25 Anion Gap 13 BUN 6 L Creatinine 1.0 Creat Clearance w eGFR 57.15 POC Glucometer 147 Random Glucose 138 H D Calcium 8.9 Phosphorus 3.2 Magnesium 1.8 D Total Bilirubin 1.2 H AST 41 H ALT 23 Alkaline Phosphatase 329 H Total Protein 7.9 D Albumin 2.1 L D HOSPITAL COURSE: Date of Admission:01/19/17 Date of Discharge: 02/03/17 56 y/o F w/ PMH of HTN, HLD, COPD, seziures, schizoaffective d/o, CKD, CAD, gout presented to ER from [facility] for AMS. Pt was last known to be in usual state night before coming to ER. Pt was recently discharged from [facility] for pna and septic shock on 12/30/16 to [facility] for rehab. Pt was opening eyes to her name being called and was able to tell me her name. Pt was also able to stick out her tongue when asked but otherwise was unable to follow other commands. Pt present with acute metabolic encephalopathy secondary to pna vs uremic encephalopathy. CXR demonstrated a possible L retrocardiac pna and initial labs showed Cr of 8.9 (baseline is 0.7) . CT chest/abd showed bibasal consolidation/pna. Pt was treated with vanco, zosyn, and flagyl to cover for pna and c. diff as she had c. diff Ag positive on previous admission. Head CT x2 was negative for acute pathology. Renal ultrasound showed no kidney abnormalities. Pt's mental status improved and declined throughout admission until eventually white count subsided (stay persistently over 20-25 for most of admission), uremia resolved, and abilify and effexor were held at which point pt returned to baseline mental status. As pt's mental status returned to normal, she seemed to selectively answer questions or only responded to certain people, for example, pt was more responsive to family members than to me or other staff. For her persistent elevated WBC heme work up was done, MM w/u was negative and JAK2 and BCR-ABL were also negative. White count subsided eventually on its own despite being off abx for some time. Seems like WBC was reactive to an underlying infectious etiology possibly. Pt's blood pressure and heart rate continued to stay uncontrolled/tachy despite increasing procardia to max, increasing propranolol. Pt was then switched from propranolol to atenolol with some response to BP. Diovan was also restarted at 40 mg (lower dose than home dose) to which there was some response in BP. Heart rate stayed consistently tachy though. Nurse did mention that it seems at times pt may not be swallowing her (crushed) pills and spitting them out later. Pt was also found to have low valproic acid level at 26. Pt was restarted on home dose valproic acid and given one extra dose of 750 mg, levels were rechecked and were wnl. L foot had 2 bullae which were fluid filled, non-tender, not warm and podiatry was consulted. Pt was treated for these bullae as gout and was given prednisone taper. No improvement was noted despite prednisone but bullae were not painful to pt. Once kidney function normalized allopurinol was started and pt sent out with allopurinol 300 mg po qd. To follow up with PCP to check uric acid level. Uric acid level on admission was 16 and on discharge was 8.2. Pt also had persistent transaminitis and U/S abd done which showed contracted gallbladder and diffuse fatty liver infiltration. Pt at times c/o knee pain and b/l knee xr was done which showed moderate suprapatellar effusion. Ortho was consulted and suggested no further workup. During admission pt also had acute normocytic anemia for which she received 2 units PRBC. Hgb remained stable s/p PRBCs. No source of bleed was identified. Pt d/c'd to [facility] ([facility] Abilify and effexor to be held and pt to f/u psych. Pt also to f/u with PCP (Dr. Andria Michele) within 1 week. Pt's propanolol stopped and started on atenolol 50 mg, procardia started at 90 mg qd , and diovan decreased to 40 mg qd. Pt also to take allopurinol 300 mg po qd and to f/u with PCP for uric acid level. Pt also to have CBC checked 3-4 days to monitor anemia. Minutes to complete discharge: 45 Discharge Summary Reason For Visit: SEPSIS Current Active Problems Acute renal failure (Acute) Altered mental status (Acute) Anemia (Acute) Dehydration (Acute) Hypochloremia (Acute) Hypothyroidism (Acute) Knee pain (Acute) Leukocytosis (leucocytosis) (Acute) Sepsis (Acute) Severe sepsis (Acute) Tachycardia (Acute) Anemia, chronic disease (Chronic) Type 2 diabetes mellitus with diabetic autonomic (poly)neuropathy (Chronic) Condition: Stable - Instructions Diet, Activity, Other Instructions: You will be discharged to a rehab facility to help you strengthen yourself after this hospital stay. You will need to follow up with your primary care physician in 1 week. You will need to follow up with your psychiatrist within 1 week as your abilify and effexor have been stopped. Your psychiatrist will be able to reassess the use of medications. You will continue to take allopurinol 300 mg daily. Please see your primary care physician to check your uric acid levels in 1 week and to reassess the dosing of allopurinol. For your hypertension there have been changes made to your medications. You are to stop taking propranolol and youre diovan has been changed to 40 mg. You are also to start taking atenolol 50 mg daily, and procardia 90 mg daily as well for your blood pressure. Please let your primary care physician know about these changes as well. You will also need a CBC blood test in 3-4 days to check your hemoglobin levels. If you develop fevers, chills please come back to the ER. Referrals: Andria Milton MD [Staff Physician] - Disposition: RESIDENTIAL FACILITY - Home Medications Comprehensive Discharge Medication List: Ambulatory Orders Acidoph/L.bulg/Bif.b/S.thermop [Bacid Caplet] 1 each PO BID 01/19/17 Albuterol 0.083% Nebulizer Adry [Ventolin 0.083% Nebulizer Soln -] 1 neb NEB QID 01/19/17 Aspirin [ASA -] 81 mg PO DAILY 01/19/17 Bacitracin 30 gm TP DAILY 01/19/17 Divalproex *ER* [Depakote *ER* -] 500 mg PO BID 01/19/17 Folic Acid 1 mg PO DAILY 01/19/17 Gabapentin 400 mg PO TID 01/19/17 Insulin Glargine,Hum.rec.anlog [Lantus (10mL VIAL) -] 34 units SQ HS 01/19/17 Latanoprost 0.005% Eye Drops [Xalatan 0.005% Eye Drops -] 1 drop OU HS 01/19/17 Loratadine [Alavert] 10 mg PO DAILY 01/19/17 Montelukast Na [Singulair -] 10 mg PO HS 01/19/17 Multivitamin [Poly-Vitamin] 1 each PO DAILY 01/19/17 Ranitidine [Zantac -] 150 mg PO BID 01/19/17 Salmeterol/Fluticasone [Advair 100Mcg/50Mcg -] 1 inh PO BID 01/19/17 Allopurinol [Zyloprim -] 300 mg PO DAILY tablet 02/03/17 Atenolol [Tenormin -] 50 mg PO DAILY tablet 02/03/17 Nifedipine ER [Procardia XL -] 90 mg PO DAILY 02/03/17 Valsartan [Diovan] 40 mg PO DAILY tablet 02/03/17 Problem List - Problems (1) Acute renal failure Code(s): N17.9 - ACUTE KIDNEY FAILURE, UNSPECIFIED Qualifiers: Acute renal failure type: unspecified Qualified Code(s): N17.9 - Acute kidney failure, unspecified (2) Altered mental status Code(s): R41.82 - ALTERED MENTAL STATUS, UNSPECIFIED Qualifiers: Altered mental status type: unspecified Qualified Code(s): R41.82 - Altered mental status, unspecified (3) Dehydration Code(s): E86.0 - DEHYDRATION (4) Sepsis Code(s): A41.9 - SEPSIS, UNSPECIFIED ORGANISM Qualifiers: Sepsis type: sepsis due to unspecified organism Qualified Code(s): A41.9 - Sepsis, unspecified organism (5) COPD (chronic obstructive pulmonary disease) Code(s): J44.9 - CHRONIC OBSTRUCTIVE PULMONARY DISEASE, UNSPECIFIED Qualifiers : COPD type: COPD with acute exacerbation Qualified Code(s): J44.1 - Chronic obstructive pulmonary disease with (acute) exacerbation (6) Hypertension Code(s): I10 - ESSENTIAL (PRIMARY) HYPERTENSION (7) Hyponatremia Code(s): E87.1 - HYPO-OSMOLALITY AND HYPONATREMIA (8) Pneumonia Code(s): J18.9 - PNEUMONIA, UNSPECIFIED ORGANISM Qualifiers: Pneumonia type: due to unspecified organism Laterality: left Lung location: lower lobe of lung Qualified Code(s): J18.9 - Pneumonia, unspecified organism (9) Bilateral lower extremity edema Code(s): R60.0 - LOCALIZED EDEMA (10) Severe sepsis Code(s): A41.9 - SEPSIS, UNSPECIFIED ORGANISM R65.20 - SEVERE SEPSIS WITHOUT SEPTIC SHOCK (11) Hypochloremia Code(s): E87.8 - OTH DISORDERS OF ELECTROLYTE AND FLUID BALANCE, NEC (12) Tachycardia Code(s): R00.0 - TACHYCARDIA, UNSPECIFIED (13) Anemia Code(s): D64.9 - ANEMIA, UNSPECIFIED (14) Knee pain Code(s): M25.569 - PAIN IN UNSPECIFIED KNEE This patient is new to me today: No Emergency Visit: Yes ED Registration Date: 01/19/17 Care time: The patient presented to the Emergency Department on the above date and was hospitalized for further evaluation of their emergent condition. Critical Care patient: No - Discharge Referral Referred to [facility] No
[2017-02-03] MEDS ORDERED: ACETAMINOPHEN 650 MG/20.3 ML ORAL SOLUTION (CUPS) PO PRN (12:23)
--- NOTE | 2017-02-03 15:00 | PN ---
Teaching Attending Note Name of Resident: Brodie Alas ATTENDING PHYSICIAN STATEMENT I saw and evaluated the patient. I reviewed the resident's note and discussed the case with the resident. I agree with the resident's findings and plan as documented. SUBJECTIVE:currently asymptomatic. states she no longer has knee pain. denies CP , SOB,fever, chills, N/V/C/D OBJECTIVE: Last Vital Signs Temp Pulse Resp BP Pulse Ox 98.4 F 120 H 20 136/74 99 02/03/17 10:00 02/03/17 10:00 02/03/17 10:00 02/03/17 10:00 02/03/17 09:00 General NAD, A&Ox2 (self and place) Extremities no tenderness on patella manipulation, unable to appreciate effusion. ASSESSMENT AND PLAN: 56yo F with PMH HTN, HLD, COPD, seziures, schizoaffective d/o, CKD, CAD, gout presented to the ER and was admitted for further evaluation of their emergent condition 1. Acute metabolic encephalopathy-resolved. remains alert and interactive. will cont to hold psych medications but explained to both patient and brother that she sees her therapist as soon as discharged to see if medications should be re- started. psych here said to hold at the present time. will see if she can be re- evaluated at appears mental status has improved. on depakote. 2. tachycardia- does not appear to be in pain.EKG showing sinus tachycardia. cont atenolol 3. Leukocytosis- hematology workup for possible underlying MM or lymphoma which appears to be negative. cdiff negative. leukocytosis improved 4. B/L knee pain- possible gout flare. XR showing moderate effusions B/L. appreciate ortho evlauation but states no indication for arthrocentesis at this time. received 1 dose of prednisone yesterday. given that symptoms have resolved will hold steroids. will not give NSAIDS. allopurinol titrated up. 5. Acute on CKD- resolved 6. DVT ppx- hep sq 7. d/c to [facility]
== END 2017-02-03 14:06 | DRG 720 ==
LOC: JER 10:45 → JERBED 14:59 → JICU 16:59 → J8W 01-23 22:02
PROVIDERS: ADMIT Internal Medicine; ATTEND Internal Medicine
PROC: 30233N1 Transfusion of Nonautologous Red Blood Cells into Peripheral Vein, Percutaneous Approach (ICD-10-PCS; principal; 2017-01-26)
DX: A41.9 Sepsis, unspecified organism (principal); R65.20 Severe sepsis without septic shock; N17.9 Acute kidney failure, unspecified; E86.0 Dehydration; G93.41 Metabolic encephalopathy; F25.9 Schizoaffective disorder, unspecified; J44.9 Chronic obstructive pulmonary disease, unspecified; D72.829 Elevated white blood cell count, unspecified; I12.9 Hypertensive chronic kidney disease with stage 1 through stage 4 chronic kidney disease, or unspecified chronic kidney disease; N18.9 Chronic kidney disease, unspecified; I25.10 Atherosclerotic heart disease of native coronary artery without angina pectoris; R41.82 Altered mental status, unspecified; D63.8 Anemia in other chronic diseases classified elsewhere; E03.9 Hypothyroidism, unspecified; E11.43 Type 2 diabetes mellitus with diabetic autonomic (poly)neuropathy; Z79.4 Long term (current) use of insulin; E87.1 Hypo-osmolality and hyponatremia; J18.9 Pneumonia, unspecified organism; E87.8 Other disorders of electrolyte and fluid balance, not elsewhere classified; M10.9 Gout, unspecified; R00.0 Tachycardia, unspecified; F32.9 Major depressive disorder, single episode, unspecified; E46 Unspecified protein-calorie malnutrition; Z68.30 Body mass index [BMI] 30.0-30.9, adult; E87.0 Hyperosmolality and hypernatremia; R74.0 Nonspecific elevation of levels of transaminase and lactic acid dehydrogenase [LDH]; G40.909 Epilepsy, unspecified, not intractable, without status epilepticus; Z87.891 Personal history of nicotine dependence; A04.7 Enterocolitis due to Clostridium difficile
CPT/HCPCS: 36415; 36430; 36600; 70450-TC; 71010-TC; 71250-TC; 73562-TC-LT; 73562-TC-RT; 73610-TC-LT; 73630-TC-LT; 74176-TC; 76705-TC; 76775-TC; 76856-TC; 80048; 80053; 80076; 80164; 80307; 81003; 81015; 82140; 82465; 82550; 82607; 82728; 82784; 82803; 82977; 83036; 83540; 83550; 83605; 83615; 83718; 83721; 83735; 83880; 83883; 84100; 84155; 84165; 84439; 84443; 84478; 84484; 84550; 85025; 85027; 85044; 85610; 85651; 86140; 86334; 86850; 86900; 86901; 86922; 87040; 87070; 87075; 87077; 87086; 87205; 87324; 87340; 87389; 87449; 87522; 87899; 88300-TC; 93005; 93010; 94640; 97116-GP; 97161-GP; 99284-25; G0480; J1644; P9038; P9058

== ENCOUNTER 2018-04-12 07:07 | Day surgery (SDC) | payer OTHER ==
[2018-04-10 17:36] VITALS: BMI 34.4
[~2018-04-12 07:07] MED LIST: ACETAMINOPHEN 325 MG TABLET (FP) PO PRN; EPINEPHrine/PF 1 MG/1 ML (1:1,000) AMPULE IV ONE; LIDOCAINE HCL 1% PRESERVATIVE FREE - 30ML VIAL IO ONE; TETRACAINE 0.5% OPHTH SOLN 2 ML BOTTLE TP ONE
[2018-04-12] MEDS ORDERED: LIDOCAINE HCL/PF 1% SDV 5ML VIAL ONE (07:17)
[2018-04-12] MEDS ORDERED: EPINEPHrine/PF 1 MG/1 ML (1:1,000) AMPULE ONE (07:17)
[2018-04-12] MEDS ORDERED: TETRACAINE 0.5% OPHTH SOLN 2 ML BOTTLE ONE (07:17)
[2018-04-12 07:32] VITALS: TEMP 98.4
[2018-04-12] MEDS ORDERED: FLURBIPROFEN 0.03% OPHTH SOLN 2.5 ML BOTTLE ONE (07:43)
[2018-04-12] MEDS ORDERED: CYCLOPENTOLATE HCL 1% OPHTH SOLN 2 ML BOTTLE ONE (07:43)
[2018-04-12] MEDS ORDERED: CIPROFLOXACIN 0.3% EYE DROPS 5 ML BOTTLE ONE (07:43)
[2018-04-12] MEDS ORDERED: PHENYLEPHRINE 2.5% OPHTH SOLN 15 ML BOTTLE ONE (07:44)
[2018-04-12] MEDS ORDERED: TROPICAMIDE 1% OPHTH SOLN 15 ML BOTTLE ONE (07:44)
[2018-04-12] MEDS: CIPROFLOXACIN HCL 0.3% OPHTH 2.5ML BOTTLE OP SCH ×3 (07:55→08:06)
[2018-04-12] MEDS: PHENYLEPHRINE 2.5% OPHTH SOLN 15 ML BOTTLE OP SCH ×3 (07:55→08:05)
[2018-04-12] MEDS: TROPICAMIDE 1% OPHTH SOLN 15 ML BOTTLE OP SCH ×3 (07:55→08:05)
[2018-04-12] MEDS: FLURBIPROFEN 0.03% OPHTH SOLN 2.5 ML BOTTLE OP SCH ×3 (07:55→08:05)
[2018-04-12] MEDS: CYCLOPENTOLATE HCL 1% OPHTH SOLN 2 ML BOTTLE OP SCH ×3 (07:55→08:05)
[2018-04-12] MEDS ORDERED: MIDAZOLAM HCL 2 MG/2 ML SINGLE DOSE VIAL ONE (08:51)
[2018-04-12] MEDS ORDERED: BUPIVACAINE HCL/PF 0.75% 10 ML VIAL ONE (08:55)
[2018-04-12] MEDS ORDERED: LIDOCAINE HCL/PF 2% SDV 5ML VIAL ONE ×2 (08:55→09:06)
[2018-04-12] MEDS ORDERED: PROPOFOL 20 ML ONE (09:06)
[2018-04-12] MEDS ORDERED: BUPIVACAINE HCL/PF 0.75% 10 ML VIAL PNB ONE ×2 (09:11→09:12)
[2018-04-12] MEDS ORDERED: LIDOCAINE HCL/PF 2% SDV 5ML VIAL INF ONE ×2 (09:11→09:12)
[2018-04-12] MEDS ORDERED: LIDOCAINE HCL 1% PRESERVATIVE FREE - 30ML VIAL IO ONE (09:20)
[2018-04-12] MEDS ORDERED: CHONDROITIN SU A/HYALUR SOD 1 KIT IO ONE (09:21)
[2018-04-12] MEDS ORDERED: EPINEPHrine/PF 1 MG/1 ML (1:1,000) AMPULE IV ONE (09:25)
--- NOTE | 2018-04-12 10:19 | SPEC ---
DATE OF OPERATION: 04/12/2018 PREOPERATIVE DIAGNOSIS: Cataract, right eye. POSTOPERATIVE DIAGNOSIS: Cataract, right eye. OPERATION: Phacoemulsification of right cataract with posterior chamber intraocular lens implantation. Lens used SN60WF, 16.5 diopter, serial No. [id number]. SURGEON: Rex Bartlett M.D. ANESTHESIA: Peribulbar/Modified Van Lint/MAC. COMPLICATIONS: None. PROCEDURE: The patient was brought to the operating room and correctly identified along with the operative site and a correct intraocular lens garcia. The patient was then given a peribulbar block under sedation with 5 mL of a 1:1 mixture of 2% Lidocaine and 0.5% Bupivacaine. Two to 3 mL of the same mixture was given as a modified Van Lint block. The eye was then prepped and draped in the usual sterile fashion including 5% Betadine solution in the conjunctival sac and an eyelid drape. An eyelid speculum was then placed into the eye. A paracentesis port was created. Viscoelastic was injected to inflate the anterior chamber. A temporal clear corneal wound was created. A continuous circular capsulorrhexis was performed. The nucleus was then hydro-dissected and removed phacoemulsification via the [id number]-lkoqher approach. The remaining cortical material was irrigated and aspirated from the eye. Viscoelastic was injected to inflate the capsular bag. The lens was injected into the capsular bag. Viscoelastic was then irrigated and aspirated from the eye. The intraocular lens was noted to be well centered and covered by the anterior capsular border. All wounds were found to be watertight. Topical Vancomycin was given. The eye patch and shield were placed. The patient was discharged from the operating room in stable condition. Humberto FROST/[id number]
[2018-04-12 11:18] VITALS: BP 122/81; PULSE 89
== END 2018-04-12 11:05 | disposition home or self-care (01) ==
LOC: JASU-SURG 07:07
PROVIDERS: ATTEND Ophthalmology
PROC: 08RJ3JZ Replacement of Right Lens with Synthetic Substitute, Percutaneous Approach (ICD-10-PCS; principal; 2018-04-12 09:00)
DX: H26.8 Other specified cataract (principal)
CPT/HCPCS: 82962

== ENCOUNTER 2018-04-26 07:13 | Day surgery (SDC) | payer OTHER ==
[2018-04-25 08:16] VITALS: BMI 34.4
[~2018-04-26 07:13] MED LIST changes: -EPINEPHrine/PF 1 MG/1 ML (1:1,000) AMPULE IV ONE; -LIDOCAINE HCL 1% PRESERVATIVE FREE - 30ML VIAL IO ONE; +LIDOCAINE HCL/PF 2% SDV 5ML VIAL PNB ONE
[2018-04-26] MEDS ORDERED: BUPIVACAINE HCL/PF 0.75% 10 ML VIAL ONE (07:23)
[2018-04-26] MEDS ORDERED: LIDOCAINE HCL/PF 1% SDV 5ML VIAL ONE (07:23)
[2018-04-26] MEDS ORDERED: LIDOCAINE HCL/PF 2% SDV 5ML VIAL ONE (07:23)
[2018-04-26] MEDS ORDERED: TETRACAINE 0.5% OPHTH SOLN 2 ML BOTTLE ONE (07:23)
[2018-04-26] MEDS ORDERED: EPINEPHrine/PF 1 MG/1 ML (1:1,000) AMPULE ONE (07:23)
[2018-04-26] MEDS ORDERED: CYCLOPENTOLATE HCL 1% OPHTH SOLN 2 ML BOTTLE ONE (07:29)
[2018-04-26] MEDS ORDERED: FLURBIPROFEN 0.03% OPHTH SOLN 2.5 ML BOTTLE ONE (07:29)
[2018-04-26] MEDS ORDERED: CIPROFLOXACIN 0.3% EYE DROPS 5 ML BOTTLE ONE (07:29)
[2018-04-26] MEDS ORDERED: TROPICAMIDE 1% OPHTH SOLN 15 ML BOTTLE ONE (07:30)
[2018-04-26] MEDS ORDERED: PHENYLEPHRINE 2.5% OPHTH SOLN 15 ML BOTTLE ONE (07:30)
[2018-04-26] MEDS: TROPICAMIDE 1% OPHTH SOLN 15 ML BOTTLE OP SCH ×3 (07:49→08:22)
[2018-04-26] MEDS: FLURBIPROFEN 0.03% OPHTH SOLN 2.5 ML BOTTLE OP SCH ×3 (07:49→08:21)
[2018-04-26] MEDS: CIPROFLOXACIN HCL 0.3% OPHTH 2.5ML BOTTLE OP SCH ×3 (07:49→08:21)
[2018-04-26] MEDS: CYCLOPENTOLATE HCL 1% OPHTH SOLN 2 ML BOTTLE OP SCH ×3 (07:49→08:21)
[2018-04-26] MEDS: PHENYLEPHRINE 2.5% OPHTH SOLN 15 ML BOTTLE OP SCH ×3 (07:49→08:21)
[2018-04-26] MEDS ORDERED: LIDOCAINE HCL/PF 2% SDV 5ML VIAL PNB ONE (08:58)
[2018-04-26] MEDS ORDERED: BUPIVACAINE HCL/PF 0.75% 10 ML VIAL PNB ONE (08:58)
[2018-04-26] MEDS ORDERED: BUPIVACAINE 0.75% IN DEXTROSE/PF 2ML AMPULE NR ONE (08:59)
[2018-04-26] MEDS ORDERED: LIDOCAINE HCL/PF 2% SDV 5ML VIAL INF ONE (08:59)
[2018-04-26] MEDS ORDERED: LIDOCAINE HCL 1% PRESERVATIVE FREE - 30ML VIAL IO ONE ×2 (09:08→09:15)
[2018-04-26] MEDS ORDERED: CHONDROITIN SU A/HYALUR SOD 1 KIT IO ONE (09:09)
[2018-04-26] MEDS ORDERED: EPINEPHrine/PF 1 MG/1 ML (1:1,000) AMPULE IV ONE ×2 (09:15)
--- NOTE | 2018-04-26 09:41 | SPEC ---
DATE OF OPERATION: 04/26/2018 PREOPERATIVE DIAGNOSIS: Cataract left eye. POSTOPERATIVE DIAGNOSIS: Cataract left eye. OPERATION: Phacoemulsification of left cataract with posterior chamber intraocular lens implantation, lens used [id number], 12.0 diopter power, serial No. [id number]. SURGEON: Rex Bartlett M.D. ANESTHESIA: Peribulbar/Modified Van Lint/MAC. COMPLICATIONS: None. PROCEDURE: The patient was brought to the operating room and correctly identified along with the operative site and a correct intraocular lens garcia. The patient was then given a peribulbar block under sedation with 5 mL of a 1:1 mixture of 2% Lidocaine and 0.5% Bupivacaine. Two to 3 mL of the same mixture was given as a modified Van Lint block. The eye was then prepped and draped in the usual sterile fashion including 5% Betadine solution in the conjunctival sac and an eyelid drape. An eyelid speculum was then placed into the eye. A paracentesis port was created. Viscoelastic was injected to inflate the anterior chamber. A temporal clear corneal wound was created. A continuous circular capsulorrhexis was performed. The nucleus was then hydro-dissected and removed phacoemulsification via the [id number] approach. The remaining cortical material was irrigated and aspirated from the eye. Viscoelastic was injected to inflate the capsular bag. The lens was injected into the capsular bag. Viscoelastic was then irrigated and aspirated from the eye. The intraocular lens was noted to be well centered and covered by the anterior capsular border. All wounds were found to be watertight. Topical Vancomycin was given. The eye patch and shield were placed. The patient was discharged from the operating room in stable condition. Humberto FROST/[id number]
[2018-04-26 09:59] VITALS: TEMP 97.8
[2018-04-26 10:09] VITALS: BP 130/90; PULSE 78
[2018-04-26] MEDS ORDERED: ACETAMINOPHEN 325 MG TABLET (FP) PO PRN (15:46)
[2018-04-26] MEDS ORDERED: ONDANSETRON 4 MG/2 ML VIAL IVPUSH PRN (15:46)
[2018-04-26] MEDS ORDERED: LACTATED RINGERS SOLUTION 1,000 ML IV SCH (16:00)
== END 2018-04-26 10:39 | disposition home or self-care (01) ==
LOC: JASU-SURG 07:13
PROVIDERS: ATTEND Ophthalmology
PROC: 08RK3JZ Replacement of Left Lens with Synthetic Substitute, Percutaneous Approach (ICD-10-PCS; principal; 2018-04-26 09:00)
DX: H26.9 Unspecified cataract (principal)
CPT/HCPCS: 82962

== ENCOUNTER 2020-08-06 12:30 | Inpatient (IN) | payer OTHER ==
--- NOTE | 2020-08-06 12:39 | PDOC ---
Rapid Medical Evaluation Time Seen by Provider: 08/06/20 12:33 Medical Evaluation: Allergies Allergy/AdvReac Type Severity Reaction Status Date / Time pramipexole [From Mirapex] Allergy Intermediate Swelling Verified 06/06/18 10:06 haloperidol [From Haldol] Allergy Mild itchings, Verified 04/26/18 08:02 stiffness seasonal Allergy Mild itch/rash Uncoded 04/26/18 08:02 08/06/20 12:34 I performed a brief in-person evaluation of this patient. Pt is a 59 y/o female who was sent to the ED for IV abx for her b/l LE right > left. She denies any fevers or chills. She states that from the beginning of the year this has been going back and forth. She states she was abx by mouth but was unable to remember the name. Pt has a h/o asthma, HTN, migraines, psych disorder. Pertinent physical exam findings: b/l LE with signifcant edema and erythema R > L, no calf tenderness b/l. Mild warmth to touch. I have ordered the following: saline lock, labs, abx by the discretion of the treating provider Patient to proceed to ED for further evaluation. Discharge Disposition - Diagnosis Localized swelling of both lower legs - Referrals - Patient Instructions - Post Discharge Activity
[2020-08-06 12:42] VITALS: BMI 38.7
[2020-08-06] MEDS ORDERED: VANCOMYCIN 1,000 MG in DEXTROSE 5%-WATER - 250 ML IVPB ONE (12:57)
[2020-08-06] MEDS ORDERED: PIPERACILLIN/TAZOB 3.375 GM 3.375 GM in DEXTROSE 5%-WATER - 50 ML IVPB ONE (12:57)
[2020-08-06] MEDS ORDERED: PIPERACILLIN/TAZOB 3.375 GM 3.375 GM/50 ML BAG IVPB ONE (13:27)
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
[2020-08-06] MEDS ORDERED: VANCOMYCIN 1 GRAM (PRE-DOCKED) 1,000 MG/250 ML BAG IVPB ONE (14:47)
[2020-08-06 15:24] LABS: BASO % 0.4 % (0-2.0); EOS % 0.9 % (0-4.5); HEMATOCRIT 39.7 % (32.4-45.2); LYMPH % 28.1 % (8-40); MCHC 32.6 g/dl (32.0-36.0); MEAN CELL VOLUME 91.8 fl (80-96); MEAN PLT VOLUME 8.8 fl (7.5-11.1); MONO % 17.8 % (3.8-10.2); NEUT % 52.8 % (42.8-82.8); PLATELET COUNT 197 K/MM3 (134-434); RBC 4.32 M/mm3 (3.60-5.2); RDW 15.6 % (11.6-15.6); WHITE BLOOD COUNT 8.6 K/mm3 (4.0-10.0)
[2020-08-06 15:29] LABS: INR 1.05 (0.83-1.09); PROTHROMBIN TIME (PATIENT) 12.4 SEC (9.7-13.0)
[2020-08-06 15:47] LABS: ALBUMIN 3.4 g/dl (3.4-5.0); BILIRUBIN,TOTAL 0.9 mg/dL (0.2-1); BLOOD UREA NITROGEN 18.2 mg/dL (7-18); CALCIUM 9.6 mg/dL (8.5-10.1); CREATININE 1.4 mg/dL (0.55-1.3); POTASSIUM 4.6 mmol/L (3.5-5.1); TOT PROT 7.4 g/dl (6.4-8.2)
--- NOTE | 2020-08-06 17:07 | PDOC ---
*Physical Exam - Vital Signs Last Vital Signs Temp Pulse Resp BP Pulse Ox 97.8 F 73 18 137/80 100 08/06/20 12:37 08/06/20 12:37 08/06/20 12:37 08/06/20 12:37 08/06/20 13:10 ED Treatment Course - LABORATORY CBC & Chemistry Diagram: 08/06/20 13:50 08/06/20 13:50 - ADDITIONAL ORDERS Additional order review: Laboratory Results 08/06/20 08/06/20 13:50 13:50 PT with INR 12.40 INR 1.05 Sodium 137 Potassium 4.6 Chloride 103 Carbon Dioxide 27 Anion Gap 6 L BUN 18.2 H Creatinine 1.4 H Est GFR (CKD-EPI)AfAm 47.21 Est GFR (CKD-EPI)NonAf 40.74 Random Glucose 67 L Calcium 9.6 Total Bilirubin 0.9 AST 54 H ALT 23 Alkaline Phosphatase 74 Total Protein 7.4 Albumin 3.4 08/06/20 13:50 RBC 4.32 MCV 91.8 MCHC 32.6 RDW 15.6 MPV 8.8 Neutrophils % 52.8 D Lymphocytes % 28.1 D Monocytes % 17.8 H Eosinophils % 0.9 Basophils % 0.4 - Medications Given in the ED: ED Medications Discontinued Medications Generic Name Dose Route Start Last Admin Trade Name Freq PRN Reason Stop Dose Admin Vancomycin HCl 1,000 mg/ 250 mls @ 166.667 mls/hr 08/06/20 12:57 08/06/20 14:56 Dextrose IVPB 08/06/20 14:26 166.667 mls/hr ONCE ONE Administration Piperacillin Sod/Tazobactam 50 mls @ 100 mls/hr 08/06/20 12:57 08/06/20 14:24 Sod 3.375 gm/ Dextrose IVPB 08/06/20 13:26 100 mls/hr ONCE ONE Administration Protocol ED 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 - 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: 08/06/20 17:09 Received patient from ADITHYA Fallon. Briefly this is 59-year-old woman with past medical history of asthma, hypertension, hyperlipidemia, hep C, seizure disorder with redness and swelling to the right lower extremity for 2 weeks. Patient was seen by her ux lead Dr. Mcfarland today who recommended patient come to the emergency department for admission for cellulitis. Patient is pending duplex Dopplers and then will require admission to Dr. Dawson's service who is currently being covered by Dr. Daniel. Consults for cardiology and infectious disease have been placed. Medical Decision Making - Medical Decision Making 08/06/20 18:24 Laboratory Tests 08/06/20 08/06/20 08/06/20 13:50 13:50 13:50 WBC 8.6 RBC 4.32 Hgb 13.0 Hct 39.7 MCV 91.8 MCH 30.0 MCHC 32.6 RDW 15.6 Plt Count 197 MPV 8.8 Absolute Neuts (auto) 4.5 Neutrophils % 52.8 D Lymphocytes % 28.1 D Monocytes % 17.8 H Eosinophils % 0.9 Basophils % 0.4 Nucleated RBC % 0 PT with INR 12.40 INR 1.05 Sodium 137 Potassium 4.6 Chloride 103 Carbon Dioxide 27 Anion Gap 6 L BUN 18.2 H Creatinine 1.4 H Est GFR (CKD-EPI)AfAm 47.21 Est GFR (CKD-EPI)NonAf 40.74 Random Glucose 67 L Calcium 9.6 Total Bilirubin 0.9 AST 54 H ALT 23 Alkaline Phosphatase 74 Total Protein 7.4 Albumin 3.4 Case has been discussed with Dr. Daniel who accepts patient would MedSurg under Dr. Christianson. 08/06/20 18:24 Discharge - Discharge Information Problems reviewed: Yes Clinical Impression/Diagnosis: Cellulitis Qualifiers: Site of cellulitis: extremity Site of cellulitis of extremity: lower extremity Laterality: unspecified laterality Qualified Code(s): L03.119 - Cellulitis of unspecified part of limb Condition: Fair - Admission Yes - Follow up/Referral - Patient Discharge Instructions - Post Discharge Activity
[2020-08-06] MEDS ORDERED: FUROSEMIDE 20 MG TABLET (FP) PO PRN (21:38)
[2020-08-06] MEDS ORDERED: LACTULOSE 20 GM/30 ML UDC (FOR ORAL USE ONLY) PO PRN (21:38)
--- NOTE | 2020-08-06 21:38 | HP ---
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 (Chart reports- schizo-affective personality) Cardiovascular: Yes: CAD, HTN, Hyperlipdemia Renal/: Yes: Renal Inusuff ...LMP: 08/06/20 ...: No Psych: Yes: Depression Musculoskeletal: Yes: Chronic low back pain Rheumatology: Yes: Gout - Smoking History Smoking history: Never smoked Have you smoked in the past 12 months: No If you are a former smoker, when did you quit?: 2002 - Alcohol/Substance Use Hx Alcohol Use: No (STOPPED 15 YEARS) History of Substance Use: reports: Cocaine Home Medications - Allergies Allergies/Adverse Reactions: Allergies Allergy/AdvReac Type Severity Reaction Status Date / Time pramipexole [From Mirapex] Allergy Intermediate Swelling Verified 08/06/20 12:37 haloperidol [From Haldol] Allergy Mild itchings, Verified 08/06/20 12:37 stiffness seasonal Allergy Mild itch/rash Uncoded 08/06/20 12:37 - Home Medications Home Medications: Ambulatory Orders Albuterol 0.083% Nebulizer Adry [Ventolin 0.083% Nebulizer Soln -] 1 neb NEB QID 01/19/17 Aspirin [ASA -] 81 mg PO DAILY 01/19/17 Divalproex *ER* [Depakote *ER* -] 500 mg PO BID 01/19/17 Salmeterol/Fluticasone [Advair 100Mcg/50Mcg -] 1 inh PO BID 01/19/17 Allopurinol [Zyloprim -] 300 mg PO DAILY tablet 02/03/17 Atenolol [Tenormin -] 50 mg PO DAILY tablet 02/03/17 Loratadine [Claritin] 10 mg PO DAILY 04/12/18 Simvastatin 40 mg PO HS 04/12/18 Sertraline HCl [Zoloft] 25 mg PO HS 04/25/18 Losartan Potassium [Cozaar -] 25 mg PO DAILY 08/04/18 Lactulose 20 gm PO DAILY PRN #1 bottle 01/08/19 Furosemide [Lasix -] 40 mg PO DAILY PRN 07/09/19 Ropinirole HCl [Requip -] 0.5 mg PO TID 12/07/19 Silver Sulfadiazine 1% Top Cr [Silvadene -] 1 applic TP DAILY #1 jar 12/26/19 Mupirocin Ointment [Bactroban 2% Ointment -] 1 applic TP BID #1 tube 12/31/19 Famotidine [Pepcid -] 40 mg PO BID 02/06/20 Ketotifen Fumarate [Zaditor] 1 drop OU BID 02/06/20 Multivitamin [Multiple Vitamins] 1 each PO DAILY #30 tablet 03/07/20 Gloves 1 each MC ASDIR #1 box 03/24/20 Ergocalciferol (Vitamin D2) [Vitamin D2] 2,000 unit PO DAILY #30 tablet 04/08/20 Polyethylene Glycol 3350 [Miralax 119 gm Btl -] 17 gm PO DAILY #1 bottle 04/08/20 Vitamin B Complex 1 each PO DAILY #30 capsule 04/08/20 Folic Acid - 1 mg PO DAILY #30 tablet 05/07/20 Magnesium Oxide [Magnesium] 400 mg PO DAILY #30 capsule 06/17/20 Calcium Carbonate/Vitamin D3 [Calcium 500-Vit D3 400 Tablet] 1 each PO DAILY #30 tablet 07/09/20 Cyclobenzaprine HCl [Flexeril 10 mg] 10 mg PO TID PRN #90 tablet 07/09/20 Oxycodone HCl/Acetaminophen [Percocet 10-325 mg Tablet] 1 each PO TID PRN #90 tablet MDD 3 07/09/20 Physical Examination Vital Signs: Vital Signs Temperature 97.5 F L 08/06/20 18:00 Pulse Rate 106 H 08/06/20 18:00 Respiratory Rate 20 08/06/20 18:00 Blood Pressure 124/78 08/06/20 18:00 O2 Sat by Pulse Oximetry (%) 100 08/06/20 13:10 Labs: CBC, BMP 08/06/20 13:50 08/06/20 13:50
[2020-08-06] MEDS ORDERED: PATIENT'S OWN MEDICATION (NON-FORMULARY) (Simvastatin [Simvastatin] 40 MG) PO SCH (22:00)
[2020-08-06] MEDS ORDERED: KETOTIFEN FUMARATE OU SCH (22:00)
[2020-08-06] MEDS: FLUTICASONE/SALMETEROL 100 MCG/50 MCG DISKUS IH SCH (23:39)
[2020-08-06] MEDS: rOPINIRole HCL 0.5 MG TABLET PO SCH (23:39)
[2020-08-06] MEDS: DIVALPROEX NA *ER* EXTEND REL 500 MG TABLET.SA (FP) PO SCH (23:39)
[2020-08-06] MEDS: SERTRALINE HCL 25 MG TABLET (FP) PO SCH (23:40)
[2020-08-06 23:58] LABS: EPI CELLS >36 /uL (0-25.1); HYALINE CASTS 1 /uL (0-3.1); PH,URINE 7.5 (5.0-8.0); URINE APPEARANCE CLEAR; URINE BACTERIA 98 /uL (0-1359); URINE BILIRUBIN NEGATIVE (NEGATIVE); URINE COLOR YELLOW; URINE GLUCOSE (UA) NEGATIVE (NEGATIVE); URINE KETONE NEGATIVE (NEGATIVE); URINE LEUK ESTERASE 3+ (NEGATIVE); URINE NITRITE NEGATIVE (NEGATIVE); URINE PROTEIN NEGATIVE (NEGATIVE); URINE RBC 4 /uL (0-23.9); URINE UROBILINOGEN 0.2 mg/dL (0.2-1.0); URINE WBC 257 /uL (0-25.8)
[2020-08-07] MEDS: VANCOMYCIN 1 GM PREMIX - 1 GM/200 ML BAG IVPB SCH ×2 (01:35→19:32)
[2020-08-07] MEDS ORDERED: VANCOMYCIN 1 GRAM (PRE-DOCKED) 1,000 MG/250 ML BAG IVPB ONE (02:42)
[2020-08-07] MEDS ORDERED: PIPERACILLIN/TAZOB 3.375 GM 3.375 GM/50 ML BAG IVPB ONE ×2 (02:42→08:36)
[2020-08-07] MEDS ORDERED: CYCLOBENZAPRINE HCL 10 MG TABLET (FP) ONE ×2 (02:42→09:36)
[2020-08-07] MEDS: PIPERACILLIN/TAZOB 3.375 GM 3.375 GM in DEXTROSE 5%-WATER - 50 ML IVPB SCH ×3 (02:54→17:29)
[2020-08-07] MEDS ORDERED: MORPHINE SULFATE 2 MG/ML VIAL IVPUSH ONE (03:30)
[2020-08-07] MEDS ORDERED: morphine CARPU-JECT 2 MG/1 ML DISP.SYRIN IVPUSH PRN (03:30)
[2020-08-07] MEDS: CYCLOBENZAPRINE HCL 10 MG TABLET (FP) PO PRN ×2 (03:44→23:45)
[2020-08-07] MEDS ORDERED: MORPHINE SULFATE 2 MG/ML VIAL ONE ×2 (03:45→05:48)
[2020-08-07] MEDS: VANCOMYCIN 1 GRAM (PRE-DOCKED) 1,000 MG/250 ML BAG IVPB SCH ×2 (05:56→15:02)
[2020-08-07 07:11] LABS: BASO % 0.3 % (0-2.0); EOS % 1.1 % (0-4.5); HEMATOCRIT 37.8 % (32.4-45.2); HEMOGLOBIN 12.5 GM/dL (10.7-15.3); LYMPH % 25.6 % (8-40); MCH 30.3 pg (25.7-33.7); MCHC 33.2 g/dl (32.0-36.0); MEAN CELL VOLUME 91.4 fl (80-96); MEAN PLT VOLUME 8.5 fl (7.5-11.1); MONO % 17.5 % (3.8-10.2); NEUT % 55.5 % (42.8-82.8); PLATELET COUNT 180 K/MM3 (134-434); RBC 4.14 M/mm3 (3.60-5.2); RDW 16.5 % (11.6-15.6); WHITE BLOOD COUNT 8.8 K/mm3 (4.0-10.0)
[2020-08-07 07:41] LABS: ALBUMIN 2.9 g/dl (3.4-5.0); BILIRUBIN,TOTAL 0.7 mg/dL (0.2-1); BLOOD UREA NITROGEN 14.5 mg/dL (7-18); CREATININE 1.1 mg/dL (0.55-1.3); POTASSIUM 4.2 mmol/L (3.5-5.1); TOT PROT 6.3 g/dl (6.4-8.2)
[2020-08-07] MEDS ORDERED: PT OWN MED DRAWER 7, Y5N ONE ×2 (08:15→22:40)
[2020-08-07] MEDS: LOSARTAN POTASSIUM 25 MG TABLET PO SCH (09:27)
[2020-08-07] MEDS: ATENOLOL 50 MG TABLET (FP) PO SCH (09:28)
[2020-08-07] MEDS: POLYETHYLENE GLYCOL 3350 119 GM BTL PO SCH (09:29)
[2020-08-07] MEDS: ALLOPURINOL 300 MG TABLET (FP) PO SCH (09:31)
[2020-08-07] MEDS ORDERED: MULTIVITAMINS (DAILY MVI) TABLET (FP) ONE (09:36)
[2020-08-07] MEDS ORDERED: ASPIRIN 81 MG CHEWABLE TABLETS ONE (09:36)
[2020-08-07] MEDS ORDERED: FOLIC ACID 1 MG TABLET (FP) ONE (09:36)
[2020-08-07] MEDS ORDERED: MAGNESIUM OXIDE 400 MG TABLET (FP) ONE (09:36)
[2020-08-07] MEDS ORDERED: ENOXAPARIN NA (PORCINE) 40 MG/0.4 ML DISP.SYRIN SQ ONE (09:37)
[2020-08-07] MEDS: DIVALPROEX NA *ER* EXTEND REL 500 MG TABLET.SA (FP) PO SCH ×2 (10:12→23:04)
[2020-08-07] MEDS: FLUTICASONE/SALMETEROL 100 MCG/50 MCG DISKUS IH SCH ×2 (10:12→23:03)
[2020-08-07] MEDS: MAGNESIUM OXIDE 400 MG TABLET (FP) PO SCH (10:13)
[2020-08-07] MEDS: MULTIVITAMINS (DAILY MVI) TABLET (FP) PO SCH (10:13)
[2020-08-07] MEDS: ASPIRIN 81 MG CHEWABLE TABLETS PO SCH (10:13)
[2020-08-07] MEDS: FOLIC ACID 1 MG TABLET (FP) PO SCH (10:13)
[2020-08-07] MEDS: ENOXAPARIN NA (PORCINE) 40 MG/0.4 ML DISP.SYRIN SQ SCH (10:13)
--- NOTE | 2020-08-07 10:26 | CON.ID ---
Consult Consult Specialty:: infectious diseases Referred by:: Reason for Consultation:: swelling of the legs,cellulitis of the leg,weakness,fever - History of Present Illness Chief Complaint: weakness,swelling of the legs,drainage from the legs History of Present Illness: 59-year-old female past medical history of asthma, hypertension, hyperlipidemia, hep C (treated), seizure disorder, presents to the ER today for swelling and redness to her right lower extremity. She states that this is been going on for 2 weeks. She was seen by her public health veterinarian today who sent her to the ER for admission for cellulitis. She states that the top of the foot hurts. She has not been taking anything for the pain or for antibiotics. She states that it hurts well. Denies fevers, chills, chest pain, shortness of breath. She states that she is having some right-sided calf pain. patient mentions that she has not seen a doctor for the legs initially and her problems started about 2 months aback also mentions that she has drainage from the legs - History Source History Provided By: Patient Limitations to Obtaining History: No Limitations - Past Medical History [employer]: Yes: Other (Chart reports- schizo-affective personality) Cardio/Vascular: Yes: CAD, HTN, Hyperlipdemia Renal/: Yes: Renal Inusuff ...LMP: 08/06/20 ...: No Psych: Yes: Depression Musculoskeletal: Yes: Chronic low back pain Rheumatology: Yes: Gout - Alcohol/Substance Use Hx Alcohol Use: No (STOPPED 15 YEARS) History of Substance Use: reports: Cocaine - Smoking History Smoking history: Never smoked Have you smoked in the past 12 months: No If you are a former smoker, when did you quit?: 2002 - Social History Usual Living Arrangement: Alone Home Medications - Allergies Allergies/Adverse Reactions: Allergies Allergy/AdvReac Type Severity Reaction Status Date / Time pramipexole [From Mirapex] Allergy Intermediate Swelling Verified 08/06/20 12:37 haloperidol [From Haldol] Allergy Mild itchings, Verified 08/06/20 12:37 stiffness seasonal Allergy Mild itch/rash Uncoded 08/06/20 12:37 - Home Medications Home Medications: Ambulatory Orders Albuterol 0.083% Nebulizer Adry [Ventolin 0.083% Nebulizer Soln -] 1 neb NEB QID 01/19/17 Aspirin [ASA -] 81 mg PO DAILY 01/19/17 Divalproex *ER* [Depakote *ER* -] 500 mg PO BID 01/19/17 Salmeterol/Fluticasone [Advair 100Mcg/50Mcg -] 1 inh PO BID 01/19/17 Allopurinol [Zyloprim -] 300 mg PO DAILY tablet 02/03/17 Atenolol [Tenormin -] 50 mg PO DAILY tablet 02/03/17 Loratadine [Claritin] 10 mg PO DAILY 04/12/18 Simvastatin 40 mg PO HS 04/12/18 Sertraline HCl [Zoloft] 25 mg PO HS 04/25/18 Losartan Potassium [Cozaar -] 25 mg PO DAILY 08/04/18 Lactulose 20 gm PO DAILY PRN #1 bottle 01/08/19 Furosemide [Lasix -] 10 mg PO DAILY PRN 07/09/19 Ropinirole HCl [Requip -] 0.5 mg PO BID 12/07/19 Silver Sulfadiazine 1% Top Cr [Silvadene -] 1 applic TP DAILY #1 jar 12/26/19 Mupirocin Ointment [Bactroban 2% Ointment -] 1 applic TP BID #1 tube 12/31/19 Famotidine [Pepcid -] 40 mg PO BID 02/06/20 Ketotifen Fumarate [Zaditor] 1 drop OU QID 02/06/20 Multivitamin [Multiple Vitamins] 1 each PO DAILY #30 tablet 03/07/20 Gloves 1 each ASDIR #1 box 03/24/20 Polyethylene Glycol 3350 [Miralax 119 gm Btl -] 17 gm PO DAILY #1 bottle 04/08/20 Vitamin B Complex 1 each PO DAILY #30 capsule 04/08/20 Folic Acid - 1 mg PO DAILY #30 tablet 05/07/20 Magnesium Oxide [Magnesium] 400 mg PO DAILY #30 capsule 06/17/20 Calcium Carbonate/Vitamin D3 [Calcium 500-Vit D3 400 Tablet] 1 each PO DAILY #30 tablet 07/09/20 Cyclobenzaprine HCl [Flexeril 10 mg] 10 mg PO TID PRN #90 tablet 07/09/20 Oxycodone HCl/Acetaminophen [Percocet 10-325 mg Tablet] 1 each PO TID PRN #90 tablet MDD 3 07/09/20 Ergocalciferol (Vitamin D2) [Vitamin D2] 1,000 unit PO DAILY 08/07/20 Zolpidem Tartrate [Ambien] 10 mg PO 08/07/20 Review of Systems - Review of Systems Constitutional: reports: Weakness, Other Eyes: reports: No Symptoms HENT: reports: No Symptoms Neck: reports: No Symptoms Cardiovascular: reports: No Symptoms Respiratory: reports: No Symptoms Gastrointestinal: reports: No Symptoms Genitourinary: reports: No Symptoms Musculoskeletal: reports: Other Integumentary: reports: Erythema, Other Neurological: reports: No Symptoms Endocrine: reports: No Symptoms Hematology/Lymphatic: reports: No Symptoms Psychiatric: reports: No Symptoms Physical Exam Vital Signs: Vital Signs Temperature 97.9 F 08/07/20 06:58 Pulse Rate 104 H 08/07/20 06:58 Respiratory Rate 16 08/07/20 06:58 Blood Pressure 132/76 08/07/20 06:58 O2 Sat by Pulse Oximetry (%) 97 08/07/20 06:58 Constitutional: Yes: Calm, Mild Distress Eyes: Yes: Conjunctiva Clear HENT: Yes: Atraumatic, Normocephalic Neck: Yes: Supple, Trachea Midline Cardiovascular: Yes: Regular Rate and Rhythm, Tachycardia Respiratory: Yes: Regular, CTA Bilaterally Gastrointestinal: Yes: Normal Bowel Sounds, Soft Musculoskeletal: Yes: Other Extremities: Yes: Erythema, Other Integumentary: Yes: Erythema, Other Wound/Incision: Yes: Open to air Neurological: Yes: Alert, Oriented Psychiatric: Yes: Alert, Oriented Labs: CBC, BMP 08/07/20 05:30 08/07/20 05:30 Imaging - Results Chest X-ray: Report Reviewed, Image Reviewed Assessment/Plan Problem List - Problems (1) Cellulitis Code(s): L03.90 - CELLULITIS, UNSPECIFIED Qualifiers: Site of cellulitis: extremity Site of cellulitis of extremity: lower extremity Laterality: unspecified laterality Qualified Code(s): L03.119 - Cellulitis of unspecified part of limb (2) COPD (chronic obstructive pulmonary disease) Code(s): J44.9 - CHRONIC OBSTRUCTIVE PULMONARY DISEASE, UNSPECIFIED Qualifiers: COPD type: COPD with acute exacerbation Qualified Code(s): J44.1 - Chronic obstructive pulmonary disease with (acute) exacerbation (3) Chronic pain Code(s): G89.29 - OTHER CHRONIC PAIN (4) Hypertension Code(s): I10 - ESSENTIAL (PRIMARY) HYPERTENSION (5) Hypothyroidism Code(s): E03.9 - HYPOTHYROIDISM, UNSPECIFIED plan will start patient on broad spectrum abx close watch on the patient
--- NOTE | 2020-08-07 12:38 | EKG ---
Test Reason : Blood Pressure : / mmHG Vent. Rate : 105 BPM Atrial Rate : 105 BPM P-R Int : 178 ms QRS Dur : 090 ms QT Int : 358 ms P-R-T Axes : 073 010 066 degrees QTc Int : 473 ms SINUS TACHYCARDIA LOW VOLTAGE QRS SEPTAL INFARCT (CITED ON OR BEFORE 06-AUG-2020) ABNORMAL ECG WHEN COMPARED WITH ECG OF 06-AUG-2020 16:33, NO SIGNIFICANT CHANGE WAS FOUND Confirmed by ROXANNA KANG, KAMRAN ([id number]) on 08/07/2020 12:37:22 PM Referred By: Confirmed By:KAMRAN MCKNIGHT MD
[2020-08-07] MEDS: rOPINIRole HCL 0.25 MG TABLET PO SCH ×2 (13:26→23:04)
--- NOTE | 2020-08-07 17:08 | PN ---
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, Physician History of Present Illness: stable - Current Medication List Current Medications: Active Medications Allopurinol (Zyloprim -) 300 mg PO DAILY [facility] Last Admin: 08/07/20 09:31 Dose: 300 mg Documented by: Aspirin (Asa -) 81 mg PO DAILY [facility] Last Admin: 08/07/20 10:13 Dose: 81 mg Documented by: Atenolol (Tenormin -) 50 mg PO DAILY [facility] Last Admin: 08/07/20 09:28 Dose: 50 mg Documented by: Atorvastatin Calcium (Lipitor -) 20 mg PO [facility] Cyclobenzaprine HCl (Flexeril -) 10 mg PO TID PRN PRN Reason: MUSCLE SPASMS Last Admin: 08/07/20 03:44 Dose: 10 mg Documented by: Divalproex Sodium (Depakote *Er* -) 500 mg PO BID [facility] Last Admin: 08/07/20 10:12 Dose: 500 mg Documented by: Enoxaparin Sodium (Lovenox -) 40 mg SQ DAILY [facility] Last Admin: 08/07/20 10:13 Dose: 40 mg Documented by: Folic Acid (Folic Acid -) 1 mg PO DAILY [facility] Last Admin: 08/07/20 10:13 Dose: 1 mg Documented by: Furosemide (Lasix -) 40 mg PO DAILY PRN PRN Reason: Dyspnea Piperacillin Sod/Tazobactam (Sod 3.375 gm/ Dextrose) 50 mls @ 100 mls/hr IVPB Q8H-IV [facility]; Protocol Piperacillin Sod/Tazobactam (Sod 3.375 gm/ Dextrose) 50 mls @ 100 mls/hr IVPB Q8H-IV [facility]; Protocol Stop: 08/07/20 18:29 Last Admin: 08/07/20 09:26 Dose: 100 mls/hr Documented by: Vancomycin HCl (Vancomycin 1 Gm Premix -) 1 gm in 200 mls @ 133.333 mls/hr IVPB Q12H [facility] Last Admin: 08/07/20 01:35 Dose: Not Given Documented by: Lactulose (Cephulac (Oral Use)) 20 gm PO DAILY PRN PRN Reason: CONSTIPATION Losartan Potassium (Cozaar -) 25 mg PO DAILY [facility] Last Admin: 08/07/20 09:27 Dose: 25 mg Documented by: Magnesium Oxide (Mag-Ox -) 400 mg PO DAILY [facility] Last Admin: 08/07/20 10:13 Dose: 400 mg Documented by: Multivitamins/Minerals/Vitamin C (Tab-A-Vit -) 1 tab PO DAILY [facility] Last Admin: 08/07/20 10:13 Dose: 1 tab Documented by: Non-Formulary Medication (Ketotifen Fumarate [Zaditor]) 1 drop OU BID [facility] Oxycodone HCl (Roxicodone -) 10 mg PO Q6H PRN PRN Reason: PAIN LEVEL 4 - 6 Polyethylene Glycol (Miralax (For Daily Use) -) 17 gm PO DAILY [facility] Last Admin: 08/07/20 09:29 Dose: 17 gm Documented by: Ropinirole HCl (Requip -) 0.5 mg PO TID [facility] Last Admin: 08/07/20 13:26 Dose: 0.5 mg Documented by: Fluticasone/Salmeterol (Advair 100mcg/50mcg -) 1 puff IH BID [facility] Last Admin: 08/07/20 10:12 Dose: 1 puff Documented by: Sertraline HCl (Zoloft -) 25 mg PO HS [facility] Last Admin: 08/06/20 23:40 Dose: 25 mg Documented by: - Objective Vital Signs: Vital Signs Temperature 98.8 F 08/07/20 13:31 Pulse Rate 96 H 08/07/20 13:31 Respiratory Rate 18 08/07/20 13:31 Blood Pressure 125/65 08/07/20 13:31 O2 Sat by Pulse Oximetry (%) 96 08/07/20 13:31 Constitutional: Yes: No Distress HENT: Yes: Atraumatic Neck: Yes: Supple Cardiovascular: Yes: Regular Rate and Rhythm Respiratory: Yes: CTA Bilaterally Gastrointestinal: Yes: Normal Bowel Sounds Extremities: Yes: Other (R kristina cellulitis) Neurological: Yes: Alert, Oriented Labs: CBC, BMP 08/07/20 05:30 08/07/20 05:30 INR, PTT INR 1.05 (0.83-1.09) 08/06/20 13:50 Problem List - Problems (1) Cellulitis Assessment/Plan: iv abx id on board dvt ppx Code(s): L03.90 - CELLULITIS, UNSPECIFIED Qualifiers: Site of cellulitis: extremity Site of cellulitis of extremity: lower extremity Laterality: unspecified laterality Qualified Code(s): L03.119 - Cellulitis of unspecified part of limb (2) COPD (chronic obstructive pulmonary disease) Code(s): J44.9 - CHRONIC OBSTRUCTIVE PULMONARY DISEASE, UNSPECIFIED Qualifiers: COPD type: COPD with acute exacerbation Qualified Code(s): J44.1 - Chronic obstructive pulmonary disease with (acute) exacerbation (3) Chronic pain Assessment/Plan: on pain meds Code(s): G89.29 - OTHER CHRONIC PAIN (4) Hypertension Assessment/Plan: on meds Code(s): I10 - ESSENTIAL (PRIMARY) HYPERTENSION (5) Hypothyroidism Assessment/Plan: will check tsh Code(s): E03.9 - HYPOTHYROIDISM, UNSPECIFIED
[2020-08-07] MEDS: oxyCODONE HCL 5 MG TABLET PO PRN ×2 (17:14→23:04)
[2020-08-07] MEDS: rOPINIRole HCL 0.5 MG TABLET PO SCH (19:33)
[2020-08-07] MEDS: SERTRALINE HCL 25 MG TABLET (FP) PO SCH (23:04)
[2020-08-07] MEDS: ATORVASTATIN CA 20 MG TABLET (FP) PO SCH (23:04)
[2020-08-08] MEDS: PIPERACILLIN/TAZOB 3.375 GM 3.375 GM in DEXTROSE 5%-WATER - 50 ML IVPB SCH ×3 (02:44→17:20)
[2020-08-08] MEDS: rOPINIRole HCL 0.25 MG TABLET PO SCH ×3 (05:20→22:16)
[2020-08-08] MEDS: oxyCODONE HCL 5 MG TABLET PO PRN ×2 (05:20→14:43)
[2020-08-08] MEDS ORDERED: DEXTROSE 5%-WATER - 50 ML IVPB ONE ×3 (09:40→17:27)
[2020-08-08] MEDS ORDERED: PIPERACILLIN/TAZOBACTAM 3.375 GM VIAL IVPB ONE ×3 (09:40→17:27)
[2020-08-08] MEDS: POLYETHYLENE GLYCOL 3350 119 GM BTL PO SCH (10:03)
[2020-08-08] MEDS: FOLIC ACID 1 MG TABLET (FP) PO SCH (10:04)
[2020-08-08] MEDS: MAGNESIUM OXIDE 400 MG TABLET (FP) PO SCH (10:04)
[2020-08-08] MEDS: ALLOPURINOL 300 MG TABLET (FP) PO SCH (10:04)
[2020-08-08] MEDS: ATENOLOL 50 MG TABLET (FP) PO SCH (10:04)
[2020-08-08] MEDS: DIVALPROEX NA *ER* EXTEND REL 500 MG TABLET.SA (FP) PO SCH ×2 (10:04→22:15)
[2020-08-08] MEDS: ENOXAPARIN NA (PORCINE) 40 MG/0.4 ML DISP.SYRIN SQ SCH (10:04)
[2020-08-08] MEDS: MULTIVITAMINS (DAILY MVI) TABLET (FP) PO SCH (10:04)
[2020-08-08] MEDS: ASPIRIN 81 MG CHEWABLE TABLETS PO SCH (10:04)
[2020-08-08] MEDS: LOSARTAN POTASSIUM 25 MG TABLET PO SCH (10:04)
[2020-08-08] MEDS: FLUTICASONE/SALMETEROL 100 MCG/50 MCG DISKUS IH SCH ×2 (10:05→22:19)
[2020-08-08] MEDS: CYCLOBENZAPRINE HCL 10 MG TABLET (FP) PO PRN (10:16)
--- NOTE | 2020-08-08 11:12 | PN ---
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, Physician History of Present Illness: stable - Current Medication List Current Medications: Active Medications Allopurinol (Zyloprim -) 300 mg PO DAILY [facility] Last Admin: 08/08/20 10:04 Dose: 300 mg Documented by: Aspirin (Asa -) 81 mg PO DAILY [facility] Last Admin: 08/08/20 10:04 Dose: 81 mg Documented by: Atenolol (Tenormin -) 50 mg PO DAILY [facility] Last Admin: 08/08/20 10:04 Dose: 50 mg Documented by: Atorvastatin Calcium (Lipitor -) 20 mg PO HS [facility] Last Admin: 08/07/20 23:04 Dose: 20 mg Documented by: Cyclobenzaprine HCl (Flexeril -) 10 mg PO TID PRN PRN Reason: MUSCLE SPASMS Last Admin: 08/08/20 10:16 Dose: 10 mg Documented by: Divalproex Sodium (Depakote *Er* -) 500 mg PO BID [facility] Last Admin: 08/08/20 10:04 Dose: 500 mg Documented by: Enoxaparin Sodium (Lovenox -) 40 mg SQ DAILY [facility] Last Admin: 08/08/20 10:04 Dose: 40 mg Documented by: Folic Acid (Folic Acid -) 1 mg PO DAILY [facility] Last Admin: 08/08/20 10:04 Dose: 1 mg Documented by: Furosemide (Lasix -) 40 mg PO DAILY PRN PRN Reason: Dyspnea Piperacillin Sod/Tazobactam (Sod 3.375 gm/ Dextrose) 50 mls @ 100 mls/hr IVPB Q8H-IV [facility]; Protocol Last Admin: 08/08/20 10:03 Dose: 100 mls/hr Documented by: Lactulose (Cephulac (Oral Use)) 20 gm PO DAILY PRN PRN Reason: CONSTIPATION Losartan Potassium (Cozaar -) 25 mg PO DAILY [facility] Last Admin: 08/08/20 10:04 Dose: 25 mg Documented by: Magnesium Oxide (Mag-Ox -) 400 mg PO DAILY [facility] Last Admin: 08/08/20 10:04 Dose: 400 mg Documented by: Multivitamins/Minerals/Vitamin C (Tab-A-Vit -) 1 tab PO DAILY [facility] Last Admin: 08/08/20 10:04 Dose: 1 tab Documented by: Non-Formulary Medication (Ketotifen Fumarate [Zaditor]) 1 drop OU BID [facility] Oxycodone HCl (Roxicodone -) 10 mg PO Q6H PRN PRN Reason: PAIN LEVEL 4 - 6 Last Admin: 08/08/20 05:20 Dose: 10 mg Documented by: Polyethylene Glycol (Miralax (For Daily Use) -) 17 gm PO DAILY [facility] Last Admin: 08/08/20 10:03 Dose: 17 gm Documented by: Ropinirole HCl (Requip -) 0.5 mg PO TID [facility] Last Admin: 08/08/20 05:20 Dose: 0.5 mg Documented by: Fluticasone/Salmeterol (Advair 100mcg/50mcg -) 1 puff IH BID [facility] Last Admin: 08/08/20 10:05 Dose: 1 puff Documented by: Sertraline HCl (Zoloft -) 25 mg PO HS [facility] Last Admin: 08/07/20 23:04 Dose: 25 mg Documented by: - Objective Vital Signs: Vital Signs Temperature 98.7 F 08/08/20 05:16 Pulse Rate 98 H 08/08/20 05:16 Respiratory Rate 20 08/08/20 05:16 Blood Pressure 115/60 08/08/20 05:16 O2 Sat by Pulse Oximetry (%) 95 08/08/20 05:16 Constitutional: Yes: No Distress HENT: Yes: Atraumatic Neck: Yes: Supple Cardiovascular: Yes: Regular Rate and Rhythm Respiratory: Yes: CTA Bilaterally Gastrointestinal: Yes: Normal Bowel Sounds Extremities: Yes: Other (R kristina cellulitis improving) Neurological: Yes: Alert, Oriented Labs: CBC, BMP 08/07/20 05:30 08/07/20 05:30 INR, PTT INR 1.05 (0.83-1.09) 08/06/20 13:50 Problem List - Problems (1) Cellulitis Assessment/Plan: iv abx id on board dvt ppx Code(s): L03.90 - CELLULITIS, UNSPECIFIED Qualifiers: Site of cellulitis: extremity Site of cellulitis of extremity: lower extremity Laterality: unspecified laterality Qualified Code(s): L03.119 - Cellulitis of unspecified part of limb (2) COPD (chronic obstructive pulmonary disease) Code(s): J44.9 - CHRONIC OBSTRUCTIVE PULMONARY DISEASE, UNSPECIFIED Qualifiers: COPD type: COPD with acute exacerbation Qualified Code(s): J44.1 - Chronic obstructive pulmonary disease with (acute) exacerbation (3) Chronic pain Code(s): G89.29 - OTHER CHRONIC PAIN (4) Hypertension Assessment/Plan: on meds Code(s): I10 - ESSENTIAL (PRIMARY) HYPERTENSION (5) Hypothyroidism Assessment/Plan: will check tsh Code(s): E03.9 - HYPOTHYROIDISM, UNSPECIFIED
[2020-08-08] MEDS ORDERED: INSULIN (LEVEMIR) 100 UNITS/ML UNITS SQ ONE (17:41)
[2020-08-08] MEDS ORDERED: PT OWN MED DRAWER 7, Y5N ONE (22:03)
[2020-08-08] MEDS: ATORVASTATIN CA 20 MG TABLET (FP) PO SCH (22:15)
[2020-08-08] MEDS: SERTRALINE HCL 25 MG TABLET (FP) PO SCH (22:15)
[2020-08-09] MEDS ORDERED: PIPERACILLIN/TAZOBACTAM 3.375 GM VIAL IVPB ONE ×4 (02:58→17:00)
[2020-08-09] MEDS ORDERED: DEXTROSE 5%-WATER - 50 ML IVPB ONE ×4 (02:58→17:01)
[2020-08-09] MEDS: PIPERACILLIN/TAZOB 3.375 GM 3.375 GM in DEXTROSE 5%-WATER - 50 ML IVPB SCH ×3 (03:00→17:15)
[2020-08-09] MEDS ORDERED: PT OWN MED DRAWER 7, Y5N ONE ×2 (05:46→12:08)
[2020-08-09] MEDS: rOPINIRole HCL 0.25 MG TABLET PO SCH ×3 (05:47→21:08)
[2020-08-09] MEDS: oxyCODONE HCL 5 MG TABLET PO PRN (05:51)
[2020-08-09 08:20] LABS: BASO % 0.4 % (0-2.0); EOS % 3.5 % (0-4.5); HEMATOCRIT 36.3 % (32.4-45.2); MCH 30.4 pg (25.7-33.7); MCHC 33.1 g/dl (32.0-36.0); MEAN CELL VOLUME 91.8 fl (80-96); MEAN PLT VOLUME 8.3 fl (7.5-11.1); MONO % 16.3 % (3.8-10.2); NEUT % 43.8 % (42.8-82.8); PLATELET COUNT 179 K/MM3 (134-434); RBC 3.95 M/mm3 (3.60-5.2); RDW 16.3 % (11.6-15.6); WHITE BLOOD COUNT 7.3 K/mm3 (4.0-10.0)
[2020-08-09 08:36] LABS: ALBUMIN 2.5 g/dl (3.4-5.0); BILIRUBIN,TOTAL 0.7 mg/dL (0.2-1); BLOOD UREA NITROGEN 15.7 mg/dL (7-18); CALCIUM 8.4 mg/dL (8.5-10.1); CREATININE 1.2 mg/dL (0.55-1.3); POTASSIUM 4.3 mmol/L (3.5-5.1); TOT PROT 5.7 g/dl (6.4-8.2)
[2020-08-09] MEDS: ENOXAPARIN NA (PORCINE) 40 MG/0.4 ML DISP.SYRIN SQ SCH (10:02)
[2020-08-09] MEDS: ATENOLOL 50 MG TABLET (FP) PO SCH (10:02)
[2020-08-09] MEDS: MAGNESIUM OXIDE 400 MG TABLET (FP) PO SCH (10:03)
[2020-08-09] MEDS: MULTIVITAMINS (DAILY MVI) TABLET (FP) PO SCH (10:03)
[2020-08-09] MEDS: ALLOPURINOL 300 MG TABLET (FP) PO SCH (10:03)
[2020-08-09] MEDS: LOSARTAN POTASSIUM 25 MG TABLET PO SCH (10:03)
[2020-08-09] MEDS: FOLIC ACID 1 MG TABLET (FP) PO SCH (10:03)
[2020-08-09] MEDS: POLYETHYLENE GLYCOL 3350 119 GM BTL PO SCH (10:03)
[2020-08-09] MEDS: ASPIRIN 81 MG CHEWABLE TABLETS PO SCH (10:03)
[2020-08-09] MEDS: DIVALPROEX NA *ER* EXTEND REL 500 MG TABLET.SA (FP) PO SCH ×2 (10:03→21:08)
[2020-08-09] MEDS: FLUTICASONE/SALMETEROL 100 MCG/50 MCG DISKUS IH SCH ×2 (10:15→21:08)
--- NOTE | 2020-08-09 15:05 | PN ---
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, Physician History of Present Illness: Pt states pain in RLE has improved. Still with erythema/warmth. - Current Medication List Current Medications: Active Medications Allopurinol (Zyloprim -) 300 mg PO DAILY [facility] Last Admin: 08/09/20 10:03 Dose: 300 mg Documented by: Amino Acids (Prosource No Carb Liquid Pkt) 30 ml PO BID@0800,1730 [facility] Aspirin (Asa -) 81 mg PO DAILY [facility] Last Admin: 08/09/20 10:03 Dose: 81 mg Documented by: Atenolol (Tenormin -) 50 mg PO DAILY [facility] Last Admin: 08/09/20 10:02 Dose: 50 mg Documented by: Atorvastatin Calcium (Lipitor -) 20 mg PO HS [facility] Last Admin: 08/08/20 22:15 Dose: 20 mg Documented by: Cyclobenzaprine HCl (Flexeril -) 10 mg PO TID PRN PRN Reason: MUSCLE SPASMS Last Admin: 08/08/20 10:16 Dose: 10 mg Documented by: Divalproex Sodium (Depakote *Er* -) 500 mg PO BID [facility] Last Admin: 08/09/20 10:03 Dose: 500 mg Documented by: Enoxaparin Sodium (Lovenox -) 40 mg SQ DAILY [facility] Last Admin: 08/09/20 10:02 Dose: 40 mg Documented by: Folic Acid (Folic Acid -) 1 mg PO DAILY [facility] Last Admin: 08/09/20 10:03 Dose: 1 mg Documented by: Furosemide (Lasix -) 40 mg PO DAILY PRN PRN Reason: Dyspnea Piperacillin Sod/Tazobactam (Sod 3.375 gm/ Dextrose) 50 mls @ 100 mls/hr IVPB Q8H-IV [facility]; Protocol Last Admin: 08/09/20 10:00 Dose: 100 mls/hr Documented by: Lactulose (Cephulac (Oral Use)) 20 gm PO DAILY PRN PRN Reason: CONSTIPATION Losartan Potassium (Cozaar -) 25 mg PO DAILY [facility] Last Admin: 08/09/20 10:03 Dose: 25 mg Documented by: Magnesium Oxide (Mag-Ox -) 400 mg PO DAILY [facility] Last Admin: 08/09/20 10:03 Dose: 400 mg Documented by: Multivitamins/Minerals/Vitamin C (Tab-A-Vit -) 1 tab PO DAILY [facility] Last Admin: 08/09/20 10:03 Dose: 1 tab Documented by: Oxycodone HCl (Roxicodone -) 10 mg PO Q6H PRN PRN Reason: PAIN LEVEL 4 - 6 Last Admin: 08/09/20 05:51 Dose: 10 mg Documented by: Polyethylene Glycol (Miralax (For Daily Use) -) 17 gm PO DAILY [facility] Last Admin: 08/09/20 10:03 Dose: Not Given Documented by: Ropinirole HCl (Requip -) 0.5 mg PO TID [facility] Last Admin: 08/09/20 13:25 Dose: 0.5 mg Documented by: Fluticasone/Salmeterol (Advair 100mcg/50mcg -) 1 puff IH BID [facility] Last Admin: 08/09/20 10:15 Dose: 1 puff Documented by: Sertraline HCl (Zoloft -) 25 mg PO HS [facility] Last Admin: 08/08/20 22:15 Dose: 25 mg Documented by: - Objective Vital Signs: Vital Signs Temperature 97.7 F 08/09/20 10:00 Pulse Rate 96 H 08/09/20 10:00 Respiratory Rate 17 08/09/20 10:00 Blood Pressure 127/68 08/09/20 10:00 O2 Sat by Pulse Oximetry (%) 95 08/09/20 10:00 Constitutional: Yes: No Distress, Calm Cardiovascular: Yes: Regular Rate and Rhythm Respiratory: Yes: Regular Gastrointestinal: Yes: Normal Bowel Sounds, Soft, Abdomen, Obese Extremities: Yes: Erythema (RLE erythema/edema/warmth, less tenderness) Edema: LLE: 2+, RLE: 2+ Neurological: Yes: Alert Labs: CBC, BMP 08/09/20 06:55 08/09/20 06:55 INR, PTT INR 1.05 (0.83-1.09) 08/06/20 13:50 Microbiology 08/06/20 13:15 Blood - Peripheral Venous Blood Culture - Preliminary NO GROWTH OBTAINED AFTER 48 HOURS, INCUBATION TO CONTINUE FOR 3 DAYS. 08/06/20 13:15 Blood - Peripheral Venous Blood Culture - Preliminary NO GROWTH OBTAINED AFTER 48 HOURS, INCUBATION TO CONTINUE FOR 3 DAYS. Problem List - Problems (1) Cellulitis Code(s): L03.90 - CELLULITIS, UNSPECIFIED Qualifiers: Site of cellulitis: extremity Site of cellulitis of extremity: lower extremity Laterality: unspecified laterality Qualified Code(s): L03.119 - Cellulitis of unspecified part of limb (2) COPD (chronic obstructive pulmonary disease) Code(s): J44.9 - CHRONIC OBSTRUCTIVE PULMONARY DISEASE, UNSPECIFIED Qualifiers: COPD type: COPD with acute exacerbation Qualified Code(s): J44.1 - Chronic obstructive pulmonary disease with (acute) exacerbation (3) Edema of both legs Code(s): R60.0 - LOCALIZED EDEMA (4) Hypertension Code(s): I10 - ESSENTIAL (PRIMARY) HYPERTENSION (5) Hypothyroidism Code(s): E03.9 - HYPOTHYROIDISM, UNSPECIFIED (6) Obesity (BMI 30-39.9) Code(s): E66.9 - OBESITY, UNSPECIFIED (7) Osteoarthritis Code(s): M19.90 - UNSPECIFIED OSTEOARTHRITIS, UNSPECIFIED SITE (10) Type 2 diabetes mellitus with diabetic autonomic (poly)neuropathy Code(s): E11.43 - TYPE 2 DIABETES W DIABETIC AUTONOMIC (POLY)NEUROPATHY Assessment/Plan - pt still with warmth/erythema, pain is improving - continue IV antibiotics for now, monitor for improvement vitals stable
[2020-08-09] MEDS: AMINO ACIDS/PROTEIN HYDROLYS 30 ML LIQUID.PKT PO SCH (17:15)
[2020-08-09] MEDS: SERTRALINE HCL 25 MG TABLET (FP) PO SCH (21:08)
[2020-08-09] MEDS: ATORVASTATIN CA 20 MG TABLET (FP) PO SCH (21:08)
--- NOTE | 2020-08-09 22:27 | PN ---
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, Physician - Current Medication List Current Medications: Active Medications Allopurinol (Zyloprim -) 300 mg PO DAILY [facility] Last Admin: 08/09/20 10:03 Dose: 300 mg Documented by: Amino Acids (Prosource No Carb Liquid Pkt) 30 ml PO BID@0800,1730 [facility] Last Admin: 08/09/20 17:15 Dose: 30 ml Documented by: Aspirin (Asa -) 81 mg PO DAILY [facility] Last Admin: 08/09/20 10:03 Dose: 81 mg Documented by: Atenolol (Tenormin -) 50 mg PO DAILY [facility] Last Admin: 08/09/20 10:02 Dose: 50 mg Documented by: Atorvastatin Calcium (Lipitor -) 20 mg PO HS [facility] Last Admin: 08/09/20 21:08 Dose: 20 mg Documented by: Cyclobenzaprine HCl (Flexeril -) 10 mg PO TID PRN PRN Reason: MUSCLE SPASMS Last Admin: 08/08/20 10:16 Dose: 10 mg Documented by: Divalproex Sodium (Depakote *Er* -) 500 mg PO BID [facility] Last Admin: 08/09/20 21:08 Dose: 500 mg Documented by: Enoxaparin Sodium (Lovenox -) 40 mg SQ DAILY [facility] Last Admin: 08/09/20 10:02 Dose: 40 mg Documented by: Folic Acid (Folic Acid -) 1 mg PO DAILY [facility] Last Admin: 08/09/20 10:03 Dose: 1 mg Documented by: Furosemide (Lasix -) 40 mg PO DAILY PRN PRN Reason: Dyspnea Piperacillin Sod/Tazobactam (Sod 3.375 gm/ Dextrose) 50 mls @ 100 mls/hr IVPB Q8H-IV [facility]; Protocol Last Admin: 08/09/20 17:15 Dose: 100 mls/hr Documented by: Lactulose (Cephulac (Oral Use)) 20 gm PO DAILY PRN PRN Reason: CONSTIPATION Losartan Potassium (Cozaar -) 25 mg PO DAILY [facility] Last Admin: 08/09/20 10:03 Dose: 25 mg Documented by: Magnesium Oxide (Mag-Ox -) 400 mg PO DAILY [facility] Last Admin: 08/09/20 10:03 Dose: 400 mg Documented by: Multivitamins/Minerals/Vitamin C (Tab-A-Vit -) 1 tab PO DAILY [facility] Last Admin: 08/09/20 10:03 Dose: 1 tab Documented by: Oxycodone HCl (Roxicodone -) 10 mg PO Q6H PRN PRN Reason: PAIN LEVEL 4 - 6 Last Admin: 08/09/20 05:51 Dose: 10 mg Documented by: Polyethylene Glycol (Miralax (For Daily Use) -) 17 gm PO DAILY [facility] Last Admin: 08/09/20 10:03 Dose: Not Given Documented by: Ropinirole HCl (Requip -) 0.5 mg PO TID [facility] Last Admin: 08/09/20 21:08 Dose: 0.5 mg Documented by: Fluticasone/Salmeterol (Advair 100mcg/50mcg -) 1 puff IH BID [facility] Last Admin: 08/09/20 21:08 Dose: 1 puff Documented by: Sertraline HCl (Zoloft -) 25 mg PO HS [facility] Last Admin: 08/09/20 21:08 Dose: 25 mg Documented by: - Objective Vital Signs: Vital Signs Temperature 98.8 F 08/09/20 17:31 Pulse Rate 93 H 08/09/20 17:31 Respiratory Rate 20 08/09/20 17:31 Blood Pressure 117/58 L 08/09/20 17:31 O2 Sat by Pulse Oximetry (%) 95 08/09/20 15:11 Labs: CBC, BMP 08/09/20 06:55 08/09/20 06:55 INR, PTT INR 1.05 (0.83-1.09) 08/06/20 13:50
[2020-08-10] MEDS ORDERED: PIPERACILLIN/TAZOBACTAM 3.375 GM VIAL IVPB ONE ×3 (01:26→17:42)
[2020-08-10] MEDS ORDERED: DEXTROSE 5%-WATER - 50 ML IVPB ONE ×3 (01:26→17:42)
[2020-08-10] MEDS: PIPERACILLIN/TAZOB 3.375 GM 3.375 GM in DEXTROSE 5%-WATER - 50 ML IVPB SCH ×3 (02:05→18:10)
[2020-08-10] MEDS: rOPINIRole HCL 0.25 MG TABLET PO SCH ×3 (05:56→20:59)
[2020-08-10] MEDS: ASPIRIN 81 MG CHEWABLE TABLETS PO SCH (10:21)
[2020-08-10] MEDS: ENOXAPARIN NA (PORCINE) 40 MG/0.4 ML DISP.SYRIN SQ SCH (10:21)
[2020-08-10] MEDS: MAGNESIUM OXIDE 400 MG TABLET (FP) PO SCH (10:22)
[2020-08-10] MEDS: FOLIC ACID 1 MG TABLET (FP) PO SCH (10:22)
[2020-08-10] MEDS: DIVALPROEX NA *ER* EXTEND REL 500 MG TABLET.SA (FP) PO SCH ×2 (10:22→20:59)
[2020-08-10] MEDS: ALLOPURINOL 300 MG TABLET (FP) PO SCH (10:22)
[2020-08-10] MEDS: LOSARTAN POTASSIUM 25 MG TABLET PO SCH (10:22)
[2020-08-10] MEDS: MULTIVITAMINS (DAILY MVI) TABLET (FP) PO SCH (10:22)
[2020-08-10] MEDS: AMINO ACIDS/PROTEIN HYDROLYS 30 ML LIQUID.PKT PO SCH ×2 (10:22→16:31)
[2020-08-10] MEDS: ATENOLOL 50 MG TABLET (FP) PO SCH (10:22)
[2020-08-10] MEDS: POLYETHYLENE GLYCOL 3350 119 GM BTL PO SCH (10:23)
[2020-08-10] MEDS: FLUTICASONE/SALMETEROL 100 MCG/50 MCG DISKUS IH SCH ×2 (10:23→21:05)
[2020-08-10] MEDS: CYCLOBENZAPRINE HCL 10 MG TABLET (FP) PO PRN ×2 (11:43→22:49)
[2020-08-10] MEDS: oxyCODONE HCL 5 MG TABLET PO PRN ×2 (11:43→21:01)
--- NOTE | 2020-08-10 15:12 | PN ---
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, Physician History of Present Illness: Pt is alert, still with c/o of LE pain. Afebrile, comfortable. - Current Medication List Current Medications: Active Medications Allopurinol (Zyloprim -) 300 mg PO DAILY [facility] Last Admin: 08/10/20 10:22 Dose: 300 mg Documented by: Amino Acids (Prosource No Carb Liquid Pkt) 30 ml PO BID@0800,1730 [facility] Last Admin: 08/10/20 10:22 Dose: 30 ml Documented by: Aspirin (Asa -) 81 mg PO DAILY [facility] Last Admin: 08/10/20 10:21 Dose: 81 mg Documented by: Atenolol (Tenormin -) 50 mg PO DAILY [facility] Last Admin: 08/10/20 10:22 Dose: 50 mg Documented by: Atorvastatin Calcium (Lipitor -) 20 mg PO HS [facility] Last Admin: 08/09/20 21:08 Dose: 20 mg Documented by: Cyclobenzaprine HCl (Flexeril -) 10 mg PO TID PRN PRN Reason: MUSCLE SPASMS Last Admin: 08/10/20 11:43 Dose: 10 mg Documented by: Divalproex Sodium (Depakote *Er* -) 500 mg PO BID [facility] Last Admin: 08/10/20 10:22 Dose: 500 mg Documented by: Enoxaparin Sodium (Lovenox -) 40 mg SQ DAILY [facility] Last Admin: 08/10/20 10:21 Dose: 40 mg Documented by: Folic Acid (Folic Acid -) 1 mg PO DAILY [facility] Last Admin: 08/10/20 10:22 Dose: 1 mg Documented by: Furosemide (Lasix -) 40 mg PO DAILY PRN PRN Reason: Dyspnea Last Admin: 08/10/20 10:22 Dose: 40 mg Documented by: Piperacillin Sod/Tazobactam (Sod 3.375 gm/ Dextrose) 50 mls @ 100 mls/hr IVPB Q8H-IV ADELINE; Protocol Last Admin: 08/10/20 10:23 Dose: 100 mls/hr Documented by: Lactulose (Cephulac (Oral Use)) 20 gm PO DAILY PRN PRN Reason: CONSTIPATION Last Admin: 08/10/20 10:21 Dose: 20 gm Documented by: Losartan Potassium (Cozaar -) 25 mg PO DAILY [facility] Last Admin: 08/10/20 10:22 Dose: 25 mg Documented by: Magnesium Oxide (Mag-Ox -) 400 mg PO DAILY [facility] Last Admin: 08/10/20 10:22 Dose: 400 mg Documented by: Multivitamins/Minerals/Vitamin C (Tab-A-Vit -) 1 tab PO DAILY [facility] Last Admin: 08/10/20 10:22 Dose: 1 tab Documented by: Oxycodone HCl (Roxicodone -) 10 mg PO Q6H PRN PRN Reason: PAIN LEVEL 4 - 6 Last Admin: 08/10/20 11:43 Dose: 10 mg Documented by: Polyethylene Glycol (Miralax (For Daily Use) -) 17 gm PO DAILY [facility] Last Admin: 08/10/20 10:23 Dose: Not Given Documented by: Ropinirole HCl (Requip -) 0.5 mg PO TID [facility] Last Admin: 08/10/20 14:34 Dose: 0.5 mg Documented by: Fluticasone/Salmeterol (Advair 100mcg/50mcg -) 1 puff IH BID [facility] Last Admin: 08/10/20 10:23 Dose: 1 puff Documented by: Sertraline HCl (Zoloft -) 25 mg PO HS [facility] Last Admin: 08/09/20 21:08 Dose: 25 mg Documented by: - Objective Vital Signs: Vital Signs Temperature 99 F 08/10/20 15:04 Pulse Rate 94 H 08/10/20 15:04 Respiratory Rate 20 08/10/20 15:04 Blood Pressure 128/60 08/10/20 15:04 O2 Sat by Pulse Oximetry (%) 96 08/10/20 15:04 Constitutional: Yes: No Distress, Calm Cardiovascular: Yes: Regular Rate and Rhythm Respiratory: Yes: Regular Gastrointestinal: Yes: Normal Bowel Sounds, Soft, Abdomen, Obese Extremities: Yes: Other (RLE erythema/warmth, slightly less edema) Edema: LLE: 2+, RLE: 2+ Integumentary: Yes: WNL Neurological: Yes: Alert Labs: CBC, BMP 08/09/20 06:55 08/09/20 06:55 INR, PTT INR 1.05 (0.83-1.09) 08/06/20 13:50 Microbiology 08/06/20 13:15 Blood - Peripheral Venous Blood Culture - Preliminary NO GROWTH OBTAINED AFTER 72 HOURS, INCUBATION TO CONTINUE FOR 2 DAYS. 08/06/20 13:15 Blood - Peripheral Venous Blood Culture - Preliminary NO GROWTH OBTAINED AFTER 72 HOURS, INCUBATION TO CONTINUE FOR 2 DAYS. Problem List - Problems (1) Cellulitis Code(s): L03.90 - CELLULITIS, UNSPECIFIED Qualifiers: Site of cellulitis: extremity Site of cellulitis of extremity: lower extremity Laterality: unspecified laterality Qualified Code(s): L03.119 - Cellulitis of unspecified part of limb (2) COPD (chronic obstructive pulmonary disease) Code(s): J44.9 - CHRONIC OBSTRUCTIVE PULMONARY DISEASE, UNSPECIFIED Qualifiers: COPD type: COPD with acute exacerbation Qualified Code(s): J44.1 - Chronic obstructive pulmonary disease with (acute) exacerbation (3) Edema of both legs Code(s): R60.0 - LOCALIZED EDEMA (4) Hypertension Code(s): I10 - ESSENTIAL (PRIMARY) HYPERTENSION (5) Hypothyroidism Code(s): E03.9 - HYPOTHYROIDISM, UNSPECIFIED (6) Obesity (BMI 30-39.9) Code(s): E66.9 - OBESITY, UNSPECIFIED (7) Osteoarthritis Code(s): M19.90 - UNSPECIFIED OSTEOARTHRITIS, UNSPECIFIED SITE (10) Type 2 diabetes mellitus with diabetic autonomic (poly)neuropathy Code(s): E11.43 - TYPE 2 DIABETES W DIABETIC AUTONOMIC (POLY)NEUROPATHY Assessment/Plan - pt still with warmth/erythema, slowly improving - continue IV antibiotics vitals stable
[2020-08-10] MEDS ORDERED: PT OWN MED DRAWER 7, Y5N ONE (20:44)
[2020-08-10] MEDS: ATORVASTATIN CA 20 MG TABLET (FP) PO SCH (20:59)
[2020-08-10] MEDS: SERTRALINE HCL 25 MG TABLET (FP) PO SCH (20:59)
--- NOTE | 2020-08-10 23:01 | PN ---
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, Physician History of Present Illness: No new complaints - Current Medication List Current Medications: Active Medications Allopurinol (Zyloprim -) 300 mg PO DAILY [facility] Last Admin: 08/10/20 10:22 Dose: 300 mg Documented by: Amino Acids (Prosource No Carb Liquid Pkt) 30 ml PO BID@0800,1730 [facility] Last Admin: 08/10/20 16:31 Dose: Not Given Documented by: Aspirin (Asa -) 81 mg PO DAILY [facility] Last Admin: 08/10/20 10:21 Dose: 81 mg Documented by: Atenolol (Tenormin -) 50 mg PO DAILY [facility] Last Admin: 08/10/20 10:22 Dose: 50 mg Documented by: Atorvastatin Calcium (Lipitor -) 20 mg PO HS [facility] Last Admin: 08/10/20 20:59 Dose: 20 mg Documented by: Cyclobenzaprine HCl (Flexeril -) 10 mg PO TID PRN PRN Reason: MUSCLE SPASMS Last Admin: 08/10/20 22:49 Dose: 10 mg Documented by: Divalproex Sodium (Depakote *Er* -) 500 mg PO BID [facility] Last Admin: 08/10/20 20:59 Dose: 500 mg Documented by: Enoxaparin Sodium (Lovenox -) 40 mg SQ DAILY [facility] Last Admin: 08/10/20 10:21 Dose: 40 mg Documented by: Folic Acid (Folic Acid -) 1 mg PO DAILY [facility] Last Admin: 08/10/20 10:22 Dose: 1 mg Documented by: Furosemide (Lasix -) 40 mg PO DAILY PRN PRN Reason: Dyspnea Last Admin: 08/10/20 10:22 Dose: 40 mg Documented by: Piperacillin Sod/Tazobactam (Sod 3.375 gm/ Dextrose) 50 mls @ 100 mls/hr IVPB Q8H-IV ADELINE; Protocol Last Admin: 08/10/20 18:10 Dose: 100 mls/hr Documented by: Lactulose (Cephulac (Oral Use)) 20 gm PO DAILY PRN PRN Reason: CONSTIPATION Last Admin: 08/10/20 10:21 Dose: 20 gm Documented by: Losartan Potassium (Cozaar -) 25 mg PO DAILY [facility] Last Admin: 08/10/20 10:22 Dose: 25 mg Documented by: Magnesium Oxide (Mag-Ox -) 400 mg PO DAILY [facility] Last Admin: 08/10/20 10:22 Dose: 400 mg Documented by: Multivitamins/Minerals/Vitamin C (Tab-A-Vit -) 1 tab PO DAILY [facility] Last Admin: 08/10/20 10:22 Dose: 1 tab Documented by: Oxycodone HCl (Roxicodone -) 10 mg PO Q6H PRN PRN Reason: PAIN LEVEL 4 - 6 Last Admin: 08/10/20 21:01 Dose: 10 mg Documented by: Polyethylene Glycol (Miralax (For Daily Use) -) 17 gm PO DAILY [facility] Last Admin: 08/10/20 10:23 Dose: Not Given Documented by: Ropinirole HCl (Requip -) 0.5 mg PO TID [facility] Last Admin: 08/10/20 20:59 Dose: 0.5 mg Documented by: Fluticasone/Salmeterol (Advair 100mcg/50mcg -) 1 puff IH BID [facility] Last Admin: 08/10/20 21:05 Dose: 1 puff Documented by: Sertraline HCl (Zoloft -) 25 mg PO HS [facility] Last Admin: 08/10/20 20:59 Dose: 25 mg Documented by: - Objective Vital Signs: Vital Signs Temperature 99 F 08/10/20 15:04 Pulse Rate 94 H 08/10/20 15:04 Respiratory Rate 20 08/10/20 15:04 Blood Pressure 128/60 08/10/20 15:04 O2 Sat by Pulse Oximetry (%) 96 08/10/20 15:04 Constitutional: Yes: Obese Cardiovascular: Yes: WNL, Regular Rate and Rhythm Respiratory: Yes: Diminished Gastrointestinal: Yes: WNL, Normal Bowel Sounds, Soft, Abdomen, Obese Extremities: Yes: Other (RLE w/ erythema) Edema: LLE: 1+, RLE: 1+ Labs: CBC, BMP 08/09/20 06:55 08/09/20 06:55 INR, PTT INR 1.05 (0.83-1.09) 08/06/20 13:50 Problem List - Problems (1) Cellulitis Assessment/Plan: Cont IV antibx Follow cultures Code(s): L03.90 - CELLULITIS, UNSPECIFIED Qualifiers: Site of cellulitis: extremity Site of cellulitis of extremity: lower extremity Laterality: unspecified laterality Qualified Code(s): L03.119 - Cellulitis of unspecified part of limb (2) Anemia, chronic disease Code(s): D63.8 - ANEMIA IN OTHER CHRONIC DISEASES CLASSIFIED ELSEWHERE (3) COPD (chronic obstructive pulmonary disease) Code(s): J44.9 - CHRONIC OBSTRUCTIVE PULMONARY DISEASE, UNSPECIFIED Qualifiers: COPD type: COPD with acute exacerbation Qualified Code(s): J44.1 - Chronic obstructive pulmonary disease with (acute) exacerbation (4) Hypertension Code(s): I10 - ESSENTIAL (PRIMARY) HYPERTENSION (5) Hypothyroidism Code(s): E03.9 - HYPOTHYROIDISM, UNSPECIFIED (6) Obesity (BMI 30-39.9) Code(s): E66.9 - OBESITY, UNSPECIFIED (8) Diabetes mellitus Code(s): E11.9 - TYPE 2 DIABETES MELLITUS WITHOUT COMPLICATIONS
[2020-08-11] MEDS ORDERED: DEXTROSE 5%-WATER - 50 ML IVPB ONE ×3 (01:03→16:46)
[2020-08-11] MEDS ORDERED: PIPERACILLIN/TAZOBACTAM 3.375 GM VIAL IVPB ONE ×3 (01:03→16:46)
[2020-08-11] MEDS: PIPERACILLIN/TAZOB 3.375 GM 3.375 GM in DEXTROSE 5%-WATER - 50 ML IVPB SCH ×3 (01:05→17:34)
[2020-08-11] MEDS: oxyCODONE HCL 5 MG TABLET PO PRN ×2 (05:28→16:00)
[2020-08-11] MEDS: rOPINIRole HCL 0.25 MG TABLET PO SCH ×2 (05:28→15:19)
[2020-08-11] MEDS: CYCLOBENZAPRINE HCL 10 MG TABLET (FP) PO PRN ×2 (07:03→15:59)
[2020-08-11] MEDS: AMINO ACIDS/PROTEIN HYDROLYS 30 ML LIQUID.PKT PO SCH ×2 (09:12→16:59)
[2020-08-11] MEDS: FOLIC ACID 1 MG TABLET (FP) PO SCH (09:41)
[2020-08-11] MEDS: MULTIVITAMINS (DAILY MVI) TABLET (FP) PO SCH (09:41)
[2020-08-11] MEDS: ASPIRIN 81 MG CHEWABLE TABLETS PO SCH (09:41)
[2020-08-11] MEDS: DIVALPROEX NA *ER* EXTEND REL 500 MG TABLET.SA (FP) PO SCH ×2 (09:41→22:58)
[2020-08-11] MEDS: MAGNESIUM OXIDE 400 MG TABLET (FP) PO SCH (09:41)
[2020-08-11] MEDS: LOSARTAN POTASSIUM 25 MG TABLET PO SCH (09:42)
[2020-08-11] MEDS: ATENOLOL 50 MG TABLET (FP) PO SCH (09:42)
[2020-08-11] MEDS: ALLOPURINOL 300 MG TABLET (FP) PO SCH (09:42)
[2020-08-11] MEDS: ENOXAPARIN NA (PORCINE) 40 MG/0.4 ML DISP.SYRIN SQ SCH (09:43)
[2020-08-11] MEDS: FLUTICASONE/SALMETEROL 100 MCG/50 MCG DISKUS IH SCH ×2 (09:43→23:00)
[2020-08-11] MEDS: POLYETHYLENE GLYCOL 3350 119 GM BTL PO SCH (09:43)
--- NOTE | 2020-08-11 11:32 | PN ---
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, Physician History of Present Illness: improving leg improving - Current Medication List Current Medications: Active Medications Allopurinol (Zyloprim -) 300 mg PO DAILY [facility] Last Admin: 08/11/20 09:42 Dose: 300 mg Documented by: Amino Acids (Prosource No Carb Liquid Pkt) 30 ml PO BID@0800,1730 [facility] Last Admin: 08/11/20 09:12 Dose: Not Given Documented by: Aspirin (Asa -) 81 mg PO DAILY [facility] Last Admin: 08/11/20 09:41 Dose: 81 mg Documented by: Atenolol (Tenormin -) 50 mg PO DAILY [facility] Last Admin: 08/11/20 09:42 Dose: 50 mg Documented by: Atorvastatin Calcium (Lipitor -) 20 mg PO HS [facility] Last Admin: 08/10/20 20:59 Dose: 20 mg Documented by: Cyclobenzaprine HCl (Flexeril -) 10 mg PO TID PRN PRN Reason: MUSCLE SPASMS Last Admin: 08/11/20 07:03 Dose: 10 mg Documented by: Divalproex Sodium (Depakote *Er* -) 500 mg PO BID [facility] Last Admin: 08/11/20 09:41 Dose: 500 mg Documented by: Enoxaparin Sodium (Lovenox -) 40 mg SQ DAILY [facility] Last Admin: 08/11/20 09:43 Dose: 40 mg Documented by: Folic Acid (Folic Acid -) 1 mg PO DAILY [facility] Last Admin: 08/11/20 09:41 Dose: 1 mg Documented by: Furosemide (Lasix -) 40 mg PO DAILY PRN PRN Reason: Dyspnea Last Admin: 08/10/20 10:22 Dose: 40 mg Documented by: Piperacillin Sod/Tazobactam (Sod 3.375 gm/ Dextrose) 50 mls @ 100 mls/hr IVPB Q8H-IV ADELINE; Protocol Last Admin: 08/11/20 09:42 Dose: 100 mls/hr Documented by: Lactulose (Cephulac (Oral Use)) 20 gm PO DAILY PRN PRN Reason: CONSTIPATION Last Admin: 08/10/20 10:21 Dose: 20 gm Documented by: Losartan Potassium (Cozaar -) 25 mg PO DAILY [facility] Last Admin: 08/11/20 09:42 Dose: 25 mg Documented by: Magnesium Oxide (Mag-Ox -) 400 mg PO DAILY [facility] Last Admin: 08/11/20 09:41 Dose: 400 mg Documented by: Multivitamins/Minerals/Vitamin C (Tab-A-Vit -) 1 tab PO DAILY [facility] Last Admin: 08/11/20 09:41 Dose: 1 tab Documented by: Oxycodone HCl (Roxicodone -) 10 mg PO Q6H PRN PRN Reason: PAIN LEVEL 4 - 6 Last Admin: 08/11/20 05:28 Dose: 10 mg Documented by: Polyethylene Glycol (Miralax (For Daily Use) -) 17 gm PO DAILY [facility] Last Admin: 08/11/20 09:43 Dose: Not Given Documented by: Ropinirole HCl (Requip -) 0.5 mg PO TID [facility] Last Admin: 08/11/20 05:28 Dose: 0.5 mg Documented by: Fluticasone/Salmeterol (Advair 100mcg/50mcg -) 1 puff IH BID [facility] Last Admin: 08/11/20 09:43 Dose: 1 puff Documented by: Sertraline HCl (Zoloft -) 25 mg PO HS [facility] Last Admin: 08/10/20 20:59 Dose: 25 mg Documented by: - Objective Vital Signs: Vital Signs Temperature 98.3 F 08/11/20 10:00 Pulse Rate 90 08/11/20 10:00 Respiratory Rate 18 08/11/20 10:00 Blood Pressure 127/76 08/11/20 10:00 O2 Sat by Pulse Oximetry (%) 96 08/11/20 10:00 Constitutional: Yes: No Distress, Calm Cardiovascular: Yes: S1, S2 Respiratory: Yes: Regular, CTA Bilaterally Gastrointestinal: Yes: Normal Bowel Sounds, Soft Musculoskeletal: Yes: WNL Extremities: Yes: Erythema (improving), Other Neurological: Yes: Alert, Oriented Psychiatric: Yes: Alert, Oriented Labs: CBC, BMP 08/09/20 06:55 08/09/20 06:55 INR, PTT INR 1.05 (0.83-1.09) 08/06/20 13:50 Assessment/Plan Problem List - Problems (1) Cellulitis Code(s): L03.90 - CELLULITIS, UNSPECIFIED Qualifiers: Site of cellulitis: extremity Site of cellulitis of extremity: lower extremity Laterality: unspecified laterality Qualified Code(s): L03.119 - Cellulitis of unspecified part of limb (2) COPD (chronic obstructive pulmonary disease) Code(s): J44.9 - CHRONIC OBSTRUCTIVE PULMONARY DISEASE, UNSPECIFIED Qualifiers: COPD type: COPD with acute exacerbation Qualified Code(s): J44.1 - Chronic obstructive pulmonary disease with (acute) exacerbation (3) Chronic pain Code(s): G89.29 - OTHER CHRONIC PAIN (4) Hypertension Code(s): I10 - ESSENTIAL (PRIMARY) HYPERTENSION (5) Hypothyroidism Code(s): E03.9 - HYPOTHYROIDISM, UNSPECIFIED plan continue abx elevation of the leg rest as per the team
--- NOTE | 2020-08-11 17:30 | PN ---
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 (short form) - Note 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: RE-Evaluation Lower Extremities Patient awake alert More comfortable, pain has decreased Swelling both legs decreasing Multiple superficial scabs both legs Labs noted , Meds noted Patient needs to be Referred to Vascular Clinic for Possible Venous Insuffiency Requires Compression to reduce odema , start on Compression pump at home , once swelling is reduced she can be started on Compression stockings, needs regular clinic visits to control swelling. Problems (1) Cellulitis Assessment/Plan: Cont IV antibx Follow cultures Code(s): L03.90 - CELLULITIS, UNSPECIFIED Qualifiers: Site of cellulitis: extremity Site of cellulitis of extremity: lower extremity Laterality: unspecified laterality Qualified Code(s): L03.119 - Cellulitis of unspecified part of limb (2) Anemia, chronic disease Code(s): D63.8 - ANEMIA IN OTHER CHRONIC DISEASES CLASSIFIED ELSEWHERE (3) COPD (chronic obstructive pulmonary disease) Code(s): J44.9 - CHRONIC OBSTRUCTIVE PULMONARY DISEASE, UNSPECIFIED Qualifiers: COPD type: COPD with acute exacerbation Qualified Code(s): J44.1 - Chronic obstructive pulmonary disease with (acute) exacerbation (4) Hypertension Code(s): I10 - ESSENTIAL (PRIMARY) HYPERTENSION (5) Hypothyroidism Code(s): E03.9 - HYPOTHYROIDISM, UNSPECIFIED (6) Obesity (BMI 30-39.9) Code(s): E66.9 - OBESITY, UNSPECIFIED (8) Diabetes mellitus Code(s): E11.9 - TYPE 2 DIABETES MELLITUS WITHOUT COMPLICATIONS Re
--- NOTE | 2020-08-11 21:01 | PN ---
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, Physician History of Present Illness: No new complaints - Current Medication List Current Medications: Active Medications Allopurinol (Zyloprim -) 300 mg PO DAILY [facility] Last Admin: 08/11/20 09:42 Dose: 300 mg Documented by: Amino Acids (Prosource No Carb Liquid Pkt) 30 ml PO BID@0800,1730 [facility] Last Admin: 08/11/20 16:59 Dose: Not Given Documented by: Aspirin (Asa -) 81 mg PO DAILY [facility] Last Admin: 08/11/20 09:41 Dose: 81 mg Documented by: Atenolol (Tenormin -) 50 mg PO DAILY [facility] Last Admin: 08/11/20 09:42 Dose: 50 mg Documented by: Atorvastatin Calcium (Lipitor -) 20 mg PO HS [facility] Last Admin: 08/10/20 20:59 Dose: 20 mg Documented by: Cyclobenzaprine HCl (Flexeril -) 10 mg PO TID PRN PRN Reason: MUSCLE SPASMS Last Admin: 08/11/20 15:59 Dose: 10 mg Documented by: Divalproex Sodium (Depakote *Er* -) 500 mg PO BID [facility] Last Admin: 08/11/20 09:41 Dose: 500 mg Documented by: Enoxaparin Sodium (Lovenox -) 40 mg SQ DAILY [facility] Last Admin: 08/11/20 09:43 Dose: 40 mg Documented by: Folic Acid (Folic Acid -) 1 mg PO DAILY [facility] Last Admin: 08/11/20 09:41 Dose: 1 mg Documented by: Furosemide (Lasix -) 40 mg PO DAILY PRN PRN Reason: Dyspnea Last Admin: 08/10/20 10:22 Dose: 40 mg Documented by: Piperacillin Sod/Tazobactam (Sod 3.375 gm/ Dextrose) 50 mls @ 100 mls/hr IVPB Q8H-IV ADELINE; Protocol Last Admin: 08/11/20 17:34 Dose: 100 mls/hr Documented by: Lactulose (Cephulac (Oral Use)) 20 gm PO DAILY PRN PRN Reason: CONSTIPATION Last Admin: 08/10/20 10:21 Dose: 20 gm Documented by: Losartan Potassium (Cozaar -) 25 mg PO DAILY [facility] Last Admin: 08/11/20 09:42 Dose: 25 mg Documented by: Magnesium Oxide (Mag-Ox -) 400 mg PO DAILY [facility] Last Admin: 08/11/20 09:41 Dose: 400 mg Documented by: Multivitamins/Minerals/Vitamin C (Tab-A-Vit -) 1 tab PO DAILY [facility] Last Admin: 08/11/20 09:41 Dose: 1 tab Documented by: Oxycodone HCl (Roxicodone -) 10 mg PO Q6H PRN PRN Reason: PAIN LEVEL 4 - 6 Last Admin: 08/11/20 16:00 Dose: 10 mg Documented by: Polyethylene Glycol (Miralax (For Daily Use) -) 17 gm PO DAILY [facility] Last Admin: 08/11/20 09:43 Dose: Not Given Documented by: Ropinirole HCl (Requip -) 0.5 mg PO TID [facility] Last Admin: 08/11/20 15:19 Dose: 0.5 mg Documented by: Fluticasone/Salmeterol (Advair 100mcg/50mcg -) 1 puff IH BID [facility] Last Admin: 08/11/20 09:43 Dose: 1 puff Documented by: Sertraline HCl (Zoloft -) 25 mg PO HS [facility] Last Admin: 08/10/20 20:59 Dose: 25 mg Documented by: - Objective Vital Signs: Vital Signs Temperature 98.2 F 08/11/20 20:11 Pulse Rate 88 08/11/20 20:11 Respiratory Rate 18 08/11/20 20:11 Blood Pressure 108/59 L 08/11/20 20:11 O2 Sat by Pulse Oximetry (%) 93 L 08/11/20 20:11 Cardiovascular: Yes: WNL, Regular Rate and Rhythm Respiratory: Yes: WNL, Regular, CTA Bilaterally Gastrointestinal: Yes: WNL, Normal Bowel Sounds, Soft, Abdomen, Obese Extremities: Yes: Other ((+) erythema RLE) Edema: LLE: 1+, RLE: 1+ Labs: CBC, BMP 08/09/20 06:55 08/09/20 06:55 INR, PTT INR 1.05 (0.83-1.09) 08/06/20 13:50 Problem List - Problems (1) Cellulitis Assessment/Plan: Cont IV antibx Follow cultures Check labs in am Code(s): L03.90 - CELLULITIS, UNSPECIFIED Qualifiers: Site of cellulitis: extremity Site of cellulitis of extremity: lower extremity Laterality: unspecified laterality Qualified Code(s): L03.119 - Cellulitis of unspecified part of limb (2) Anemia, chronic disease Code(s): D63.8 - ANEMIA IN OTHER CHRONIC DISEASES CLASSIFIED ELSEWHERE (3) COPD (chronic obstructive pulmonary disease) Code(s): J44.9 - CHRONIC OBSTRUCTIVE PULMONARY DISEASE, UNSPECIFIED Qualifiers: COPD type: COPD with acute exacerbation Qualified Code(s): J44.1 - Chronic obstructive pulmonary disease with (acute) exacerbation (4) Hypertension Code(s): I10 - ESSENTIAL (PRIMARY) HYPERTENSION (5) Hypothyroidism Code(s): E03.9 - HYPOTHYROIDISM, UNSPECIFIED (6) Obesity (BMI 30-39.9) Code(s): E66.9 - OBESITY, UNSPECIFIED (8) Diabetes mellitus Code(s): E11.9 - TYPE 2 DIABETES MELLITUS WITHOUT COMPLICATIONS
[2020-08-11] MEDS: ATORVASTATIN CA 20 MG TABLET (FP) PO SCH (22:58)
[2020-08-11] MEDS: SERTRALINE HCL 25 MG TABLET (FP) PO SCH (22:58)
[2020-08-12] MEDS: rOPINIRole HCL 0.25 MG TABLET PO SCH ×4 (00:31→21:15)
[2020-08-12] MEDS ORDERED: DEXTROSE 5%-WATER - 50 ML IVPB ONE ×3 (02:21→16:52)
[2020-08-12] MEDS ORDERED: PIPERACILLIN/TAZOBACTAM 3.375 GM VIAL IVPB ONE ×3 (02:21→16:52)
[2020-08-12] MEDS: PIPERACILLIN/TAZOB 3.375 GM 3.375 GM in DEXTROSE 5%-WATER - 50 ML IVPB SCH ×3 (02:59→17:00)
[2020-08-12] MEDS: oxyCODONE HCL 5 MG TABLET PO PRN ×2 (03:03→12:54)
[2020-08-12] MEDS: CYCLOBENZAPRINE HCL 10 MG TABLET (FP) PO PRN (06:18)
--- NOTE | 2020-08-12 07:59 | PN ---
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, Physician History of Present Illness: improving feels better - Current Medication List Current Medications: Active Medications Allopurinol (Zyloprim -) 300 mg PO DAILY [facility] Last Admin: 08/11/20 09:42 Dose: 300 mg Documented by: Amino Acids (Prosource No Carb Liquid Pkt) 30 ml PO BID@0800,1730 [facility] Last Admin: 08/11/20 16:59 Dose: Not Given Documented by: Aspirin (Asa -) 81 mg PO DAILY [facility] Last Admin: 08/11/20 09:41 Dose: 81 mg Documented by: Atenolol (Tenormin -) 50 mg PO DAILY [facility] Last Admin: 08/11/20 09:42 Dose: 50 mg Documented by: Atorvastatin Calcium (Lipitor -) 20 mg PO HS [facility] Last Admin: 08/11/20 22:58 Dose: 20 mg Documented by: Cyclobenzaprine HCl (Flexeril -) 10 mg PO TID PRN PRN Reason: MUSCLE SPASMS Last Admin: 08/12/20 06:18 Dose: 10 mg Documented by: Divalproex Sodium (Depakote *Er* -) 500 mg PO BID [facility] Last Admin: 08/11/20 22:58 Dose: 500 mg Documented by: Enoxaparin Sodium (Lovenox -) 40 mg SQ DAILY [facility] Last Admin: 08/11/20 09:43 Dose: 40 mg Documented by: Folic Acid (Folic Acid -) 1 mg PO DAILY [facility] Last Admin: 08/11/20 09:41 Dose: 1 mg Documented by: Furosemide (Lasix -) 40 mg PO DAILY PRN PRN Reason: Dyspnea Last Admin: 08/10/20 10:22 Dose: 40 mg Documented by: Piperacillin Sod/Tazobactam (Sod 3.375 gm/ Dextrose) 50 mls @ 100 mls/hr IVPB Q8H-IV ADELINE; Protocol Last Admin: 08/12/20 02:59 Dose: 100 mls/hr Documented by: Lactulose (Cephulac (Oral Use)) 20 gm PO DAILY PRN PRN Reason: CONSTIPATION Last Admin: 08/10/20 10:21 Dose: 20 gm Documented by: Losartan Potassium (Cozaar -) 25 mg PO DAILY [facility] Last Admin: 08/11/20 09:42 Dose: 25 mg Documented by: Magnesium Oxide (Mag-Ox -) 400 mg PO DAILY [facility] Last Admin: 08/11/20 09:41 Dose: 400 mg Documented by: Multivitamins/Minerals/Vitamin C (Tab-A-Vit -) 1 tab PO DAILY [facility] Last Admin: 08/11/20 09:41 Dose: 1 tab Documented by: Oxycodone HCl (Roxicodone -) 10 mg PO Q6H PRN PRN Reason: PAIN LEVEL 4 - 6 Last Admin: 08/12/20 03:03 Dose: 10 mg Documented by: Polyethylene Glycol (Miralax (For Daily Use) -) 17 gm PO DAILY [facility] Last Admin: 08/11/20 09:43 Dose: Not Given Documented by: Ropinirole HCl (Requip -) 0.5 mg PO TID [facility] Last Admin: 08/12/20 06:17 Dose: 0.5 mg Documented by: Fluticasone/Salmeterol (Advair 100mcg/50mcg -) 1 puff IH BID [facility] Last Admin: 08/11/20 23:00 Dose: 1 puff Documented by: Sertraline HCl (Zoloft -) 25 mg PO HS [facility] Last Admin: 08/11/20 22:58 Dose: 25 mg Documented by: - Objective Vital Signs: Vital Signs Temperature 98.5 F 08/12/20 06:00 Pulse Rate 96 H 08/12/20 06:00 Respiratory Rate 18 08/12/20 06:00 Blood Pressure 101/68 08/12/20 06:00 O2 Sat by Pulse Oximetry (%) 93 L 08/12/20 06:00 Constitutional: Yes: No Distress, Calm Cardiovascular: Yes: Regular Rate and Rhythm Respiratory: Yes: Regular, CTA Bilaterally Gastrointestinal: Yes: Normal Bowel Sounds, Soft Musculoskeletal: Yes: WNL Extremities: Yes: Erythema (improving), Other Neurological: Yes: Alert, Oriented Psychiatric: Yes: Alert, Oriented Labs: CBC, BMP 08/09/20 06:55 08/09/20 06:55 INR, PTT INR 1.05 (0.83-1.09) 08/06/20 13:50 Assessment/Plan Problem List - Problems (1) Cellulitis Code(s): L03.90 - CELLULITIS, UNSPECIFIED Qualifiers: Site of cellulitis: extremity Site of cellulitis of extremity: lower extremity Laterality: unspecified laterality Qualified Code(s): L03.119 - Cellulitis of unspecified part of limb (2) COPD (chronic obstructive pulmonary disease) Code(s): J44.9 - CHRONIC OBSTRUCTIVE PULMONARY DISEASE, UNSPECIFIED Qualifiers: COPD type: COPD with acute exacerbation Qualified Code(s): J44.1 - Chronic obstructive pulmonary disease with (acute) exacerbation (3) Chronic pain Code(s): G89.29 - OTHER CHRONIC PAIN (4) Hypertension Code(s): I10 - ESSENTIAL (PRIMARY) HYPERTENSION (5) Hypothyroidism Code(s): E03.9 - HYPOTHYROIDISM, UNSPECIFIED plan continue abx elevation of the leg rest as per the team
[2020-08-12] MEDS: ASPIRIN 81 MG CHEWABLE TABLETS PO SCH (09:26)
[2020-08-12] MEDS: ENOXAPARIN NA (PORCINE) 40 MG/0.4 ML DISP.SYRIN SQ SCH (09:26)
[2020-08-12] MEDS: ATENOLOL 50 MG TABLET (FP) PO SCH (09:26)
[2020-08-12] MEDS: DIVALPROEX NA *ER* EXTEND REL 500 MG TABLET.SA (FP) PO SCH ×2 (09:26→21:14)
[2020-08-12] MEDS: LOSARTAN POTASSIUM 25 MG TABLET PO SCH (09:26)
[2020-08-12] MEDS: FOLIC ACID 1 MG TABLET (FP) PO SCH (09:26)
[2020-08-12] MEDS: MULTIVITAMINS (DAILY MVI) TABLET (FP) PO SCH (09:26)
[2020-08-12] MEDS: MAGNESIUM OXIDE 400 MG TABLET (FP) PO SCH (09:28)
[2020-08-12] MEDS: FLUTICASONE/SALMETEROL 100 MCG/50 MCG DISKUS IH SCH ×2 (09:28→21:15)
[2020-08-12] MEDS: AMINO ACIDS/PROTEIN HYDROLYS 30 ML LIQUID.PKT PO SCH ×2 (09:28→16:59)
[2020-08-12] MEDS: ALLOPURINOL 300 MG TABLET (FP) PO SCH (09:29)
[2020-08-12] MEDS: POLYETHYLENE GLYCOL 3350 119 GM BTL PO SCH (09:29)
--- NOTE | 2020-08-12 17:51 | PN ---
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, Physician - Current Medication List Current Medications: Active Medications Allopurinol (Zyloprim -) 300 mg PO DAILY [facility] Last Admin: 08/12/20 09:29 Dose: 300 mg Documented by: Amino Acids (Prosource No Carb Liquid Pkt) 30 ml PO BID@0800,1730 [facility] Last Admin: 08/12/20 16:59 Dose: 30 ml Documented by: Aspirin (Asa -) 81 mg PO DAILY [facility] Last Admin: 08/12/20 09:26 Dose: 81 mg Documented by: Atenolol (Tenormin -) 50 mg PO DAILY [facility] Last Admin: 08/12/20 09:26 Dose: 50 mg Documented by: Atorvastatin Calcium (Lipitor -) 20 mg PO HS [facility] Last Admin: 08/11/20 22:58 Dose: 20 mg Documented by: Cyclobenzaprine HCl (Flexeril -) 10 mg PO TID PRN PRN Reason: MUSCLE SPASMS Last Admin: 08/12/20 06:18 Dose: 10 mg Documented by: Divalproex Sodium (Depakote *Er* -) 500 mg PO BID [facility] Last Admin: 08/12/20 09:26 Dose: 500 mg Documented by: Enoxaparin Sodium (Lovenox -) 40 mg SQ DAILY [facility] Last Admin: 08/12/20 09:26 Dose: 40 mg Documented by: Folic Acid (Folic Acid -) 1 mg PO DAILY [facility] Last Admin: 08/12/20 09:26 Dose: 1 mg Documented by: Furosemide (Lasix -) 40 mg PO DAILY PRN PRN Reason: Dyspnea Last Admin: 08/10/20 10:22 Dose: 40 mg Documented by: Piperacillin Sod/Tazobactam (Sod 3.375 gm/ Dextrose) 50 mls @ 100 mls/hr IVPB Q8H-IV ADELINE; Protocol Last Admin: 08/12/20 17:00 Dose: 100 mls/hr Documented by: Lactulose (Cephulac (Oral Use)) 20 gm PO DAILY PRN PRN Reason: CONSTIPATION Last Admin: 08/10/20 10:21 Dose: 20 gm Documented by: Losartan Potassium (Cozaar -) 25 mg PO DAILY [facility] Last Admin: 08/12/20 09:26 Dose: 25 mg Documented by: Magnesium Oxide (Mag-Ox -) 400 mg PO DAILY [facility] Last Admin: 08/12/20 09:28 Dose: 400 mg Documented by: Multivitamins/Minerals/Vitamin C (Tab-A-Vit -) 1 tab PO DAILY [facility] Last Admin: 08/12/20 09:26 Dose: 1 tab Documented by: Oxycodone HCl (Roxicodone -) 10 mg PO Q6H PRN PRN Reason: PAIN LEVEL 4 - 6 Last Admin: 08/12/20 12:54 Dose: 10 mg Documented by: Polyethylene Glycol (Miralax (For Daily Use) -) 17 gm PO DAILY [facility] Last Admin: 08/12/20 09:29 Dose: Not Given Documented by: Ropinirole HCl (Requip -) 0.5 mg PO TID [facility] Last Admin: 08/12/20 14:03 Dose: 0.5 mg Documented by: Fluticasone/Salmeterol (Advair 100mcg/50mcg -) 1 puff IH BID [facility] Last Admin: 08/12/20 09:28 Dose: 1 puff Documented by: Sertraline HCl (Zoloft -) 25 mg PO HS [facility] Last Admin: 08/11/20 22:58 Dose: 25 mg Documented by: - Objective Vital Signs: Vital Signs Temperature 97.5 F L 08/12/20 14:56 Pulse Rate 90 08/12/20 14:56 Respiratory Rate 20 08/12/20 14:56 Blood Pressure 111/71 08/12/20 14:56 O2 Sat by Pulse Oximetry (%) 94 L 08/12/20 10:00 Constitutional: Yes: No Distress HENT: Yes: Atraumatic Neck: Yes: Supple Cardiovascular: Yes: Regular Rate and Rhythm Respiratory: Yes: CTA Bilaterally Gastrointestinal: Yes: Normal Bowel Sounds Extremities: Yes: Other (rlex cellulitis improving) Neurological: Yes: Alert, Oriented Labs: CBC, BMP 08/09/20 06:55 08/09/20 06:55 INR, PTT INR 1.05 (0.83-1.09) 08/06/20 13:50 Problem List - Problems (1) Cellulitis Assessment/Plan: iv abx id on board dvt ppx Code(s): L03.90 - CELLULITIS, UNSPECIFIED Qualifiers: Site of cellulitis: extremity Site of cellulitis of extremity: lower extremity Laterality: unspecified laterality Qualified Code(s): L03.119 - Cellulitis of unspecified part of limb (2) COPD (chronic obstructive pulmonary disease) Code(s): J44.9 - CHRONIC OBSTRUCTIVE PULMONARY DISEASE, UNSPECIFIED Qualifiers: COPD type: COPD with acute exacerbation Qualified Code(s): J44.1 - Chronic obstructive pulmonary disease with (acute) exacerbation (3) Chronic pain Assessment/Plan: on pain meds Code(s): G89.29 - OTHER CHRONIC PAIN (4) Hypertension Assessment/Plan: on meds Code(s): I10 - ESSENTIAL (PRIMARY) HYPERTENSION (5) Hypothyroidism Assessment/Plan: will check tsh Code(s): E03.9 - HYPOTHYROIDISM, UNSPECIFIED
[2020-08-12] MEDS ORDERED: PT OWN MED DRAWER 7, Y5N ONE (20:50)
[2020-08-12] MEDS: SERTRALINE HCL 25 MG TABLET (FP) PO SCH (21:14)
[2020-08-12] MEDS: ATORVASTATIN CA 20 MG TABLET (FP) PO SCH (21:14)
[2020-08-13] MEDS ORDERED: DEXTROSE 5%-WATER - 50 ML IVPB ONE ×3 (01:29→17:33)
[2020-08-13] MEDS ORDERED: PIPERACILLIN/TAZOBACTAM 3.375 GM VIAL IVPB ONE ×3 (01:29→17:33)
[2020-08-13] MEDS: PIPERACILLIN/TAZOB 3.375 GM 3.375 GM in DEXTROSE 5%-WATER - 50 ML IVPB SCH ×3 (01:33→18:09)
[2020-08-13] MEDS ORDERED: PT OWN MED DRAWER 7, Y5N ONE ×2 (05:37→21:16)
[2020-08-13] MEDS: rOPINIRole HCL 0.25 MG TABLET PO SCH ×3 (05:47→21:22)
[2020-08-13] MEDS: AMINO ACIDS/PROTEIN HYDROLYS 30 ML LIQUID.PKT PO SCH ×2 (09:25→16:30)
--- NOTE | 2020-08-13 09:48 | PN ---
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, Physician History of Present Illness: stable no new issues - Current Medication List Current Medications: Active Medications Allopurinol (Zyloprim -) 300 mg PO DAILY [facility] Last Admin: 08/12/20 09:29 Dose: 300 mg Documented by: Amino Acids (Prosource No Carb Liquid Pkt) 30 ml PO BID@0800,1730 [facility] Last Admin: 08/13/20 09:25 Dose: Not Given Documented by: Aspirin (Asa -) 81 mg PO DAILY [facility] Last Admin: 08/12/20 09:26 Dose: 81 mg Documented by: Atenolol (Tenormin -) 50 mg PO DAILY [facility] Last Admin: 08/12/20 09:26 Dose: 50 mg Documented by: Atorvastatin Calcium (Lipitor -) 20 mg PO HS [facility] Last Admin: 08/12/20 21:14 Dose: 20 mg Documented by: Cyclobenzaprine HCl (Flexeril -) 10 mg PO TID PRN PRN Reason: MUSCLE SPASMS Last Admin: 08/12/20 06:18 Dose: 10 mg Documented by: Divalproex Sodium (Depakote *Er* -) 500 mg PO BID [facility] Last Admin: 08/12/20 21:14 Dose: 500 mg Documented by: Enoxaparin Sodium (Lovenox -) 40 mg SQ DAILY [facility] Last Admin: 08/12/20 09:26 Dose: 40 mg Documented by: Folic Acid (Folic Acid -) 1 mg PO DAILY [facility] Last Admin: 08/12/20 09:26 Dose: 1 mg Documented by: Furosemide (Lasix -) 40 mg PO DAILY PRN PRN Reason: Dyspnea Last Admin: 08/10/20 10:22 Dose: 40 mg Documented by: Piperacillin Sod/Tazobactam (Sod 3.375 gm/ Dextrose) 50 mls @ 100 mls/hr IVPB Q8H-IV ADELINE; Protocol Last Admin: 08/13/20 01:33 Dose: 100 mls/hr Documented by: Lactulose (Cephulac (Oral Use)) 20 gm PO DAILY PRN PRN Reason: CONSTIPATION Last Admin: 08/10/20 10:21 Dose: 20 gm Documented by: Losartan Potassium (Cozaar -) 25 mg PO DAILY [facility] Last Admin: 08/12/20 09:26 Dose: 25 mg Documented by: Magnesium Oxide (Mag-Ox -) 400 mg PO DAILY [facility] Last Admin: 08/12/20 09:28 Dose: 400 mg Documented by: Multivitamins/Minerals/Vitamin C (Tab-A-Vit -) 1 tab PO DAILY [facility] Last Admin: 08/12/20 09:26 Dose: 1 tab Documented by: Oxycodone HCl (Roxicodone -) 10 mg PO Q6H PRN PRN Reason: PAIN LEVEL 4 - 6 Last Admin: 08/12/20 12:54 Dose: 10 mg Documented by: Polyethylene Glycol (Miralax (For Daily Use) -) 17 gm PO DAILY [facility] Last Admin: 08/12/20 09:29 Dose: Not Given Documented by: Ropinirole HCl (Requip -) 0.5 mg PO TID [facility] Last Admin: 08/13/20 05:47 Dose: 0.5 mg Documented by: Fluticasone/Salmeterol (Advair 100mcg/50mcg -) 1 puff IH BID [facility] Last Admin: 08/12/20 21:15 Dose: 1 puff Documented by: Sertraline HCl (Zoloft -) 25 mg PO HS [facility] Last Admin: 08/12/20 21:14 Dose: 25 mg Documented by: - Objective Vital Signs: Vital Signs Temperature 97.5 F L 08/13/20 06:00 Pulse Rate 95 H 08/13/20 06:00 Respiratory Rate 18 08/13/20 06:00 Blood Pressure 121/80 08/13/20 06:00 O2 Sat by Pulse Oximetry (%) 98 08/13/20 06:00 Constitutional: Yes: No Distress, Calm Cardiovascular: Yes: S1, S2 Respiratory: Yes: Regular, CTA Bilaterally Gastrointestinal: Yes: Normal Bowel Sounds, Soft Musculoskeletal: Yes: WNL Extremities: Yes: Other Neurological: Yes: Alert, Oriented Psychiatric: Yes: Alert, Oriented Labs: CBC, BMP 08/09/20 06:55 08/09/20 06:55 INR, PTT INR 1.05 (0.83-1.09) 08/06/20 13:50 Assessment/Plan Problem List - Problems (1) Cellulitis Code(s): L03.90 - CELLULITIS, UNSPECIFIED Qualifiers: Site of cellulitis: extremity Site of cellulitis of extremity: lower extremity Laterality: unspecified laterality Qualified Code(s): L03.119 - Cellulitis of unspecified part of limb (2) COPD (chronic obstructive pulmonary disease) Code(s): J44.9 - CHRONIC OBSTRUCTIVE PULMONARY DISEASE, UNSPECIFIED Qualifiers: COPD type: COPD with acute exacerbation Qualified Code(s): J44.1 - Chronic obstructive pulmonary disease with (acute) exacerbation (3) Chronic pain Code(s): G89.29 - OTHER CHRONIC PAIN (4) Hypertension Code(s): I10 - ESSENTIAL (PRIMARY) HYPERTENSION (5) Hypothyroidism Code(s): E03.9 - HYPOTHYROIDISM, UNSPECIFIED plan continue abx elevation of the leg rest as per the team
[2020-08-13] MEDS: ENOXAPARIN NA (PORCINE) 40 MG/0.4 ML DISP.SYRIN SQ SCH (10:08)
[2020-08-13] MEDS: CYCLOBENZAPRINE HCL 10 MG TABLET (FP) PO PRN ×2 (10:09→21:23)
[2020-08-13] MEDS: MAGNESIUM OXIDE 400 MG TABLET (FP) PO SCH (10:09)
[2020-08-13] MEDS: MULTIVITAMINS (DAILY MVI) TABLET (FP) PO SCH (10:10)
[2020-08-13] MEDS: ATENOLOL 50 MG TABLET (FP) PO SCH (10:10)
[2020-08-13] MEDS: DIVALPROEX NA *ER* EXTEND REL 500 MG TABLET.SA (FP) PO SCH ×2 (10:10→21:25)
[2020-08-13] MEDS: ASPIRIN 81 MG CHEWABLE TABLETS PO SCH (10:10)
[2020-08-13] MEDS: LOSARTAN POTASSIUM 25 MG TABLET PO SCH (10:10)
[2020-08-13] MEDS: ALLOPURINOL 300 MG TABLET (FP) PO SCH (10:10)
[2020-08-13] MEDS: FOLIC ACID 1 MG TABLET (FP) PO SCH (10:10)
[2020-08-13] MEDS: FLUTICASONE/SALMETEROL 100 MCG/50 MCG DISKUS IH SCH ×2 (10:11→21:25)
[2020-08-13] MEDS: oxyCODONE HCL 5 MG TABLET PO PRN (10:11)
[2020-08-13] MEDS: POLYETHYLENE GLYCOL 3350 119 GM BTL PO SCH (10:11)
--- NOTE | 2020-08-13 15:32 | PN ---
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, Physician History of Present Illness: stable - Current Medication List Current Medications: Active Medications Allopurinol (Zyloprim -) 300 mg PO DAILY [facility] Last Admin: 08/13/20 10:10 Dose: 300 mg Documented by: Amino Acids (Prosource No Carb Liquid Pkt) 30 ml PO BID@0800,1730 [facility] Last Admin: 08/13/20 09:25 Dose: Not Given Documented by: Aspirin (Asa -) 81 mg PO DAILY [facility] Last Admin: 08/13/20 10:10 Dose: 81 mg Documented by: Atenolol (Tenormin -) 50 mg PO DAILY [facility] Last Admin: 08/13/20 10:10 Dose: 50 mg Documented by: Atorvastatin Calcium (Lipitor -) 20 mg PO HS [facility] Last Admin: 08/12/20 21:14 Dose: 20 mg Documented by: Cyclobenzaprine HCl (Flexeril -) 10 mg PO TID PRN PRN Reason: MUSCLE SPASMS Last Admin: 08/13/20 10:09 Dose: 10 mg Documented by: Divalproex Sodium (Depakote *Er* -) 500 mg PO BID [facility] Last Admin: 08/13/20 10:10 Dose: 500 mg Documented by: Enoxaparin Sodium (Lovenox -) 40 mg SQ DAILY [facility] Last Admin: 08/13/20 10:08 Dose: 40 mg Documented by: Folic Acid (Folic Acid -) 1 mg PO DAILY [facility] Last Admin: 08/13/20 10:10 Dose: 1 mg Documented by: Furosemide (Lasix -) 40 mg PO DAILY PRN PRN Reason: Dyspnea Last Admin: 08/10/20 10:22 Dose: 40 mg Documented by: Piperacillin Sod/Tazobactam (Sod 3.375 gm/ Dextrose) 50 mls @ 100 mls/hr IVPB Q8H-IV ADELINE; Protocol Last Admin: 08/13/20 10:11 Dose: 100 mls/hr Documented by: Lactulose (Cephulac (Oral Use)) 20 gm PO DAILY PRN PRN Reason: CONSTIPATION Last Admin: 08/10/20 10:21 Dose: 20 gm Documented by: Losartan Potassium (Cozaar -) 25 mg PO DAILY [facility] Last Admin: 08/13/20 10:10 Dose: 25 mg Documented by: Magnesium Oxide (Mag-Ox -) 400 mg PO DAILY [facility] Last Admin: 08/13/20 10:09 Dose: 400 mg Documented by: Multivitamins/Minerals/Vitamin C (Tab-A-Vit -) 1 tab PO DAILY [facility] Last Admin: 08/13/20 10:10 Dose: 1 tab Documented by: Polyethylene Glycol (Miralax (For Daily Use) -) 17 gm PO DAILY [facility] Last Admin: 08/13/20 10:11 Dose: Not Given Documented by: Ropinirole HCl (Requip -) 0.5 mg PO TID [facility] Last Admin: 08/13/20 13:49 Dose: 0.5 mg Documented by: Fluticasone/Salmeterol (Advair 100mcg/50mcg -) 1 puff IH BID [facility] Last Admin: 08/13/20 10:11 Dose: 1 puff Documented by: Sertraline HCl (Zoloft -) 25 mg PO HS [facility] Last Admin: 08/12/20 21:14 Dose: 25 mg Documented by: - Objective Vital Signs: Vital Signs Temperature 98.4 F 08/13/20 13:59 Pulse Rate 94 H 08/13/20 13:59 Respiratory Rate 08/13/20 13:59 Blood Pressure 118/68 08/13/20 13:59 O2 Sat by Pulse Oximetry (%) 94 L 08/13/20 13:59 Constitutional: Yes: No Distress HENT: Yes: Atraumatic Neck: Yes: Supple Cardiovascular: Yes: Regular Rate and Rhythm Respiratory: Yes: CTA Bilaterally Extremities: Yes: Other (R kristina cellulitis almost resolved) Neurological: Yes: Alert, Oriented Labs: CBC, BMP 08/09/20 06:55 08/09/20 06:55 INR, PTT INR 1.05 (0.83-1.09) 08/06/20 13:50 Problem List - Problems (1) Cellulitis Assessment/Plan: iv abx id on board dvt ppx dc planning for tomorrow Code(s): L03.90 - CELLULITIS, UNSPECIFIED Qualifiers: Site of cellulitis: extremity Site of cellulitis of extremity: lower extremity Laterality: unspecified laterality Qualified Code(s): L03.119 - Cellulitis of unspecified part of limb (2) COPD (chronic obstructive pulmonary disease) Code(s): J44.9 - CHRONIC OBSTRUCTIVE PULMONARY DISEASE, UNSPECIFIED Qualifiers: COPD type: COPD with acute exacerbation Qualified Code(s): J44.1 - Chronic obstructive pulmonary disease with (acute) exacerbation (3) Chronic pain Assessment/Plan: on pain meds Code(s): G89.29 - OTHER CHRONIC PAIN (4) Hypertension Assessment/Plan: on meds Code(s): I10 - ESSENTIAL (PRIMARY) HYPERTENSION (5) Hypothyroidism Assessment/Plan: will check tsh Code(s): E03.9 - HYPOTHYROIDISM, UNSPECIFIED
[2020-08-13] MEDS: ATORVASTATIN CA 20 MG TABLET (FP) PO SCH (21:22)
[2020-08-13] MEDS: SERTRALINE HCL 25 MG TABLET (FP) PO SCH (21:23)
[2020-08-14] MEDS ORDERED: PIPERACILLIN/TAZOBACTAM 3.375 GM VIAL IVPB ONE ×2 (01:12→08:43)
[2020-08-14] MEDS ORDERED: DEXTROSE 5%-WATER - 50 ML IVPB ONE ×2 (01:12→08:43)
[2020-08-14] MEDS: PIPERACILLIN/TAZOB 3.375 GM 3.375 GM in DEXTROSE 5%-WATER - 50 ML IVPB SCH ×3 (01:24→17:58)
[2020-08-14] MEDS: CYCLOBENZAPRINE HCL 10 MG TABLET (FP) PO PRN (01:25)
[2020-08-14] MEDS ORDERED: PT OWN MED DRAWER 7, Y5N ONE (05:24)
[2020-08-14] MEDS: rOPINIRole HCL 0.25 MG TABLET PO SCH ×2 (05:32→13:12)
[2020-08-14 07:52] LABS: BASO % 0.6 % (0-2.0); EOS % 4.4 % (0-4.5); HEMATOCRIT 39.7 % (32.4-45.2); HEMOGLOBIN 13.1 GM/dL (10.7-15.3); LYMPH % 28.9 % (8-40); MCH 30.1 pg (25.7-33.7); MCHC 32.9 g/dl (32.0-36.0); MEAN CELL VOLUME 91.7 fl (80-96); MEAN PLT VOLUME 8.5 fl (7.5-11.1); MONO % 14.2 % (3.8-10.2); NEUT % 51.9 % (42.8-82.8); PLATELET COUNT 153 K/MM3 (134-434); RBC 4.33 M/mm3 (3.60-5.2); RDW 16.3 % (11.6-15.6); WHITE BLOOD COUNT 7.8 K/mm3 (4.0-10.0)
[2020-08-14 08:19] LABS: ALBUMIN 2.4 g/dl (3.4-5.0); BILIRUBIN,TOTAL 0.6 mg/dL (0.2-1); BLOOD UREA NITROGEN 9.7 mg/dL (7-18); CALCIUM 9.1 mg/dL (8.5-10.1); CREATININE 0.9 mg/dL (0.55-1.3); POTASSIUM 4.3 mmol/L (3.5-5.1)
[2020-08-14] MEDS: ASPIRIN 81 MG CHEWABLE TABLETS PO SCH (09:13)
[2020-08-14] MEDS: LOSARTAN POTASSIUM 25 MG TABLET PO SCH (09:14)
[2020-08-14] MEDS: MULTIVITAMINS (DAILY MVI) TABLET (FP) PO SCH (09:14)
[2020-08-14] MEDS: POLYETHYLENE GLYCOL 3350 119 GM BTL PO SCH (09:14)
[2020-08-14] MEDS: FOLIC ACID 1 MG TABLET (FP) PO SCH (09:14)
[2020-08-14] MEDS: MAGNESIUM OXIDE 400 MG TABLET (FP) PO SCH (09:14)
[2020-08-14] MEDS: DIVALPROEX NA *ER* EXTEND REL 500 MG TABLET.SA (FP) PO SCH (09:15)
[2020-08-14] MEDS: ATENOLOL 50 MG TABLET (FP) PO SCH (09:15)
[2020-08-14] MEDS: ALLOPURINOL 300 MG TABLET (FP) PO SCH (09:15)
[2020-08-14] MEDS: AMINO ACIDS/PROTEIN HYDROLYS 30 ML LIQUID.PKT PO SCH ×2 (09:16→17:17)
[2020-08-14] MEDS: FLUTICASONE/SALMETEROL 100 MCG/50 MCG DISKUS IH SCH (09:16)
[2020-08-14] MEDS ORDERED: ACETAMINOPHEN 325 MG TABLET (FP) PO PRN (12:07)
--- NOTE | 2020-08-14 12:41 | PN ---
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, Physician History of Present Illness: legs looking better feels better - Current Medication List Current Medications: Active Medications Acetaminophen (Tylenol -) 650 mg PO Q6H PRN PRN Reason: PAIN SCALE 1-6 Last Admin: 08/14/20 12:22 Dose: 650 mg Documented by: Allopurinol (Zyloprim -) 300 mg PO DAILY [facility] Last Admin: 08/14/20 09:15 Dose: 300 mg Documented by: Amino Acids (Prosource No Carb Liquid Pkt) 30 ml PO BID@0800,1730 [facility] Last Admin: 08/14/20 09:16 Dose: Not Given Documented by: Aspirin (Asa -) 81 mg PO DAILY [facility] Last Admin: 08/14/20 09:13 Dose: 81 mg Documented by: Atenolol (Tenormin -) 50 mg PO DAILY [facility] Last Admin: 08/14/20 09:15 Dose: 50 mg Documented by: Atorvastatin Calcium (Lipitor -) 20 mg PO HS [facility] Last Admin: 08/13/20 21:22 Dose: 20 mg Documented by: Cyclobenzaprine HCl (Flexeril -) 10 mg PO TID PRN PRN Reason: MUSCLE SPASMS Last Admin: 08/14/20 01:25 Dose: 10 mg Documented by: Divalproex Sodium (Depakote *Er* -) 500 mg PO BID [facility] Last Admin: 08/14/20 09:15 Dose: 500 mg Documented by: Folic Acid (Folic Acid -) 1 mg PO DAILY [facility] Last Admin: 08/14/20 09:14 Dose: 1 mg Documented by: Furosemide (Lasix -) 40 mg PO DAILY PRN PRN Reason: Dyspnea Last Admin: 08/10/20 10:22 Dose: 40 mg Documented by: Piperacillin Sod/Tazobactam (Sod 3.375 gm/ Dextrose) 50 mls @ 100 mls/hr IVPB Q8H-IV ADELINE; Protocol Last Admin: 08/14/20 09:15 Dose: 100 mls/hr Documented by: Lactulose (Cephulac (Oral Use)) 20 gm PO DAILY PRN PRN Reason: CONSTIPATION Last Admin: 08/10/20 10:21 Dose: 20 gm Documented by: Losartan Potassium (Cozaar -) 25 mg PO DAILY [facility] Last Admin: 08/14/20 09:14 Dose: 25 mg Documented by: Magnesium Oxide (Mag-Ox -) 400 mg PO DAILY [facility] Last Admin: 08/14/20 09:14 Dose: 400 mg Documented by: Multivitamins/Minerals/Vitamin C (Tab-A-Vit -) 1 tab PO DAILY [facility] Last Admin: 08/14/20 09:14 Dose: 1 tab Documented by: Polyethylene Glycol (Miralax (For Daily Use) -) 17 gm PO DAILY [facility] Last Admin: 08/14/20 09:14 Dose: Not Given Documented by: Ropinirole HCl (Requip -) 0.5 mg PO TID [facility] Last Admin: 08/14/20 05:32 Dose: 0.5 mg Documented by: Fluticasone/Salmeterol (Advair 100mcg/50mcg -) 1 puff IH BID [facility] Last Admin: 08/14/20 09:16 Dose: 1 puff Documented by: Sertraline HCl (Zoloft -) 25 mg PO HS [facility] Last Admin: 08/13/20 21:23 Dose: 25 mg Documented by: - Objective Vital Signs: Vital Signs Temperature 98.8 F 08/14/20 10:00 Pulse Rate 106 H 08/14/20 10:00 Respiratory Rate 20 08/14/20 10:00 Blood Pressure 156/96 08/14/20 10:00 O2 Sat by Pulse Oximetry (%) 95 08/14/20 10:00 Constitutional: Yes: No Distress, Calm Cardiovascular: Yes: S1, S2 Respiratory: Yes: Regular, CTA Bilaterally Gastrointestinal: Yes: Normal Bowel Sounds, Soft Musculoskeletal: Yes: WNL Extremities: Yes: Erythema (improving), Other Neurological: Yes: Alert, Oriented Psychiatric: Yes: Alert, Oriented Labs: CBC, BMP 08/14/20 06:45 08/14/20 06:45 INR, PTT INR 1.05 (0.83-1.09) 08/06/20 13:50 Assessment/Plan Problem List - Problems (1) Cellulitis Code(s): L03.90 - CELLULITIS, UNSPECIFIED Qualifiers: Site of cellulitis: extremity Site of cellulitis of extremity: lower extremity Laterality: unspecified laterality Qualified Code(s): L03.119 - Cellulitis of unspecified part of limb (2) COPD (chronic obstructive pulmonary disease) Code(s): J44.9 - CHRONIC OBSTRUCTIVE PULMONARY DISEASE, UNSPECIFIED Qualifiers: COPD type: COPD with acute exacerbation Qualified Code(s): J44.1 - Chronic obstructive pulmonary disease with (acute) exacerbation (3) Chronic pain Code(s): G89.29 - OTHER CHRONIC PAIN (4) Hypertension Code(s): I10 - ESSENTIAL (PRIMARY) HYPERTENSION (5) Hypothyroidism Code(s): E03.9 - HYPOTHYROIDISM, UNSPECIFIED plan can be changed to augmentin 875 mg po bid for 5 more days rest as per the team
[2020-08-14 13:29] VITALS: BP 131/58; PULSE 95; TEMP 98.4
--- NOTE | 2020-08-14 14:24 | DS ---
Physical Examination Vital Signs: Vital Signs Temperature 98.4 F 08/14/20 13:26 Pulse Rate 95 H 08/14/20 13:26 Respiratory Rate 20 08/14/20 13:26 Blood Pressure 131/58 L 08/14/20 13:26 O2 Sat by Pulse Oximetry (%) 97 08/14/20 13:26 Constitutional: Yes: No Distress HENT: Yes: Atraumatic Neck: Yes: Supple Respiratory: Yes: CTA Bilaterally Gastrointestinal: Yes: Normal Bowel Sounds Extremities: Yes: WNL Edema: Yes Edema: RUE: 1+, LLE: 1+ Neurological: Yes: Alert, Oriented Labs: CBC, BMP 08/14/20 06:45 08/14/20 06:45 Discharge Summary Problems reviewed: Yes Reason For Visit: CELLULITIS Current Active Problems Cellulitis (Acute) Condition: Fair - Instructions Referrals: Leilani Christianson MD [Staff Physician] - Disposition: HOME - Home Medications Comprehensive Discharge Medication List: Ambulatory Orders Albuterol 0.083% Nebulizer Adry [Ventolin 0.083% Nebulizer Soln -] 1 neb NEB QID 01/19/17 Aspirin [ASA -] 81 mg PO DAILY 01/19/17 Divalproex *ER* [Depakote *ER* -] 500 mg PO BID 01/19/17 Salmeterol/Fluticasone [Advair 100Mcg/50Mcg -] 1 inh PO BID 01/19/17 Allopurinol [Zyloprim -] 300 mg PO DAILY tablet 02/03/17 Atenolol [Tenormin -] 50 mg PO DAILY tablet 02/03/17 Loratadine [Claritin] 10 mg PO DAILY 04/12/18 Simvastatin 40 mg PO HS 04/12/18 Sertraline HCl [Zoloft] 25 mg PO HS 04/25/18 Losartan Potassium [Cozaar -] 25 mg PO DAILY 08/04/18 Lactulose 20 gm PO DAILY PRN #1 bottle 01/08/19 Furosemide [Lasix -] 10 mg PO DAILY PRN 07/09/19 Ropinirole HCl [Requip -] 0.5 mg PO BID 12/07/19 Silver Sulfadiazine 1% Top Cr [Silvadene -] 1 applic TP DAILY #1 jar 12/26/19 Mupirocin Ointment [Bactroban 2% Ointment -] 1 applic TP BID #1 tube 12/31/19 Famotidine [Pepcid -] 40 mg PO BID 02/06/20 Ketotifen Fumarate [Zaditor] 1 drop OU QID 02/06/20 Multivitamin [Multiple Vitamins] 1 each PO DAILY #30 tablet 03/07/20 Gloves 1 each ASDIR #1 box 03/24/20 Polyethylene Glycol 3350 [Miralax 119 gm Btl -] 17 gm PO DAILY #1 bottle 04/08/20 Vitamin B Complex 1 each PO DAILY #30 capsule 04/08/20 Folic Acid - 1 mg PO DAILY #30 tablet 05/07/20 Magnesium Oxide [Magnesium] 400 mg PO DAILY #30 capsule 06/17/20 Calcium Carbonate/Vitamin D3 [Calcium 500-Vit D3 400 Tablet] 1 each PO DAILY #30 tablet 07/09/20 Cyclobenzaprine HCl [Flexeril 10 mg] 10 mg PO TID PRN #90 tablet 07/09/20 Oxycodone HCl/Acetaminophen [Percocet 10-325 mg Tablet] 1 each PO TID PRN #90 tablet MDD 3 07/09/20 Ergocalciferol (Vitamin D2) [Vitamin D2] 1,000 unit PO DAILY 08/07/20 Zolpidem Tartrate [Ambien] 10 mg PO PRN 08/07/20 Amoxicillin/Potassium Clav [Augmentin 875-125 Tablet] 1 each PO BID #10 tablet 08/14/20 [facility]
== END 2020-08-14 18:35 | disposition home or self-care (01) | DRG 383 ==
LOC: JER 12:30 → INTOOBSV 18:33 → UNDOADMOB 18:33 → JERBED 18:33 → J7W 08-07 13:55 → JERBED 08-07 13:55 → J7W 08-07 14:35 → OBSVTOIN 08-09 14:58 → UNDODISIN 08-10 13:18
PROVIDERS: ADMIT Internal Medicine; ATTEND Internal Medicine
DX: L03.115 Cellulitis of right lower limb (principal); I10 Essential (primary) hypertension; E78.5 Hyperlipidemia, unspecified; G40.909 Epilepsy, unspecified, not intractable, without status epilepticus; J44.9 Chronic obstructive pulmonary disease, unspecified; F25.9 Schizoaffective disorder, unspecified; F32.9 Major depressive disorder, single episode, unspecified; M10.9 Gout, unspecified; I25.10 Atherosclerotic heart disease of native coronary artery without angina pectoris; E66.9 Obesity, unspecified; Z68.38 Body mass index [BMI] 38.0-38.9, adult; E03.9 Hypothyroidism, unspecified; G89.29 Other chronic pain; E11.43 Type 2 diabetes mellitus with diabetic autonomic (poly)neuropathy; M54.5 Low back pain; M19.90 Unspecified osteoarthritis, unspecified site; R60.0 Localized edema; D63.8 Anemia in other chronic diseases classified elsewhere
CPT/HCPCS: 36415; 71046-TC-FY; 80053; 81003; 82962; 83036; 84443; 85025; 85610; 87040; 93005; 93010; 93971-TC; 97116-GP; 97162-GP; 99285-25; G0378; U0003

== ENCOUNTER 2020-12-12 12:22 | Emergency (ER) | payer OTHER ==
[2020-12-12 12:45] VITALS: TEMP 101; BMI 31.5
[2020-12-12] MEDS ORDERED: RAPID SEQUENCE INTUBATION KIT NR ONE (12:55)
[2020-12-12] MEDS ORDERED: ROCURONIUM BROMIDE 50 MG/5 ML VIAL IV ONE ×2 (13:18→15:54)
[2020-12-12] MEDS ORDERED: ETOMIDATE 40 MG/20 ML VIAL IVPUSH ONE (13:19)
[2020-12-12] MEDS ORDERED: ACETAMINOPHEN 1000 MG/100 ML VIAL (NON FORMULARY) IVPB ONE (13:23)
[2020-12-12] MEDS ORDERED: MIDAZOLAM 100 MG/100 ML MG IVPB ONE ×2 (13:26→18:57)
[2020-12-12] MEDS ORDERED: PROPOFOL 1,000,000 MCG/100 ML VIAL IVPB SCH (13:30)
[2020-12-12] MEDS ORDERED: MIDAZOLAM 100 MG in SODIUM CHLORIDE 100 ML IVPB SCH (13:45)
[2020-12-12] MEDS ORDERED: DEXAMETHASONE SOD PHOSPHATE 4 MG/1 ML VIAL IVPUSH ONE ×2 (14:16→14:21)
[2020-12-12] MEDS ORDERED: ACETAMINOPHEN INJECTION 100 ML IVPB ONE (14:36)
[2020-12-12] MEDS ORDERED: DEXAMETHASONE SOD PHOSPHATE 10 MG/1 ML VIAL ONE (14:36)
[2020-12-12] MEDS ORDERED: MIDAZOLAM HCL 5 MG/1 ML Single Dose Vial IVPUSH ONE ×2 (14:45→14:46)
[2020-12-12] MEDS ORDERED: PROPOFOL 200 MG/20 ML VIAL IVPUSH ONE ×2 (14:47)
[2020-12-12 14:55] LABS: BASO % 0.6 % (0-2.0); EOS % 0.1 % (0-4.5); HEMATOCRIT 46.2 % (32.4-45.2); HEMOGLOBIN 15.5 GM/dL (10.7-15.3); LYMPH % 17.4 % (8-40); MCH 30.2 pg (25.7-33.7); MCHC 33.5 g/dl (32.0-36.0); MEAN CELL VOLUME 90.2 fl (80-96); MEAN PLT VOLUME 9.6 fl (7.5-11.1); MONO % 31.4 % (3.8-10.2); NEUT % 50.5 % (42.8-82.8); PLATELET COUNT 175 K/MM3 (134-434); RBC 5.12 M/mm3 (3.60-5.2); RDW 15.2 % (11.6-15.6); WHITE BLOOD COUNT 10.5 K/mm3 (4.0-10.0)
[2020-12-12 15:05] LABS: INR 1.26 (0.83-1.09); PROTHROMBIN TIME (PATIENT) 15.2 SEC (9.7-13.0)
[2020-12-12 15:08] LABS: ACTIVATED PTT 33.8 SECONDS (25.2-36.5)
[2020-12-12 15:10] LABS: EPI CELLS 17 /uL (0-25.1); HYALINE CASTS 3 /uL (0-3.1); PH,URINE 7.5 (5.0-8.0); URINE APPEARANCE CLEAR; URINE BACTERIA 44 /uL (0-1359); URINE BILIRUBIN 2+ (NEGATIVE); URINE COLOR DK YELLOW; URINE GLUCOSE (UA) NEGATIVE (NEGATIVE); URINE KETONE TRACE (NEGATIVE); URINE LEUK ESTERASE NEGATIVE (NEGATIVE); URINE NITRITE NEGATIVE (NEGATIVE); URINE PROTEIN TRACE (NEGATIVE); URINE RBC 72 /uL (0-23.9); URINE WBC 6 /uL (0-25.8)
[2020-12-12 15:12] LABS: POTASSIUM 4.4 mmol/L (3.5-5.1)
[2020-12-12 15:13] LABS: ALBUMIN 2.9 g/dl (3.4-5.0); CALCIUM 8.9 mg/dL (8.5-10.1)
[2020-12-12 15:14] LABS: BLOOD UREA NITROGEN 14.1 mg/dL (7-18)
[2020-12-12 15:17] LABS: CREATININE 1.2 mg/dL (0.55-1.3)
[2020-12-12 15:18] LABS: BILIRUBIN,TOTAL 1.7 mg/dL (0.2-1); TOT PROT 7.6 g/dl (6.4-8.2)
[2020-12-12 15:35] LABS: ANISOCYTOSIS 1+; MACROCYTOSIS 0; PLATELET ESTIMATE NORMAL; TOXIC GRANULATION 2+
[2020-12-12] MEDS ORDERED: MIDAZOLAM HCL 2 MG/2 ML SINGLE DOSE VIAL ONE (15:40)
[2020-12-12] MEDS ORDERED: ROCURONIUM BROMIDE 100 MG/10 ML VIAL ONE (15:56)
[2020-12-12] MEDS ORDERED: FENTANYL IVPB 500 MCG/100 ML BAG IVPB SCH (16:00)
[2020-12-12 17:27] LABS: ARTERIAL BLD GAS O2 SATURATION 95.9 mmHg (95-98); ARTERIAL BLOOD GAS BASE EXCESS -3.8 mmol/L (-2-2); ARTERIAL BLOOD GAS PO2 81.1 mmHg (80-100); ARTERIAL BLOOD GAS pH 7.386 (7.350-7.450)
[2020-12-12 17:28] LABS: ALLENS TEST POSITIVE
[2020-12-12] MEDS ORDERED: FENTANYL IVPB 500 MCG/100 ML BAG IVPB ONE (18:00)
[2020-12-12 20:02] VITALS: BP 125/81; PULSE 88
== END 2020-12-12 20:05 | disposition short-term general hospital (02) ==
LOC: JER 12:22
PROC: 0BH17EZ Insertion of Endotracheal Airway into Trachea, Via Natural or Artificial Opening (ICD-10-PCS; principal; 2020-12-12)
DX: J96.01 Acute respiratory failure with hypoxia (principal); U07.1 COVID-19
CPT/HCPCS: 36415; 36600; 70450-TC; 71045-TC-FY; 80053; 81003; 82550; 82553; 82728; 82803; 83605; 83615; 84484; 85025; 85379; 85610; 85730; 86140; 87040; 87086; 87426; 93005; 93010; 99291; J0131

== ENCOUNTER 2021-09-26 15:50 | Inpatient (IN) | payer OTHER ==
[2021-09-26] MEDS ORDERED: SODIUM CHLORIDE 0.9% 500 ML INFUS.BAG IV ONE (17:11)
[2021-09-26 18:40] LABS: BASO % 0.8 % (0-2.0); HEMATOCRIT 33.8 % (32.4-45.2); HEMOGLOBIN 11.5 GM/dL (10.7-15.3); MCH 29.4 pg (25.7-33.7); MCHC 33.9 g/dl (32.0-36.0); MEAN CELL VOLUME 86.7 fl (80-96); MEAN PLT VOLUME 7.8 fl (7.5-11.1); MONO % 23.5 % (3.8-10.2); NEUT % 46.7 % (42.8-82.8); PLATELET COUNT 207 10^3/uL (134-434); RDW 16.3 % (11.6-15.6); WHITE BLOOD COUNT 8.1 K/mm3 (4.0-10.0)
[2021-09-26 19:00] LABS: EPI CELLS >36 /uL (0-25.1); HYALINE CASTS 37 /uL (0-3.1); URINE APPEARANCE CLEAR; URINE BACTERIA 31 /uL (0-1359); URINE BILIRUBIN 1+ (NEGATIVE); URINE COLOR DK YELLOW; URINE GLUCOSE (UA) NEGATIVE (NEGATIVE); URINE KETONE TRACE (NEGATIVE); URINE LEUK ESTERASE TRACE (NEGATIVE); URINE NITRITE NEGATIVE (NEGATIVE); URINE PROTEIN NEGATIVE (NEGATIVE); URINE RBC 48 /uL (0-23.9); URINE WBC 10 /uL (0-25.8)
[2021-09-26 19:00] LABS: CHLORIDE 103 mmol/L (98-107); SODIUM 139 mmol/L (136-145)
[2021-09-26 19:05] LABS: ALBUMIN 2.4 g/dl (3.4-5.0); ANION GAP 6 MMOL/L (8-16); BLOOD UREA NITROGEN 28.3 mg/dL (7-18); CALCIUM 9.3 mg/dL (8.5-10.1); CO2 30 mmol/L (21-32); GLUCOSE,RANDOM 81 mg/dL (74-106); MAGNESIUM 2.1 mg/dL (1.8-2.4)
[2021-09-26 19:08] LABS: CHOLESTEROL 71 mg/dL (50-200); CREATININE 2.8 mg/dL (0.55-1.3); PHOSPHOROUS 5.5 mg/dL (2.5-4.9); SGOT/AST 16 U/L (15-37); SGPT/ALT 9 U/L (13-61); TRIGLYCERIDES 85 mg/dL (0-150)
[2021-09-26 19:09] LABS: BILIRUBIN,TOTAL 0.4 mg/dL (0.2-1); LDL CHOLESTEROL (ONLY SJRH) 30 mg/dL (5-100); TOT PROT 6.8 g/dl (6.4-8.2)
[2021-09-26 19:10] LABS: HDL CHOLESTEROL 33 mg/dL (40-60)
[2021-09-26 19:11] LABS: ALK PHOS 77 U/L (45-117)
[2021-09-26 19:13] LABS: ANISOCYTOSIS 1+; MACROCYTOSIS 0; PLATELET ESTIMATE NORMAL; TARGET CELLS 1+
[2021-09-26 21:47] LABS: VENOUS BASE EXCESS 1.3 mmol/L (-2-2); VENOUS O2 SATURATION 62.4 % (70-80); VENOUS PCO2 61.9 mmHg (38-52); VENOUS PH 7.293 (7.310-7.410)
[2021-09-26 22:03] LABS: METHADONE, UR NEGATIVE (NEGATIVE); URINE BARBITURATES NEGATIVE (NEGATIVE); URINE BENZODIAZEPINES NEGATIVE (NEGATIVE)
[2021-09-26 22:04] LABS: PHENCYCLIDINE,URINE NEGATIVE (NEGATIVE)
[2021-09-26 22:07] LABS: COCAINE, UR NEGATIVE (NEGATIVE); OPIATES, URI POSITIVE (NEGATIVE); URINE AMPHETAMINES NEGATIVE (NEGATIVE)
[2021-09-26] MEDS ORDERED: NALOXONE HCL 0.4 MG/ML VIAL IVPUSH PRN (22:08)
[2021-09-26] MEDS ORDERED: NALOXONE HCL 0.4 MG/ML VIAL ONE (22:56)
[2021-09-26] MEDS ORDERED: HEPARIN NA (PORCINE) 5,000 UNITS/ML 1ML VIAL ONE (22:57)
[2021-09-26] MEDS: HEPARIN NA (PORCINE) 5,000 UNITS/ML 1ML VIAL SQ SCH (23:03)
[2021-09-26] MEDS: SODIUM CHLORIDE 1,000 ML IV SCH (23:04)
[2021-09-26 23:23] LABS: ARTERIAL BLD GAS O2 SATURATION 93.8 % (95-98); ARTERIAL BLOOD GAS BASE EXCESS -0.8 mmol/L (-2-2); ARTERIAL BLOOD GAS pH 7.358 (7.350-7.450)
[2021-09-26 23:24] LABS: ALLENS TEST POSITIVE
[2021-09-27 03:44] VITALS: BMI 40.3
[2021-09-27] MEDS: HEPARIN NA (PORCINE) 5,000 UNITS/ML 1ML VIAL SQ SCH ×3 (05:10→21:30)
[2021-09-27] MEDS: ALBUTEROL SO4 0.083% IH SOL 2.5 MG/3 ML VIAL.NEB. NEB SCH ×4 (08:50→20:10)
[2021-09-27] MEDS: FOLIC ACID 1 MG TABLET (FP) PO SCH (09:50)
[2021-09-27] MEDS: ASPIRIN 81 MG CHEWABLE TABLETS PO SCH (09:51)
[2021-09-27] MEDS ORDERED: CEFTRIAXONE 1 GM in DEXTROSE 5%-WATER - 50 ML IVPB SCH (10:00)
[2021-09-27 10:30] LABS: BASO % 0.7 % (0-2.0); EOS % 2.4 % (0-4.5); HEMATOCRIT 36.4 % (32.4-45.2); HEMOGLOBIN 12.3 GM/dL (10.7-15.3); MCH 29.5 pg (25.7-33.7); MCHC 33.7 g/dl (32.0-36.0); MEAN CELL VOLUME 87.6 fl (80-96); MEAN PLT VOLUME 7.7 fl (7.5-11.1); MONO % 19.6 % (3.8-10.2); NEUT % 52.3 % (42.8-82.8); PLATELET COUNT 219 10^3/uL (134-434); RBC 4.16 M/mm3 (3.60-5.2); WHITE BLOOD COUNT 7.8 K/mm3 (4.0-10.0)
[2021-09-27 10:56] LABS: ALBUMIN 2.1 g/dl (3.4-5.0); BLOOD UREA NITROGEN 24.6 mg/dL (7-18); CALCIUM 9.2 mg/dL (8.5-10.1); MAGNESIUM 2.1 mg/dL (1.8-2.4)
[2021-09-27 10:59] LABS: CREATININE 1.7 mg/dL (0.55-1.3); PHOSPHOROUS 4.1 mg/dL (2.5-4.9)
[2021-09-27 11:01] LABS: BILIRUBIN,TOTAL 0.4 mg/dL (0.2-1); TOT PROT 6.8 g/dl (6.4-8.2)
[2021-09-27] MEDS: TIOTROPIUM BROMIDE 2.5 MCG (SPIRIVA) RESPIMAT INHALER IH SCH (11:16)
[2021-09-27] MEDS: BUDESONIDE/FORMETEROL FUMARATE 160/4.5 mcg INHALER IH SCH ×2 (11:16→21:30)
[2021-09-27] MEDS: SODIUM CHLORIDE 1,000 ML IV SCH ×2 (16:23→23:04)
[2021-09-27] MEDS ORDERED: ATORVASTATIN CA 40 MG TABLET (FP) PO SCH (22:00)
[2021-09-27] MEDS: NYSTATIN 500,000 UNITS/5 ML SUSPENSION PO SCH (23:05)
[2021-09-28] MEDS: HEPARIN NA (PORCINE) 5,000 UNITS/ML 1ML VIAL SQ SCH ×3 (06:03→23:15)
[2021-09-28] MEDS: NYSTATIN 500,000 UNITS/5 ML SUSPENSION PO SCH ×3 (06:03→17:22)
[2021-09-28] MEDS: ALBUTEROL SO4 0.083% IH SOL 2.5 MG/3 ML VIAL.NEB. NEB SCH ×4 (07:36→20:00)
[2021-09-28 09:32] LABS: BASO % 0.7 % (0-2.0); EOS % 1.5 % (0-4.5); HEMATOCRIT 34.3 % (32.4-45.2); HEMOGLOBIN 11.7 GM/dL (10.7-15.3); LYMPH % 21.5 % (8-40); MCH 29.9 pg (25.7-33.7); MCHC 34.1 g/dl (32.0-36.0); MEAN CELL VOLUME 87.6 fl (80-96); MEAN PLT VOLUME 7.3 fl (7.5-11.1); MONO % 22.9 % (3.8-10.2); NEUT % 53.4 % (42.8-82.8); PLATELET COUNT 218 10^3/uL (134-434); RBC 3.92 M/mm3 (3.60-5.2); WHITE BLOOD COUNT 8.9 K/mm3 (4.0-10.0)
[2021-09-28 09:45] LABS: ALBUMIN 1.9 g/dl (3.4-5.0); BLOOD UREA NITROGEN 14.1 mg/dL (7-18); CALCIUM 9.2 mg/dL (8.5-10.1)
[2021-09-28 09:48] LABS: CREATININE 0.9 mg/dL (0.55-1.3); PHOSPHOROUS 2.9 mg/dL (2.5-4.9)
[2021-09-28 09:49] LABS: BILIRUBIN,TOTAL 0.6 mg/dL (0.2-1); TOT PROT 6.5 g/dl (6.4-8.2)
[2021-09-28] MEDS: FOLIC ACID 1 MG TABLET (FP) PO SCH (09:50)
[2021-09-28] MEDS: ASPIRIN 81 MG CHEWABLE TABLETS PO SCH (09:50)
[2021-09-28] MEDS: TIOTROPIUM BROMIDE 2.5 MCG (SPIRIVA) RESPIMAT INHALER IH SCH (09:52)
[2021-09-28] MEDS: BUDESONIDE/FORMETEROL FUMARATE 160/4.5 mcg INHALER IH SCH ×2 (09:52→22:51)
[2021-09-28 10:11] LABS: MAGNESIUM 1.7 mg/dL (1.8-2.4)
[2021-09-28 10:40] LABS: ANISOCYTOSIS 0; MACROCYTOSIS 0; PLATELET ESTIMATE NORMAL; TARGET CELLS 1+
[2021-09-28] MEDS ORDERED: DOCUSATE SODIUM 100 MG CAPSULE (FP) PO PRN (14:27)
[2021-09-28] MEDS: CALCIUM 500MG/VIT-D 200 UNITS COMBO TABLET (FP) PO SCH (17:21)
[2021-09-28] MEDS: ALLOPURINOL 300 MG TABLET (FP) PO SCH (17:22)
[2021-09-28] MEDS: LOSARTAN POTASSIUM 25 MG TABLET PO SCH (17:22)
[2021-09-28] MEDS: POLYETHYLENE GLYCOL (HEALTHYLAX) 3350 17 GM PACKET PO SCH (17:22)
[2021-09-28] MEDS ORDERED: MINERAL OIL/PET HY-PHL TOPICAL OINTMENT 454 GM JAR TP SCH (22:00)
[2021-09-28] MEDS: FAMOTIDINE 40 MG TABLET PO SCH (22:50)
[2021-09-28] MEDS: ATORVASTATIN CA 20 MG TABLET (FP) PO SCH (22:50)
[2021-09-28] MEDS: SERTRALINE HCL 25 MG TABLET (FP) PO SCH (22:51)
[2021-09-28] MEDS: rOPINIRole HCL 0.5 MG TABLET PO SCH (22:51)
[2021-09-28] MEDS: DIVALPROEX NA *ER* EXTEND REL 500 MG TABLET.SA (FP) PO SCH (22:51)
[2021-09-28] MEDS: MINERAL OIL/PET HY-PHL TOPICAL OINTMENT 454 GM JAR TP SCH (23:15)
[2021-09-28] MEDS: SODIUM CHLORIDE 1,000 ML IV SCH (23:16)
[2021-09-29] MEDS: NYSTATIN 500,000 UNITS/5 ML SUSPENSION PO SCH ×4 (00:23→19:04)
[2021-09-29] MEDS: HEPARIN NA (PORCINE) 5,000 UNITS/ML 1ML VIAL SQ SCH ×3 (05:40→21:42)
[2021-09-29] MEDS: ALBUTEROL SO4 0.083% IH SOL 2.5 MG/3 ML VIAL.NEB. NEB SCH ×4 (07:40→19:51)
[2021-09-29] MEDS ORDERED: AMPICILLIN NA/SULBACTAM NA 3 GM in SODIUM CHLORIDE 100 ML IVPB SCH (10:00)
[2021-09-29] MEDS ORDERED: AMPICILLIN NA/SULBACTAM NA 3 GM in DEXTROSE 5%-WATER 100 ML IVPB SCH (10:31)
[2021-09-29] MEDS ORDERED: AMPICILLIN NA/SULBACTAM NA 3 GM VIAL ONE ×3 (11:03→21:28)
[2021-09-29] MEDS ORDERED: DEXTROSE 5%-WATER 100 ML IVPB ONE ×3 (11:03→21:29)
[2021-09-29] MEDS ORDERED: PT OWN MED DRAWER 7, Y5N ONE ×3 (11:05→21:30)
[2021-09-29] MEDS: oxyCODONE HCL 5 MG TABLET PO PRN ×2 (11:09→19:24)
[2021-09-29] MEDS: AMPICILLIN NA/SULBACTAM NA 3 GM in DEXTROSE 5%-WATER 100 ML IVPB SCH ×3 (11:10→21:42)
[2021-09-29] MEDS: LORATADINE 10 MG TABLET PO SCH (11:11)
[2021-09-29] MEDS: FOLIC ACID 1 MG TABLET (FP) PO SCH (11:11)
[2021-09-29] MEDS: ALLOPURINOL 300 MG TABLET (FP) PO SCH (11:11)
[2021-09-29] MEDS: LOSARTAN POTASSIUM 25 MG TABLET PO SCH (11:11)
[2021-09-29] MEDS: FAMOTIDINE 40 MG TABLET PO SCH ×2 (11:11→21:41)
[2021-09-29] MEDS: POLYETHYLENE GLYCOL (HEALTHYLAX) 3350 17 GM PACKET PO SCH (11:12)
[2021-09-29] MEDS: MULTIVITAMINS (DAILY MVI) TABLET (FP) PO SCH (11:12)
[2021-09-29] MEDS: MAGNESIUM OXIDE 400 MG TABLET (FP) PO SCH (11:12)
[2021-09-29] MEDS: ASPIRIN 81 MG CHEWABLE TABLETS PO SCH (11:13)
[2021-09-29] MEDS: CALCIUM 500MG/VIT-D 200 UNITS COMBO TABLET (FP) PO SCH (11:14)
[2021-09-29] MEDS: DIVALPROEX NA *ER* EXTEND REL 500 MG TABLET.SA (FP) PO SCH ×2 (11:14→21:41)
[2021-09-29] MEDS: rOPINIRole HCL 0.5 MG TABLET PO SCH ×2 (11:14→21:42)
[2021-09-29] MEDS: TIOTROPIUM BROMIDE 2.5 MCG (SPIRIVA) RESPIMAT INHALER IH SCH (11:15)
[2021-09-29] MEDS: BUDESONIDE/FORMETEROL FUMARATE 160/4.5 mcg INHALER IH SCH ×2 (11:15→21:52)
[2021-09-29 11:31] LABS: ARTERIAL BLD GAS O2 SATURATION 95.3 % (95-98); ARTERIAL BLOOD GAS BASE EXCESS 4.5 mmol/L (-2-2); ARTERIAL BLOOD GAS PO2 71.5 mmHg (80-100); ARTERIAL BLOOD GAS pH 7.471 (7.350-7.450)
[2021-09-29 11:32] LABS: ALLENS TEST POSITIVE
[2021-09-29] MEDS: MINERAL OIL/PET HY-PHL TOPICAL OINTMENT 454 GM JAR TP SCH ×2 (12:03→21:41)
[2021-09-29 12:20] LABS: HEMATOCRIT 37.4 % (32.4-45.2); HEMOGLOBIN 12.7 GM/dL (10.7-15.3); MCH 29.4 pg (25.7-33.7); MEAN CELL VOLUME 86.5 fl (80-96); MEAN PLT VOLUME 7.5 fl (7.5-11.1); PLATELET COUNT 200 10^3/uL (134-434); RBC 4.32 M/mm3 (3.60-5.2); RDW 16.9 % (11.6-15.6); WHITE BLOOD COUNT 10.6 K/mm3 (4.0-10.0)
[2021-09-29 12:40] LABS: ALBUMIN 2.1 g/dl (3.4-5.0); CALCIUM 9.1 mg/dL (8.5-10.1)
[2021-09-29 12:41] LABS: BLOOD UREA NITROGEN 9.3 mg/dL (7-18); MAGNESIUM 1.5 mg/dL (1.8-2.4)
[2021-09-29 12:44] LABS: CREATININE 0.8 mg/dL (0.55-1.3)
[2021-09-29 12:45] LABS: ANISOCYTOSIS 0; HELMET CELLS 0; HOWELL-JOLLY BODIES 0; MACROCYTOSIS 0; OVALOCYTE 0; PLATELET ESTIMATE NORMAL; ROULEAU 0; SICKELED CELLS 0; TARGET CELLS 0; TEAR DROP CELLS 0; TOT PROT 6.8 g/dl (6.4-8.2); TOXIC GRANULATION 0
[2021-09-29] MEDS: SERTRALINE HCL 25 MG TABLET (FP) PO SCH (21:41)
[2021-09-29] MEDS: ATORVASTATIN CA 20 MG TABLET (FP) PO SCH (21:41)
[2021-09-30] MEDS: NYSTATIN 500,000 UNITS/5 ML SUSPENSION PO SCH ×5 (00:56→23:26)
[2021-09-30] MEDS ORDERED: AMPICILLIN NA/SULBACTAM NA 3 GM VIAL ONE ×5 (03:19→21:00)
[2021-09-30] MEDS ORDERED: DEXTROSE 5%-WATER 100 ML IVPB ONE ×4 (03:19→21:01)
[2021-09-30] MEDS: oxyCODONE HCL 5 MG TABLET PO PRN ×2 (03:22→22:17)
[2021-09-30] MEDS: AMPICILLIN NA/SULBACTAM NA 3 GM in DEXTROSE 5%-WATER 100 ML IVPB SCH ×4 (03:23→21:08)
[2021-09-30] MEDS: HEPARIN NA (PORCINE) 5,000 UNITS/ML 1ML VIAL SQ SCH ×3 (05:44→21:08)
[2021-09-30 08:01] LABS: BASO % 0.8 % (0-2.0); EOS % 2.3 % (0-4.5); HEMATOCRIT 36.5 % (32.4-45.2); HEMOGLOBIN 12.6 GM/dL (10.7-15.3); LYMPH % 18.2 % (8-40); MCH 29.7 pg (25.7-33.7); MCHC 34.6 g/dl (32.0-36.0); MEAN CELL VOLUME 85.9 fl (80-96); MEAN PLT VOLUME 7.4 fl (7.5-11.1); MONO % 23.2 % (3.8-10.2); NEUT % 55.5 % (42.8-82.8); PLATELET COUNT 203 10^3/uL (134-434); RBC 4.25 M/mm3 (3.60-5.2); RDW 16.7 % (11.6-15.6); WHITE BLOOD COUNT 9.2 K/mm3 (4.0-10.0)
[2021-09-30 08:16] LABS: BLOOD UREA NITROGEN 8.2 mg/dL (7-18); CALCIUM 8.6 mg/dL (8.5-10.1)
[2021-09-30 08:20] LABS: CREATININE 0.9 mg/dL (0.55-1.3); PHOSPHOROUS 3.6 mg/dL (2.5-4.9)
[2021-09-30] MEDS: ALBUTEROL SO4 0.083% IH SOL 2.5 MG/3 ML VIAL.NEB. NEB SCH ×4 (08:28→19:58)
[2021-09-30 08:30] LABS: MAGNESIUM 1.4 mg/dL (1.8-2.4)
[2021-09-30 09:59] LABS: ANISOCYTOSIS 1+; MACROCYTOSIS 0; OVALOCYTE 1+; PLATELET ESTIMATE NORMAL; TARGET CELLS 1+; TEAR DROP CELLS 1+
[2021-09-30] MEDS: MINERAL OIL/PET HY-PHL TOPICAL OINTMENT 454 GM JAR TP SCH ×2 (12:15→21:09)
[2021-09-30] MEDS: ALLOPURINOL 300 MG TABLET (FP) PO SCH (12:16)
[2021-09-30] MEDS: LORATADINE 10 MG TABLET PO SCH (12:16)
[2021-09-30] MEDS: LOSARTAN POTASSIUM 25 MG TABLET PO SCH (12:16)
[2021-09-30] MEDS: CALCIUM 500MG/VIT-D 200 UNITS COMBO TABLET (FP) PO SCH (12:16)
[2021-09-30] MEDS: MAGNESIUM OXIDE 400 MG TABLET (FP) PO SCH (12:16)
[2021-09-30] MEDS: MULTIVITAMINS (DAILY MVI) TABLET (FP) PO SCH (12:16)
[2021-09-30] MEDS: FOLIC ACID 1 MG TABLET (FP) PO SCH (12:16)
[2021-09-30] MEDS: FAMOTIDINE 40 MG TABLET PO SCH ×2 (12:17→21:08)
[2021-09-30] MEDS: ASPIRIN 81 MG CHEWABLE TABLETS PO SCH (12:17)
[2021-09-30] MEDS: rOPINIRole HCL 0.5 MG TABLET PO SCH ×2 (12:20→21:08)
[2021-09-30] MEDS: DIVALPROEX NA *ER* EXTEND REL 500 MG TABLET.SA (FP) PO SCH ×2 (12:20→21:07)
[2021-09-30] MEDS ORDERED: PT OWN MED DRAWER 7, Y5N ONE ×2 (12:20→20:58)
[2021-09-30] MEDS: BUDESONIDE/FORMETEROL FUMARATE 160/4.5 mcg INHALER IH SCH ×2 (12:22→21:09)
[2021-09-30] MEDS: TIOTROPIUM BROMIDE 2.5 MCG (SPIRIVA) RESPIMAT INHALER IH SCH (12:22)
[2021-09-30] MEDS ORDERED: MAGNESIUM 2GM/50ML STERILE WATER IVPB IVPB ONE (13:30)
[2021-09-30] MEDS: POLYETHYLENE GLYCOL (HEALTHYLAX) 3350 17 GM PACKET PO SCH (16:48)
[2021-09-30] MEDS: SODIUM CHLORIDE 1,000 ML IV SCH (17:39)
[2021-09-30] MEDS: KETOTIFEN FUMARATE OU SCH ×2 (18:54→18:55)
[2021-09-30] MEDS: SERTRALINE HCL 25 MG TABLET (FP) PO SCH (21:07)
[2021-09-30] MEDS: ATORVASTATIN CA 20 MG TABLET (FP) PO SCH (21:07)
[2021-10-01] MEDS ORDERED: AMPICILLIN NA/SULBACTAM NA 3 GM VIAL ONE ×3 (03:51→15:26)
[2021-10-01] MEDS ORDERED: DEXTROSE 5%-WATER 100 ML IVPB ONE ×3 (03:52→15:26)
[2021-10-01] MEDS: AMPICILLIN NA/SULBACTAM NA 3 GM in DEXTROSE 5%-WATER 100 ML IVPB SCH ×3 (04:24→15:29)
[2021-10-01] MEDS: HEPARIN NA (PORCINE) 5,000 UNITS/ML 1ML VIAL SQ SCH ×3 (06:49→21:19)
[2021-10-01] MEDS: NYSTATIN 500,000 UNITS/5 ML SUSPENSION PO SCH ×3 (06:50→17:36)
[2021-10-01] MEDS: ALBUTEROL SO4 0.083% IH SOL 2.5 MG/3 ML VIAL.NEB. NEB SCH ×4 (07:40→20:25)
[2021-10-01 07:49] LABS: HEMATOCRIT 33.5 % (32.4-45.2); HEMOGLOBIN 11.4 GM/dL (10.7-15.3); MCH 29.5 pg (25.7-33.7); MCHC 34.1 g/dl (32.0-36.0); MEAN CELL VOLUME 86.5 fl (80-96); MEAN PLT VOLUME 7.4 fl (7.5-11.1); PLATELET COUNT 173 10^3/uL (134-434); RBC 3.88 M/mm3 (3.60-5.2); RDW 16.6 % (11.6-15.6); WHITE BLOOD COUNT 8.5 K/mm3 (4.0-10.0)
[2021-10-01 08:25] LABS: ALBUMIN 1.7 g/dl (3.4-5.0); CALCIUM 8.2 mg/dL (8.5-10.1); MAGNESIUM 1.8 mg/dL (1.8-2.4)
[2021-10-01 08:28] LABS: CREATININE 0.9 mg/dL (0.55-1.3); PHOSPHOROUS 3.5 mg/dL (2.5-4.9)
[2021-10-01 08:30] LABS: BILIRUBIN,TOTAL 1.1 mg/dL (0.2-1); TOT PROT 6.2 g/dl (6.4-8.2)
[2021-10-01 09:36] LABS: ANISOCYTOSIS 1+; MACROCYTOSIS 0; PLATELET ESTIMATE NORMAL
[2021-10-01] MEDS: LORATADINE 10 MG TABLET PO SCH (10:20)
[2021-10-01] MEDS: MULTIVITAMINS (DAILY MVI) TABLET (FP) PO SCH (10:20)
[2021-10-01] MEDS: FOLIC ACID 1 MG TABLET (FP) PO SCH (10:20)
[2021-10-01] MEDS: FAMOTIDINE 40 MG TABLET PO SCH ×2 (10:20→21:19)
[2021-10-01] MEDS: LOSARTAN POTASSIUM 25 MG TABLET PO SCH (10:20)
[2021-10-01] MEDS: CALCIUM 500MG/VIT-D 200 UNITS COMBO TABLET (FP) PO SCH (10:20)
[2021-10-01] MEDS: ALLOPURINOL 300 MG TABLET (FP) PO SCH (10:20)
[2021-10-01] MEDS: MAGNESIUM OXIDE 400 MG TABLET (FP) PO SCH (10:20)
[2021-10-01] MEDS: ASPIRIN 81 MG CHEWABLE TABLETS PO SCH (10:20)
[2021-10-01] MEDS: methylPREDNISolone NA SUCC 40 MG/1 ML VIAL IVPUSH SCH ×2 (10:21→17:36)
[2021-10-01] MEDS: POLYETHYLENE GLYCOL (HEALTHYLAX) 3350 17 GM PACKET PO SCH (10:21)
[2021-10-01] MEDS: MINERAL OIL/PET HY-PHL TOPICAL OINTMENT 454 GM JAR TP SCH ×2 (10:21→21:19)
[2021-10-01] MEDS: BUDESONIDE/FORMETEROL FUMARATE 160/4.5 mcg INHALER IH SCH ×2 (10:22→21:19)
[2021-10-01] MEDS: TIOTROPIUM BROMIDE 2.5 MCG (SPIRIVA) RESPIMAT INHALER IH SCH (10:22)
[2021-10-01] MEDS ORDERED: PT OWN MED DRAWER 7, Y5N ONE ×3 (10:31→21:02)
[2021-10-01] MEDS: DIVALPROEX NA *ER* EXTEND REL 500 MG TABLET.SA (FP) PO SCH ×2 (10:32→21:19)
[2021-10-01] MEDS: rOPINIRole HCL 0.5 MG TABLET PO SCH ×2 (10:33→21:20)
[2021-10-01] MEDS: SODIUM CHLORIDE 1,000 ML IV SCH ×2 (17:36→20:26)
[2021-10-01] MEDS: SERTRALINE HCL 25 MG TABLET (FP) PO SCH (21:18)
[2021-10-01] MEDS: ATORVASTATIN CA 20 MG TABLET (FP) PO SCH (21:18)
[2021-10-01] MEDS: AMOX TR/POT CLAV 875MG/125MG TABLETS (FP) PO SCH (21:19)
[2021-10-02] MEDS: NYSTATIN 500,000 UNITS/5 ML SUSPENSION PO SCH ×4 (00:21→17:10)
[2021-10-02] MEDS: methylPREDNISolone NA SUCC 40 MG/1 ML VIAL IVPUSH SCH ×3 (01:46→17:31)
[2021-10-02] MEDS ORDERED: amLODIPine BESYLATE 5 MG TABLET (FP) PO ONE (04:36)
[2021-10-02] MEDS: HEPARIN NA (PORCINE) 5,000 UNITS/ML 1ML VIAL SQ SCH ×3 (05:06→21:32)
[2021-10-02] MEDS: ALBUTEROL SO4 0.083% IH SOL 2.5 MG/3 ML VIAL.NEB. NEB SCH ×4 (07:33→20:08)
[2021-10-02 08:47] LABS: BASO % 1.1 % (0-2.0); HEMATOCRIT 33.2 % (32.4-45.2); HEMOGLOBIN 11.6 GM/dL (10.7-15.3); MCH 29.6 pg (25.7-33.7); MCHC 34.9 g/dl (32.0-36.0); MEAN CELL VOLUME 84.9 fl (80-96); MEAN PLT VOLUME 7.4 fl (7.5-11.1); MONO % 2.2 % (3.8-10.2); NEUT % 82.7 % (42.8-82.8); PLATELET COUNT 168 10^3/uL (134-434); RBC 3.91 M/mm3 (3.60-5.2); RDW 16.9 % (11.6-15.6)
[2021-10-02 08:57] LABS: CALCIUM 8.3 mg/dL (8.5-10.1)
[2021-10-02 08:58] LABS: ALBUMIN 1.8 g/dl (3.4-5.0); BLOOD UREA NITROGEN 11.2 mg/dL (7-18)
[2021-10-02 09:02] LABS: BILIRUBIN,TOTAL 0.6 mg/dL (0.2-1); CREATININE 0.8 mg/dL (0.55-1.3); PHOSPHOROUS 3.3 mg/dL (2.5-4.9); TOT PROT 6.5 g/dl (6.4-8.2)
[2021-10-02 09:11] LABS: MAGNESIUM 1.9 mg/dL (1.8-2.4)
[2021-10-02] MEDS ORDERED: PT OWN MED DRAWER 7, Y5N ONE (10:28)
[2021-10-02] MEDS: FOLIC ACID 1 MG TABLET (FP) PO SCH (10:40)
[2021-10-02] MEDS: ALLOPURINOL 300 MG TABLET (FP) PO SCH (10:40)
[2021-10-02] MEDS: ASPIRIN 81 MG CHEWABLE TABLETS PO SCH (10:40)
[2021-10-02] MEDS: MULTIVITAMINS (DAILY MVI) TABLET (FP) PO SCH (10:40)
[2021-10-02] MEDS: FAMOTIDINE 40 MG TABLET PO SCH ×2 (10:40→21:32)
[2021-10-02] MEDS: LORATADINE 10 MG TABLET PO SCH (10:40)
[2021-10-02] MEDS: AMOX TR/POT CLAV 875MG/125MG TABLETS (FP) PO SCH ×2 (10:40→21:32)
[2021-10-02] MEDS: MAGNESIUM OXIDE 400 MG TABLET (FP) PO SCH (10:40)
[2021-10-02] MEDS: LOSARTAN POTASSIUM 25 MG TABLET PO SCH (10:40)
[2021-10-02] MEDS: CALCIUM 500MG/VIT-D 200 UNITS COMBO TABLET (FP) PO SCH (10:40)
[2021-10-02] MEDS: DIVALPROEX NA *ER* EXTEND REL 500 MG TABLET.SA (FP) PO SCH ×2 (10:41→21:32)
[2021-10-02] MEDS: rOPINIRole HCL 0.5 MG TABLET PO SCH ×2 (10:41→21:32)
[2021-10-02] MEDS: POLYETHYLENE GLYCOL (HEALTHYLAX) 3350 17 GM PACKET PO SCH (10:41)
[2021-10-02] MEDS: BUDESONIDE/FORMETEROL FUMARATE 160/4.5 mcg INHALER IH SCH ×2 (10:42→21:32)
[2021-10-02] MEDS: TIOTROPIUM BROMIDE 2.5 MCG (SPIRIVA) RESPIMAT INHALER IH SCH (10:43)
[2021-10-02] MEDS: MINERAL OIL/PET HY-PHL TOPICAL OINTMENT 454 GM JAR TP SCH ×2 (11:00→21:32)
[2021-10-02] MEDS: oxyCODONE HCL 5 MG TABLET PO PRN (18:29)
[2021-10-02] MEDS: SERTRALINE HCL 25 MG TABLET (FP) PO SCH (21:32)
[2021-10-02] MEDS: ATORVASTATIN CA 20 MG TABLET (FP) PO SCH (21:32)
[2021-10-03] MEDS: NYSTATIN 500,000 UNITS/5 ML SUSPENSION PO SCH ×5 (00:02→23:31)
[2021-10-03] MEDS: methylPREDNISolone NA SUCC 40 MG/1 ML VIAL IVPUSH SCH (01:40)
[2021-10-03] MEDS: HEPARIN NA (PORCINE) 5,000 UNITS/ML 1ML VIAL SQ SCH ×2 (05:00→15:34)
[2021-10-03 08:50] LABS: BASO % 0.1 % (0-2.0); HEMATOCRIT 32.2 % (32.4-45.2); HEMOGLOBIN 11.1 GM/dL (10.7-15.3); LYMPH % 11.2 % (8-40); MCH 29.6 pg (25.7-33.7); MCHC 34.4 g/dl (32.0-36.0); MEAN CELL VOLUME 86.2 fl (80-96); MEAN PLT VOLUME 8.2 fl (7.5-11.1); MONO % 2.6 % (3.8-10.2); NEUT % 86.1 % (42.8-82.8); PLATELET COUNT 193 10^3/uL (134-434); RBC 3.74 M/mm3 (3.60-5.2); RDW 16.6 % (11.6-15.6); WHITE BLOOD COUNT 7.8 K/mm3 (4.0-10.0)
[2021-10-03] MEDS: ALBUTEROL SO4 0.083% IH SOL 2.5 MG/3 ML VIAL.NEB. NEB SCH ×3 (08:57→20:02)
[2021-10-03 09:06] LABS: ALBUMIN 2.1 g/dl (3.4-5.0); CALCIUM 8.5 mg/dL (8.5-10.1)
[2021-10-03 09:07] LABS: BLOOD UREA NITROGEN 16.2 mg/dL (7-18)
[2021-10-03 09:10] LABS: CREATININE 0.9 mg/dL (0.55-1.3); MAGNESIUM 2.1 mg/dL (1.8-2.4)
[2021-10-03 09:11] LABS: BILIRUBIN,TOTAL 0.4 mg/dL (0.2-1); TOT PROT 6.8 g/dl (6.4-8.2)
[2021-10-03] MEDS ORDERED: PT OWN MED DRAWER 7, Y5N ONE ×4 (09:47→22:37)
[2021-10-03] MEDS: LORATADINE 10 MG TABLET PO SCH (09:49)
[2021-10-03] MEDS: ALLOPURINOL 300 MG TABLET (FP) PO SCH (09:50)
[2021-10-03] MEDS: MAGNESIUM OXIDE 400 MG TABLET (FP) PO SCH (09:50)
[2021-10-03] MEDS: CALCIUM 500MG/VIT-D 200 UNITS COMBO TABLET (FP) PO SCH (09:50)
[2021-10-03] MEDS: AMOX TR/POT CLAV 875MG/125MG TABLETS (FP) PO SCH ×2 (09:50→21:55)
[2021-10-03] MEDS: ASPIRIN 81 MG CHEWABLE TABLETS PO SCH (09:50)
[2021-10-03] MEDS: MULTIVITAMINS (DAILY MVI) TABLET (FP) PO SCH (09:50)
[2021-10-03] MEDS: MINERAL OIL/PET HY-PHL TOPICAL OINTMENT 454 GM JAR TP SCH ×2 (09:51→21:54)
[2021-10-03] MEDS: FOLIC ACID 1 MG TABLET (FP) PO SCH (09:51)
[2021-10-03] MEDS: POLYETHYLENE GLYCOL (HEALTHYLAX) 3350 17 GM PACKET PO SCH (09:51)
[2021-10-03] MEDS: DIVALPROEX NA *ER* EXTEND REL 500 MG TABLET.SA (FP) PO SCH ×2 (09:51→21:57)
[2021-10-03] MEDS: LOSARTAN POTASSIUM 25 MG TABLET PO SCH (09:51)
[2021-10-03] MEDS: TIOTROPIUM BROMIDE 2.5 MCG (SPIRIVA) RESPIMAT INHALER IH SCH (09:52)
[2021-10-03] MEDS: FAMOTIDINE 40 MG TABLET PO SCH ×2 (09:52→21:55)
[2021-10-03] MEDS: BUDESONIDE/FORMETEROL FUMARATE 160/4.5 mcg INHALER IH SCH ×2 (09:52→21:57)
[2021-10-03] MEDS: rOPINIRole HCL 0.5 MG TABLET PO SCH ×3 (09:52→21:57)
[2021-10-03] MEDS ORDERED: predniSONE 20 MG TABLET (UD) PO SCH (10:00)
[2021-10-03] MEDS: ATORVASTATIN CA 20 MG TABLET (FP) PO SCH (21:55)
[2021-10-03] MEDS: SERTRALINE HCL 25 MG TABLET (FP) PO SCH (21:59)
[2021-10-03] MEDS ORDERED: amLODIPine BESYLATE 5 MG TABLET (FP) PO ONE (23:07)
[2021-10-04] MEDS: NYSTATIN 500,000 UNITS/5 ML SUSPENSION PO SCH ×4 (05:31→23:32)
[2021-10-04] MEDS: ALBUTEROL SO4 0.083% IH SOL 2.5 MG/3 ML VIAL.NEB. NEB SCH ×3 (07:46→15:20)
[2021-10-04 09:22] LABS: BASO % 0.2 % (0-2.0); HEMATOCRIT 34.5 % (32.4-45.2); HEMOGLOBIN 11.7 GM/dL (10.7-15.3); LYMPH % 23.3 % (8-40); MCH 29.8 pg (25.7-33.7); MEAN CELL VOLUME 87.5 fl (80-96); MEAN PLT VOLUME 8.3 fl (7.5-11.1); MONO % 12.2 % (3.8-10.2); NEUT % 64.3 % (42.8-82.8); PLATELET COUNT 221 10^3/uL (134-434); RBC 3.94 M/mm3 (3.60-5.2); RDW 17.1 % (11.6-15.6); WHITE BLOOD COUNT 10.3 K/mm3 (4.0-10.0)
[2021-10-04 09:42] LABS: ALBUMIN 2.2 g/dl (3.4-5.0); BLOOD UREA NITROGEN 14.8 mg/dL (7-18); CALCIUM 8.7 mg/dL (8.5-10.1)
[2021-10-04 09:45] LABS: CREATININE 0.8 mg/dL (0.55-1.3); PHOSPHOROUS 2.3 mg/dL (2.5-4.9)
[2021-10-04 09:47] LABS: BILIRUBIN,TOTAL 0.5 mg/dL (0.2-1); TOT PROT 6.9 g/dl (6.4-8.2)
[2021-10-04] MEDS ORDERED: predniSONE 20 MG TABLET (UD) PO SCH (10:00)
[2021-10-04] MEDS: MINERAL OIL/PET HY-PHL TOPICAL OINTMENT 454 GM JAR TP SCH ×2 (10:06→23:32)
[2021-10-04] MEDS: ALLOPURINOL 300 MG TABLET (FP) PO SCH (10:07)
[2021-10-04] MEDS: MULTIVITAMINS (DAILY MVI) TABLET (FP) PO SCH (10:07)
[2021-10-04] MEDS: MAGNESIUM OXIDE 400 MG TABLET (FP) PO SCH ×2 (10:07→11:15)
[2021-10-04] MEDS: POLYETHYLENE GLYCOL (HEALTHYLAX) 3350 17 GM PACKET PO SCH (10:07)
[2021-10-04] MEDS: ASPIRIN 81 MG CHEWABLE TABLETS PO SCH (10:08)
[2021-10-04] MEDS: FAMOTIDINE 40 MG TABLET PO SCH ×2 (10:08→23:30)
[2021-10-04] MEDS: LORATADINE 10 MG TABLET PO SCH (10:08)
[2021-10-04] MEDS: LOSARTAN POTASSIUM 25 MG TABLET PO SCH (10:08)
[2021-10-04] MEDS: FOLIC ACID 1 MG TABLET (FP) PO SCH (10:08)
[2021-10-04] MEDS: AMOX TR/POT CLAV 875MG/125MG TABLETS (FP) PO SCH ×2 (10:08→23:30)
[2021-10-04] MEDS: CALCIUM 500MG/VIT-D 200 UNITS COMBO TABLET (FP) PO SCH (10:08)
[2021-10-04] MEDS: DIVALPROEX NA *ER* EXTEND REL 500 MG TABLET.SA (FP) PO SCH ×2 (10:09→23:32)
[2021-10-04] MEDS: BUDESONIDE/FORMETEROL FUMARATE 160/4.5 mcg INHALER IH SCH ×2 (10:10→23:32)
[2021-10-04] MEDS: TIOTROPIUM BROMIDE 2.5 MCG (SPIRIVA) RESPIMAT INHALER IH SCH (10:10)
[2021-10-04] MEDS: rOPINIRole HCL 0.5 MG TABLET PO SCH ×3 (10:10→23:31)
[2021-10-04] MEDS ORDERED: NAPH,MB-DB/K PH,MBDB POWDER PACKET PO ONE (10:24)
[2021-10-04] MEDS ORDERED: PT OWN MED DRAWER 7, Y5N ONE ×4 (10:44→23:24)
[2021-10-04] MEDS ORDERED: ALBUTEROL SO4 0.083% IH SOL 2.5 MG/3 ML VIAL.NEB. NEB SCH (17:45)
[2021-10-04] MEDS ORDERED: ALBUTEROL SO4 0.083% IH SOL 2.5 MG/3 ML VIAL.NEB. NEB PRN (17:47)
[2021-10-04] MEDS ORDERED: amLODIPine BESYLATE 5 MG TABLET (FP) PO SCH (21:16)
[2021-10-04] MEDS ORDERED: cloNIDine HCL 0.1 MG TABLET PO ONE (21:19)
[2021-10-04] MEDS: ATORVASTATIN CA 20 MG TABLET (FP) PO SCH (23:30)
[2021-10-04] MEDS: SERTRALINE HCL 25 MG TABLET (FP) PO SCH (23:31)
[2021-10-05] MEDS ORDERED: ACETAMINOPHEN 1000 MG/100 ML VIAL IVPB ONE (01:03)
[2021-10-05] MEDS: NYSTATIN 500,000 UNITS/5 ML SUSPENSION PO SCH ×4 (06:08→23:07)
[2021-10-05] MEDS ORDERED: cloNIDine HCL 0.1 MG TABLET PO ONE (06:23)
[2021-10-05] MEDS ORDERED: predniSONE 20 MG TABLET (UD) PO ONE (10:00)
[2021-10-05] MEDS: MINERAL OIL/PET HY-PHL TOPICAL OINTMENT 454 GM JAR TP SCH ×2 (10:18→22:03)
[2021-10-05] MEDS: FOLIC ACID 1 MG TABLET (FP) PO SCH (10:30)
[2021-10-05] MEDS: LORATADINE 10 MG TABLET PO SCH (10:30)
[2021-10-05] MEDS: MULTIVITAMINS (DAILY MVI) TABLET (FP) PO SCH (10:30)
[2021-10-05] MEDS: MAGNESIUM OXIDE 400 MG TABLET (FP) PO SCH (10:30)
[2021-10-05] MEDS: FAMOTIDINE 40 MG TABLET PO SCH ×2 (10:30→22:02)
[2021-10-05] MEDS: ALLOPURINOL 300 MG TABLET (FP) PO SCH (10:30)
[2021-10-05] MEDS: AMOX TR/POT CLAV 875MG/125MG TABLETS (FP) PO SCH ×2 (10:30→21:53)
[2021-10-05] MEDS: CALCIUM 500MG/VIT-D 200 UNITS COMBO TABLET (FP) PO SCH (10:30)
[2021-10-05] MEDS: ASPIRIN 81 MG CHEWABLE TABLETS PO SCH (10:30)
[2021-10-05] MEDS: LOSARTAN POTASSIUM 25 MG TABLET PO SCH (10:30)
[2021-10-05] MEDS: amLODIPine BESYLATE 10 MG TABLET (FP) PO SCH (10:30)
[2021-10-05] MEDS: POLYETHYLENE GLYCOL (HEALTHYLAX) 3350 17 GM PACKET PO SCH (10:31)
[2021-10-05] MEDS: DIVALPROEX NA *ER* EXTEND REL 500 MG TABLET.SA (FP) PO SCH ×2 (10:31→21:55)
[2021-10-05] MEDS: BUDESONIDE/FORMETEROL FUMARATE 160/4.5 mcg INHALER IH SCH ×2 (10:32→21:56)
[2021-10-05] MEDS: TIOTROPIUM BROMIDE 2.5 MCG (SPIRIVA) RESPIMAT INHALER IH SCH (10:32)
[2021-10-05] MEDS: rOPINIRole HCL 0.5 MG TABLET PO SCH ×2 (11:42→21:55)
[2021-10-05] MEDS: oxyCODONE HCL 5 MG TABLET PO PRN ×2 (11:44→23:07)
[2021-10-05 11:58] LABS: BASO % 1.1 % (0-2.0); EOS % 0.9 % (0-4.5); HEMATOCRIT 35.6 % (32.4-45.2); HEMOGLOBIN 12.2 GM/dL (10.7-15.3); LYMPH % 31.5 % (8-40); MCH 29.5 pg (25.7-33.7); MCHC 34.3 g/dl (32.0-36.0); MEAN CELL VOLUME 86.1 fl (80-96); MEAN PLT VOLUME 7.9 fl (7.5-11.1); MONO % 19.1 % (3.8-10.2); NEUT % 47.4 % (42.8-82.8); PLATELET COUNT 218 10^3/uL (134-434); RBC 4.14 M/mm3 (3.60-5.2); RDW 17.1 % (11.6-15.6); WHITE BLOOD COUNT 9.2 K/mm3 (4.0-10.0)
[2021-10-05 12:18] LABS: ALBUMIN 2.2 g/dl (3.4-5.0); CALCIUM 8.5 mg/dL (8.5-10.1)
[2021-10-05 12:19] LABS: BLOOD UREA NITROGEN 8.9 mg/dL (7-18); MAGNESIUM 1.8 mg/dL (1.8-2.4)
[2021-10-05 12:21] LABS: CREATININE 0.9 mg/dL (0.55-1.3)
[2021-10-05 12:22] LABS: PHOSPHOROUS 2.4 mg/dL (2.5-4.9)
[2021-10-05 12:23] LABS: BILIRUBIN,TOTAL 0.4 mg/dL (0.2-1); TOT PROT 6.7 g/dl (6.4-8.2)
[2021-10-05] MEDS ORDERED: NAPH,MB-DB/K PH,MBDB POWDER PACKET PO ONE (18:12)
[2021-10-05] MEDS ORDERED: amLODIPine BESYLATE 5 MG TABLET (FP) PO SCH (21:00)
[2021-10-05] MEDS: ENOXAPARIN NA (PORCINE) 40 MG/0.4 ML DISP.SYRIN SQ SCH (21:52)
[2021-10-05] MEDS: ATORVASTATIN CA 20 MG TABLET (FP) PO SCH (21:53)
[2021-10-05] MEDS: SERTRALINE HCL 25 MG TABLET (FP) PO SCH (22:02)
[2021-10-06] MEDS: oxyCODONE HCL 5 MG TABLET PO PRN (04:06)
[2021-10-06] MEDS: NYSTATIN 500,000 UNITS/5 ML SUSPENSION PO SCH ×3 (06:49→17:39)
[2021-10-06] MEDS: ASPIRIN 81 MG CHEWABLE TABLETS PO SCH (09:15)
[2021-10-06] MEDS: MINERAL OIL/PET HY-PHL TOPICAL OINTMENT 454 GM JAR TP SCH (09:15)
[2021-10-06] MEDS: FOLIC ACID 1 MG TABLET (FP) PO SCH (09:16)
[2021-10-06] MEDS: ALLOPURINOL 300 MG TABLET (FP) PO SCH (09:16)
[2021-10-06] MEDS: CALCIUM 500MG/VIT-D 200 UNITS COMBO TABLET (FP) PO SCH (09:16)
[2021-10-06] MEDS: LORATADINE 10 MG TABLET PO SCH (09:16)
[2021-10-06] MEDS: LOSARTAN POTASSIUM 25 MG TABLET PO SCH (09:16)
[2021-10-06] MEDS: MAGNESIUM OXIDE 400 MG TABLET (FP) PO SCH (09:16)
[2021-10-06] MEDS: MULTIVITAMINS (DAILY MVI) TABLET (FP) PO SCH (09:16)
[2021-10-06] MEDS: FAMOTIDINE 40 MG TABLET PO SCH (09:16)
[2021-10-06] MEDS: POLYETHYLENE GLYCOL (HEALTHYLAX) 3350 17 GM PACKET PO SCH (09:16)
[2021-10-06] MEDS: AMOX TR/POT CLAV 875MG/125MG TABLETS (FP) PO SCH ×2 (09:16→21:18)
[2021-10-06] MEDS: ENOXAPARIN NA (PORCINE) 40 MG/0.4 ML DISP.SYRIN SQ SCH (09:17)
[2021-10-06] MEDS: amLODIPine BESYLATE 10 MG TABLET (FP) PO SCH (09:17)
[2021-10-06] MEDS: DIVALPROEX NA *ER* EXTEND REL 500 MG TABLET.SA (FP) PO SCH (09:17)
[2021-10-06] MEDS: BUDESONIDE/FORMETEROL FUMARATE 160/4.5 mcg INHALER IH SCH (09:18)
[2021-10-06] MEDS: rOPINIRole HCL 0.5 MG TABLET PO SCH (09:19)
[2021-10-06 09:36] LABS: BASO % 0.4 % (0-2.0); EOS % 2.2 % (0-4.5); HEMATOCRIT 43.7 % (32.4-45.2); HEMOGLOBIN 14.8 GM/dL (10.7-15.3); LYMPH % 33.6 % (8-40); MCH 29.7 pg (25.7-33.7); MCHC 33.8 g/dl (32.0-36.0); MEAN PLT VOLUME 7.6 fl (7.5-11.1); MONO % 18.6 % (3.8-10.2); NEUT % 45.2 % (42.8-82.8); PLATELET COUNT 263 10^3/uL (134-434); RBC 4.97 M/mm3 (3.60-5.2); RDW 17.3 % (11.6-15.6); WHITE BLOOD COUNT 9.8 K/mm3 (4.0-10.0)
[2021-10-06 10:00] LABS: CALCIUM 8.9 mg/dL (8.5-10.1); MAGNESIUM 1.9 mg/dL (1.8-2.4)
[2021-10-06] MEDS ORDERED: predniSONE 5 MG TABLET (UD) PO ONE (10:00)
[2021-10-06 10:01] LABS: ALBUMIN 2.6 g/dl (3.4-5.0)
[2021-10-06 10:04] LABS: CREATININE 0.9 mg/dL (0.55-1.3); PHOSPHOROUS 2.6 mg/dL (2.5-4.9)
[2021-10-06 10:05] LABS: BILIRUBIN,TOTAL 0.7 mg/dL (0.2-1); TOT PROT 7.8 g/dl (6.4-8.2)
[2021-10-06] MEDS ORDERED: DEXTROSE 50%-WATER - 25 GM/50 ML VIAL IVPUSH ONE (10:22)
[2021-10-06] MEDS ORDERED: oxyCODONE HCL 5 MG TABLET PO PRN (12:54)
[2021-10-06] MEDS: TIOTROPIUM BROMIDE 2.5 MCG (SPIRIVA) RESPIMAT INHALER IH SCH (14:26)
[2021-10-06 14:58] VITALS: BP 121/78; PULSE 120; TEMP 98
[2021-10-06] MEDS ORDERED: INSULIN (NOVOLOG) ASPART 100 UNITS/ML 10ML VIAL ONE (18:16)
== END 2021-10-06 21:21 | disposition home or self-care (01) | DRG 812 ==
LOC: JER 15:50 → JERBED 20:38 → J8W 09-27 03:09
PROVIDERS: ATTEND Internal Medicine
DX: T40.2X1A Poisoning by other opioids, accidental (unintentional), initial encounter (principal); I73.9 Peripheral vascular disease, unspecified; J44.9 Chronic obstructive pulmonary disease, unspecified; G92.8 Other toxic encephalopathy; Z99.81 Dependence on supplemental oxygen; I12.9 Hypertensive chronic kidney disease with stage 1 through stage 4 chronic kidney disease, or unspecified chronic kidney disease; N18.30 Chronic kidney disease, stage 3 unspecified; E03.9 Hypothyroidism, unspecified; Z86.16 Personal history of COVID-19; E66.01 Morbid (severe) obesity due to excess calories; Z68.41 Body mass index [BMI] 40.0-44.9, adult; N17.9 Acute kidney failure, unspecified; G40.909 Epilepsy, unspecified, not intractable, without status epilepticus; F32.A Depression, unspecified; I25.10 Atherosclerotic heart disease of native coronary artery without angina pectoris; Y92.89 Other specified places as the place of occurrence of the external cause; I89.0 Lymphedema, not elsewhere classified; M10.9 Gout, unspecified; J96.11 Chronic respiratory failure with hypoxia; E86.1 Hypovolemia; F25.9 Schizoaffective disorder, unspecified; E83.42 Hypomagnesemia; J18.9 Pneumonia, unspecified organism; E83.39 Other disorders of phosphorus metabolism; F11.10 Opioid abuse, uncomplicated; R19.7 Diarrhea, unspecified
CPT/HCPCS: 36415; 36600; 70450-TC; 71045-TC-FY; 74176-TC; 80048; 80053; 80061; 80307; 81003; 82550; 82570; 82803; 82962; 83735; 84100; 84156; 84300; 84443; 84484; 85025; 85730; 86850; 86870; 86900; 86901; 86902; 87086; 87186; 87804; 87807; 87899; 93005; 93010; 93970-TC; 94640; 94761; 97116-GP; 97161-GP; 99285-25; C9803; J0131; J0735; J1644; U0003; U0005